=== PATIENT | female | born 1945 | race Caucasian/White ===

== ENCOUNTER 2016-09-28 14:45 | Emergency (ER) | payer MEDICARE, OTHER ==
[2016-09-28 15:10] VITALS: BP 116/68; PULSE 77; TEMP 98.4; BMI 30.2
--- NOTE | 2016-09-28 15:38 | PDOC ---
History of Present Illness - General Chief Complaint: Injury Stated Complaint: RIGHT FINGER INJURY Time Seen by Provider: 09/28/16 15:11 History Source: Patient Exam Limitations: No Limitations - History of Present Illness Initial Comments: 09/28/16 15:28 This is a 71yo right handed woman with PMH CAD with stent x4, DM and hypothyroidism who presents with pain and swelling to pad of DIP on right 3rd digit progressing over 6 days s/p striking digit on a door on 09/22. She reports she tried to go out of a door when it was opened from the opposite side and struck the distal tip. Since that time, the pain and swelling has progressed. She states this morning, there was a discharge from the distal tip. She then stuck a needle into the swelling which expressed nothing. No erythema or streaking present. 09/28/16 15:47 Timing/Duration: getting worse Severity: moderate Past History - Past Medical History Allergies/Adverse Reactions: Allergies Allergy/AdvReac Type Severity Reaction Status Date / Time No Known Drug Allergies Allergy Unknown Verified 09/28/16 14:59 CLAMS Allergy Vomiting Uncoded 09/28/16 14:59 Home Medications: Ambulatory Orders Metoprolol Tartrate [Lopressor -] 25 mg PO DAILY #1 tab 12/17/11 Losartan Potassium 25 mg PO DAILY 11/03/13 Albuterol Sulfate Inhaler - [Ventolin HFA Inhaler -] 1 - 2 inh PO ASDIR Aspirin [ASA -] 81 mg PO DAILY 03/15/15 Esomeprazole Mag Trihydrate [Nexium] 40 mg PO DAILY 03/15/15 Levothyroxine [Synthroid -] 25 mcg PO DAILY 03/15/15 Metformin HCl 500 mg PO BID 03/15/15 Prasugrel Hydrochloride [Effient -] 10 mg PO DAILY 03/15/15 Rosuvastatin Calcium [Crestor] 5 mg PO DAILY 03/15/15 Sitagliptin Phosphate [Januvia -] 100 mg PO DAILY 03/15/15 Amoxicillin - [Amoxicillin 500mg Capsule -] 500 mg PO TID #18 capsule 03/18/15 Azithromycin 250 mg PO DAILY #1 tablet 03/18/15 Budesonide/Formeterol Fumarate [SYMBICORT 160/4.5mcg -] 1 puff IH BID #3 inhaler 03/18/15 Prednisone 10 mg PO DAILY #30 tablet 03/18/15 Cefuroxime Axetil [Ceftin -] 500 mg PO Q12H #40 tablet 09/28/16 Anemia: No Asthma: Yes Cancer: No Cardiac Disorders: Yes ([place]) CVA: No COPD: No CHF: No Dementia: No Diabetes: Yes (non insulin dep) GI Disorders: No Disorders: No HTN: Yes Hypercholesterolemia: Yes Liver Disease: No Seizures: No Thyroid Disease: No - Surgical History Abdominal Surgery: No Appendectomy: No Cardiac Surgery: Yes (3 CARDIAC STENTS) Cholecystectomy: No Lung Surgery: No Neurologic Surgery: No Orthopedic Surgery: No - Psycho/Social/Smoking Cessation Hx Anxiety: No Suicidal Ideation: No Smoking Status: Yes Smoking History: Never smoked Years of Tobacco Use: 20 Have you smoked in the past 12 months: No Number of Cigarettes Smoked Daily: 0 If you are a former smoker, when did you quit?: 12 years ago Information on smoking cessation initiated: No Hx Alcohol Use: No Drug/Substance Use Hx: No Substance Use Type: None Hx Substance Use Treatment: No Review of Systems - Review of Systems Able to Perform ROS?: Yes Is the patient limited Taiwanese proficient: No Constitutional: No: Symptoms Reported HEENTM: No: Symptoms Reported Respiratory: No: Symptoms reported Cardiac (ROS): No: Symptoms Reported ABD/GI: No: Symptoms Reported : No: Symptoms Reported Musculoskeletal: Yes: See HPI Integumentary: No: Symptoms Reported Neurological: No: Symptoms reported *Physical Exam - Vital Signs Last Vital Signs Temp Pulse Resp BP Pulse Ox 98.4 F 77 18 116/68 97 09/28/16 14:59 09/28/16 14:59 09/28/16 14:59 09/28/16 14:59 09/28/16 14:59 - Physical Exam General Appearance: Yes: Appropriately Dressed. No: Apparent Distress HEENT: positive: MICHAEL. negative: Normal ENT Inspection Neck: positive: Trachea midline, Supple Cardiovascular: positive: Regular Rhythm, Regular Rate, S1, S2 Gastrointestinal/Abdominal: positive: Normal Bowel Sounds, Soft. negative: Tender, Organomegaly Musculoskeletal: positive: Normal Inspection. negative: CVA Tenderness Extremity: positive: Tender (right 3rd digit swelling which is tender to palpation on the pad of the finger), Swelling (right 3rd digit swelling which is tender to palpation on the pad of the finger) Integumentary: positive: Normal Color, Dry, Warm Neurologic: positive: pay per click strategist II-XII NML intact, Fully Oriented, Alert Procedures - Incision and Drainage I&D Site: Right: Other (felon to distal tip 3rd digit on the volar aspect) Betadine cleansed: Yes Anesthesia: 2% Lidocaine Volume(ml): 5 Blade Size: 11 Attempts: 1 Plain Packing: No Complications: none Dressing: Yes (dry sterile) Progress: 09/28/16 19:55 pus and blood expressed from site. ED Treatment Course - RADIOLOGY Radiology Studies Ordered: Category Date Time Status FINGER(S) RIGHT [RAD] Stat Radiology 09/28/16 15:23 Ordered Medical Decision Making - Medical Decision Making 09/28/16 15:44 A: This is a 71yo right handed woman with PMH CAD with stent x4, DM and hypothyroidism who presents with pain and swelling to pad of DIP on right 3rd digit progressing over 6 days s/p striking digit on a door on 09/22. She reports she tried to go out of a door when it was opened from the opposite side and struck the distal tip. Since that time, the pain and swelling has progressed. She states this morning, there was a discharge from the distal tip. She then stuck a needle into the swelling which expressed nothing. No erythema or streaking present. P: DDX include felon, osteomyelitis, fracture - x ray finger - Tylenol 1000mg now - ortho consult 09/28/16 18:12 Xray of right 3rd digit wet read- No acute fracture present. 09/28/16 19:53 case d/w Dr. Padilla. He recommends to I&D here and abx. *DC/Admit/Observation/Transfer Diagnosis at time of Disposition: Felon of finger of right hand - Discharge Dispostion Disposition: HOME Condition at time of disposition: Stable Admit: No - Prescriptions Prescriptions: Cefuroxime Axetil [Ceftin -] 500 mg PO Q12H #40 tablet - Referrals Referrals: Arlette Castro MD [Primary Care Provider] - - Patient Instructions Printed Discharge Instructions: Roddy Additional Instructions: Take Ceftin 500mg 2x every day until all medication is finished. Keep dressing dry for 2 days. Use bacitracin to wound as needed after 2 days. Keep well hydrated. Follow up with Dr. Castro in 2 days. Return to ER for worsening pain, swelling, redness, fever or chills.
[2016-09-28] MEDS ORDERED: ACETAMINOPHEN 500 MG TABLET (FP) PO ONE (15:50)
[2016-09-28] MEDS ORDERED: ACETAMINOPHEN 325 MG TABLET (FP) ONE (15:55)
== END 2016-09-28 20:10 | disposition home or self-care (01) ==
LOC: JERFT 14:45
PROC: 0H9FXZZ Drainage of Right Hand Skin, External Approach (ICD-10-PCS; principal; 2016-09-28)
DX: L03.011 Cellulitis of right finger (principal); E11.9 Type 2 diabetes mellitus without complications; E03.9 Hypothyroidism, unspecified; W20.8XXA Other cause of strike by thrown, projected or falling object, initial encounter; Y93.89 Activity, other specified; Y92.9 Unspecified place or not applicable
CPT/HCPCS: 10140; 73140-TC-RT; 99281-25

== ENCOUNTER 2016-11-01 15:42 | Emergency (ER) | payer MEDICARE, OTHER ==
[2016-11-01 15:56] VITALS: BMI 31.4
[2016-11-01] MEDS ORDERED: SODIUM CHLORIDE 1,000 ML IV STA (16:21)
--- NOTE | 2016-11-01 16:26 | PDOC ---
History of Present Illness - General History Source: Patient Exam Limitations: No Limitations - History of Present Illness Initial Comments: 11/01/16 17:07 The patient is a 71 year old female with a significant past medical history of HTN, DM, HLD, CAD s/p stents x 4 who presents to the ED, sent by PMD, for 3 days of dizziness. The patient reports intermittent lightheadedness that is worsened when she bends down. Patient also reports non radiating mid sternal intermittent chest pain lasting 1 second before residing associated with present symptoms. Patient reports she had an appointment with her PMD earlier today and was sent to the ED for high blood pressure, abnormal ECG, and a UTI. Patient states she regularly takes a baby aspirin on a daily basis but denies taking it today. Denies fevers or chills. Denies shortness of breath or palpitations. Denies dysuria or changes in urinary output. Denies any other symptoms. <Jagjit Warner - Last Filed: 11/01/16 17:58> - General History Source: Patient Exam Limitations: No Limitations <Christian Miner - Last Filed: 11/01/16 18:41> - General Chief Complaint: Chest Pain Stated Complaint: ABNORMAL EKG Time Seen by Provider: 11/01/16 16:04 Past History <Jagjit Warner - Last Filed: 11/01/16 17:58> - Past Medical History Anemia: No Asthma: Yes Cancer: No Cardiac Disorders: Yes ([place]) CVA: No COPD: No CHF: No Dementia: No Diabetes: Yes (non insulin dep) GI Disorders: No Disorders: No HTN: Yes Hypercholesterolemia: Yes Liver Disease: No Seizures: No Thyroid Disease: No - Surgical History Abdominal Surgery: No Appendectomy: No Cardiac Surgery: Yes (3 CARDIAC STENTS) Cholecystectomy: No Lung Surgery: No Neurologic Surgery: No Orthopedic Surgery: No - Psycho/Social/Smoking Cessation Hx Anxiety: No Suicidal Ideation: No Smoking Status: Yes Smoking History: Former smoker Years of Tobacco Use: 20 Have you smoked in the past 12 months: No Number of Cigarettes Smoked Daily: 0 If you are a former smoker, when did you quit?: 12 years ago Information on smoking cessation initiated: No Hx Alcohol Use: No Drug/Substance Use Hx: No Substance Use Type: None Hx Substance Use Treatment: No <Christian Miner - Last Filed: 11/01/16 18:41> - Past Medical History Allergies/Adverse Reactions: Allergies Allergy/AdvReac Type Severity Reaction Status Date / Time No Known Drug Allergies Allergy Unknown Verified 09/28/16 14:59 CLAMS Allergy Vomiting Uncoded 09/28/16 14:59 Home Medications: Ambulatory Orders Metoprolol Tartrate [Lopressor -] 25 mg PO DAILY #1 tab 12/17/11 Losartan Potassium 25 mg PO DAILY 11/03/13 Albuterol Sulfate Inhaler - [Ventolin HFA Inhaler -] 1 - 2 inh PO ASDIR Aspirin [ASA -] 81 mg PO DAILY 03/15/15 Esomeprazole Mag Trihydrate [Nexium] 40 mg PO DAILY 03/15/15 Levothyroxine [Synthroid -] 25 mcg PO DAILY 03/15/15 Metformin HCl 500 mg PO BID 03/15/15 Prasugrel Hydrochloride [Effient -] 10 mg PO DAILY 03/15/15 Rosuvastatin Calcium [Crestor] 5 mg PO DAILY 03/15/15 Sitagliptin Phosphate [Januvia -] 100 mg PO DAILY 03/15/15 Budesonide/Formeterol Fumarate [SYMBICORT 160/4.5mcg -] 1 puff IH BID #3 inhaler 03/18/15 Cefuroxime Axetil [Ceftin -] 500 mg PO Q12H #40 tablet 09/28/16 Cephalexin [Keflex] 500 mg PO BID #14 capsule 11/01/16 Review of Systems - Review of Systems Able to Perform ROS?: Yes Comments:: 11/01/16 17:08 GENERAL/CONSTITUTIONAL: No fever or chills. No weakness. HEAD, EYES, EARS, NOSE AND THROAT: No change in vision. No ear pain or discharge. No sore throat. CARDIOVASCULAR: + chest pain. No shortness of breath. RESPIRATORY: No cough, wheezing, or hemoptysis. GASTROINTESTINAL: No nausea, vomiting, diarrhea or constipation. GENITOURINARY: No dysuria, frequency, or change in urination. MUSCULOSKELETAL: No joint or muscle swelling or pain. No neck or back pain. SKIN: No rash NEUROLOGIC:+ lightheadedness, dizziness. No headache, vertigo, loss of consciousness, or change in strength/sensation. ENDOCRINE: No increased thirst. No abnormal weight change. HEMATOLOGIC/LYMPHATIC: No anemia, easy bleeding, or history of blood clots. ALLERGIC/IMMUNOLOGIC: No hives or skin allergy. All Other Systems: Reviewed and Negative <Jagjit Warner - Last Filed: 11/01/16 17:58> *Physical Exam - Vital Signs Last Vital Signs Temp Pulse Resp BP Pulse Ox 98.4 F 68 20 137/55 98 11/01/16 15:44 11/01/16 15:44 11/01/16 15:44 11/01/16 15:44 11/01/16 15:44 - Physical Exam Comments: 11/01/16 17:08 GENERAL: Awake, alert, and fully oriented, in no acute distress HEAD: No signs of trauma EYES: PERRLA, EOMI, sclera anicteric, conjunctiva clear ENT: Auricles normal inspection, hearing grossly normal, nares patent, oropharynx clear without exudates. Moist mucosa NECK: Normal ROM, supple, no lymphadenopathy, JVD, or masses LUNGS: Breath sounds equal, clear to auscultation bilaterally. No wheezes, and no crackles HEART: Regular rate and rhythm, normal S1 and S2, no murmurs, rubs or gallops ABDOMEN: Soft, nontender, normoactive bowel sounds. No guarding, no rebound. No masses EXTREMITIES: Normal range of motion, no edema. No clubbing or cyanosis. No cords, erythema, or tenderness NEUROLOGICAL: Normal speech SKIN: Warm, Dry, normal turgor, no rashes or lesions noted. <Jagjit Warner - Last Filed: 11/01/16 17:58> - Vital Signs Last Vital Signs Temp Pulse Resp BP Pulse Ox 98.4 F 68 20 137/55 98 11/01/16 15:44 11/01/16 15:44 11/01/16 15:44 11/01/16 15:44 11/01/16 15:44 <Christian Miner - Last Filed: 11/01/16 18:41> Heart Score/ECG Review - History History: Slightly suspicious - Electrocardiogram EKG: Non specific repolarization disturbance - Age Age: >/= 65 - Risk Factors Based on the list above the patient has:: >/=3 risk factors or Hx atherosclerotic disease #1 ECG reviewed & interpreted by me at: 16:00 11/01/16 16:28 NSR 74, Q wave III, aVF, TWI III, no std/sidney, QTC 452 msec <Christian Miner - Last Filed: 11/01/16 18:41> ED Treatment Course - LABORATORY CBC & Chemistry Diagram: 11/01/16 16:25 11/01/16 16:25 - ADDITIONAL ORDERS Additional order review: Laboratory Results 11/01/16 16:25 INR 0.99 PTT (Actin FS) 28.5 11/01/16 16:25 RBC 4.97 MCV 88.6 MCHC 34.3 RDW 12.8 MPV 7.3 L Neutrophils % 65.6 D Lymphocytes % 20.6 D Monocytes % 9.5 Eosinophils % 2.9 D Basophils % 1.4 D <Jagjit Warner - Last Filed: 11/01/16 17:58> - LABORATORY CBC & Chemistry Diagram: 11/01/16 16:25 11/01/16 16:25 <Christian Miner - Last Filed: 11/01/16 18:41> Medical Decision Making - Medical Decision Making 11/01/16 17:[address] Castro at 17:58 <Jagjit Warner - Last Filed: 11/01/16 17:58> - Medical Decision Making 11/01/16 16:23 A portion of this note was written by my scribe, under my supervision. Vital Signs Temp Pulse Resp BP Pulse Ox 98.4 F 68 20 137/55 98 11/01/16 15:44 11/01/16 15:44 11/01/16 15:44 11/01/16 15:44 11/01/16 15:44 71 year old F c/ hx of asthma, HTN, DM, HLD, CAD s/p 4 cardiac stents sent in for dizziness and abnormal ECG. The patient reports 3 days of intermittent lightheadedness worsened with bending. Denied SOB, diaphoresis, nausea, and vomiting. Does states that she has been having intermittent 1 second episode of sharp midsternal chest pain with no radiation several times a day. Denies exertional component. Denies recent illnesses. Went to visit Dr. Citlaly Castro who diagnosed pt with UTI. Noted the low BP and sent the pt to the ER. This could potentially be an UTI causing these symptoms. Though the chest pain is atypical in diagnosis, with a history of cardiac disease, will need to send troponin. Will obtain a UA and labs including troponin. ECG is notable for Q wave in III, aVF. Will give IV fluids and reassess. 11/01/16 18:33 CBC, BMP 11/01/16 16:25 11/01/16 16:25 CMP Sodium 138 mmol/L (136-145) 11/01/16 16:25 Potassium 3.9 mmol/L (3.5-5.1) 11/01/16 16:25 Chloride 105 mmol/L (98-107) 11/01/16 16:25 Carbon Dioxide 24 mmol/L (21-32) 11/01/16 16:25 Anion Gap 9 (8-16) 11/01/16 16:25 BUN 11 mg/dL (7-18) 11/01/16 16:25 Creatinine 0.5 mg/dL (0.55-1.02) L D 11/01/16 16:25 Creat Clearance w eGFR > 60 (>60) 11/01/16 16:25 Random Glucose 225 mg/dL (74-106) H D 11/01/16 16:25 Calcium 8.5 mg/dL (8.5-10.1) 11/01/16 16:25 Magnesium 2.1 mg/dL (1.8-2.4) 11/01/16 16:25 Total Bilirubin 0.5 mg/dL (0.2-1.0) D 11/01/16 16:25 AST 19 U/L (15-37) D 11/01/16 16:25 ALT 23 U/L (12-78) D 11/01/16 16:25 Alkaline Phosphatase 45 U/L (45-117) 11/01/16 16:25 Creatine Kinase 58 IU/L (26-192) 11/01/16 16:25 Troponin I < 0.02 ng/ml (0.00-0.05) 11/01/16 16:25 Total Protein 6.5 g/dl (6.4-8.2) 11/01/16 16:25 Albumin 3.2 g/dl (3.4-5.0) L 11/01/16 16:25 ECG is unchanged. UA positive for infection. Microbiology reviewed. Ceftriaxone ordered. I discussed the case with the nurse practitioner from 's office. She was concerned that the patient was not taking her diabetes medication and had an elevated hemoglobin A1c of 15. However, the nurse practitioner noted the Q waves. However, Q waves are old and unchanged. Patient has a very atypical chest pain and a negative troponin. I have low suspicion for acute coronary syndrome at this time. However, I had advised the patient that she should take her diabetes medications. I suspect the patient's lightheadedness is secondary to urinary tract infection. Her blood pressures were stable. Patient is stable and discuss to go home. I feel the patient is okay to go home. I discussed the physical exam findings, ancillary test results and final diagnoses with the patient. I answered all of the patient's questions. The patient was satisfied with the care received and felt comfortable with the discharge plan and treatment plan. The patient will call their primary care physician within 24 hours to arrange follow-up and will return to the Emergency Department with any new, persistant or worsening symptoms. I had spoke <Christian Miner - Last Filed: 11/01/16 18:41> *DC/Admit/Observation/Transfer - Attestations Scribe Attestion: 11/01/16 17:08 Documentation prepared by Jagjit Warner, acting as medical billing and coding instructor for Christian Miner MD <Jagjit Warner - Last Filed: 11/01/16 17:58> - Discharge Dispostion Admit: No <Christian Miner - Last Filed: 11/01/16 18:41> Diagnosis at time of Disposition: UTI (urinary tract infection) Qualifiers: Urinary tract infection type: site unspecified Hematuria presence: without hematuria Qualified Code(s): N39.0 - Urinary tract infection, site not specified - Discharge Dispostion Disposition: HOME Condition at time of disposition: Improved - Prescriptions Prescriptions: Cephalexin [Keflex] 500 mg PO BID #14 capsule - Referrals Referrals: Arlette Castro MD [Primary Care Provider] - - Patient Instructions Printed Discharge Instructions: DI for Urinary Tract Infection (UTI) Additional Instructions: Start your antibiotics tomorrow at 11/02. Start keflex 500 mg every 12 hours for the next 7 days. Drink plenty of fluids and rest. Follow up with your doctor. Print Language: MALAY
[2016-11-01 16:33] LABS: BASOPHIL 1.4 % (0-2.0); EOSINOPHIL 2.9 % (0-4.5); MCH 30.4 pg (25.7-33.7); MCHC 34.3 g/dl (32.0-36.0); MEAN CELL VOLUME 88.6 fl (80-96); MEAN PLT VOLUME 7.3 fl (7.5-11.1); NEUTROPHILS 65.6 % (42.8-82.8); PLATELET COUNT 197 K/MM3 (134-434); RDW 12.8 % (11.6-15.6); WHITE BLOOD COUNT 4.6 K/mm3 (4.0-10.0)
[2016-11-01 16:46] LABS: INR 0.99 (0.82-1.09); PROTHROMBIN TIME (PATIENT) 10.9 SEC (9.98-11.88)
[2016-11-01 16:49] LABS: ACTIVATED PTT 28.5 SECONDS (26.9-34.4)
[2016-11-01 17:10] LABS: ALBUMIN 3.2 g/dl (3.4-5.0); ANION GAP 9 (8-16); CALCIUM 8.5 mg/dL (8.5-10.1); CO2 24 mmol/L (21-32); GLUCOSE,RANDOM 225 mg/dL (74-106); SGPT/ALT 23 U/L (12-78)
[2016-11-01 17:15] LABS: ALK PHOS 45 U/L (45-117); BILIRUBIN,TOTAL 0.5 mg/dL (0.2-1.0); CPK 58 IU/L (26-192); CREATININE 0.5 mg/dL (0.55-1.02); TOT PROT 6.5 g/dl (6.4-8.2); TROPONIN I < 0.02 ng/ml (0.00-0.05)
[2016-11-01 17:16] LABS: MAGNESIUM 2.1 mg/dL (1.8-2.4); SGOT/AST 19 U/L (15-37)
[2016-11-01 17:21] LABS: URINE APPEARANCE CLEAR; URINE BILIRUBIN NEGATIVE (NEGATIVE); URINE BLOOD NEGATIVE (NEGATIVE); URINE COLOR LT. YELLOW; URINE GLUCOSE (UA) 2+ (NEGATIVE); URINE KETONE NEGATIVE (NEGATIVE); URINE PROTEIN NEGATIVE (NEGATIVE); URINE UROBILINOGEN 0.2 mg/dL (0.2-1.0)
[2016-11-01 17:42] LABS: URINE LEUK ESTERASE 1+ (NEGATIVE); URINE NITRITE POSITIVE (NEGATIVE)
[2016-11-01] MEDS ORDERED: CEFTRIAXONE 1 GM in DEXTROSE 5%-WATER - 50 ML IVPB ONE (17:48)
[2016-11-01] MEDS ORDERED: CEFTRIAXONE 50 ML ONE (18:19)
[2016-11-01 18:25] LABS: URINE BACTERIA RARE /hpf (NONE SEEN); URINE MUCUS RARE; URINE RBC 1 /hpf (0-3); URINE WBC 7 /hpf (3-5)
[2016-11-01 18:38] VITALS: BP 141/74; PULSE 87; TEMP 98
--- NOTE | 2016-11-02 10:26 | EKG ---
Test Reason : Blood Pressure : / mmHG Vent. Rate : 074 BPM Atrial Rate : 074 BPM P-R Int : 146 ms QRS Dur : 080 ms QT Int : 408 ms P-R-T Axes : 052 -18 -04 degrees QTc Int : 452 ms NORMAL SINUS RHYTHM INFERIOR INFARCT (CITED ON OR BEFORE 29-SEP-2011) NONSPECIFIC ST ABNORMALITY Confirmed by PHYLLIS VALDES MD ([id number]) on 11/02/2016 10:25:41 AM Referred By: Confirmed By:PHYLLIS VALDES MD
== END 2016-11-01 19:13 | disposition home or self-care (01) ==
LOC: JER 15:42
PROC: 3E03329 Introduction of Other Anti-infective into Peripheral Vein, Percutaneous Approach (ICD-10-PCS; principal; 2016-11-01)
PROC: 3E0337Z Introduction of Electrolytic and Water Balance Substance into Peripheral Vein, Percutaneous Approach (ICD-10-PCS; 2016-11-01)
DX: N39.0 Urinary tract infection, site not specified (principal); I10 Essential (primary) hypertension; I25.10 Atherosclerotic heart disease of native coronary artery without angina pectoris; E11.9 Type 2 diabetes mellitus without complications; Z95.5 Presence of coronary angioplasty implant and graft; J45.909 Unspecified asthma, uncomplicated; Z87.891 Personal history of nicotine dependence; Z91.013 Allergy to seafood; Z79.82 Long term (current) use of aspirin; Z79.84 Long term (current) use of oral hypoglycemic drugs
CPT/HCPCS: 36415; 80053; 81003; 81015; 83735; 84484; 85025; 85610; 85730; 87086; 87186; 93005; 93010; 99284-25

== ENCOUNTER 2017-10-04 02:23 | Inpatient (IN) | payer MEDICARE, OTHER ==
--- NOTE | 2017-10-04 02:33 | PDOC ---
Attending Attestation - [facility] HPI: 10/04/17 02:47 The patient is a 72 year old female, with a significant PMH of HTN, DM, HLD, CAD s/p stents x 4 who presents to the emergency department with one day of left sided chest pain. The patient states she has had progressively worsening left sided chest pain over the past 24 hours which is worsened with inspiration. The patient denies history of PE. The patient denies any recent travel. She denies any recent palpitations or leg swelling. The patient also endorses mild dysuria. The patient denies shortness of breath, headache and dizziness. Denies fever, chills, nausea, vomit, diarrhea and constipation. Denies frequency, urgency and hematuria. Allergies: NKA - Physicial Exam PE: 10/04/17 02:47 GENERAL: Well developed, well nourished. Awake and alert. No acute distress. HEENT: Normocephalic, atraumatic. PERRLA, EOMI. No conjunctival pallor. Sclera are non- icteric. Moist mucous membranes. Oropharynx is clear. NECK: Supple. Full ROM. No JVD. Carotid pulses 2+ and symmetric, without bruits. No thyromegaly. No lymphadenopathy. CARDIOVASCULAR: Regular rate and rhythm. No murmurs, rubs, or gallops. Distal pulses are 2+ and symmetric. PULMONARY: No evidence of respiratory distress. Lungs clear to auscultation bilaterally. No wheezing, rales or rhonchi. ABDOMINAL: Soft. Non-tender. Non-distended. No rebound or guarding. No organomegaly. Normoactive bowel sounds. MUSCULOSKELETAL Normal range of motion at all joints. No bony deformities or tenderness. No CVA tenderness. EXTREMITIES: No cyanosis. No clubbing. No edema. No calf tenderness. SKIN: Warm and dry. Normal capillary refill. No rashes. No jaundice. NEUROLOGICAL: Alert, awake, appropriate. Cranial nerves 2-12 intact. No deficits to light touch and temperature in face, upper extremities and lower extremities. No motor deficits in the in face, upper extremities and lower extremities. Normoreflexic in the upper and lower extremities. Normal speech. Toes are down- going bilaterally. Gait is normal without ataxia. PSYCHIATRIC: Cooperative. Good eye contact. Appropriate mood and affect. <Bryan Vences - Last Filed: 10/04/17 02:47> - Resident Resident Name: OsmarFransico osman - ED Attending Attestation I have performed the following: I have examined & evaluated the patient, The case was reviewed & discussed with the resident, I agree w/resident's findings & plan, Exceptions are as noted - Medical Decision Making 10/07/17 19:30 Pt was admitted for further evaluation and care <Yanick Cameron - Last Filed: 10/07/17 19:31> Attestations - Attestations 10/04/17 02:48 Documentation prepared by Bryan Vences, acting as vp medical for Yanick Cameron DO. <Bryan Vences - Last Filed: 10/04/17 02:47>
[2017-10-04] MEDS ORDERED: ASPIRIN 81 MG CHEWABLE TABLETS PO ONE (02:44)
--- NOTE | 2017-10-04 02:59 | PDOC ---
History of Present Illness - General Chief Complaint: Chest Pain Stated Complaint: CHEST PAIN Time Seen by Provider: 10/04/17 02:31 History Source: Patient Exam Limitations: No Limitations - History of Present Illness Initial Comments: 10/04/17 02:53 Patient is a 72F with history of HTN, DM, HLD, CAD s/p 4 stents here today complaining of 24 hours of gradually worsening chest pain. The pain is located in the left side of her chest and is worsened with inspiration. Denies fevers, chills, cough, nausea, and vomiting. Denies changes with exertion and rest. Denies leg swelling, prior blood clots and recent travel. Endorses associated shortness of breath. She does endorse pain with urination. Past History - Past Medical History Allergies/Adverse Reactions: Allergies Allergy/AdvReac Type Severity Reaction Status Date / Time No Known Drug Allergies Allergy Unknown Verified 10/04/17 02:37 CLAMS Allergy Vomiting Uncoded 10/04/17 02:37 Home Medications: Ambulatory Orders Metoprolol Tartrate [Lopressor -] 25 mg PO DAILY #1 tab 12/17/11 Losartan Potassium 25 mg PO DAILY 11/03/13 Albuterol Sulfate Inhaler - [Ventolin HFA Inhaler -] 1 - 2 inh PO ASDIR Aspirin [ASA -] 81 mg PO DAILY 03/15/15 Esomeprazole Mag Trihydrate [Nexium] 40 mg PO DAILY 03/15/15 Levothyroxine [Synthroid -] 25 mcg PO DAILY 03/15/15 Prasugrel Hydrochloride [Effient -] 10 mg PO DAILY 03/15/15 Rosuvastatin Calcium [Crestor] 5 mg PO DAILY 03/15/15 Sitagliptin Phosphate [Januvia -] 100 mg PO DAILY 03/15/15 metFORMIN HCL [Metformin HCl] 500 mg PO BID 03/15/15 Budesonide/Formeterol Fumarate [SYMBICORT 160/4.5mcg -] 1 puff IH BID #3 inhaler 03/18/15 Cefuroxime Axetil [Ceftin -] 500 mg PO Q12H #40 tablet 09/28/16 Cephalexin [Keflex] 500 mg PO BID #14 capsule 11/01/16 Anemia: No Asthma: Yes Cancer: No Cardiac Disorders: Yes ([place]) CVA: No COPD: No CHF: No Dementia: No Diabetes: Yes (non insulin dep) GI Disorders: No Disorders: No HTN: Yes Hypercholesterolemia: Yes Liver Disease: No Seizures: No Thyroid Disease: No - Surgical History Abdominal Surgery: No Appendectomy: No Cardiac Surgery: Yes (3 CARDIAC STENTS) Cholecystectomy: No Lung Surgery: No Neurologic Surgery: No Orthopedic Surgery: No - Suicide/Smoking/Psychosocial Hx Smoking Status: Yes Smoking History: Never smoked Years of Tobacco Use: 20 Have you smoked in the past 12 months: No Number of Cigarettes Smoked Daily: 0 If you are a former smoker, when did you quit?: 12 years ago Information on smoking cessation initiated: No Hx Alcohol Use: No Drug/Substance Use Hx: No Substance Use Type: None Hx Substance Use Treatment: No Review of Systems - Review of Systems Comments:: 10/04/17 02:54 GENERAL/CONSTITUTIONAL: No fever or chills. No weakness. HEAD, EYES, EARS, NOSE AND THROAT: No change in vision. No sore throat. CARDIOVASCULAR: +chest pain +shortness of breath RESPIRATORY: No cough, wheezing, or hemoptysis. GASTROINTESTINAL: No nausea, vomiting, diarrhea or constipation. GENITOURINARY: No dysuria, frequency, or change in urination. MUSCULOSKELETAL: No joint or muscle swelling or pain. No neck or back pain. SKIN: No rash NEUROLOGIC: No headache, vertigo, loss of consciousness, or change in strength/ sensation. ENDOCRINE: No increased thirst. No abnormal weight change HEMATOLOGIC/LYMPHATIC: No anemia, easy bleeding, or history of blood clots. ALLERGIC/IMMUNOLOGIC: No hives or skin allergy. *Physical Exam - Vital Signs Last Vital Signs Temp Pulse Resp BP Pulse Ox 98.4 F 67 18 110/68 97 10/04/17 02:37 10/04/17 02:37 10/04/17 02:37 10/04/17 02:37 10/04/17 02:37 - Physical Exam Comments: 10/04/17 02:55 GENERAL: Awake, alert, and fully oriented, in no acute distress HEAD: No signs of trauma, normocephalic, atraumatic EYES: PERRLA, EOMI, sclera anicteric, conjunctiva clear ENT: Auricles normal inspection, hearing grossly normal, nares patent, oropharynx clear without exudates. Moist mucosa NECK: Normal ROM, supple, no lymphadenopathy, JVD, or masses LUNGS: No distress, speaks full sentences, clear to auscultation bilaterally HEART: Regular rate and rhythm, normal S1 and S2, no murmurs, rubs or gallops, peripheral pulses normal and equal bilaterally. ABDOMEN: Soft, nontender, normoactive bowel sounds. No guarding, no rebound. No masses EXTREMITIES: Normal inspection, Normal range of motion, no edema. No clubbing or cyanosis. NEUROLOGICAL: Cranial nerves II through XII grossly intact. Normal speech, no focal sensorimotor deficits SKIN: Warm, Dry, normal turgor, no rashes or lesions noted. ED Treatment Course - LABORATORY CBC & Chemistry Diagram: 10/04/17 03:14 10/04/17 04:35 - RADIOLOGY Radiology Studies Ordered: Category Date Time Status CXRPORT [CHEST X-RAY PORTABLE*] [RAD] Stat Radiology 10/04/17 02:46 Ordered Medical Decision Making - Medical Decision Making 10/04/17 02:55 Patient is 72F with history of HTN, DM, HLD and CAD s/p stenting x4 here with chest pain. Vital signs stable and normal. DDx includes, but is not limited to: ACS, arrhythmia, pneumonia. Do not believe that patient has PE given history, vital signs and exam. Will do cardiac workup. EKG shows normal sinus rhythm with rate of 77. No st elevations/depressions. T wave inversions in lead III, flattened in aVF and V3. Intervals normal. 10/04/17 04:41 CXR shows no acute cardiopulmonary process. 10/04/17 05:21 Laboratory Tests 10/04/17 10/04/17 10/04/17 03:14 03:14 04:01 WBC 5.1 Hgb 14.2 Plt Count 239 D INR 0.94 Troponin I Ur Leukocyte Esterase 2+ H Urine WBC (Auto) 348 10/04/17 04:35 WBC Hgb Plt Count INR Troponin I < 0.02 Ur Leukocyte Esterase Urine WBC (Auto) CBC normal. INR normal. UA positive for infection. Troponin undetectable. HEART score 4. Will give 1g ceftriaxone and admit to tele obs. 10/04/17 05:[address] Willingham. *DC/Admit/Observation/Transfer Diagnosis at time of Disposition: Chest pain, UTI (urinary tract infection) - Discharge Dispostion Condition at time of disposition: Stable Decision to Admit order: Yes - Referrals Referrals: Arlette Castro MD [Primary Care Provider] - - Patient Instructions - Post Discharge Activity
[2017-10-04] MEDS ORDERED: ASPIRIN COATED 81 MG TABLET.EC ONE (04:02)
[2017-10-04 04:03] LABS: BASO % 0.9 % (0-2.0); EOS % 3.7 % (0-4.5); HEMATOCRIT 42.1 % (32.4-45.2); HEMOGLOBIN 14.2 GM/dL (10.7-15.3); LYMPH % 16.9 % (8-40); MCHC 33.7 g/dl (32.0-36.0); MEAN CELL VOLUME 89.1 fl (80-96); MEAN PLT VOLUME 7.3 fl (7.5-11.1); MONO % 9.9 % (3.8-10.2); NEUT % 68.6 % (42.8-82.8); PLATELET COUNT 239 K/MM3 (134-434); RBC 4.73 M/mm3 (3.60-5.2); RDW 13.7 % (11.6-15.6); WHITE BLOOD COUNT 5.1 K/mm3 (4.0-10.0)
[2017-10-04 04:13] LABS: URINE APPEARANCE CLOUDY; URINE BILIRUBIN NEGATIVE (<2.0 mg/dL); URINE COLOR YELLOW; URINE GLUCOSE (UA) 3+ (NEGATIVE); URINE KETONE NEGATIVE (NEGATIVE); URINE NITRITE NEGATIVE (NEGATIVE); URINE PROTEIN NEGATIVE (NEGATIVE); URINE UROBILINOGEN NEGATIVE mg/dL (0.2-1.0)
[2017-10-04 04:15] LABS: INR 0.94 (0.82-1.09); PROTHROMBIN TIME (PATIENT) 10.6 SEC (9.7-13.0)
[2017-10-04 04:25] LABS: URINE LEUK ESTERASE 2+ (NEGATIVE)
[2017-10-04 04:29] LABS: EPI CELLS RARE /HPF (FEW); URINE BACTERIA MODERATE /hpf (NONE SEEN); URINE MUCUS RARE; YEAST RARE
[2017-10-04] MEDS ORDERED: CEFTRIAXONE 1,000 MG in DEXTROSE 5%-WATER - 50 ML IVPB ONE (04:51)
[2017-10-04] MEDS ORDERED: CEFTRIAXONE 1 GM/50 ML BAG ONE (04:57)
[2017-10-04 05:10] LABS: ALBUMIN 3.4 g/dl (3.4-5.0); ANION GAP 8 (8-16); BILIRUBIN,TOTAL 0.4 mg/dL (0.2-1.0); BLOOD UREA NITROGEN 21 mg/dL (7-18); CALCIUM 8.8 mg/dL (8.5-10.1); CHLORIDE 106 mmol/L (98-107); CO2 26 mmol/L (21-32); CREATININE 0.9 mg/dL (0.55-1.02); GLUCOSE,RANDOM 101 mg/dL (74-106); MAGNESIUM 2.1 mg/dL (1.8-2.4); POTASSIUM 3.9 mmol/L (3.5-5.1); SGOT/AST 20 U/L (15-37); SGPT/ALT 23 U/L (12-78); SODIUM 140 mmol/L (136-145); TOT PROT 6.8 g/dl (6.4-8.2)
[2017-10-04 05:13] LABS: ALK PHOS 40 U/L (45-117)
--- NOTE | 2017-10-04 06:27 | PN ---
Teaching Attending Note Name of Resident: Rigoberto Valdez ATTENDING PHYSICIAN STATEMENT I saw and evaluated the patient. I reviewed the resident's note and discussed the case with the resident. I agree with the resident's findings and plan as documented. SUBJECTIVE: Patient is a 72 year old woman with a significant PMH of HTN, NIDDM, HLD, hypothyroidism, CAD s/p stents x 4, prior Acute GA who presents to the ER with one day of left sided /retrosternal chest pain. The patient states she has had progressively worsening chest pain over the past 24 hours which is worsened with inspiration. The patient denies history of SOB or diaphoresis and the pain does not radiate. The last time she had an GA, she says there was no pain. Patient also has mild dysuria. Had UTI in October 2016 due to pansensitive E. coli. OBJECTIVE: Obese, alert and apprehensive. Not in distress. Vital Signs Period Temp Pulse Resp BP Sys/Melchor Pulse Ox Last 24 Hr 98.4 F 67 18 110/68 97 HEENT: No Jaundice, eye redness or discharge, PERRLA, EOMI. Normocephalic, atraumatic. External ears are normal and hearing is grossly intact. No nasal discharge. Neck: Supple, nontender. No palpable adenopathy or thyromegaly. No JVD Chest: Good effort. Clear to auscultation and percussion. No point tenderness. Heart: Regular. No S3, rub or murmur Abdomen: Not distended, soft, nontender and no HSM. No rebound or guarding. Normoactive bowel sounds. Ext: Peripheral pulses intact. No leg edema. Skin: Warm and dry. No petechiae, rash or ecchymosis. Neuro: Alert. Oriented x3. CN 2-12 grossly intact. Sensation grossly intact in all four extremities and DTR are symmetric. Home Medications Medication Instructions Recorded Metoprolol Tartrate [Lopressor -] 25 mg PO DAILY #1 tab 12/17/11 Losartan Potassium 25 mg PO DAILY 11/03/13 Albuterol Sulfate Inhaler - 1 - 2 inh PO ASDIR 03/15/15 [Ventolin HFA Inhaler -] Aspirin [ASA -] 81 mg PO DAILY 03/15/15 Esomeprazole Mag Trihydrate 40 mg PO DAILY 03/15/15 [Nexium] Levothyroxine [Synthroid -] 25 mcg PO DAILY 03/15/15 Prasugrel Hydrochloride [Effient -] 10 mg PO DAILY 03/15/15 Rosuvastatin Calcium [Crestor] 5 mg PO DAILY 03/15/15 Sitagliptin Phosphate [Januvia -] 100 mg PO DAILY 03/15/15 metFORMIN HCL [Metformin HCl] 500 mg PO BID 03/15/15 Budesonide/Formeterol Fumarate 1 puff IH BID #3 inhaler 03/18/15 [SYMBICORT 160/4.5mcg -] Cefuroxime Axetil [Ceftin -] 500 mg PO Q12H #40 tablet 09/28/16 Cephalexin [Keflex] 500 mg PO BID #14 capsule 11/01/16 Abnormal Lab Results 10/04/17 10/04/17 10/04/17 03:14 04:01 04:35 MPV 7.3 L BUN 21 H Alkaline Phosphatase 40 L Urine Glucose (UA) 3+ H Ur Leukocyte Esterase 2+ H ASSESSMENT AND PLAN: 1. Atypical chest pain - She has risk factors for ACS, so will admit to telemetry to rule out ACS. Initial troponin is negative and EKG does not show any significant ST-T wave changes. As per my read, CXR shows ?worsening of chronic RLL interstitial infiltrate - await official report before deciding on next course of action and whether to consult pulmonary. There is no smoking history. Will get ECHO and consult cardiology. Has a history of GERD - ?may need a different PPI since her symptoms may be due to GERD - consult GI. 2. UTI - Will treat with Rocephin 1 gm q 24 hours pending culture result. 3. DM - Curiously has glucosuria with "normal" serum glucose. Recheck urinalysis and do HbA1c; concern is that persistent glucosuria may be predisposing her to recurrent UTI. For now, we will hold the home diabetes drugs and implement sliding scale insulin regimen. Provide comprehensive diabetes care with patient teaching and counseling about the importance of euglycemia, eye care and foot care. 4. Obesity - Will provide patient all the necessary assistance, counseling and positive reinforcement to facilitate weight loss. Consult computer compositor. 5. DVT prophylaxis - Heparin 5000u sq tid. 6. Advance directives - Full code
--- NOTE | 2017-10-04 06:53 | HP ---
CHIEF COMPLAINT: PCP: HISTORY OF PRESENT ILLNESS: 72F with history of HTN, DM, HLD, hypothyroid, CAD s/p 4 stents here today complaining of 24 hours of gradually worsening chest pain. The pain is sharp, substernal and pleuritic in nature andis worsened with inspiration. Also c/o of R side back pain. Denies fevers, chills, SOB, cough, n/v/d, hematuria, blood in stools. Denies changes with exertion and rest. Denies leg swelling, prior blood clots and recent travel. She does endorse pain with urination. ER course was notable for: (1)ASA, rocephin 1g (2) (3) Recent Travel: PAST MEDICAL HISTORY: eye doctor last appt was 2 mo ago does not see a foot doc PAST SURGICAL HISTORY: Social History: Smoking:denies Alcohol:denies Drugs: denies Je[employer] insurance Family History: none Allergies No Known Drug Allergies Allergy (Unknown, Verified 10/04/17 02:37) CLAMS Allergy (Uncoded 10/04/17 02:37) Vomiting HOME MEDICATIONS: Home Medications Medication Instructions Recorded Metoprolol Tartrate [Lopressor -] 25 mg PO DAILY #1 tab 12/17/11 Losartan Potassium 25 mg PO DAILY 11/03/13 Albuterol Sulfate Inhaler - 1 - 2 inh PO ASDIR 03/15/15 [Ventolin HFA Inhaler -] Aspirin [ASA -] 81 mg PO DAILY 03/15/15 Esomeprazole Mag Trihydrate 40 mg PO DAILY 03/15/15 [Nexium] Levothyroxine [Synthroid -] 25 mcg PO DAILY 03/15/15 Prasugrel Hydrochloride [Effient -] 10 mg PO DAILY 03/15/15 Rosuvastatin Calcium [Crestor] 5 mg PO DAILY 03/15/15 Sitagliptin Phosphate [Januvia -] 100 mg PO DAILY 03/15/15 metFORMIN HCL [Metformin HCl] 500 mg PO BID 03/15/15 Budesonide/Formeterol Fumarate 1 puff IH BID #3 inhaler 03/18/15 [SYMBICORT 160/4.5mcg -] Cefuroxime Axetil [Ceftin -] 500 mg PO Q12H #40 tablet 09/28/16 Cephalexin [Keflex] 500 mg PO BID #14 capsule 11/01/16 REVIEW OF SYSTEMS reviewed in hpi PHYSICAL EXAMINATION Vital Signs - 24 hr 10/04/17 02:37 Temperature 98.4 F Pulse Rate 67 Respiratory 18 Rate Blood Pressure 110/68 O2 Sat by Pulse 97 Oximetry (%) GENERAL: Awake, alert, and fully oriented, in no acute distress HEAD: No signs of trauma, normocephalic, atraumatic EYES: PERRLA, EOMI, sclera anicteric, conjunctiva clear ENT: hearing grossly normal, nares patent, oropharynx clear without exudates. MMM NECK: Normal ROM, supple, no lymphadenopathy, JVD, or masses LUNGS: No distress, speaks full sentences, clear to auscultation bilaterally HEART: RRR normal S1 and S2, no murmurs, rubs or gallops, peripheral pulses normal and equal bilaterally. TTP on the sternum, pt complaint of CP is reproducible ABDOMEN: Soft, nontender, normoactive bowel sounds. No guarding, no rebound. No masses EXTREMITIES: Normal inspection, Normal range of motion, no edema. No clubbing or cyanosis. No foot ulcers NEUROLOGICAL: Cranial nerves II through XII grossly intact. Normal speech, no focal sensorimotor deficits. sensation intact b/l SKIN: Warm, Dry, normal turgor, no rashes or lesions noted. Laboratory Results - last 24 hr 10/04/17 10/04/17 10/04/17 03:14 03:14 03:14 WBC 5.1 RBC 4.73 Hgb 14.2 Hct 42.1 MCV 89.1 MCH 30.0 MCHC 33.7 RDW 13.7 Plt Count 239 D MPV 7.3 L Absolute Neuts (auto) 3.5 Neutrophils % 68.6 Lymphocytes % 16.9 Monocytes % 9.9 Eosinophils % 3.7 Basophils % 0.9 Nucleated RBC % 0 PT with INR 10.60 INR 0.94 Sodium Cancelled Potassium Cancelled Chloride Cancelled Carbon Dioxide Cancelled Anion Gap Cancelled BUN Cancelled Creatinine Cancelled Creat Clearance w eGFR Cancelled Random Glucose Cancelled Calcium Cancelled Magnesium Cancelled Total Bilirubin Cancelled AST Cancelled ALT Cancelled Alkaline Phosphatase Cancelled Creatine Kinase Cancelled Troponin I Cancelled Total Protein Cancelled Albumin Cancelled Urine Color Urine Appearance Urine pH Ur Specific [place] Urine Protein Urine Glucose (UA) Urine Ketones Urine Blood Urine Nitrite Urine Bilirubin Urine Urobilinogen Ur Leukocyte Esterase Urine WBC (Auto) Urine RBC (Auto) Ur Epithelial Cells Urine Bacteria Urine Mucus Urine Yeast 10/04/17 10/04/17 04:01 04:35 WBC RBC Hgb Hct MCV MCH MCHC RDW Plt Count MPV Absolute Neuts (auto) Neutrophils % Lymphocytes % Monocytes % Eosinophils % Basophils % Nucleated RBC % PT with INR INR Sodium 140 Potassium 3.9 Chloride 106 Carbon Dioxide 26 Anion Gap 8 BUN 21 H Creatinine 0.9 Creat Clearance w eGFR > 60 Random Glucose 101 Calcium 8.8 Magnesium 2.1 Total Bilirubin 0.4 AST 20 ALT 23 Alkaline Phosphatase 40 L Creatine Kinase 73 Troponin I < 0.02 Total Protein 6.8 Albumin 3.4 Urine Color Yellow Urine Appearance Cloudy Urine pH 6.0 Ur Specific [place] 1.018 Urine Protein Negative Urine Glucose (UA) 3+ H Urine Ketones Negative Urine Blood Negative Urine Nitrite Negative Urine Bilirubin Negative Urine Urobilinogen Negative Ur Leukocyte Esterase 2+ H Urine WBC (Auto) 348 Urine RBC (Auto) 5 Ur Epithelial Cells Rare Urine Bacteria Moderate Urine Mucus Rare Urine Yeast Rare ASSESSMENT/PLAN: 72F with history of HTN, DM, HLD, hypothyroid, CAD s/p 4 stents here today complaining of pleuritic CP. Pain is reproducible on exam and does not sound cardiac in nature, Risk for PE is low. Will observe and monitor however on tele to r/o ACS. Atypical chest pain - has risk factors for ACS, so will admit to telemetry to rule out ACS. Initial troponin is negative and EKG does not show any significant ST-T wave changes. -Will get ECHO and consult cardiology. CXR may show worsening of chronic RLL interstitial infiltrate? - await official report before deciding on next course of action and whether to consult pulmonary. There is no smoking history. history of GERD - ?may need a different PPI since her symptoms may be due to GERD - -consult GI. UTI - -Will treat with Rocephin 1 gm q 24 hours pending culture result. DM - Curiously has glucosuria with "normal" serum glucose. -Recheck urinalysis and do HbA1c; concern is that persistent glucosuria may be predisposing her to recurrent UTI. -For now, we will hold the home diabetes drugs and implement sliding scale insulin regimen. Obesity - -Will provide patient all the necessary assistance, counseling and positive reinforcement to facilitate weight loss. -Consult third officer. HCM -c/w home dose meds #FEN -no IVF at this time -replete lytes as needed -low sodium/fat/diabetic diet #DVTppx SQH 5000U tid #Dispo -admit to tele -Full code Visit type - Emergency Visit Emergency Visit: Yes ED Registration Date: 10/04/17 Care time: The patient presented to the Emergency Department on the above date and was hospitalized for further evaluation of their emergent condition. - New Patient This patient is new to me today: Yes Date on this admission: 10/04/17 - Critical Care Critical Care patient: No Hospitalist Screening - Colonoscopy Questionnaire Colonoscopy Questionnaire: Colonoscopy Questionnaire - Patient: 50 - 75 years old and never had a screening colonoscopy: Unknown History of colon or rectal polyps, or CA: Unknown History of IBD, Crohn's disease or UC: Unknown History of abdominal radiation therapy as a child: Unknown - Relative: 1 with colon or rectal CA, or polyps at age 60 or younger: Unknown Colon or rectal CA diagnosed at age 45 or younger: Unknown Multiple relatives with colon or rectal CA: Unknown - Outcome: Screening Result: Negative Screen
[2017-10-04] MEDS ORDERED: HEPARIN NA (PORCINE) 5,000 UNITS/ML 1ML VIAL SQ SCH (07:00)
[2017-10-04] MEDS ORDERED: ALBUTEROL SO4 8 GM HFA INHALER IH PRN ×2 (07:09→07:14)
[2017-10-04 08:36] LABS: INR 0.96 (0.82-1.09); PROTHROMBIN TIME (PATIENT) 10.8 SEC (9.7-13.0)
[2017-10-04 08:39] LABS: ACTIVATED PTT 36.3 SECONDS (25.2-36.5)
[2017-10-04 08:42] LABS: BASO % 0.9 % (0-2.0); EOS % 2.8 % (0-4.5); HEMATOCRIT 43.7 % (32.4-45.2); HEMOGLOBIN 14.8 GM/dL (10.7-15.3); LYMPH % 16.2 % (8-40); MCHC 33.9 g/dl (32.0-36.0); MEAN CELL VOLUME 88.6 fl (80-96); MEAN PLT VOLUME 7.2 fl (7.5-11.1); NEUT % 73.1 % (42.8-82.8); PLATELET COUNT 244 K/MM3 (134-434); RBC 4.93 M/mm3 (3.60-5.2); RDW 13.6 % (11.6-15.6); WHITE BLOOD COUNT 6.2 K/mm3 (4.0-10.0)
[2017-10-04 09:01] LABS: ALBUMIN 3.5 g/dl (3.4-5.0); ANION GAP 11 (8-16); BILIRUBIN,TOTAL 0.4 mg/dL (0.2-1.0); BLOOD UREA NITROGEN 20 mg/dL (7-18); CALCIUM 8.9 mg/dL (8.5-10.1); CHLORIDE 107 mmol/L (98-107); CO2 22 mmol/L (21-32); CREATININE 0.9 mg/dL (0.55-1.02); GLUCOSE,RANDOM 125 mg/dL (74-106); MAGNESIUM 2.1 mg/dL (1.8-2.4); SGOT/AST 20 U/L (15-37); SGPT/ALT 24 U/L (12-78); SODIUM 140 mmol/L (136-145); TOT PROT 7.2 g/dl (6.4-8.2)
[2017-10-04 09:04] LABS: ALK PHOS 42 U/L (45-117)
--- NOTE | 2017-10-04 09:16 | ECHO ---
Name: MALGORZATA HONG Exam:Adult Echocardiogram Study Date: 10/04/2017 08:28 AM Age: 72 yrs Reason For Study: ACS/CAD Height: 63 in Weight: 215 lb BSA: 2.0 m2 MMode/2D Measurements & Calculations IVSd: 1.0 cm Ao root diam: 2.6 cm LVIDd: 4.4 cm LA dimension: 3.5 cm LVIDs: 3.4 cm LVPWd: 0.94 cm EDV(Teich): 86.5 ml ESV(Teich): 46.0 ml Doppler Measurements & Calculations MV E max darwin: 52.4 cm/sec Med Peak E' Darwin: 7.3 cm/sec MV A max darwin: 82.0 cm/sec Med E/e': 7.2 MV E/A: 0.64 Lat Peak E' Darwin: 7.9 cm/sec MV dec time: 0.22 sec Lat E/e': 6.6 Procedure The study was technically difficult with many images being suboptimal in quality. Left Ventricle Left ventricular systolic function is grossly normal. The transmitral spectral Doppler flow pattern i s suggestive of impaired LV relaxation. Regional wall motion abnormalities cannot be excluded due to li mited visualization. Right Ventricle The right ventricle is grossly normal size. The right ventricular systolic function is grossly normal . Atria Normal left and right atrial size and function. Mitral Valve There is mild mitral valve thickening. There is no mitral valve stenosis. There is trace to mild mitr al regurgitation. Tricuspid Valve The tricuspid valve is not well visualized, but is grossly normal. There is mild tricuspid regurgitat ion. Aortic Valve There is mild to moderate aortic valve thickening. No hemodynamically significant valvular aortic sidney nosis. No aortic regurgitation is present. Pulmonic Valve The pulmonic valve is not well seen, but is grossly normal. There is no pulmonic valvular stenosis. Great Vessels The aortic root is normal size. Pericardium/Pleura Trivial pericardial effusion not hemodynamically significant. Interpretation Summary The study was technically difficult with many images being suboptimal in quality. Regional wall motion abnormalities cannot be excluded due to limited visualization. Left ventricular systolic function is grossly normal. The transmitral spectral Doppler flow pattern is suggestive of impaired LV relaxation. There is trace to mild mitral regurgitation. There is mild tricuspid regurgitation. There is mild to moderate aortic valve thickening. Trivial pericardial effusion not hemodynamically significant MD Sebas Britton 10/04/2017 09:16 AM
[2017-10-04] MEDS ORDERED: LEVOTHYROXINE NA 25 MCG TABLET (FP) ONE (09:40)
[2017-10-04] MEDS: ASPIRIN 81 MG CHEWABLE TABLETS PO SCH (09:49)
[2017-10-04] MEDS: LEVOTHYROXINE NA 25 MCG TABLET (FP) PO SCH (09:50)
[2017-10-04] MEDS: METOPROLOL TARTRATE 25 MG TABLET (FP) PO SCH (09:50)
[2017-10-04] MEDS: PANTOPRAZOLE 40 MG TABLET (FP) PO SCH (09:50)
[2017-10-04] MEDS ORDERED: LOSARTAN POTASSIUM 25 MG TABLET PO SCH (10:00)
[2017-10-04] MEDS: BUDESONIDE/FORMETEROL FUMARATE 160/4.5 mcg INHALER IH SCH ×2 (10:00→21:26)
--- NOTE | 2017-10-04 10:55 | CON.CARD ---
Consult Consult Specialty:: Cardiology Referred by:: Dr. Santillan Reason for Consultation:: chest pain - History of Present Illness Chief Complaint: Positional CP History of Present Illness: 72 year old woman with a history of HTN, HLD, DM, CAD s/p acute IWMI 09/2011 s/p PCI of RCA with staged PCI of LM, LAD, and LCx with ZAHEER, history of chronic SORENSON likely secondary to obesity, deconditioning and possible component of Chronic Diastolic HF, non-compliant with medications and with follow up. Last PCI was 2013 ISR od RCA. She now returns with 1 day of positional and pleuritic CP, worse when laying down. Unlike her previous anginal sx. She endorses chronic SORENSON, no palps, no edema. No recent travel or illnesses. No fever or chills. Echo done today shows a trivial pericardial effusion. - History Source History Provided By: Patient - Past Medical History Cardio/Vascular: Yes: CAD, CHF (possible diastolic HF), HTN, Hyperlipdemia, W[place] ( IWSTEMI September 2011 s/p PCI RCA with staged LM/LAD/LCx) Pulmonary: Yes: Asthma Gastrointestinal: Yes: GERD Hepatobiliary: No: Cirrhosis, Cholelithiasis, Cholecystitis, Choledocholithiasis , Hepatitis A, Hepatitis B, Hepatitis C, Other Renal/: No: Renal Failure, Renal Inusuff, BPH, Cancer, Hematuria, Hemodialysis , Neurogenic Bladder, Renal Calculi, UTI, Other Reproductive: No: Ectopic , Endometriosis, Fibroids, PID, Polycystic Ovary Syndrome, Postmenopausal, Other Musculoskeletal: No: Bursitis, Chronic low back pain, Hemiparesis, Hemiplegia, Osteoarthritis, Paraplegia, Other Endocrine: Yes: Diabetes Mellitus, Hypothyroidism - Past Surgical History Past Surgical History: Yes: Stent - Alcohol/Substance Use Hx Alcohol Use: No - Smoking History Smoking history: Never smoked Have you smoked in the past 12 months: No Aproximately how many cigarettes per day: 0 If you are a former smoker, when did you quit?: 12 years ago - Social History Usual Living Arrangement: Alone ADL: Independent History of Recent Travel: No Home Medications - Allergies Allergies/Adverse Reactions: Allergies Allergy/AdvReac Type Severity Reaction Status Date / Time No Known Drug Allergies Allergy Unknown Verified 10/04/17 02:37 CLAMS Allergy Vomiting Uncoded 10/04/17 02:37 - Home Medications Home Medications: Ambulatory Orders Metoprolol Tartrate [Lopressor -] 25 mg PO DAILY #1 tab 12/17/11 Losartan Potassium 25 mg PO DAILY 11/03/13 Albuterol Sulfate Inhaler - [Ventolin HFA Inhaler -] 1 - 2 inh PO ASDIR Aspirin [ASA -] 81 mg PO DAILY 03/15/15 Esomeprazole Mag Trihydrate [Nexium] 40 mg PO DAILY 03/15/15 Levothyroxine [Synthroid -] 25 mcg PO DAILY 03/15/15 Prasugrel Hydrochloride [Effient -] 10 mg PO DAILY 03/15/15 Rosuvastatin Calcium [Crestor] 5 mg PO DAILY 03/15/15 Sitagliptin Phosphate [Januvia -] 100 mg PO DAILY 03/15/15 metFORMIN HCL [Metformin HCl] 500 mg PO BID 03/15/15 Budesonide/Formeterol Fumarate [SYMBICORT 160/4.5mcg -] 1 puff IH BID #3 inhaler 03/18/15 Cefuroxime Axetil [Ceftin -] 500 mg PO Q12H #40 tablet 09/28/16 Cephalexin [Keflex] 500 mg PO BID #14 capsule 11/01/16 Family Disease History - Family Disease History Family History: Unremarkable (not pertinent to this presentation) Review of Systems - Review of Systems Constitutional: reports: No Symptoms Eyes: reports: No Symptoms HENT: reports: No Symptoms Neck: reports: No Symptoms Cardiovascular: reports: Chest Pain Respiratory: reports: SOB on Exertion (chronic) Genitourinary: denies: No Symptoms, Burning, Discharge, Dysuria, Flank Pain, Frequency, Hematuria, Incontinence, Lesions, Menses, Pain, Testicular Mass, Testicular Pain, Testicular Swelling, Urgency, Vaginal Bleeding, Other Breasts: denies: No Symptoms Reported, See HPI, Breast Implants, Discharge from Nipple, Lumps, Pain, Skin Changes, Other Musculoskeletal: denies: No Symptoms, Back Pain, Crepitus, Decreased ROM, Extremity Pain, Joint Pain, Joint Swelling, Muscle Pain, Muscle Cramps, Muscle Weakness, Other Integumentary: denies: No Symptoms, Blister, Bruising, Change in Color, Eczema, Erythema, Incision, Lesions, Lump, Pallor, Pruritis, Rash, Wound, Other Neurological: denies: No Symptoms, Change in LOC, Change in Speech, Confusion, Dizziness, Headache, Incoordination, Numbness, Parasthesia, Pre-Existing Deficit , Seizure, Syncope, Tremors, Unsteady Gait, Weakness, Other Hematology/Lymphatic: denies: No Symptoms, Easily Bruised, Excessive Bleeding, Swollen Glands, Other Psychiatric: denies: No Symptoms, Altered Sleep Pattern, Anxiety, Depression, Hallucinations, Panic, Paranoia, Suicidal, Other - Risk Factors Known Risk Factors: Yes: Diabetes Mellitus, Other (Known CAD) Vital Signs: Vital Signs Temperature 98.1 F 10/04/17 09:45 Pulse Rate 84 10/04/17 09:45 Respiratory Rate 18 10/04/17 09:45 Blood Pressure 120/59 10/04/17 09:45 O2 Sat by Pulse Oximetry (%) 96 10/04/17 09:45 Constitutional: Yes: No Distress, Calm Respiratory: Yes: CTA Bilaterally Gastrointestinal: Yes: Soft Cardiovascular: Yes: Regular Rate and Rhythm JVD: No Carotid Bruit: No Heart Sounds: Yes: S1, S2 (RRR, no murmurs) Edema: No Peripheral Pulses WNL: Yes Neurological: Yes: Alert, Oriented ...Motor Strength: WNL - Other Data Labs, Other Data: CBC, BMP 10/04/17 07:45 10/04/17 07:45 INR, PTT INR 0.96 (0.82-1.09) 10/04/17 07:45 Troponin, BNP 10/04/17 10/04/17 10/04/17 03:14 04:35 07:45 Troponin I Cancelled < 0.02 < 0.02 Troponin, BNP 10/04/17 10/04/17 10/04/17 03:14 04:35 07:45 Troponin I Cancelled < 0.02 < 0.02 NSR 79 bpm, old IWMI. Poor R wave progression. No acute ST changes Echo: Report Reviewed, Image Reviewed Prior Cardiac Procedures: PTCA with Stent Ejection Fraction %: LVEF > or = 40 % Imaging - Results Chest X-ray: Report Reviewed, Image Reviewed EKG: Image Reviewed Problem List - Problems (1) CAD (coronary artery disease) Code(s): I25.10 - ATHSCL HEART DISEASE OF [place] CORONARY ARTERY W/O ANG PCTRS (2) Stented coronary artery Code(s): Z95.5 - PRESENCE OF CORONARY ANGIOPLASTY IMPLANT AND GRAFT (3) History of [place] (myocardial infarction) Code(s): I25.2 - OLD MYOCARDIAL INFARCTION (4) Atypical chest pain Code(s): R07.89 - OTHER CHEST PAIN (5) Pericarditis Code(s): I31.9 - DISEASE OF PERICARDIUM, UNSPECIFIED Qualifiers: Pericarditis type: idiopathic (6) Diabetes Code(s): E11.9 - TYPE 2 DIABETES MELLITUS WITHOUT COMPLICATIONS Qualifiers: Diabetes mellitus type: type 2 (7) Pneumonia Code(s): J18.9 - PNEUMONIA, UNSPECIFIED ORGANISM Qualifiers: Pneumonia type: due to unspecified organism Laterality: right Lung location: upper lobe of lung Qualified Code(s): J18.9 - Pneumonia, unspecified organism Assessment/Plan IMP: Known CAD s/p WV (inferior) and multivessel PCI last 2013 ISR RCA DM Atypical CP: most likely pericarditis, mild vs. early PNA. Doubt pulmonary embolism (no obvious risk factor, no tachycardia and normal oxygenation). + pericardial effusion on Echo. Unlikely ACS. REC: 1. Defer Abx to PMD for possible early PNA 2. Add NSAID for Rx pericarditis. Consider colchicine. 3. Obtain 3rd cardiac enzyme. 4. Tele x 24 hours 5. Cont home regimen for BP and CAD (at this point needs only single antiplatelet Rx now 4 years since last PCI) 6. Obtain fasting lipids. 7. If favorable clinical response to NSAIDS, ok for d/c home over weekend with close outpt f/u. If clinical sx, enzymes or repeat ECG change then can consider repeat ischemic work up. Thank you.
[2017-10-04] MEDS: IBUPROFEN 400 MG TABLET (FP) PO SCH ×2 (11:36→21:25)
[2017-10-04] MEDS ORDERED: ONDANSETRON *ODT* 4 MG TABLET SL ONE (12:00)
--- NOTE | 2017-10-04 12:06 | EKG ---
Test Reason : Blood Pressure : / mmHG Vent. Rate : 079 BPM Atrial Rate : 079 BPM P-R Int : 142 ms QRS Dur : 080 ms QT Int : 410 ms P-R-T Axes : 056 -14 000 degrees QTc Int : 470 ms NORMAL SINUS RHYTHM INFERIOR INFARCT (CITED ON OR BEFORE 29-SEP-2011) POSSIBLE ANTERIOR INFARCT , AGE UNDETERMINED ABNORMAL ECG WHEN COMPARED WITH ECG OF 01-NOV-2016 15:52, NO SIGNIFICANT CHANGE WAS FOUND Confirmed by ASHLEIGH CABELLO MD ([id number]) on 10/04/2017 12:05:53 PM Referred By: Confirmed By:ASHLEIGH CABELLO MD
[2017-10-04 12:48] VITALS: BMI 46.5
[2017-10-04] MEDS: INSULIN SLIDING SCALE (NOVOLOG) 1 VIAL SQ SCH ×3 (12:53→21:37)
--- NOTE | 2017-10-04 16:10 | PN ---
Teaching Attending Note Name of Resident: Destinee Mathis ATTENDING PHYSICIAN STATEMENT I saw and evaluated the patient. I reviewed the resident's note and discussed the case with the resident. I agree with the resident's findings and plan as documented with exceptions below. SUBJECTIVE: patient seen and examined, still with left lower sternal chest pain, tender touch, unable to catch a deep breath from pain. also dysuria and right flank pain. OBJECTIVE: Vital Signs Period Temp Pulse Resp BP Sys/Melchor Pulse Ox Last 24 Hr 97.5 F-98.4 F 65-87 18-19 94-120/54-75 96-100 Intake & Output 10/01/17 10/02/17 10/03/17 10/04/17 23:59 23:59 23:59 23:59 Weight 215 lb General: lying in bed in no acute distress CVS;S1S2 regular Left lower chest wall tenderness, no limitation of ROM Abdomen:Soft, right cVa tenderness, NT otherwise, no voluntary or involuntary guarding or rigidity Extremities: no edema Home Medications Medication Instructions Recorded Metoprolol Tartrate [Lopressor -] 25 mg PO DAILY #1 tab 12/17/11 Losartan Potassium 25 mg PO DAILY 11/03/13 Albuterol Sulfate Inhaler - 1 - 2 inh PO ASDIR 03/15/15 [Ventolin HFA Inhaler -] Aspirin [ASA -] 81 mg PO DAILY 03/15/15 Esomeprazole Mag Trihydrate 40 mg PO DAILY 03/15/15 [Nexium] Levothyroxine [Synthroid -] 25 mcg PO DAILY 03/15/15 Prasugrel Hydrochloride [Effient -] 10 mg PO DAILY 03/15/15 Rosuvastatin Calcium [Crestor] 5 mg PO DAILY 03/15/15 Sitagliptin Phosphate [Januvia -] 100 mg PO DAILY 03/15/15 metFORMIN HCL [Metformin HCl] 500 mg PO BID 03/15/15 Budesonide/Formeterol Fumarate 1 puff IH BID #3 inhaler 03/18/15 [SYMBICORT 160/4.5mcg -] Cefuroxime Axetil [Ceftin -] 500 mg PO Q12H #40 tablet 09/28/16 Cephalexin [Keflex] 500 mg PO BID #14 capsule 11/01/16 Active Medications Albuterol Sulfate (Ventolin Hfa Inhaler -) 1 puff IH Q4H PRN PRN Reason: SHORT OF BREATH/WHEEZING Albuterol Sulfate (Ventolin Hfa Inhaler -) 2 puff IH Q4H PRN PRN Reason: SHORTNESS OF BREATH Aspirin (Asa -) 81 mg PO DAILY [facility] Last Admin: 10/04/17 09:49 Dose: 81 mg Budesonide/Formoterol Fumarate (Symbicort 160/4.5mcg -) 1 puff IH BID [facility] Last Admin: 10/04/17 10:00 Dose: Not Given Colchicine (Colcrys -) 0.6 mg PO BID [facility] Heparin Sodium (Porcine) (Heparin -) 5,000 unit SQ TID [facility] Ceftriaxone Sodium 1 gm/ (Dextrose) 50 mls @ 100 mls/hr IVPB DAILY@0600 [facility] Ibuprofen (Motrin -) 400 mg PO BID [facility] Last Admin: 10/04/17 11:36 Dose: 400 mg Insulin Aspart (Novolog Vial Sliding Scale -) 1 vial SQ ACHS [facility]; Protocol Last Admin: 10/04/17 12:53 Dose: Not Given Levothyroxine Sodium (Synthroid -) 25 mcg PO DAILY@0600 [facility] Last Admin: 10/04/17 09:50 Dose: 25 mcg Losartan Potassium (Cozaar -) 25 mg PO DAILY [facility] Last Admin: 10/04/17 09:50 Dose: 25 mg Metoprolol Tartrate (Lopressor -) 25 mg PO DAILY [facility] Last Admin: 10/04/17 09:50 Dose: 25 mg Pantoprazole Sodium (Protonix -) 40 mg PO DAILY [facility] Last Admin: 10/04/17 09:50 Dose: 40 mg Rosuvastatin Calcium (Crestor -) 5 mg PO [facility] Laboratory Results - last 24 hr 10/04/17 10/04/17 10/04/17 03:14 03:14 03:14 WBC 5.1 RBC 4.73 Hgb 14.2 Hct 42.1 MCV 89.1 MCH 30.0 MCHC 33.7 RDW 13.7 Plt Count 239 D MPV 7.3 L Absolute Neuts (auto) 3.5 Neutrophils % 68.6 Lymphocytes % 16.9 Monocytes % 9.9 Eosinophils % 3.7 Basophils % 0.9 Nucleated RBC % 0 PT with INR 10.60 INR 0.94 PTT (Actin FS) Sodium Cancelled Potassium Cancelled Chloride Cancelled Carbon Dioxide Cancelled Anion Gap Cancelled BUN Cancelled Creatinine Cancelled Creat Clearance w eGFR Cancelled POC Glucometer Random Glucose Cancelled Hemoglobin A1c % Calcium Cancelled Phosphorus Magnesium Cancelled Total Bilirubin Cancelled AST Cancelled ALT Cancelled Alkaline Phosphatase Cancelled Creatine Kinase Cancelled Troponin I Cancelled Total Protein Cancelled Albumin Cancelled Urine Color Urine Appearance Urine pH Ur Specific [place] Urine Protein Urine Glucose (UA) Urine Ketones Urine Blood Urine Nitrite Urine Bilirubin Urine Urobilinogen Ur Leukocyte Esterase Urine WBC (Auto) Urine RBC (Auto) Ur Epithelial Cells Urine Bacteria Urine Mucus Urine Yeast 10/04/17 10/04/17 10/04/17 04:01 04:35 07:45 WBC 6.2 RBC 4.93 Hgb 14.8 Hct 43.7 MCV 88.6 MCH 30.0 MCHC 33.9 RDW 13.6 Plt Count 244 MPV 7.2 L Absolute Neuts (auto) 4.5 Neutrophils % 73.1 Lymphocytes % 16.2 Monocytes % 7.0 Eosinophils % 2.8 Basophils % 0.9 Nucleated RBC % 0 PT with INR INR PTT (Actin FS) Sodium 140 Potassium 3.9 Chloride 106 Carbon Dioxide 26 Anion Gap 8 BUN 21 H Creatinine 0.9 Creat Clearance w eGFR > 60 POC Glucometer Random Glucose 101 Hemoglobin A1c % Calcium 8.8 Phosphorus Magnesium 2.1 Total Bilirubin 0.4 AST 20 ALT 23 Alkaline Phosphatase 40 L Creatine Kinase 73 Troponin I < 0.02 Total Protein 6.8 Albumin 3.4 Urine Color Yellow Urine Appearance Cloudy Urine pH 6.0 Ur Specific [place] 1.018 Urine Protein Negative Urine Glucose (UA) 3+ H Urine Ketones Negative Urine Blood Negative Urine Nitrite Negative Urine Bilirubin Negative Urine Urobilinogen Negative Ur Leukocyte Esterase 2+ H Urine WBC (Auto) 348 Urine RBC (Auto) 5 Ur Epithelial Cells Rare Urine Bacteria Moderate Urine Mucus Rare Urine Yeast Rare 10/04/17 10/04/17 10/04/17 07:45 07:45 07:45 WBC RBC Hgb Hct MCV MCH MCHC RDW Plt Count MPV Absolute Neuts (auto) Neutrophils % Lymphocytes % Monocytes % Eosinophils % Basophils % Nucleated RBC % PT with INR 10.80 INR 0.96 PTT (Actin FS) 36.3 Sodium 140 Potassium 4.0 Chloride 107 Carbon Dioxide 22 Anion Gap 11 BUN 20 H Creatinine 0.9 Creat Clearance w eGFR > 60 POC Glucometer Random Glucose 125 H Hemoglobin A1c % 7.0 H Calcium 8.9 Phosphorus 4.0 Magnesium 2.1 Total Bilirubin 0.4 AST 20 ALT 24 Alkaline Phosphatase 42 L Creatine Kinase Troponin I < 0.02 Total Protein 7.2 Albumin 3.5 Urine Color Urine Appearance Urine pH Ur Specific [place] Urine Protein Urine Glucose (UA) Urine Ketones Urine Blood Urine Nitrite Urine Bilirubin Urine Urobilinogen Ur Leukocyte Esterase Urine WBC (Auto) Urine RBC (Auto) Ur Epithelial Cells Urine Bacteria Urine Mucus Urine Yeast 10/04/17 12:24 WBC RBC Hgb Hct MCV MCH MCHC RDW Plt Count MPV Absolute Neuts (auto) Neutrophils % Lymphocytes % Monocytes % Eosinophils % Basophils % Nucleated RBC % PT with INR INR PTT (Actin FS) Sodium Potassium Chloride Carbon Dioxide Anion Gap BUN Creatinine Creat Clearance w eGFR POC Glucometer 107 Random Glucose Hemoglobin A1c % Calcium Phosphorus Magnesium Total Bilirubin AST ALT Alkaline Phosphatase Creatine Kinase Troponin I Total Protein Albumin Urine Color Urine Appearance Urine pH Ur Specific [place] Urine Protein Urine Glucose (UA) Urine Ketones Urine Blood Urine Nitrite Urine Bilirubin Urine Urobilinogen Ur Leukocyte Esterase Urine WBC (Auto) Urine RBC (Auto) Ur Epithelial Cells Urine Bacteria Urine Mucus Urine Yeast ASSESSMENT AND PLAN: 72 yof with PMHx of HTN, HLD, DM, CAD s/p acute IWMI 09/2011 s/p PCI of RCA with staged PCI of LM, LAD, and LCx with ZAHEER, history of chronic SORENSON likely secondary to obesity, deconditioning and possible component of Chronic Diastolic HF admitted with left sided chest pain, and UTI with right flank pain -Left sided chest pain, reproducible with pleuritic component, ?Musculoskeletal vs pericarditis, -UTI with right flank pain -HTN -HLD -NIDDM -CAD s/p PCI Plan: telemetry with no events. ACS ruled out. 2D echo noted. Cardiology input appreciated. Trial with motrin/colchicine. Ceftriaxone day 2, follow up urine cultures. renal/bladder US. ISS, diabetic diet ASA/metoprolol/rosuvastatin/losartan. DVTPPX heparin Dispo planning in 24-48 hours if symptoms improved. Plan discussed with patient in detail, all questions answered.
[2017-10-04] MEDS: HEPARIN NA (PORCINE) 5,000 UNITS/ML 1ML VIAL SQ SCH ×2 (16:48→21:26)
--- NOTE | 2017-10-04 18:13 | PN ---
Physical Exam: SUBJECTIVE: Patient seen and examined in the ER. She continued to complain of sternal chest pain, reproducible on palpation. Patient also mentions dysuria and right flank pain. Denies fevers, chills, nausea, vomiting. OBJECTIVE: Vital Signs Period Temp Pulse Resp BP Sys/Melchor Pulse Ox Last 24 Hr 97.5 F-98.4 F 65-87 18-19 94-120/54-75 96-100 GENERAL: The patient is awake, alert, and fully oriented, in no acute distress. LUNGS: Breath sounds equal, clear to auscultation bilaterally, no wheezes, no crackles HEART: Regular rate and rhythm, S1, S2 without murmur, rub or gallop. ABDOMEN: Soft, nontender, nondistended, normoactive bowel sounds CHEST: Sternal chest pain reproducible on palpation BACK: Right CVA Tenderness EXTREMITIES: no edema Laboratory Results - last 24 hr 10/04/17 10/04/17 10/04/17 03:14 03:14 03:14 WBC 5.1 RBC 4.73 Hgb 14.2 Hct 42.1 MCV 89.1 MCH 30.0 MCHC 33.7 RDW 13.7 Plt Count 239 D MPV 7.3 L Absolute Neuts (auto) 3.5 Neutrophils % 68.6 Lymphocytes % 16.9 Monocytes % 9.9 Eosinophils % 3.7 Basophils % 0.9 Nucleated RBC % 0 PT with INR 10.60 INR 0.94 PTT (Actin FS) Sodium Cancelled Potassium Cancelled Chloride Cancelled Carbon Dioxide Cancelled Anion Gap Cancelled BUN Cancelled Creatinine Cancelled Creat Clearance w eGFR Cancelled POC Glucometer Random Glucose Cancelled Hemoglobin A1c % Calcium Cancelled Phosphorus Magnesium Cancelled Total Bilirubin Cancelled AST Cancelled ALT Cancelled Alkaline Phosphatase Cancelled Creatine Kinase Cancelled Troponin I Cancelled Total Protein Cancelled Albumin Cancelled Urine Color Urine Appearance Urine pH Ur Specific [place] Urine Protein Urine Glucose (UA) Urine Ketones Urine Blood Urine Nitrite Urine Bilirubin Urine Urobilinogen Ur Leukocyte Esterase Urine WBC (Auto) Urine RBC (Auto) Ur Epithelial Cells Urine Bacteria Urine Mucus Urine Yeast 10/04/17 10/04/17 10/04/17 04:01 04:35 07:45 WBC 6.2 RBC 4.93 Hgb 14.8 Hct 43.7 MCV 88.6 MCH 30.0 MCHC 33.9 RDW 13.6 Plt Count 244 MPV 7.2 L Absolute Neuts (auto) 4.5 Neutrophils % 73.1 Lymphocytes % 16.2 Monocytes % 7.0 Eosinophils % 2.8 Basophils % 0.9 Nucleated RBC % 0 PT with INR INR PTT (Actin FS) Sodium 140 Potassium 3.9 Chloride 106 Carbon Dioxide 26 Anion Gap 8 BUN 21 H Creatinine 0.9 Creat Clearance w eGFR > 60 POC Glucometer Random Glucose 101 Hemoglobin A1c % Calcium 8.8 Phosphorus Magnesium 2.1 Total Bilirubin 0.4 AST 20 ALT 23 Alkaline Phosphatase 40 L Creatine Kinase 73 Troponin I < 0.02 Total Protein 6.8 Albumin 3.4 Urine Color Yellow Urine Appearance Cloudy Urine pH 6.0 Ur Specific [place] 1.018 Urine Protein Negative Urine Glucose (UA) 3+ H Urine Ketones Negative Urine Blood Negative Urine Nitrite Negative Urine Bilirubin Negative Urine Urobilinogen Negative Ur Leukocyte Esterase 2+ H Urine WBC (Auto) 348 Urine RBC (Auto) 5 Ur Epithelial Cells Rare Urine Bacteria Moderate Urine Mucus Rare Urine Yeast Rare 10/04/17 10/04/17 10/04/17 07:45 07:45 07:45 WBC RBC Hgb Hct MCV MCH MCHC RDW Plt Count MPV Absolute Neuts (auto) Neutrophils % Lymphocytes % Monocytes % Eosinophils % Basophils % Nucleated RBC % PT with INR 10.80 INR 0.96 PTT (Actin FS) 36.3 Sodium 140 Potassium 4.0 Chloride 107 Carbon Dioxide 22 Anion Gap 11 BUN 20 H Creatinine 0.9 Creat Clearance w eGFR > 60 POC Glucometer Random Glucose 125 H Hemoglobin A1c % 7.0 H Calcium 8.9 Phosphorus 4.0 Magnesium 2.1 Total Bilirubin 0.4 AST 20 ALT 24 Alkaline Phosphatase 42 L Creatine Kinase Troponin I < 0.02 Total Protein 7.2 Albumin 3.5 Urine Color Urine Appearance Urine pH Ur Specific [place] Urine Protein Urine Glucose (UA) Urine Ketones Urine Blood Urine Nitrite Urine Bilirubin Urine Urobilinogen Ur Leukocyte Esterase Urine WBC (Auto) Urine RBC (Auto) Ur Epithelial Cells Urine Bacteria Urine Mucus Urine Yeast 10/04/17 10/04/17 12:24 16:46 WBC RBC Hgb Hct MCV MCH MCHC RDW Plt Count MPV Absolute Neuts (auto) Neutrophils % Lymphocytes % Monocytes % Eosinophils % Basophils % Nucleated RBC % PT with INR INR PTT (Actin FS) Sodium Potassium Chloride Carbon Dioxide Anion Gap BUN Creatinine Creat Clearance w eGFR POC Glucometer 107 101 Random Glucose Hemoglobin A1c % Calcium Phosphorus Magnesium Total Bilirubin AST ALT Alkaline Phosphatase Creatine Kinase Troponin I Total Protein Albumin Urine Color Urine Appearance Urine pH Ur Specific [place] Urine Protein Urine Glucose (UA) Urine Ketones Urine Blood Urine Nitrite Urine Bilirubin Urine Urobilinogen Ur Leukocyte Esterase Urine WBC (Auto) Urine RBC (Auto) Ur Epithelial Cells Urine Bacteria Urine Mucus Urine Yeast Active Medications Albuterol Sulfate (Ventolin Hfa Inhaler -) 1 puff IH Q4H PRN PRN Reason: SHORT OF BREATH/WHEEZING Albuterol Sulfate (Ventolin Hfa Inhaler -) 2 puff IH Q4H PRN PRN Reason: SHORTNESS OF BREATH Aspirin (Asa -) 81 mg PO DAILY [facility] Last Admin: 10/04/17 09:49 Dose: 81 mg Budesonide/Formoterol Fumarate (Symbicort 160/4.5mcg -) 1 puff IH BID [facility] Last Admin: 10/04/17 10:00 Dose: Not Given Colchicine (Colcrys -) 0.6 mg PO BID [facility] Heparin Sodium (Porcine) (Heparin -) 5,000 unit SQ TID [facility] Last Admin: 10/04/17 16:48 Dose: 5,000 unit Ceftriaxone Sodium 1 gm/ (Dextrose) 50 mls @ 100 mls/hr IVPB DAILY@0600 [facility] Ibuprofen (Motrin -) 400 mg PO BID [facility] Last Admin: 10/04/17 11:36 Dose: 400 mg Insulin Aspart (Novolog Vial Sliding Scale -) 1 vial SQ ACHS [facility]; Protocol Last Admin: 10/04/17 16:48 Dose: Not Given Levothyroxine Sodium (Synthroid -) 25 mcg PO DAILY@0600 [facility] Last Admin: 10/04/17 09:50 Dose: 25 mcg Losartan Potassium (Cozaar -) 25 mg PO DAILY [facility] Last Admin: 10/04/17 09:50 Dose: 25 mg Metoprolol Tartrate (Lopressor -) 25 mg PO DAILY [facility] Last Admin: 10/04/17 09:50 Dose: 25 mg Pantoprazole Sodium (Protonix -) 40 mg PO DAILY [facility] Last Admin: 10/04/17 09:50 Dose: 40 mg Rosuvastatin Calcium (Crestor -) 5 mg PO [facility] ASSESSMENT/PLAN: 72 y/o F with PMHx of HTN, DM, HLD, CAD s/p 4 stents here today complaining of CP. 1. Atypical chest pain - Reproducible at the sternum - Telemetry - Troponins negative X2 - Cardiology consulted, appreciates rec's, Motrin and Colchicine - ECHO report reviewed 2. UTI - Right flank pain - Continue Rocephin 1 gm q 24 (Day 2) - Urine Cultures pending - Renal/Bladder Ultrasound ordered 3. NIDDM - ISS - Diabetic Diet 3. HTN - Continue Losartan 25 mg PO DAILY - Continue Metoprolol Tartrate 25 mg PO DAILY 4. HLD - Continue Rosuvastatin 5 mg PO HS 5. FEN - no IVF now - lytes wnl - low sodium/fat/diabetic diet 6. PPx - DVT: Heparin 5000U tid Visit type - Emergency Visit Emergency Visit: Yes ED Registration Date: 10/04/17 Care time: The patient presented to the Emergency Department on the above date and was hospitalized for further evaluation of their emergent condition. - New Patient This patient is new to me today: Yes Date on this admission: 10/05/17 - Critical Care Critical Care patient: No
[2017-10-04] MEDS: COLCHICINE 0.6 MG TABLET (FP) PO SCH (21:25)
[2017-10-04] MEDS: ROSUVASTATIN CA 5 MG TABLET (FP) PO SCH (21:37)
[2017-10-05] MEDS ORDERED: cefTRIAXone SODIUM 1 GM VIAL ONE (05:40)
[2017-10-05] MEDS ORDERED: DEXTROSE 5%-WATER - 50 ML IVPB ONE (05:41)
[2017-10-05] MEDS: CEFTRIAXONE 1 GM in DEXTROSE 5%-WATER - 50 ML IVPB SCH (05:41)
[2017-10-05] MEDS: LEVOTHYROXINE NA 25 MCG TABLET (FP) PO SCH (05:42)
[2017-10-05] MEDS: HEPARIN NA (PORCINE) 5,000 UNITS/ML 1ML VIAL SQ SCH ×3 (05:42→21:25)
[2017-10-05] MEDS: INSULIN SLIDING SCALE (NOVOLOG) 1 VIAL SQ SCH ×4 (05:59→21:08)
[2017-10-05] MEDS ORDERED: CEFTRIAXONE 1 GM in DEXTROSE 5%-WATER - 50 ML IVPB SCH (06:00)
[2017-10-05 07:31] LABS: EOS % 3.9 % (0-4.5); HEMATOCRIT 42.2 % (32.4-45.2); HEMOGLOBIN 14.3 GM/dL (10.7-15.3); LYMPH % 19.6 % (8-40); MCH 30.4 pg (25.7-33.7); MEAN CELL VOLUME 89.6 fl (80-96); MONO % 9.2 % (3.8-10.2); NEUT % 66.3 % (42.8-82.8); PLATELET COUNT 213 K/MM3 (134-434); RBC 4.71 M/mm3 (3.60-5.2); RDW 13.5 % (11.6-15.6); WHITE BLOOD COUNT 4.1 K/mm3 (4.0-10.0)
--- NOTE | 2017-10-05 09:12 | PN ---
Teaching Attending Note Name of Resident: Brittanie Donovan ATTENDING PHYSICIAN STATEMENT I saw and evaluated the patient. I reviewed the resident's note and discussed the case with the resident. I agree with the resident's findings and plan as documented with exceptions below. SUBJECTIVE: Patient seen and examined. No chest pain, denies any urinary or back symptoms. Feels well. OBJECTIVE: Vital Signs Period Temp Pulse Resp BP Sys/Melchor Pulse Ox Last 24 Hr 97.6 F-98.5 F 63-84 18-18 90-120/49-72 96-98 Intake & Output 10/02/17 10/03/17 10/04/17 10/05/17 23:59 23:59 23:59 23:59 Intake Total 860 310 Balance 860 310 Weight 215 lb General: sleeping comfortably in bed, arousable Chest: CTAB, no rales or wheezing, no chest wall tenderness Abdomen:Soft, obese, NT, no CVA tenderness Extremities: no edema Active Medications Albuterol Sulfate (Ventolin Hfa Inhaler -) 1 puff IH Q4H PRN PRN Reason: SHORT OF BREATH/WHEEZING Albuterol Sulfate (Ventolin Hfa Inhaler -) 2 puff IH Q4H PRN PRN Reason: SHORTNESS OF BREATH Aspirin (Asa -) 81 mg PO DAILY [facility] Last Admin: 10/04/17 09:49 Dose: 81 mg Budesonide/Formoterol Fumarate (Symbicort 160/4.5mcg -) 1 puff IH BID [facility] Last Admin: 10/04/17 21:26 Dose: 1 puff Colchicine (Colcrys -) 0.6 mg PO BID [facility] Last Admin: 10/04/17 21:25 Dose: 0.6 mg Heparin Sodium (Porcine) (Heparin -) 5,000 unit SQ TID [facility] Last Admin: 10/05/17 05:42 Dose: 5,000 unit Ceftriaxone Sodium 1 gm/ (Dextrose) 50 mls @ 100 mls/hr IVPB DAILY@0600 [facility] Last Admin: 10/05/17 05:41 Dose: 100 mls/hr Ibuprofen (Motrin -) 400 mg PO BID [facility] Last Admin: 10/04/17 21:25 Dose: 400 mg Insulin Aspart (Novolog Vial Sliding Scale -) 1 vial SQ [facility]; Protocol Last Admin: 10/05/17 05:59 Dose: Not Given Levothyroxine Sodium (Synthroid -) 25 mcg PO DAILY@0600 [facility] Last Admin: 10/05/17 05:42 Dose: 25 mcg Metoprolol Tartrate (Lopressor -) 25 mg PO DAILY [facility] Last Admin: 10/04/17 09:50 Dose: 25 mg Pantoprazole Sodium (Protonix -) 40 mg PO DAILY [facility] Last Admin: 10/04/17 09:50 Dose: 40 mg Rosuvastatin Calcium (Crestor -) 5 mg PO HS [facility] Last Admin: 10/04/17 21:37 Dose: 5 mg Laboratory Results - last 24 hr 10/04/17 10/04/17 10/04/17 07:45 12:24 16:46 WBC RBC Hgb Hct MCV MCH MCHC RDW Plt Count MPV Absolute Neuts (auto) Neutrophils % Lymphocytes % Monocytes % Eosinophils % Basophils % Nucleated RBC % POC Glucometer 107 101 Hemoglobin A1c % 7.0 H Creatine Kinase Troponin I Triglycerides Cholesterol Total LDL Cholesterol HDL Cholesterol 10/04/17 10/04/17 10/05/17 17:20 21:28 05:28 WBC RBC Hgb Hct MCV MCH MCHC RDW Plt Count MPV Absolute Neuts (auto) Neutrophils % Lymphocytes % Monocytes % Eosinophils % Basophils % Nucleated RBC % POC Glucometer 113 109 Hemoglobin A1c % Creatine Kinase 55 Troponin I < 0.02 Triglycerides Cholesterol Total LDL Cholesterol HDL Cholesterol 10/05/17 10/05/17 06:39 06:39 WBC 4.1 RBC 4.71 Hgb 14.3 Hct 42.2 MCV 89.6 MCH 30.4 MCHC 34.0 RDW 13.5 Plt Count 213 MPV 7.0 L Absolute Neuts (auto) 2.7 Neutrophils % 66.3 Lymphocytes % 19.6 D Monocytes % 9.2 Eosinophils % 3.9 Basophils % 1.0 Nucleated RBC % 0 POC Glucometer Hemoglobin A1c % Creatine Kinase Troponin I Triglycerides Cancelled Cholesterol Cancelled Total LDL Cholesterol Cancelled HDL Cholesterol Cancelled Microbiology 10/04/17 04:01 Urine - Urine Clean Catch Urine Culture - Preliminary Lactose Fermenting Neg Bacilli ASSESSMENT AND PLAN: 72 yof with PMHx of HTN, HLD, DM, CAD s/p acute IWMI 09/2011 s/p PCI of RCA with staged PCI of LM, LAD, and LCx with ZAHEER, history of chronic SORENSON likely secondary to obesity, deconditioning and possible component of Chronic Diastolic HF admitted with left sided chest pain, and UTI with right flank pain -Left sided chest pain, reproducible with pleuritic component, ?Musculoskeletal vs Acute pericarditis, -UTI with right flank pain -HTN -HLD -NIDDM -CAD s/p PCI Plan: Symptoms resolved, telemetry with no events. 2D echo noted, ACS ruled out. Motrin/colchicine, continue for now. Cardiology input noted. Ceftriaxone day 3, urine cultures noted. Hold off on imaging as symptoms resolved and no systemic signs currently. ISS, diabetic diet ASA/metoprolol/rosuvastatin/losartan. DVTPPX heparin Dispo d/c in 24hours pending urine cultures and clinical improvement. Plan discussed with patient in detail, all questions answered.
[2017-10-05 09:25] LABS: ALBUMIN 3.4 g/dl (3.4-5.0); ANION GAP 11 (8-16); BLOOD UREA NITROGEN 14 mg/dL (7-18); CHLORIDE 113 mmol/L (98-107); CHOLESTEROL 128 mg/dL (50-200); CO2 22 mmol/L (21-32); CREATININE 0.7 mg/dL (0.55-1.02); GLUCOSE,RANDOM 115 mg/dL (74-106); MAGNESIUM 2.3 mg/dL (1.8-2.4); POTASSIUM 4.3 mmol/L (3.5-5.1); SGOT/AST 20 U/L (15-37); SODIUM 146 mmol/L (136-145); TOT PROT 6.8 g/dl (6.4-8.2); TRIGLYCERIDES 182 mg/dL (35-160)
[2017-10-05 09:46] LABS: ALK PHOS 41 U/L (45-117); BILIRUBIN,TOTAL 0.5 mg/dL (0.2-1.0); HDL CHOLESTEROL 34 mg/dL (40-60); SGPT/ALT 22 U/L (12-78)
--- NOTE | 2017-10-05 10:33 | PN ---
Physical Exam: SUBJECTIVE: Patient seen and examined. Chest pain is resolved. No more abdominal pain. Started treatment for acute pericarditis OBJECTIVE: Vital Signs Period Temp Pulse Resp BP Sys/Melchor Pulse Ox Last 24 Hr 97.6 F-98.5 F 63-72 18-20 90-118/49-72 98 GENERAL: The patient is awake, alert, and fully oriented, in no acute distress. ENT: moist mucous membranes. LUNGS: Breath sounds equal, clear to auscultation bilaterally, no wheezes HEART: Regular rate and rhythm, S1, S2 ABDOMEN: Soft, nontender, nondistended, normoactive bowel sounds EXTREMITIES: 2+ pulses, warm, well-perfused NEUROLOGICAL: AAO x3. Moves all limbs, no lateralizing signs Laboratory Results - last 24 hr 10/04/17 10/04/17 10/04/17 12:24 16:46 17:20 WBC RBC Hgb Hct MCV MCH MCHC RDW Plt Count MPV Absolute Neuts (auto) Neutrophils % Lymphocytes % Monocytes % Eosinophils % Basophils % Nucleated RBC % Sodium Potassium Chloride Carbon Dioxide Anion Gap BUN Creatinine Creat Clearance w eGFR POC Glucometer 107 101 Random Glucose Calcium Phosphorus Magnesium Total Bilirubin AST ALT Alkaline Phosphatase Creatine Kinase 55 Troponin I < 0.02 Total Protein Albumin Triglycerides Cholesterol Total LDL Cholesterol HDL Cholesterol 10/04/17 10/05/17 10/05/17 21:28 05:28 06:39 WBC 4.1 RBC 4.71 Hgb 14.3 Hct 42.2 MCV 89.6 MCH 30.4 MCHC 34.0 RDW 13.5 Plt Count 213 MPV 7.0 L Absolute Neuts (auto) 2.7 Neutrophils % 66.3 Lymphocytes % 19.6 D Monocytes % 9.2 Eosinophils % 3.9 Basophils % 1.0 Nucleated RBC % 0 Sodium Potassium Chloride Carbon Dioxide Anion Gap BUN Creatinine Creat Clearance w eGFR POC Glucometer 113 109 Random Glucose Calcium Phosphorus Magnesium Total Bilirubin AST ALT Alkaline Phosphatase Creatine Kinase Troponin I Total Protein Albumin Triglycerides Cholesterol Total LDL Cholesterol HDL Cholesterol 10/05/17 10/05/17 06:39 06:39 WBC RBC Hgb Hct MCV MCH MCHC RDW Plt Count MPV Absolute Neuts (auto) Neutrophils % Lymphocytes % Monocytes % Eosinophils % Basophils % Nucleated RBC % Sodium 146 H Potassium 4.3 Chloride 113 H Carbon Dioxide 22 Anion Gap 11 BUN 14 Creatinine 0.7 Creat Clearance w eGFR > 60 POC Glucometer Random Glucose 115 H Calcium 9.0 Phosphorus 4.0 Magnesium 2.3 Total Bilirubin 0.5 AST 20 ALT 22 Alkaline Phosphatase 41 L Creatine Kinase Troponin I Total Protein 6.8 Albumin 3.4 Triglycerides 182 H Cancelled Cholesterol 128 Cancelled Total LDL Cholesterol 77 Cancelled HDL Cholesterol 34 L Cancelled Active Medications Generic Name Dose Route Start Last Admin Trade Name Oliver PRN Reason Stop Dose Admin Albuterol Sulfate 1 puff 10/04/17 07:09 Ventolin Hfa Inhaler - IH Q4H PRN SHORT OF BREATH/WHEEZING Albuterol Sulfate 2 puff 10/04/17 07:14 Ventolin Hfa Inhaler - IH Q4H PRN SHORTNESS OF BREATH Aspirin 81 mg 10/04/17 10:00 10/04/17 09:49 Asa - PO 81 mg DAILY JAYLA Administration Budesonide/Formoterol Fumarate 1 puff 10/04/17 10:00 10/04/17 21:26 Symbicort 160/4.5mcg - IH 1 puff BID JAYLA Administration Colchicine 0.6 mg 10/04/17 22:00 10/04/17 21:25 Colcrys - PO 0.6 mg BID JAYLA Administration Heparin Sodium (Porcine) 5,000 unit 10/04/17 07:19 10/05/17 05:42 Heparin - SQ 5,000 unit TID JAYLA Administration Ceftriaxone Sodium 1 gm/ 50 mls @ 100 mls/hr 10/05/17 06:00 10/05/17 05:41 Dextrose IVPB 100 mls/hr DAILY@0600 JAYLA Administration Ibuprofen 400 mg 10/04/17 11:15 10/04/17 21:25 Motrin - PO 400 mg BID JAYLA Administration Insulin Aspart 1 vial 10/04/17 11:00 10/05/17 05:59 Novolog Vial Sliding Scale - SQ Not Given ACHS [facility] Protocol Levothyroxine Sodium 25 mcg 10/04/17 10:00 10/05/17 05:42 Synthroid - PO 25 mcg DAILY@0600 [facility] Administration Metoprolol Tartrate 25 mg 10/04/17 10:00 10/04/17 09:50 Lopressor - PO 25 mg DAILY [facility] Administration Pantoprazole Sodium 40 mg 10/04/17 10:00 10/04/17 09:50 Protonix - PO 40 mg DAILY [facility] Administration Rosuvastatin Calcium 5 mg 10/04/17 22:00 10/04/17 21:37 Crestor - PO 5 mg HS [facility]LA Administration 10/04/17 04:01 Urine - Urine Clean Catch Urine Culture - Preliminary Lactose Fermenting Neg Bacilli ASSESSMENT/PLAN: Pt is a 72 y/o F with PMHx of HTN, DM, HLD, CAD s/p acute IWMI 09/2011 s/p PCI of RCA with staged PCI of LM, LAD, and LCx with ZAHEER (stents x4) presenting with chest pain , admitted for UTI and being mx for acute pericarditis Atypical chest pain/Pericarditis resolved ECHO showed pericarditis Per Cardiology - Motrin and Colchicine UTI Right flank pain resolved Continue Rocephin 1 gm q 24 (Day 3) Urine Cultures - lactose fermenting gram neg growing Renal/Bladder Ultrasound dcd NIDDM Not needing much coverage ISS, BGM Diabetic Diet HTN Continue Losartan 25 mg PO DAILY Continue Metoprolol Tartrate 25 mg PO DAILY HLD Continue Rosuvastatin 5 mg PO HS CAD hx Cont ASA, statins, ARB, BB Hypothyroidism Cont levothyroxine Morbid obesity 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 - New Patient This patient is new to me today: No - Critical Care Critical Care patient: No - Discharge Referral Referred to [facility] Med P.C.: No
--- NOTE | 2017-10-05 10:39 | PN ---
Progress Note, Physician Chief Complaint: Cardiology f/u for Dr. Britton: History of Present Illness: Positional atypical chest discomfort has resolved, denies dyspnea. - Current Medication List Current Medications: Active Medications Albuterol Sulfate (Ventolin Hfa Inhaler -) 1 puff IH Q4H PRN PRN Reason: SHORT OF BREATH/WHEEZING Albuterol Sulfate (Ventolin Hfa Inhaler -) 2 puff IH Q4H PRN PRN Reason: SHORTNESS OF BREATH Aspirin (Asa -) 81 mg PO DAILY [facility] Last Admin: 10/04/17 09:49 Dose: 81 mg Budesonide/Formoterol Fumarate (Symbicort 160/4.5mcg -) 1 puff IH BID [facility] Last Admin: 10/04/17 21:26 Dose: 1 puff Colchicine (Colcrys -) 0.6 mg PO BID [facility] Last Admin: 10/04/17 21:25 Dose: 0.6 mg Heparin Sodium (Porcine) (Heparin -) 5,000 unit SQ TID [facility] Last Admin: 10/05/17 05:42 Dose: 5,000 unit Ceftriaxone Sodium 1 gm/ (Dextrose) 50 mls @ 100 mls/hr IVPB DAILY@0600 [facility] Last Admin: 10/05/17 05:41 Dose: 100 mls/hr Ibuprofen (Motrin -) 400 mg PO BID [facility] Last Admin: 10/04/17 21:25 Dose: 400 mg Insulin Aspart (Novolog Vial Sliding Scale -) 1 vial SQ ACHS [facility]; Protocol Last Admin: 10/05/17 05:59 Dose: Not Given Levothyroxine Sodium (Synthroid -) 25 mcg PO DAILY@0600 [facility] Last Admin: 10/05/17 05:42 Dose: 25 mcg Metoprolol Tartrate (Lopressor -) 25 mg PO DAILY [facility] Last Admin: 10/04/17 09:50 Dose: 25 mg Pantoprazole Sodium (Protonix -) 40 mg PO DAILY [facility] Last Admin: 10/04/17 09:50 Dose: 40 mg Rosuvastatin Calcium (Crestor -) 5 mg PO HS [facility] Last Admin: 10/04/17 21:37 Dose: 5 mg - Objective Vital Signs: Vital Signs Temperature 98.5 F 10/05/17 06:00 Pulse Rate 68 10/05/17 09:36 Respiratory Rate 20 10/05/17 09:36 Blood Pressure 92/60 10/05/17 09:36 O2 Sat by Pulse Oximetry (%) 98 10/04/17 21:00 Constitutional: Yes: No Distress, Calm Neck: Yes: Supple Cardiovascular: Yes: Regular Rate and Rhythm Respiratory: Yes: Regular, Diminished Gastrointestinal: Yes: Normal Bowel Sounds, Soft Edema: No Labs: CBC, BMP 10/05/17 06:39 10/05/17 06:39 INR, PTT INR 0.96 (0.82-1.09) 10/04/17 07:45 - ....Imaging EKG: Report Reviewed (Tele: NSR) Problem List - Problems (1) Atypical chest pain Code(s): R07.89 - OTHER CHEST PAIN (2) CAD (coronary artery disease) Code(s): I25.10 - ATHSCL HEART DISEASE OF [place] CORONARY ARTERY W/O ANG PCTRS Qualifiers: Coronary Disease-Associated Artery/Lesion type: [place] artery [place] vs. transplanted heart: [place] heart Associated angina: without angina Qualified Code(s): I25.10 - Atherosclerotic heart disease of [place] coronary artery without angina pectoris (3) Diabetes Code(s): E11.9 - TYPE 2 DIABETES MELLITUS WITHOUT COMPLICATIONS Qualifiers: Diabetes mellitus type: type 2 (4) History of ID (myocardial infarction) Code(s): I25.2 - OLD MYOCARDIAL INFARCTION (5) Pericarditis Code(s): I31.9 - DISEASE OF PERICARDIUM, UNSPECIFIED Qualifiers: Pericarditis type: idiopathic (6) Stented coronary artery Code(s): Z95.5 - PRESENCE OF CORONARY ANGIOPLASTY IMPLANT AND GRAFT (7) UTI (urinary tract infection) Code(s): N39.0 - URINARY TRACT INFECTION, SITE NOT SPECIFIED Qualifiers: Urinary tract infection type: site unspecified Assessment/Plan 10/04/2017 Echo: Normal biventricular size and fxn, tr-mild MR, mild TR, trivial effusion 1. Atypical CP: most likely pericarditis, mild and resolving. Doubt pulmonary embolism (no obvious risk factor, no tachycardia and normal oxygenation). + pericardial effusion on Echo. Unlikely ACS. 2. Known CAD s/p ID (inferior) and multivessel PCI last 2013 ISR RCA 3. Type 2 DM 4. Hyperlipidemia 5. Hypothyroidism REC: 1. Complete abx course for UTI 2. Continue course of NSAIDs and colchicine for Rx pericarditis. 3. Ruled out for ID 4. Continue ASA 81 qd, metoprolol 25 qd, Crestor 5 qd 5. May d/c home from CV-standpoint with f/u with Dr. Britton
[2017-10-05] MEDS: ASPIRIN 81 MG CHEWABLE TABLETS PO SCH (10:49)
[2017-10-05] MEDS: PANTOPRAZOLE 40 MG TABLET (FP) PO SCH (10:49)
[2017-10-05] MEDS: IBUPROFEN 400 MG TABLET (FP) PO SCH ×2 (10:49→21:26)
[2017-10-05] MEDS: COLCHICINE 0.6 MG TABLET (FP) PO SCH ×2 (10:49→21:25)
[2017-10-05] MEDS: METOPROLOL TARTRATE 25 MG TABLET (FP) PO SCH (10:49)
[2017-10-05] MEDS: BUDESONIDE/FORMETEROL FUMARATE 160/4.5 mcg INHALER IH SCH ×2 (10:50→21:32)
[2017-10-05] MEDS ORDERED: INSULIN (NOVOLOG) ASPART 100 UNITS/ML 10ML VIAL ONE (10:51)
[2017-10-05] MEDS ORDERED: PT OWN MED DRAWER 7, Y5N ONE (21:08)
[2017-10-05] MEDS: ROSUVASTATIN CA 5 MG TABLET (FP) PO SCH (21:25)
[2017-10-06 05:47] VITALS: TEMP 97.6
[2017-10-06] MEDS ORDERED: CEFTRIAXONE 1 GM in DEXTROSE 5%-WATER 100 ML IVPB SCH (06:19)
[2017-10-06] MEDS: INSULIN SLIDING SCALE (NOVOLOG) 1 VIAL SQ SCH (06:28)
[2017-10-06] MEDS ORDERED: DEXTROSE 5%-WATER 100 ML IVPB ONE (06:29)
[2017-10-06] MEDS ORDERED: cefTRIAXone SODIUM 1 GM VIAL ONE (06:29)
[2017-10-06] MEDS: LEVOTHYROXINE NA 25 MCG TABLET (FP) PO SCH (06:36)
[2017-10-06] MEDS: CEFTRIAXONE 1 GM in DEXTROSE 5%-WATER - 50 ML IVPB SCH (06:36)
[2017-10-06] MEDS: HEPARIN NA (PORCINE) 5,000 UNITS/ML 1ML VIAL SQ SCH (06:36)
[2017-10-06 07:52] LABS: BASO % 0.9 % (0-2.0); EOS % 4.4 % (0-4.5); HEMATOCRIT 41.2 % (32.4-45.2); HEMOGLOBIN 14.1 GM/dL (10.7-15.3); LYMPH % 26.1 % (8-40); MCH 30.3 pg (25.7-33.7); MCHC 34.1 g/dl (32.0-36.0); MEAN CELL VOLUME 88.8 fl (80-96); MEAN PLT VOLUME 7.3 fl (7.5-11.1); NEUT % 58.6 % (42.8-82.8); PLATELET COUNT 204 K/MM3 (134-434); RBC 4.64 M/mm3 (3.60-5.2); RDW 13.5 % (11.6-15.6); WHITE BLOOD COUNT 3.9 K/mm3 (4.0-10.0)
[2017-10-06 08:21] LABS: ANION GAP 8 (8-16); BLOOD UREA NITROGEN 17 mg/dL (7-18); CALCIUM 8.6 mg/dL (8.5-10.1); CHLORIDE 109 mmol/L (98-107); CO2 25 mmol/L (21-32); CREATININE 0.7 mg/dL (0.55-1.02); GLUCOSE,RANDOM 131 mg/dL (74-106); MAGNESIUM 2.3 mg/dL (1.8-2.4); PHOSPHOROUS 3.6 mg/dL (2.5-4.9); POTASSIUM 4.3 mmol/L (3.5-5.1); SODIUM 142 mmol/L (136-145)
[2017-10-06] MEDS: COLCHICINE 0.6 MG TABLET (FP) PO SCH (09:46)
[2017-10-06] MEDS: PANTOPRAZOLE 40 MG TABLET (FP) PO SCH (09:46)
[2017-10-06] MEDS: ASPIRIN 81 MG CHEWABLE TABLETS PO SCH (09:46)
[2017-10-06] MEDS: METOPROLOL TARTRATE 25 MG TABLET (FP) PO SCH (09:46)
[2017-10-06] MEDS: IBUPROFEN 400 MG TABLET (FP) PO SCH (09:46)
[2017-10-06 09:50] VITALS: BP 90/60; PULSE 62
--- NOTE | 2017-10-06 10:48 | PN ---
Progress Note, Physician Chief Complaint: Cardiology f/u for Dr. Britton: History of Present Illness: Positional atypical chest discomfort has resolved, denies dyspnea. - Current Medication List Current Medications: Active Medications Albuterol Sulfate (Ventolin Hfa Inhaler -) 1 puff IH Q4H PRN PRN Reason: SHORT OF BREATH/WHEEZING Albuterol Sulfate (Ventolin Hfa Inhaler -) 2 puff IH Q4H PRN PRN Reason: SHORTNESS OF BREATH Aspirin (Asa -) 81 mg PO DAILY [facility] Last Admin: 10/06/17 09:46 Dose: 81 mg Budesonide/Formoterol Fumarate (Symbicort 160/4.5mcg -) 1 puff IH BID [facility] Last Admin: 10/05/17 21:32 Dose: 1 puff Colchicine (Colcrys -) 0.6 mg PO BID [facility] Last Admin: 10/06/17 09:46 Dose: 0.6 mg Heparin Sodium (Porcine) (Heparin -) 5,000 unit SQ TID [facility] Last Admin: 10/06/17 06:36 Dose: 5,000 unit Ceftriaxone Sodium 1 gm/ (Dextrose) 100 mls @ 100 mls/hr IVPB DAILY@0600 [facility] Ibuprofen (Motrin -) 400 mg PO BID [facility] Last Admin: 10/06/17 09:46 Dose: 400 mg Insulin Aspart (Novolog Vial Sliding Scale -) 1 vial SQ ACHS [facility]; Protocol Last Admin: 10/06/17 06:28 Dose: Not Given Levothyroxine Sodium (Synthroid -) 25 mcg PO DAILY@0600 [facility] Last Admin: 10/06/17 06:36 Dose: 25 mcg Metoprolol Tartrate (Lopressor -) 25 mg PO DAILY [facility] Last Admin: 10/06/17 09:46 Dose: 25 mg Pantoprazole Sodium (Protonix -) 40 mg PO DAILY [facility] Last Admin: 10/06/17 09:46 Dose: 40 mg Rosuvastatin Calcium (Crestor -) 5 mg PO HS [facility] Last Admin: 10/05/17 21:25 Dose: 5 mg - Objective Vital Signs: Vital Signs Temperature 97.6 F 10/06/17 05:00 Pulse Rate 62 10/06/17 09:00 Respiratory Rate 18 10/06/17 09:00 Blood Pressure 90/60 10/06/17 09:00 O2 Sat by Pulse Oximetry (%) 94 L 10/05/17 20:29 Constitutional: Yes: No Distress, Calm Neck: Yes: Supple Cardiovascular: Yes: Regular Rate and Rhythm Respiratory: Yes: Regular, CTA Bilaterally Gastrointestinal: Yes: Normal Bowel Sounds, Soft Edema: No Labs: CBC, BMP 10/06/17 05:50 10/06/17 05:50 INR, PTT INR 0.96 (0.82-1.09) 10/04/17 07:45 Problem List - Problems (1) Atypical chest pain Code(s): R07.89 - OTHER CHEST PAIN (2) CAD (coronary artery disease) Code(s): I25.10 - ATHSCL HEART DISEASE OF [place] CORONARY ARTERY W/O ANG PCTRS Qualifiers: Coronary Disease-Associated Artery/Lesion type: [place] artery [place] vs. transplanted heart: [place] heart Associated angina: without angina Qualified Code(s): I25.10 - Atherosclerotic heart disease of [place] coronary artery without angina pectoris (3) Diabetes Code(s): E11.9 - TYPE 2 DIABETES MELLITUS WITHOUT COMPLICATIONS Qualifiers: Diabetes mellitus type: type 2 (4) History of [place] (myocardial infarction) Code(s): I25.2 - OLD MYOCARDIAL INFARCTION (5) Pericarditis Code(s): I31.9 - DISEASE OF PERICARDIUM, UNSPECIFIED Qualifiers: Pericarditis type: idiopathic (6) Stented coronary artery Code(s): Z95.5 - PRESENCE OF CORONARY ANGIOPLASTY IMPLANT AND GRAFT (7) UTI (urinary tract infection) Code(s): N39.0 - URINARY TRACT INFECTION, SITE NOT SPECIFIED Qualifiers: Urinary tract infection type: site unspecified Assessment/Plan 10/04/2017 Echo: Normal biventricular size and fxn, tr-mild MR, mild TR, trivial effusion 1. Atypical CP: most likely pericarditis, mild and resolving. Doubt pulmonary embolism (no obvious risk factor, no tachycardia and normal oxygenation). + pericardial effusion on Echo. Unlikely ACS. 2. Known CAD s/p [place] (inferior) and multivessel PCI last 2013 ISR RCA 3. Type 2 DM 4. Hyperlipidemia 5. Hypothyroidism REC: 1. Complete abx course for UTI 2. Continue course of NSAIDs and colchicine for Rx pericarditis. 3. Ruled out for [place] 4. Continue ASA 81 qd, metoprolol 25 qd, Crestor 5 qd 5. May d/c home from CV-standpoint with f/u with Dr. Britton
--- NOTE | 2017-10-06 15:51 | DS ---
Physical Exam: SUBJECTIVE: Patient seen and examined OBJECTIVE: Vital Signs Period Temp Pulse Resp BP Sys/Melchor Pulse Ox Last 24 Hr 97.6 F-98.4 F 57-77 18-20 90-138/47-81 94 PHYSICAL EXAM GENERAL: The patient is awake, alert, and fully oriented, in no acute distress. HEAD: Normal with no signs of trauma. EYES: PERRL, extraocular movements intact, sclera anicteric, conjunctiva clear. ENT: Ears normal, nares patent, oropharynx clear without exudates, moist mucous membranes. NECK: Trachea midline, full range of motion, supple. LUNGS: Breath sounds equal, clear to auscultation bilaterally, no wheezes, no crackles, no accessory muscle use. HEART: Regular rate and rhythm, S1, S2 without murmur, rub or gallop. ABDOMEN: Soft, nontender, nondistended, normoactive bowel sounds, no guarding, no rebound, no hepatosplenomegaly, no masses. EXTREMITIES: 2+ pulses, warm, well-perfused, no edema. NEUROLOGICAL: Cranial nerves II through XII grossly intact. Normal speech, gait not observed. PSYCH: Normal mood, normal affect. SKIN: Warm, dry, normal turgor, no rashes or lesions noted. LABS Laboratory Results - last 24 hr 10/05/17 10/05/17 10/06/17 16:43 20:52 05:39 WBC RBC Hgb Hct MCV MCH MCHC RDW Plt Count MPV Absolute Neuts (auto) Neutrophils % Lymphocytes % Monocytes % Eosinophils % Basophils % Nucleated RBC % Sodium Potassium Chloride Carbon Dioxide Anion Gap BUN Creatinine Creat Clearance w eGFR POC Glucometer 123 128 113 Random Glucose Calcium Phosphorus Magnesium 10/06/17 10/06/17 10/06/17 05:50 05:50 12:20 WBC 3.9 L RBC 4.64 Hgb 14.1 Hct 41.2 MCV 88.8 MCH 30.3 MCHC 34.1 RDW 13.5 Plt Count 204 MPV 7.3 L Absolute Neuts (auto) 2.3 Neutrophils % 58.6 Lymphocytes % 26.1 D Monocytes % 10.0 Eosinophils % 4.4 Basophils % 0.9 Nucleated RBC % 0 Sodium 142 Potassium 4.3 Chloride 109 H Carbon Dioxide 25 Anion Gap 8 BUN 17 Creatinine 0.7 Creat Clearance w eGFR > 60 POC Glucometer 115 Random Glucose 131 H Calcium 8.6 Phosphorus 3.6 Magnesium 2.3 HOSPITAL COURSE: Date of Admission:10/04/17 Date of Discharge: 10/06/17 Minutes to complete discharge: 35 Discharge Summary Reason For Visit: CHEST PAIN,UTI Hospital Course: patient was watched on telemetry, ACS was ruled out. She had 2D echo showing mild pericardial effusion. She was placed on motrin and colchicine for possible acute pericardities. Her symptoms resolved, she is advised 2 weeks course of motrin/colchicine by cardiology. She was advised single anti-platelet agent and will be continued on ASA 81 mg daily. She was placed on ceftriaxone for her UTI, urine cultures came back with Enterobacter cloacae and she is transitioned to cefuroxime for a total 7 day course. She is currently asymptomatic. Her blood sugars were stable on sliding scale and she is advised to resume her metformin and discuss with her PCP about resuming her sitagliptin. Condition: Good - Instructions Diet, Activity, Other Instructions: You are started on following new medications: Motrin and Colchicine for 2 weeks Antibiotic cefuroxime starting tomorrow for 4 more days. Please make sure that you continue your nexium while on motrin. The medications have been sent to [facility] pharmacy on [facility]. For your home medications. Take only ASA 81 mg daily . Your prasugrel has been discontinued. For diabetes, for now resume only metformin. Do not take Januvia till seen by your doctor Advise home blood sugar montoring till seen by your doctor if notify your doctor if < 75 or persistently > 200 noted. Take the medications that are on your discharge medication list. 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 BMP (basic metabolic panel) in 1 week with your doctor. Call 911 or come to ED if new chest pain, fevers, belly pain, urinary symptoms or new concerns noted. Referrals: Arlette Castro MD [Primary Care Provider] - Sebas Britton MD [Staff Physician] - 1 Week Disposition: HOME - Home Medications Comprehensive Discharge Medication List: Ambulatory Orders Metoprolol Tartrate [Lopressor -] 25 mg PO DAILY #1 tab 12/17/11 Losartan Potassium 25 mg PO DAILY 11/03/13 Albuterol Sulfate Inhaler - [Ventolin HFA Inhaler -] 1 - 2 inh PO ASDIR Aspirin [ASA -] 81 mg PO DAILY 03/15/15 Esomeprazole Mag Trihydrate [Nexium] 40 mg PO DAILY 03/15/15 Levothyroxine [Synthroid -] 25 mcg PO DAILY 03/15/15 Rosuvastatin Calcium [Crestor] 5 mg PO DAILY 03/15/15 metFORMIN HCL [Metformin HCl] 500 mg PO BID 03/15/15 Budesonide/Formeterol Fumarate [SYMBICORT 160/4.5mcg -] 1 puff IH BID #3 inhaler 03/18/15 Cefuroxime Axetil [Ceftin -] 500 mg PO BID #8 tablet 10/06/17 Colchicine [Colcrys -] 0.6 mg PO BID 14 Days #28 tablet 10/06/17 Ibuprofen [Motrin -] 400 mg PO BID 14 Days #28 tablet 10/06/17 This patient is new to me today: No Emergency Visit: Yes ED Registration Date: 10/04/17 Care time: The patient presented to the Emergency Department on the above date and was hospitalized for further evaluation of their emergent condition. Critical Care patient: No - Discharge Referral Referred to [facility] Med P.C.: No
[2017-10-07] MEDS ORDERED: CEFUROXIME AXETIL 500 MG TABLET PO SCH (10:00)
== END 2017-10-06 13:58 | disposition home or self-care (01) | DRG 315 ==
LOC: JER 02:23 → JERBED 05:22 → UNDOADMOB 05:35 → JERBED 05:35 → OBSVTOIN 06:56 → J4W 10:26
PROVIDERS: ADMIT Internal Medicine; ATTEND Hospitalist
DX: I30.9 Acute pericarditis, unspecified (principal); N39.0 Urinary tract infection, site not specified; Z68.42 Body mass index [BMI] 45.0-49.9, adult; I50.32 Chronic diastolic (congestive) heart failure; B96.89 Other specified bacterial agents as the cause of diseases classified elsewhere; I11.0 Hypertensive heart disease with heart failure; E11.9 Type 2 diabetes mellitus without complications; E03.9 Hypothyroidism, unspecified; E66.9 Obesity, unspecified; Z91.14 Patient's other noncompliance with medication regimen; I25.10 Atherosclerotic heart disease of native coronary artery without angina pectoris; Z95.5 Presence of coronary angioplasty implant and graft; Z79.84 Long term (current) use of oral hypoglycemic drugs; I25.2 Old myocardial infarction; E78.5 Hyperlipidemia, unspecified; J45.909 Unspecified asthma, uncomplicated; K21.9 Gastro-esophageal reflux disease without esophagitis
CPT/HCPCS: 36415; 71045-TC-FY; 80048; 80053; 80061; 81003; 81015; 82550; 82962; 83036; 83721; 83735; 84100; 84484; 85025; 85610; 85730; 87086; 87186; 93005; 93010; 93306-TC; 99285-25; G0378; J1644

== ENCOUNTER → 2018-04-03 | Day surgery (SDC) | payer MEDICARE, OTHER ==
--- NOTE | 2018-04-04 17:40 | PATH ---
Surgical Pathology Report Patient Name: MALGORZATA HONG [facility]. Rec. #: [id number] /Age/Gender: 1945 (Age: 72) / F Account: [id number] Location: [facility] Taken: 04/03/2018 Received: 04/03/2018 Reported: 04/04/2018 Physicians: Jacobo George M.D. Specimen(s) Received A: RIGHT BREAST SPECIMEN WITH CALCIFICATIONS B: RIGHT BREAST SPECIMEN WITHOUT CALCIFICATIONS Clinical History Nonpalpable lesion Mammographic findings: Microcalcification, suspicious Final Diagnosis A. BREAST, RIGHT, CALCIFICATIONS, STEREOTACTIC CORE BIOPSY: BENIGN BREAST PARENCHYMA WITH FIBROCYSTIC CHANGES INCLUDING STROMAL FIBROSIS, MICROCYSTS, APOCRINE METAPLASIA, FOCAL USUAL DUCTAL HYPERPLASIA, AND ASSOCIATED MICROCALCIFICATIONS. B. BREAST, RIGHT, WITHOUT CALCIFICATIONS, STEREOTACTIC CORE BIOPSY: BENIGN BREAST PARENCHYMA WITH FIBROCYSTIC CHANGES INCLUDING STROMAL FIBROSIS, MICROCYSTS, APOCRINE METAPLASIA, SCLEROSING ADENOSIS, AND ASSOCIATED MICROCALCIFICATIONS. Electronically Signed Magaly Salazar M.D. Gross Description A. Received in formalin labeled "right breast with calcifications," are 4 pagan-yellow, cylindrical portions of fibroadipose tissue ranging from 1.3-3.0 cm in length and averaging 0.3 cm in diameter. The specimens are submitted in toto in one cassette. B. Received in formalin labeled "right breast without calcifications," are 4 pagan-yellow, cylindrical portions of fibroadipose tissue ranging from 1.5-3.0 cm in length and averaging 0.3 cm in diameter. The specimens are submitted in toto in one cassette. Time to formalin fixation: 5 minutes Total formalin fixation time: Approximately 6 hours. 04/03/201804/03/2018
== END | disposition home or self-care (01) ==
LOC: FMAMMOTONE 10:49
PROVIDERS: ATTEND Family Medicine
PROC: 0HBT3ZX Excision of Right Breast, Percutaneous Approach, Diagnostic (ICD-10-PCS; principal; 2018-04-03)
DX: N60.31 Fibrosclerosis of right breast (principal); N60.11 Diffuse cystic mastopathy of right breast; N60.81 Other benign mammary dysplasias of right breast; N64.89 Other specified disorders of breast; R92.1 Mammographic calcification found on diagnostic imaging of breast
CPT/HCPCS: 19081; 87899; 88305-TC; A4648

== ENCOUNTER 2018-05-20 03:29 | Inpatient (IN) | payer MEDICARE, OTHER ==
[2018-05-20 03:47] VITALS: BMI 36.3
--- NOTE | 2018-05-20 04:22 | PDOC ---
History of Present Illness - General Chief Complaint: Chest Pain Stated Complaint: CHEST PAIN Time Seen by Provider: 05/20/18 04:20 History Source: Patient Exam Limitations: No Limitations - History of Present Illness Initial Comments: Pt is a 72 yo F, with PMH of HTN, HLD, NIDDM, CAD (stents x4, inferior [place] 2011) , who is presenting with complaints of substernal chest pressure since Saturday. Pt states the pain started while she was at [employer], and was pressure- like in quality. The pain does not radiate, is non-exertional, and is not associated with n/v/diaphoresis. The pt states the pain has been consistent over the past 3 days, but worsened this evening in severity when it awoke her from sleep. She has also had difficulty "catching her breath" since Saturday with exertion. EMS provided 0.4 mg SL NG and 4 baby aspirin. Pt denies any recent fevers/chills, headache, vision changes, syncope, palpitations, orthopnea , nausea/vomiting, abdominal pain, urinary symptoms, diarrhea/constipation, or leg swelling. 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 Pt was admitted September 2017 with pericardial effusion, and Echo at that time showed normal EF. PCP: Dr. Citlaly Castro Cards: Dr. Britton Social: Pt denies any cigarette, alcohol, or drug use. Pt denies any recent travel or sick contacts. Surgical: cardiac stents x4 Family: no relevant history. 05/20/18 05:31 Past History - Travel Traveled outside of the country in the last 30 days: No Close contact w/someone who was outside of country & ill: No - Past Medical History Allergies/Adverse Reactions: Allergies Allergy/AdvReac Type Severity Reaction Status Date / Time No Known Drug Allergies Allergy Unknown Verified 10/04/17 02:37 CLAMS Allergy Vomiting Uncoded 10/04/17 02:37 Home Medications: Ambulatory Orders Metoprolol Tartrate [Lopressor -] 25 mg PO DAILY #1 tab 12/17/11 Losartan Potassium 25 mg PO DAILY 11/03/13 Albuterol Sulfate Inhaler - [Ventolin HFA Inhaler -] 1 - 2 inh PO ASDIR Aspirin [ASA -] 81 mg PO DAILY 03/15/15 Esomeprazole Mag Trihydrate [Nexium] 40 mg PO DAILY 03/15/15 Levothyroxine [Synthroid -] 25 mcg PO DAILY 03/15/15 metFORMIN HCL [Metformin HCl] 500 mg PO BID 03/15/15 Budesonide/Formeterol Fumarate [SYMBICORT 160/4.5mcg -] 1 puff IH BID #3 inhaler 03/18/15 Anemia: No Asthma: Yes Cancer: No Cardiac Disorders: Yes ([place]) CVA: No COPD: No CHF: No Dementia: No Diabetes: Yes (non insulin dep) GI Disorders: No Disorders: No HTN: Yes Hypercholesterolemia: Yes Liver Disease: No Seizures: No Thyroid Disease: No - Surgical History Abdominal Surgery: No Appendectomy: No Cardiac Surgery: Yes (3 CARDIAC STENTS) Cholecystectomy: No Lung Surgery: No Neurologic Surgery: No Orthopedic Surgery: No - Suicide/Smoking/Psychosocial Hx Smoking Status: Yes Smoking History: Never smoked Years of Tobacco Use: 20 Have you smoked in the past 12 months: No Number of Cigarettes Smoked Daily: 0 If you are a former smoker, when did you quit?: 12 years ago Information on smoking cessation initiated: No Hx Alcohol Use: No Drug/Substance Use Hx: No Substance Use Type: None Hx Substance Use Treatment: No Review of Systems - Review of Systems Able to Perform ROS?: Yes Is the patient limited French proficient: No Constitutional: Yes: Weight Stable. No: Chills, Diaphoresis, Fever, Loss of Appetite, Malaise, Weakness HEENTM: No: Recent change in vision, Nose Congestion, Throat Pain, Throat Swelling, Difficulty Swallowing Respiratory: Yes: Shortness of Breath, SOB with Exertion. No: Cough, Orthopnea , SOB at Rest, Wheezing, Productive cough, Hemoptysis Cardiac (ROS): Yes: Chest Pain. No: Edema, Irregular Heart Rate, Lightheadedness, Palpitations, Syncope, Chest Tightness ABD/GI: No: Abdominal Distended, Constipated, Diarrhea, Nausea, Poor Appetite, Poor Fluid Intake, Vomiting : No: Burning, Dysuria, Frequency, Pain, Urgency Musculoskeletal: No: Back Pain, Joint Pain, Muscle Pain Integumentary: No: Rash Neurological: No: Headache, Numbness, Paresthesia, Tingling, Weakness, Dizziness Psychiatric: No: Stressors, Sleep Pattern Change, Change in Appetite Endocrine: No: Increased Urine, Change in Weight Hematologic/Lymphatic: Yes: See HPI ([place], cardiac stents). No: Anemia, Blood Clots, Easy Bleeding, Easy Bruising All Other Systems: Reviewed and Negative *Physical Exam - Vital Signs Last Vital Signs Temp Pulse Resp BP Pulse Ox 98.8 F 73 20 95/61 97 05/20/18 03:29 05/20/18 03:29 05/20/18 03:29 05/20/18 03:29 05/20/18 03:29 - Physical Exam Comments: Vitals stable, pt afebrile. Pt in NAD, obese body habitus. PE showed pt alert and oriented. electrician's helper generally intact, muscular strength and sensation intact. Eyes PERRLA, EOMI. Oropharynx without erythema or exudates, no LAD b/l. No nasal congestion, hearing intact. Clear heart sounds, S1/S2, no JVD, b/l pedal edema, or heart murmur. No reproducible chest tenderness with palpation. Clear lung sounds, no respiratory distress, wheezes, crackles, or accessory muscle use. No abdominal or CVA tenderness to palpation, no rebound, no guarding. Abdomen soft, protuberant, and with normoactive bowel sounds. Skin without jaundice or rash. 05/20/18 05:34 Moderate Sedation - Procedure Monitoring Vital Signs: Procedure Monitoring Vital Signs Temperature 98.8 F 05/20/18 03:29 Pulse Rate 73 05/20/18 03:29 Respiratory Rate 20 05/20/18 03:29 Blood Pressure 95/61 05/20/18 03:29 O2 Sat by Pulse Oximetry (%) 97 05/20/18 03:29 ED Treatment Course - LABORATORY CBC & Chemistry Diagram: 05/20/18 04:48 05/20/18 04:48 Medical Decision Making - Medical Decision Making Pt was seen at bedside, also will be seen by attending Dr. Dalton. Pt presenting with complaints of substernal chest pressure since Saturday. Pt states the pain started while she was at [employer], and was pressure-like in quality. The pain does not radiate, is non-exertional, and is not associated with n/v/diaphoresis. The pt states the pain has been consistent over the past 3 days, but worsened this evening in severity when it awoke her from sleep. She has also had difficulty "catching her breath" since Saturday with exertion. EMS provided 0.4 mg SL NG and 4 baby aspirin. Pt denies any recent fevers/chills, headache, vision changes, cough, syncope, palpitations, orthopnea, nausea/ vomiting, abdominal pain, urinary symptoms, diarrhea/constipation, or leg swelling. Vitals stable, pt afebrile. Pt in NAD, obese body habitus. PE showed pt alert and oriented. electrician's helper generally intact, muscular strength and sensation intact. Eyes PERRLA, EOMI. Oropharynx without erythema or exudates, no LAD b/l. No nasal congestion, hearing intact. Clear heart sounds, S1/S2, no JVD, b/l pedal edema, or heart murmur. No reproducible chest tenderness with palpation. Clear lung sounds, no respiratory distress, wheezes, crackles, or accessory muscle use. No abdominal or CVA tenderness to palpation, no rebound, no guarding. Abdomen soft, protuberant, and with normoactive bowel sounds. Skin without jaundice or rash. Considering costochondritis/MSK pain vs cardiac (ACS, unstable angina) vs acid reflux/GERD. Pt has no radiating pain to the back, no recent fevers/chills or cough/congestion. Unlikely viral URI or pneumonia. Ordered work-up including CBC, CMP, cardiac profile, BNP, ECG, chest x-ray, UA. Provided 650 mg PO tylenol, 2 mg IV morphine, and 500 mL IV NS for improvement of hypotension and discomfort. Will continue to reassess pt and monitor for symptomatic improvement. ECG: NSR, intervals WNL. Old inferior infarct (since 2011). No new TWIs or ST segment changes from prior ECG. 05/20/18 05:22 UA: trace leuk esterase, 3+ glucose -- pt has no urinary complaints. 05/20/18 05:50 CMP: gluc 150, otherwise WNL BNP 34 Trop .03 Pending CBC Chest x-ray shows no obvious acute changes or infiltrates from prior. 05/20/18 06:19 BP improved to 107/60 after fluid bolus. Pt stable and resting. Still complaining of mild chest discomfort but improved after morphine. 05/20/18 06:23 Blog sent to hospitalist team for admission. Pending called back. Pt signed out to Dr. Azevedo for admission. 03/05/19 07:26 *DC/Admit/Observation/Transfer Diagnosis at time of Disposition: History of [place] (myocardial infarction), Atypical chest pain Chest pain Qualifiers: Chest pain type: unspecified Qualified Code(s): R07.9 - Chest pain, unspecified - Discharge Dispostion Condition at time of disposition: Stable - Referrals Referrals: Arlette Castro MD [Primary Care Provider] - - Patient Instructions - Post Discharge Activity
--- NOTE | 2018-05-20 04:30 | PDOC ---
Attending Attestation - Resident Resident Name: Aure Abbasi - ED Attending Attestation I have performed the following: I have examined & evaluated the patient, The case was reviewed & discussed with the resident, I agree w/resident's findings & plan - HPI HPI: 05/20/18 04:52 72-year-old female with extensive past medical history complaining of chest pain with exertion increasing over the last few days. Patient only partially resolved with nitroglycerin and aspirin given by EMS. - Physicial Exam PE: 05/20/18 04:52 Agree with resident's exam - Medical Decision Making 05/20/18 04:52 72-year-old female with chest pain and significant cardiac history Plan for troponin, EKG chest x-ray and admission to medical service for further evaluation
[2018-05-20] MEDS ORDERED: ACETAMINOPHEN 325 MG TABLET (FP) PO ONE (04:37)
[2018-05-20] MEDS ORDERED: morphine CARPU-JECT 4 MG/1 ML DISP.SYRIN IVPUSH ONE (04:50)
[2018-05-20] MEDS ORDERED: SODIUM CHLORIDE 500 ML IV STA (04:50)
[2018-05-20] MEDS ORDERED: ACETAMINOPHEN 325 MG TABLET (FP) ONE (05:04)
[2018-05-20] MEDS ORDERED: MORPHINE SULFATE 2 MG/ML VIAL ONE (05:04)
[2018-05-20 05:33] LABS: URINE APPEARANCE CLEAR; URINE BILIRUBIN NEGATIVE (<2.0 mg/dL); URINE COLOR LTYELLOW; URINE GLUCOSE (UA) 3+ (NEGATIVE); URINE KETONE NEGATIVE (NEGATIVE); URINE LEUK ESTERASE TRACE (NEGATIVE); URINE NITRITE NEGATIVE (NEGATIVE); URINE PROTEIN NEGATIVE (NEGATIVE); URINE UROBILINOGEN NEGATIVE mg/dL (0.2-1.0)
[2018-05-20 05:41] LABS: EPI CELLS FEW /HPF (FEW); URINE BACTERIA RARE /hpf (NONE SEEN); URINE MUCUS RARE
[2018-05-20 05:53] LABS: ALBUMIN 3.3 g/dl (3.4-5.0); ALK PHOS 38 U/L (45-117); ANION GAP 10 MMOL/L (8-16); BILIRUBIN,TOTAL 0.5 mg/dL (0.2-1); BLOOD UREA NITROGEN 16 mg/dL (7-18); CALCIUM 8.6 mg/dL (8.5-10.1); CHLORIDE 103 mmol/L (98-107); CO2 25 mmol/L (21-32); CREATININE 0.6 mg/dL (0.55-1.3); GLUCOSE,RANDOM 150 mg/dL (74-106); POTASSIUM 4.2 mmol/L (3.5-5.1); SGOT/AST 24 U/L (15-37); SGPT/ALT 26 U/L (13-61); SODIUM 137 mmol/L (136-145); TOT PROT 6.4 g/dl (6.4-8.2)
[2018-05-20 06:02] LABS: INR 1.01 (0.83-1.09); PROTHROMBIN TIME (PATIENT) 11.9 SEC (9.7-13.0)
[2018-05-20 06:53] LABS: BASO % 0.7 % (0-2.0); EOS % 3.7 % (0-4.5); HEMATOCRIT 45.5 % (32.4-45.2); HEMOGLOBIN 15.7 GM/dL (10.7-15.3); LYMPH % 14.6 % (8-40); MCH 30.2 pg (25.7-33.7); MCHC 34.5 g/dl (32.0-36.0); MEAN CELL VOLUME 87.6 fl (80-96); MEAN PLT VOLUME 7.6 fl (7.5-11.1); MONO % 8.3 % (3.8-10.2); NEUT % 72.7 % (42.8-82.8); PLATELET COUNT 211 K/MM3 (134-434); RDW 14.3 % (11.6-15.6); WHITE BLOOD COUNT 5.7 K/mm3 (4.0-10.0)
[2018-05-20] MEDS ORDERED: NITROGLYCERIN SUBLINGUAL 1/150 0.4 MG TAB SL PRN (07:49)
[2018-05-20] MEDS ORDERED: HEPARIN NA (PORCINE) 5,000 UNITS/ML 1ML VIAL IVPUSH PRN (08:49)
--- NOTE | 2018-05-20 09:15 | CON.CARD ---
Consult Consult Specialty:: Cardiology Referred by:: Dr. Stephanie Travis Reason for Consultation:: Chest pain - History of Present Illness Chief Complaint: chest pain History of Present Illness: 72-year-old female history of coronary artery disease with multiple stents. History of inferior wall CA September 2011 with PCI to RCA, left main LAD and left circumflex at stage interventions. In 2013 she presented to [facility] with chest pain, was sent for cardiac catheterization where she was found to have an 80% in-stent restenosis of the RCA status post drug-eluting stent. Negative stress MIBI 2016. Pericarditis earlier this year- pain responded to NSAIDs. Echo showed trivial pericardial effusion. Now returns with central sternal chest pressure at rest, woke her from sleep which was relieved with SLNTG associated with SOB. She has had exertional chest pressure for several days as well. Denies N/V/diaphoresis. No palpitations or syncope. - History Source History Provided By: Patient - Past Medical History Cardio/Vascular: Yes: CAD, CHF (possible diastolic HF), HTN, Hyperlipdemia, CA ( IWSTEMI September 2011 s/p PCI RCA with staged LM/LAD/LCx) Pulmonary: Yes: Asthma Gastrointestinal: Yes: GERD Endocrine: Yes: Diabetes Mellitus, Hypothyroidism - Past Surgical History Past Surgical History: Yes: Stent - Alcohol/Substance Use Hx Alcohol Use: No - Smoking History Smoking history: Never smoked Have you smoked in the past 12 months: No Aproximately how many cigarettes per day: 0 If you are a former smoker, when did you quit?: 12 years ago - Social History Usual Living Arrangement: Alone ADL: Independent History of Recent Travel: No Home Medications - Allergies Allergies/Adverse Reactions: Allergies Allergy/AdvReac Type Severity Reaction Status Date / Time No Known Drug Allergies Allergy Unknown Verified 10/04/17 02:37 CLAMS Allergy Vomiting Uncoded 10/04/17 02:37 - Home Medications Home Medications: Ambulatory Orders Metoprolol Tartrate [Lopressor -] 25 mg PO DAILY #1 tab 12/17/11 Losartan Potassium 25 mg PO DAILY 11/03/13 Albuterol Sulfate Inhaler - [Ventolin HFA Inhaler -] 1 - 2 inh PO ASDIR Aspirin [ASA -] 81 mg PO DAILY 03/15/15 Esomeprazole Mag Trihydrate [Nexium] 40 mg PO DAILY 03/15/15 Levothyroxine [Synthroid -] 25 mcg PO DAILY 03/15/15 metFORMIN HCL [Metformin HCl] 500 mg PO BID 03/15/15 Budesonide/Formeterol Fumarate [SYMBICORT 160/4.5mcg -] 1 puff IH BID #3 inhaler 03/18/15 Family Disease History - Family Disease History Family History: Unremarkable (noncontributory to this presentation) Review of Systems Findings/Remarks: See HPI - Review of Systems Constitutional: reports: No Symptoms Eyes: reports: No Symptoms HENT: reports: No Symptoms Neck: reports: No Symptoms Cardiovascular: reports: Chest Pain, Shortness of Breath Respiratory: reports: Exercise Intolerance Gastrointestinal: denies: No Symptoms, Abdominal Pain, Bloating, Constipation, Diarrhea, Dysphagia, Indigestion, Melena, Nausea, Rectal Bleeding, Vomiting, Vomiting Blood, Other Genitourinary: denies: No Symptoms, Burning, Discharge, Dysuria, Flank Pain, Frequency, Hematuria, Incontinence, Lesions, Menses, Pain, Testicular Mass, Testicular Pain, Testicular Swelling, Urgency, Vaginal Bleeding, Other Breasts: denies: No Symptoms Reported, See HPI, Breast Implants, Discharge from Nipple, Lumps, Pain, Skin Changes, Other Musculoskeletal: denies: No Symptoms, Back Pain, Crepitus, Decreased ROM, Extremity Pain, Joint Pain, Joint Swelling, Muscle Pain, Muscle Cramps, Muscle Weakness, Other Integumentary: denies: No Symptoms, Blister, Bruising, Change in Color, Eczema, Erythema, Incision, Lesions, Lump, Pallor, Pruritis, Rash, Wound, Other Neurological: denies: No Symptoms, Change in LOC, Change in Speech, Confusion, Dizziness, Headache, Incoordination, Numbness, Parasthesia, Pre-Existing Deficit , Seizure, Syncope, Tremors, Unsteady Gait, Weakness, Other Endocrine: denies: No Symptoms, Excessive Sweating, Flushing, Increased Hunger, Increased Thirst, Intolerance to Cold, Intolerance to Heat, Unexplained Weight Gain, Unexplained Weight Loss, Other Hematology/Lymphatic: denies: No Symptoms, Easily Bruised, Excessive Bleeding, Swollen Glands, Other Psychiatric: denies: No Symptoms, Altered Sleep Pattern, Anxiety, Depression, Hallucinations, Panic, Paranoia, Suicidal, Other - Risk Factors Known Risk Factors: Yes: Diabetes Mellitus, Hypertension, Prior CA /Emb Stroke Vital Signs: Vital Signs Temperature 98.8 F 05/20/18 03:29 Pulse Rate 73 05/20/18 03:29 Respiratory Rate 17 05/20/18 06:22 Blood Pressure 107/60 05/20/18 06:22 O2 Sat by Pulse Oximetry (%) 95 05/20/18 06:22 Constitutional: Yes: No Distress, Calm Eyes: Yes: Conjunctiva Clear Respiratory: Yes: CTA Bilaterally (no rales or wheezing) Gastrointestinal: Yes: Soft (NT) Cardiovascular: Yes: Regular Rate and Rhythm JVD: No Carotid Bruit: No PMI: Non-Displaced Heart Sounds: Yes: S1, S2 (RRR, no M/R/G) Edema: No Peripheral Pulses WNL: Yes Neurological: Yes: Alert, Oriented - Other Data Labs, Other Data: CBC, BMP 05/20/18 04:48 05/20/18 04:48 INR, PTT INR 1.01 (0.83-1.09) 05/20/18 04:48 Troponin, BNP 05/20/18 05/20/18 05/20/18 04:48 04:48 07:00 Troponin I 0.03 Cancelled B-Natriuretic Peptide 34.8 Troponin, BNP 05/20/18 05/20/18 05/20/18 04:48 04:48 07:00 Troponin I 0.03 Cancelled B-Natriuretic Peptide 34.8 NSR, old inferior CA- unchanged from prior Echo: Pending Prior Cardiac Procedures: PTCA, PTCA with Stent Ejection Fraction %: LVEF > or = 40 % Imaging - Results Chest X-ray: Report Reviewed EKG: Image Reviewed Problem List - Problems (1) Unstable angina Code(s): I20.0 - UNSTABLE ANGINA (2) Arteriosclerotic heart disease (ASHD) Code(s): I25.10 - ATHSCL HEART DISEASE OF [place] CORONARY ARTERY W/O ANG PCTRS (3) Evidence of prior myocardial infarction on electrocardiogram Code(s): I25.2 - OLD MYOCARDIAL INFARCTION (4) Stented coronary artery Code(s): Z95.5 - PRESENCE OF CORONARY ANGIOPLASTY IMPLANT AND GRAFT (5) Diabetes Code(s): E11.9 - TYPE 2 DIABETES MELLITUS WITHOUT COMPLICATIONS Qualifiers: Diabetes mellitus type: type 2 Diabetes mellitus complication status: with circulatory complication Assessment/Plan IMP: Suspected Unstable Angina Known CAD w/ h/o CA and multivessel PCI DM, type 2 History of pericarditis REC: 1. Admit to telemetry 2. JOSE with serial cardiac enzymes,serial ECGs 3. Echo today for EF assessment and to r/o pericardial effusion 4. ASA daily 5. Start UFH gtts while cardiac enzymes are trending 6. Ischemic evaluation prior to discharge: likely cath.
--- NOTE | 2018-05-20 09:15 | HP ---
CHIEF COMPLAINT: Chest pain PCP: Dr. Arlette Castro Appliance Mechanic: Dr. Britton HISTORY OF PRESENT ILLNESS: 72yo F with h/o known CAD and PCI intervention, NIDDM, HTN, and HLD who presents today with worsening chest pain symptoms since Saturday. Pt Saturday was sitting at [employer] when she started to develop L anterior chest discomfort rated about 4/10 that was described as "gripping." Pt thought this was her usual aches and decided to see if it went away. The discomfort persisted throughout the weekend when she awoke this morning from sleep with 9/10 gripping L anterior chest pain associated with shortness of breath. She described the feeling similar to her previous IA symptoms and decided to call EMS services. En route, pt received ASA 162mg PO and SL Nitro which did help alleviate some of chest pain. She was seen in the ED and given Morphine and tylenol alongside of the previous treatment. Of note, pt's last ischemic workup was performed within [address] Britton's office, however pt was asymptomatic at that time. Pt's last cath per EMR was in 2013. Currently pt is still experiencing pain however she states it is about 3-4/10 on her pain scale. She denies any current or previous radiation of pain, back pain, jaw claudication, diaphoresis. She denies any headaches, lightheadedness, n/v, recent constitutional symptoms, palpitations, abdominal pain, diarrhea, constipation, dysuria, polyuria. Recent Travel: Denies PAST MEDICAL HISTORY: CAD (PCI x4; inferior IA 2012) HTN HLD NIDDM Hypothyroidism Asthma PAST SURGICAL HISTORY: previous PCI Social History: Smoking: Denies Alcohol: Denies Drugs: Denies Lives at home alone. Ambulates without assistance device and independent in ADLs Family History: Allergies No Known Drug Allergies Allergy (Unknown, Verified 10/04/17 02:37) CLAMS Allergy (Uncoded 10/04/17 02:37) Vomiting HOME MEDICATIONS: Home Medications Medication Instructions Recorded Metoprolol Tartrate [Lopressor -] 25 mg PO DAILY #1 tab 12/17/11 Losartan Potassium 25 mg PO DAILY 11/03/13 Albuterol Sulfate Inhaler - 1 - 2 inh PO ASDIR 03/15/15 [Ventolin HFA Inhaler -] Aspirin [ASA -] 81 mg PO DAILY 03/15/15 Esomeprazole Mag Trihydrate 40 mg PO DAILY 03/15/15 [Nexium] Levothyroxine [Synthroid -] 25 mcg PO DAILY 03/15/15 metFORMIN HCL [Metformin HCl] 500 mg PO BID 03/15/15 Budesonide/Formeterol Fumarate 1 puff IH BID #3 inhaler 03/18/15 [SYMBICORT 160/4.5mcg -] REVIEW OF SYSTEMS As per HPI PHYSICAL EXAMINATION Vital Signs - 24 hr 05/20/18 05/20/18 03:29 06:22 Temperature 98.8 F Pulse Rate 73 Respiratory 20 17 Rate Blood Pressure 95/61 Blood Pressure 107/60 [Left Arm] O2 Sat by Pulse 97 95 Oximetry (%) GENERAL: NAD, awake, alert, and fully oriented HEENT: NC/AT, EOMI, NEFTALI, sclera anicteric, MMM NECK: No JVD, no carotid bruits auscultated, no neck TTP. No thyromegaly CHEST: Pain with palpation midsternal and R-anterior, however not truly similar to her AM pain LUNGS: CTA bilaterally. No wheezes, and no crackles. No accessory muscle use. 95 % on RA HEART: RRR, normal S1 and S2 without murmurs appreciated ABDOMEN: Soft, NT/ND, normoactive bowel sounds, no guarding, no rebound. No hepatomegaly to palpation MUSCULOSKELETAL: No CVA tenderness. ROM limited with shoulder abduction, however symmetric and chronic (per pt) EXTREMITIES: 2+ distal b/l pulses, warm, no calf tenderness. No peripheral edema. NEUROLOGICAL: saddle mechanic II-XII intact. Strength 5/5 throughout both upper and lower extremities. Sensation intact. Normal speech. Gait not observed PSYCHIATRIC: Cooperative. Good eye contact. Appropriate mood and affect. SKIN: Warm, dry, no rashes or lesions noted Laboratory Results 05/20/18 05/20/18 05/20/18 04:48 04:48 04:48 WBC 5.7 RBC 5.20 Hgb 15.7 H Hct 45.5 H MCV 87.6 MCH 30.2 MCHC 34.5 RDW 14.3 Plt Count 211 MPV 7.6 Absolute Neuts (auto) 4.2 Neutrophils % 72.7 D Lymphocytes % 14.6 D Monocytes % 8.3 Eosinophils % 3.7 Basophils % 0.7 Nucleated RBC % 0 PT with INR 11.90 INR 1.01 Sodium 137 Potassium 4.2 Chloride 103 Carbon Dioxide 25 Anion Gap 10 BUN 16 Creatinine 0.6 Creat Clearance w eGFR > 60 Random Glucose 150 H Calcium 8.6 Total Bilirubin 0.5 AST 24 ALT 26 Alkaline Phosphatase 38 L Creatine Kinase 56 Troponin I 0.03 B-Natriuretic Peptide Total Protein 6.4 Albumin 3.3 L Urine Color Urine Appearance Urine pH Ur Specific [place] Urine Protein Urine Glucose (UA) Urine Ketones Urine Blood Urine Nitrite Urine Bilirubin Urine Urobilinogen Ur Leukocyte Esterase Urine WBC (Auto) Urine RBC (Auto) Ur Epithelial Cells Urine Bacteria Urine Mucus 05/20/18 05/20/18 05/20/18 04:48 05:07 07:00 WBC RBC Hgb Hct MCV MCH MCHC RDW Plt Count MPV Absolute Neuts (auto) Neutrophils % Lymphocytes % Monocytes % Eosinophils % Basophils % Nucleated RBC % PT with INR INR Sodium Potassium Chloride Carbon Dioxide Anion Gap BUN Creatinine Creat Clearance w eGFR Random Glucose Calcium Total Bilirubin AST ALT Alkaline Phosphatase Creatine Kinase Troponin I Cancelled B-Natriuretic Peptide 34.8 Total Protein Albumin Urine Color Ltyellow Urine Appearance Clear Urine pH 6.0 Ur Specific [place] 1.024 Urine Protein Negative Urine Glucose (UA) 3+ H Urine Ketones Negative Urine Blood Negative Urine Nitrite Negative Urine Bilirubin Negative Urine Urobilinogen Negative Ur Leukocyte Esterase Trace Urine WBC (Auto) 10 Urine RBC (Auto) 1 Ur Epithelial Cells Few Urine Bacteria Rare Urine Mucus Rare ECG - NSR @72bpm, minimal LAD, poor R-wave progression, inferior Q-waves noted, no HANNAH or STD, No TWI, [id number] *unchanged from previous on 10/04/17* CXR - No acute pathology. ? increased space between humeral head and glenohumeral joint ASSESSMENT/PLAN: Atypical chest pain; poss. unstable angina NIDDM HTN HLD Known CAD s/p PCI Hypothyroidism Obesity Asthma (controlled) --Given similar to pt's anginal symptoms in the past would admit for ischemic workup and possible unstable angina workup --Cardiology consult --ASA 81mg qDaily --Heparin gtt --SL Nitro PRN for chest pain; BP allowing --Continue ACEi --Continue Lopressor dose considering pt has been on this chronically --Cardiac profile trend --ECG reviewed as above --Possible transfer tomorrow for catheterization with possibility of intervention (NPO after midnight) --Lipid panel with AM labs --Will hold Metformin due to anticipation of cath --BGM ACHS; ISS --A1c ordered for AM labs --Monitor BP --Continue Synthroid 25mcg qdaily --Check TSH in AM labs --Continue Symbicort home dose FEN: Fluids: None indicated; encourage PO Electrolyte abnormalities: None currently Nutrition: Fat/Sodium/Diabetic controlled PPX: DVT - Heparin gtt as above already GI - Continue home Protonix PO Dispo: Admit Telemetry monitoring; possible cath tomorrow Case discussed with Dr. Glasgow and Dr. Reba Travis, DO - IM PGY-2 Visit type - Emergency Visit Emergency Visit: Yes Care time: The patient presented to the Emergency Department on the above date and was hospitalized for further evaluation of their emergent condition. - New Patient This patient is new to me today: Yes Date on this admission: 05/20/18 - Critical Care Critical Care patient: No
[2018-05-20] MEDS ORDERED: HEPARIN INFUSION - 25,000 UNITS/500 ML INFUS.BAG IVPB ONE (09:37)
--- NOTE | 2018-05-20 09:58 | PN ---
Teaching Attending Note Name of Resident: Geremias Travis ATTENDING PHYSICIAN STATEMENT I saw and evaluated the patient. I reviewed the resident's note and discussed the case with the resident. I agree with the resident's findings and plan as documented. SUBJECTIVE: Patient is a 72yo F with PMHx of CAD with PCI intervention, NIDDM, HTN, and HLD who presents today with worsening chest pain symptoms since Saturday. OBJECTIVE: Vital Signs Temperature 98.8 F 05/20/18 03:29 Pulse Rate 73 05/20/18 03:29 Respiratory Rate 17 05/20/18 06:22 Blood Pressure 107/60 05/20/18 06:22 O2 Sat by Pulse Oximetry (%) 95 05/20/18 06:22 GENERAL: NAD, awake, alert, and fully oriented HEENT: NC/AT, EOMI, NEFTALI, sclera anicteric, MMM NECK: No JVD, no carotid bruits auscultated. No thyromegaly CHEST: Pain with palpation midsternal and R-anterior area LUNGS: CTA bilaterally. No wheezes, and no crackles. No accessory muscle use. 95 % on RA HEART: RRR, normal S1 and S2 without murmurs appreciated ABDOMEN: Soft, NT/ND, normoactive bowel sounds, no guarding, no rebound. No hepatomegaly to palpation MUSCULOSKELETAL: No CVA tenderness. ROM limited with shoulder abduction, chronic as (per pt) EXTREMITIES: 2+ distal b/l pulses, warm, no calf tenderness. No peripheral edema. NEUROLOGICAL: grade school teacher II-XII intact. Gait not observed PSYCHIATRIC: Cooperative. Good eye contact. Appropriate mood and affect. SKIN: Warm, dry, no rashes or lesions noted CBCD WBC 5.7 K/mm3 (4.0-10.0) 05/20/18 04:48 RBC 5.20 M/mm3 (3.60-5.2) 05/20/18 04:48 Hgb 15.7 GM/dL (10.7-15.3) H 05/20/18 04:48 Hct 45.5 % (32.4-45.2) H 05/20/18 04:48 MCV 87.6 fl (80-96) 05/20/18 04:48 MCHC 34.5 g/dl (32.0-36.0) 05/20/18 04:48 RDW 14.3 % (11.6-15.6) 05/20/18 04:48 Plt Count 211 K/MM3 (134-434) 05/20/18 04:48 MPV 7.6 fl (7.5-11.1) 05/20/18 04:48 CMP Sodium 137 mmol/L (136-145) 05/20/18 04:48 Potassium 4.2 mmol/L (3.5-5.1) 05/20/18 04:48 Chloride 103 mmol/L (98-107) 05/20/18 04:48 Carbon Dioxide 25 mmol/L (21-32) 05/20/18 04:48 Anion Gap 10 MMOL/L (8-16) 05/20/18 04:48 BUN 16 mg/dL (7-18) 05/20/18 04:48 Creatinine 0.6 mg/dL (0.55-1.3) 05/20/18 04:48 Creat Clearance w eGFR > 60 (>60) 05/20/18 04:48 Random Glucose 150 mg/dL (74-106) H 05/20/18 04:48 Calcium 8.6 mg/dL (8.5-10.1) 05/20/18 04:48 Total Bilirubin 0.5 mg/dL (0.2-1) 05/20/18 04:48 AST 24 U/L (15-37) 05/20/18 04:48 ALT 26 U/L (13-61) 05/20/18 04:48 Alkaline Phosphatase 38 U/L (45-117) L 05/20/18 04:48 Total Protein 6.4 g/dl (6.4-8.2) 05/20/18 04:48 Albumin 3.3 g/dl (3.4-5.0) L 05/20/18 04:48 CARDIAC ENZYMES Creatine Kinase 50 U/L (26-192) 05/20/18 08:15 Troponin I < 0.02 ng/ml (0.00-0.05) 05/20/18 08:15 Current Medications Generic Name Dose Route Start Last Admin Trade Name Freq PRN Reason Stop Dose Admin Aspirin 81 mg 05/20/18 10:00 Asa - PO DAILY JAYLA Budesonide/Formoterol Fumarate 1 puff 05/20/18 10:00 Symbicort 160/4.5mcg - IH BID [facility] Heparin Sodium (Porcine) 1,000 unit 05/20/18 08:49 Heparin - IVPUSH PRN PRN Heparin Heparin Sodium (Porcine) 5,000 unit 05/20/18 08:49 Heparin - IVPUSH PRN PRN Heparin Heparin Sodium (Porcine) 25, 500 mls @ 20 mls/hr 05/20/18 09:00 000 unit/ Sodium Chloride IV TITR JAYLA Protocol 1,000 UNIT/HR Insulin Aspart 1 vial 05/20/18 11:00 Novolog Vial Sliding Scale - SQ ACHS [facility] Protocol Levothyroxine Sodium 25 mcg 05/20/18 09:30 Synthroid - PO DAILY@0700 [facility] Losartan Potassium 25 mg 05/20/18 10:00 Cozaar - PO DAILY [facility] Metoprolol Tartrate 25 mg 05/20/18 10:00 Lopressor - PO DAILY [facility] Nitroglycerin 0.4 mg 05/20/18 07:49 Nitrostat - SL Q5M PRN FOR CHEST PAIN Pantoprazole Sodium 40 mg 05/20/18 10:00 Protonix - PO DAILY [facility] Home Medications Medication Instructions Recorded Metoprolol Tartrate [Lopressor -] 25 mg PO DAILY #1 tab 12/17/11 Losartan Potassium 25 mg PO DAILY 11/03/13 Albuterol Sulfate Inhaler - 1 - 2 inh PO ASDIR 03/15/15 [Ventolin HFA Inhaler -] Aspirin [ASA -] 81 mg PO DAILY 03/15/15 Esomeprazole Mag Trihydrate 40 mg PO DAILY 03/15/15 [Nexium] Levothyroxine [Synthroid -] 25 mcg PO DAILY 03/15/15 metFORMIN HCL [Metformin HCl] 500 mg PO BID 03/15/15 Budesonide/Formeterol Fumarate 1 puff IH BID #3 inhaler 03/18/15 [SYMBICORT 160/4.5mcg -] ECG - NSR @72bpm, minimal LAD, poor R-wave progression, inferior Q-waves noted, no HANNAH or STD, No TWI, [id number] unchanged from 10/04/17 CXR - No acute pathology. ASSESSMENT AND PLAN: Patient is a 72yo F with PMHx of CAD with PCI intervention, NIDDM, HTN, and HLD who presents today with worsening chest pain symptoms since Saturday. #Acute chest pain with Known CAD s/p PCI r/o acs poss. unstable angina, 3 sets of troponin, ekg old qwaves, no change from previous ekg, cardio consult, aspirin 81mg continue, on heparin drip as per dr. guerrier, Possible transfer tomorrow for catheterization with possibility of intervention (NPO after midnight) morphine prn for pain #NIDDM: hold Metformin , BGM ACHS; ISS #HTN: continue home meds #HLD:check lipid panel #Hypothyroidism: continue Synthroid 25mcg qdaily, check TSH in AM labs #Obesity: diet discussed with the patient #Asthma (controlled):continue Symbicort home dose , nebulizer tx q6h prn # Insomnia:Melatonin 5mg DVT Px: heparin drip
[2018-05-20] MEDS ORDERED: HEPARIN NA (PORCINE) 5,000 UNITS/ML 1ML VIAL ONE (10:11)
[2018-05-20] MEDS ORDERED: NITROGLYCERIN SUBLINGUAL 1/150 0.4 MG TAB ONE (10:45)
[2018-05-20] MEDS: HEPARIN - 25,000 UNIT in SODIUM CHLORIDE 495 ML IV SCH ×2 (10:53→12:01)
[2018-05-20] MEDS: ASPIRIN 81 MG CHEWABLE TABLETS PO SCH (10:54)
[2018-05-20] MEDS: LOSARTAN POTASSIUM 25 MG TABLET PO SCH (10:54)
[2018-05-20] MEDS: METOPROLOL TARTRATE 25 MG TABLET (FP) PO SCH (10:54)
[2018-05-20] MEDS: LEVOTHYROXINE NA 25 MCG TABLET (FP) PO SCH (10:54)
[2018-05-20] MEDS: PANTOPRAZOLE 40 MG TABLET (FP) PO SCH (10:55)
[2018-05-20] MEDS: HEPARIN NA (PORCINE) 5,000 UNITS/ML 1ML VIAL IVPUSH PRN ×2 (10:55→21:25)
[2018-05-20] MEDS ORDERED: INSULIN (NOVOLOG) ASPART 100 UNITS/ML 10ML VIAL ONE (12:22)
[2018-05-20] MEDS: INSULIN SLIDING SCALE (NOVOLOG) 1 VIAL SQ SCH ×3 (12:32→21:29)
[2018-05-20] MEDS: BUDESONIDE/FORMETEROL FUMARATE 160/4.5 mcg INHALER IH SCH ×2 (12:51→21:28)
--- NOTE | 2018-05-20 13:44 | EKG ---
Test Reason : Blood Pressure : / mmHG Vent. Rate : 081 BPM Atrial Rate : 081 BPM P-R Int : 144 ms QRS Dur : 074 ms QT Int : 378 ms P-R-T Axes : 049 -20 -07 degrees QTc Int : 439 ms NORMAL SINUS RHYTHM INFERIOR INFARCT (CITED ON OR BEFORE 29-SEP-2011) ANTEROLATERAL INFARCT , AGE UNDETERMINED ABNORMAL ECG WHEN COMPARED WITH ECG OF 20-MAY-2018 03:44, ANTEROLATERAL INFARCT IS NOW PRESENT Confirmed by MD Mehran, Tj ([id number]) on 05/20/2018 1:44:25 PM Referred By: Confirmed By:Tj Laurent MD
--- NOTE | 2018-05-20 13:47 | EKG ---
Test Reason : Blood Pressure : / mmHG Vent. Rate : 072 BPM Atrial Rate : 072 BPM P-R Int : 144 ms QRS Dur : 078 ms QT Int : 412 ms P-R-T Axes : 046 -23 -01 degrees QTc Int : 451 ms NORMAL SINUS RHYTHM MINIMAL VOLTAGE CRITERIA FOR LVH, MAY BE NORMAL VARIANT INFERIOR INFARCT (CITED ON OR BEFORE 29-SEP-2011) ABNORMAL ECG WHEN COMPARED WITH ECG OF 04-OCT-2017 02:27, NO SIGNIFICANT CHANGE WAS FOUND Confirmed by MD Mehran, Tj ([id number]) on 05/20/2018 1:47:20 PM Referred By: Confirmed By:Tj Laurent MD
[2018-05-20] MEDS ORDERED: PT OWN MED DRAWER 7, Y5N ONE ×2 (15:09→20:57)
[2018-05-20] MEDS ORDERED: ACETAMINOPHEN 325 MG TABLET (FP) PO PRN (19:33)
[2018-05-20] MEDS ORDERED: MORPHINE SULFATE 2 MG/ML VIAL IVPUSH PRN (20:46)
[2018-05-20] MEDS ORDERED: ALBUTEROL SO4 0.5 % INH SOLN 2.5 MG/0.5 ML VIAL.NEB. NEB PRN (20:47)
[2018-05-20] MEDS ORDERED: MELATONIN 5 MG TABLETS PO PRN (20:47)
[2018-05-20] MEDS: NITROGLYCERIN 2% OINTMENT - 1GM PACKET TD SCH (23:33)
[2018-05-21] MEDS: NITROGLYCERIN 2% OINTMENT - 1GM PACKET TD SCH ×3 (05:46→17:59)
[2018-05-21] MEDS: LEVOTHYROXINE NA 25 MCG TABLET (FP) PO SCH (06:05)
[2018-05-21] MEDS: INSULIN SLIDING SCALE (NOVOLOG) 1 VIAL SQ SCH ×3 (06:05→17:33)
[2018-05-21 06:11] LABS: HEMATOCRIT 41.9 % (32.4-45.2); HEMOGLOBIN 14.3 GM/dL (10.7-15.3); MCH 29.8 pg (25.7-33.7); MCHC 34.1 g/dl (32.0-36.0); MEAN CELL VOLUME 87.2 fl (80-96); MEAN PLT VOLUME 7.2 fl (7.5-11.1); PLATELET COUNT 207 K/MM3 (134-434); RBC 4.81 M/mm3 (3.60-5.2); WHITE BLOOD COUNT 4.1 K/mm3 (4.0-10.0)
[2018-05-21 06:36] LABS: ANION GAP 7 MMOL/L (8-16); BLOOD UREA NITROGEN 14 mg/dL (7-18); CALCIUM 8.2 mg/dL (8.5-10.1); CHLORIDE 106 mmol/L (98-107); CO2 26 mmol/L (21-32); CREATININE 0.9 mg/dL (0.55-1.3); GLUCOSE,RANDOM 153 mg/dL (74-106); POTASSIUM 4.1 mmol/L (3.5-5.1); SODIUM 139 mmol/L (136-145)
[2018-05-21 07:49] LABS: CHOLESTEROL 128 mg/dL (50-200); HDL CHOLESTEROL 32 mg/dL (40-60); TRIGLYCERIDES 203 mg/dL (0-150)
--- NOTE | 2018-05-21 08:44 | PN ---
Progress Note, Physician Chief Complaint: seen and examined on 4S Had further chest discomfort, relieved with nitro - Current Medication List Current Medications: Active Medications Acetaminophen (Tylenol -) 650 mg PO Q6H PRN PRN Reason: Fever Or Pain Last Admin: 05/20/18 20:00 Dose: 650 mg Albuterol Sulfate (Ventolin 0.5% -) 1 amp NEB Q6H PRN PRN Reason: SHORT OF BREATH/WHEEZING Aspirin (Asa -) 81 mg PO DAILY [facility] Last Admin: 05/20/18 10:54 Dose: 81 mg Budesonide/Formoterol Fumarate (Symbicort 160/4.5mcg -) 1 puff IH BID [facility] Last Admin: 05/20/18 21:28 Dose: 1 puff Heparin Sodium (Porcine) (Heparin -) 1,000 unit IVPUSH PRN PRN PRN Reason: Heparin Heparin Sodium (Porcine) (Heparin -) 5,000 unit IVPUSH PRN PRN PRN Reason: Heparin Last Admin: 05/20/18 21:25 Dose: 5,000 unit Heparin Sodium (Porcine) 25, (000 unit/ Sodium Chloride) 500 mls @ 20 mls/hr IV TITR [facility]; Protocol Last Titration: 05/21/18 04:47 Dose: 1,100 unit/hr, 22 mls/hr Insulin Aspart (Novolog Vial Sliding Scale -) 1 vial SQ ACHS [facility]; Protocol Last Admin: 05/21/18 06:05 Dose: Not Given Levothyroxine Sodium (Synthroid -) 25 mcg PO DAILY@0700 [facility] Last Admin: 05/21/18 06:05 Dose: 25 mcg Losartan Potassium (Cozaar -) 25 mg PO DAILY [facility] Last Admin: 05/20/18 10:54 Dose: 25 mg Melatonin (Melatonin) 5 mg PO HS PRN PRN Reason: INSOMNIA Last Admin: 05/20/18 21:28 Dose: 5 mg Metoprolol Tartrate (Lopressor -) 25 mg PO DAILY [facility] Last Admin: 05/20/18 10:54 Dose: 25 mg Morphine Sulfate (Morphine Sulfate) 2 mg IVPUSH Q3H PRN PRN Reason: PAIN LEVEL 7 - 10 Last Admin: 05/20/18 21:00 Dose: 2 mg Nitroglycerin (Nitrostat -) 0.4 mg SL Q5M PRN PRN Reason: FOR CHEST PAIN Last Admin: 05/20/18 20:00 Dose: 0.4 mg Nitroglycerin (Nitro-Bid 2% Paste -) 1 inch TD Q6HPO [facility] Last Admin: 05/21/18 05:46 Dose: 1 inch Pantoprazole Sodium (Protonix -) 40 mg PO DAILY [facility] Last Admin: 05/20/18 10:55 Dose: 40 mg - Objective Vital Signs: Vital Signs Temperature 97.8 F 05/21/18 06:00 Pulse Rate 71 05/21/18 06:00 Respiratory Rate 18 05/21/18 06:00 Blood Pressure 111/64 05/21/18 06:00 O2 Sat by Pulse Oximetry (%) 92 L 05/20/18 21:00 Constitutional: Yes: No Distress Cardiovascular: Yes: Regular Rate and Rhythm Respiratory: Yes: CTA Bilaterally Gastrointestinal: Yes: Soft Edema: No Neurological: Yes: Alert, Oriented Labs: CBC, BMP 05/21/18 06:00 05/21/18 06:00 INR, PTT INR 1.01 (0.83-1.09) 05/20/18 04:48 Laboratory Tests 05/20/18 05/20/18 05/20/18 04:48 04:48 04:48 WBC 5.7 Hgb 15.7 H Plt Count 211 INR 1.01 PTT (Actin FS) Sodium 137 Potassium 4.2 BUN Creatinine 0.6 Calcium Creatine Kinase 56 Troponin I 0.03 Cholesterol Total LDL Cholesterol 05/20/18 05/21/18 05/21/18 18:00 03:55 06:00 WBC 4.1 Hgb 14.3 Plt Count 207 INR PTT (Actin FS) 42.0 H 57.1 H Sodium Potassium BUN Creatinine Calcium Creatine Kinase Troponin I Cholesterol Total LDL Cholesterol 05/21/18 06:00 WBC Hgb Plt Count INR PTT (Actin FS) Sodium 139 Potassium 4.1 BUN 14 Creatinine 0.9 Calcium 8.2 L Creatine Kinase Troponin I Cholesterol 128 Total LDL Cholesterol 70 - ....Imaging EKG: Image Reviewed (NSR) Problem List - Problems (1) Unstable angina Code(s): I20.0 - UNSTABLE ANGINA (2) Arteriosclerotic heart disease (ASHD) Code(s): I25.10 - ATHSCL HEART DISEASE OF [place] CORONARY ARTERY W/O ANG PCTRS (3) Evidence of prior myocardial infarction on electrocardiogram Code(s): I25.2 - OLD MYOCARDIAL INFARCTION (4) Stented coronary artery Code(s): Z95.5 - PRESENCE OF CORONARY ANGIOPLASTY IMPLANT AND GRAFT (5) Diabetes Code(s): E11.9 - TYPE 2 DIABETES MELLITUS WITHOUT COMPLICATIONS Qualifiers: Diabetes mellitus type: type 2 Diabetes mellitus complication status: with circulatory complication Assessment/Plan IMP: Suspected Unstable Angina Known CAD w/ h/o SC and multivessel PCI DM, type 2 History of pericarditis REC: 1. Tele 2. Enzymes negative 3. Echo today for EF assessment and to r/o pericardial effusion 4. ASA daily 5. UFH gtts 6. Plan for transfer for cath today.
[2018-05-21] MEDS: LOSARTAN POTASSIUM 25 MG TABLET PO SCH (10:19)
[2018-05-21] MEDS: PANTOPRAZOLE 40 MG TABLET (FP) PO SCH (10:19)
[2018-05-21] MEDS: ASPIRIN 81 MG CHEWABLE TABLETS PO SCH (10:19)
[2018-05-21] MEDS: METOPROLOL TARTRATE 25 MG TABLET (FP) PO SCH (10:19)
[2018-05-21] MEDS: BUDESONIDE/FORMETEROL FUMARATE 160/4.5 mcg INHALER IH SCH (10:21)
[2018-05-21] MEDS ORDERED: PT OWN MED DRAWER 7, Y5N ONE (10:28)
[2018-05-21] MEDS: HEPARIN - 25,000 UNIT in SODIUM CHLORIDE 495 ML IV SCH (12:17)
--- NOTE | 2018-05-21 16:31 | PN ---
Teaching Attending Note Name of Resident: Suleman Falcon ATTENDING PHYSICIAN STATEMENT I saw and evaluated the patient. I reviewed the resident's note and discussed the case with the resident. I agree with the resident's findings and plan as documented. SUBJECTIVE: No fever or chills. Cp improved but still here. No REID , no SOB. 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 1- CP: possible unstable angina. - cont heparin gtt - cont Asa, BB , and ARB - for transfer for cath today. - appreciate Card help - dc morphine - echo was done but not read yet 2- HTN: cont BB and ARB 3- H/O DM : hold janumet, and Invokana and cont SSI 4- Dispo : Tx for cath is still pending
--- NOTE | 2018-05-21 18:21 | DS ---
Physical Exam: SUBJECTIVE: Patient seen and examined at bedside along w/ Dr Britton. OBJECTIVE: Vital Signs Period Temp Pulse Resp BP Sys/Melchor Pulse Ox Last 24 Hr 97.5 F-98.7 F 69-84 18-20 110-135/59-68 92-94 PHYSICAL EXAM GENERAL: NAD Resting in bed comfortably HEAD: Atraumatic Normocephalic EYES: Sclera Clear EOMI ENT: MMM NECK: Trachea midline, full range of motion, supple. LUNGS: CTAB HEART: RRR nl s1s2 ABDOMEN: Soft nondistended nontender NEUROLOGICAL: Cranial nerves II through XII grossly intact. PSYCH: Normal mood, normal affect. LABS Laboratory Results - last 24 hr 05/20/18 05/20/18 05/20/18 18:00 20:15 21:20 WBC RBC Hgb Hct MCV MCH MCHC RDW Plt Count MPV PTT (Actin FS) 42.0 H Sodium Potassium Chloride Carbon Dioxide Anion Gap BUN Creatinine Creat Clearance w eGFR POC Glucometer 153 Random Glucose Hemoglobin A1c % Calcium Troponin I < 0.02 Triglycerides Cholesterol Total LDL Cholesterol HDL Cholesterol TSH 05/21/18 05/21/18 05/21/18 03:55 05:51 06:00 WBC 4.1 RBC 4.81 Hgb 14.3 Hct 41.9 MCV 87.2 MCH 29.8 MCHC 34.1 RDW 14.0 Plt Count 207 MPV 7.2 L PTT (Actin FS) 57.1 H Sodium Potassium Chloride Carbon Dioxide Anion Gap BUN Creatinine Creat Clearance w eGFR POC Glucometer 155 Random Glucose Hemoglobin A1c % Calcium Troponin I Triglycerides Cholesterol Total LDL Cholesterol HDL Cholesterol TSH 05/21/18 05/21/18 05/21/18 06:00 06:00 11:04 WBC RBC Hgb Hct MCV MCH MCHC RDW Plt Count MPV PTT (Actin FS) Sodium 139 Potassium 4.1 Chloride 106 Carbon Dioxide 26 Anion Gap 7 L BUN 14 Creatinine 0.9 Creat Clearance w eGFR > 60 POC Glucometer 221 Random Glucose 153 H Hemoglobin A1c % 8.0 H Calcium 8.2 L Troponin I Triglycerides 203 H Cholesterol 128 Total LDL Cholesterol 70 HDL Cholesterol 32 L TSH 6.53 H 05/21/18 16:26 WBC RBC Hgb Hct MCV MCH MCHC RDW Plt Count MPV PTT (Actin FS) Sodium Potassium Chloride Carbon Dioxide Anion Gap BUN Creatinine Creat Clearance w eGFR POC Glucometer 193 Random Glucose Hemoglobin A1c % Calcium Troponin I Triglycerides Cholesterol Total LDL Cholesterol HDL Cholesterol TSH HOSPITAL COURSE: Date of Admission:05/20/18 Pt is a 72 yo F with a significant past medical history of CAD and PCI intervention, NIDDM, HTN, and HLD who presented to [facility] due to worsening chest pain symptoms. Pt's troponin levels were negative x3. EKG did not reveal any ST elevations or depressions. Pt was started on a heparin drip. oral diabetes medications were held in light of anticipated cardiac cath at [facility]. Pt was transferred to [facility] for cardiac cath. Date of Discharge: 05/21/18 Minutes to complete discharge: 35 Discharge Summary Reason For Visit: CHEST PAIN Current Active Problems Chest pain (Acute) Arteriosclerotic heart disease (ASHD) (Chronic) CAD (coronary artery disease) (Chronic) Diabetes (Chronic) History of [place] (myocardial infarction) (Chronic) Stented coronary artery (Chronic) Condition: Stable - Instructions Diet, Activity, Other Instructions: Pt has transferred to [facility] for cardiac cath. transfer has been initiated by Dr Britton. In hospital you were on Insulin sliding scale and your Invokana and Janumet were placed on HOLD. Referrals: Arlette Castro MD [Primary Care Provider] - Sebas Britton MD [Staff Physician] - Disposition: TRANSFER ACUTE CARE/OTHER HOSP - Home Medications Comprehensive Discharge Medication List: Ambulatory Orders Metoprolol Tartrate [Lopressor -] 25 mg PO DAILY #1 tab 12/17/11 Losartan Potassium 25 mg PO DAILY 11/03/13 Albuterol Sulfate Inhaler - [Ventolin HFA Inhaler -] 1 - 2 inh PO ASDIR Aspirin [ASA -] 81 mg PO DAILY 03/15/15 Esomeprazole Mag Trihydrate [Nexium] 40 mg PO DAILY 03/15/15 Levothyroxine [Synthroid -] 25 mcg PO DAILY 03/15/15 Budesonide/Formeterol Fumarate [SYMBICORT 160/4.5mcg -] 1 puff IH BID #3 inhaler 03/18/15 Acetaminophen [Tylenol .Regular Strength -] 650 mg PO Q6H PRN tablet 05/21/18 Atorvastatin Ca [Lipitor] 40 mg PO HS 05/21/18 Heparin - 1,000 unit IVPUSH PRN PRN vial 05/21/18 Heparin - 5,000 unit IVPUSH PRN PRN vial 05/21/18 Heparin - 25,000 unit IV TITR vial 05/21/18 Melatonin 5 mg PO HS PRN tab 05/21/18 Nitroglycerin 2% Paste [Nitro-Bid 2% Paste -] 1 inch TD Q6HPO packet 05/21/18 This patient is new to me today: Yes Date on this admission: 05/21/18 Emergency Visit: Yes ED Registration Date: 05/20/18 Care time: The patient presented to the Emergency Department on the above date and was hospitalized for further evaluation of their emergent condition. Critical Care patient: No - Discharge Referral Referred to [facility] No
[2018-05-21 18:39] VITALS: BP 114/48; PULSE 80; TEMP 97.8
--- NOTE | 2018-05-22 09:39 | ECHO ---
Name: MALGORZATA HONG Exam:Adult Echocardiogram Study Date: 05/21/2018 08:48 AM Age: 72 yrs Reason For Study: HYPOKINESIS Height: 57 in Weight: 168 lb BSA: 1.7 m2 MMode/2D Measurements & Calculations IVSd: 0.88 cm Ao root diam: 2.8 cm LVIDd: 4.6 cm LA dimension: 3.0 cm LVIDs: 3.1 cm LVPWd: 0.97 cm EDV(Teich): 98.5 ml LVOT diam: 2.0 cm ESV(Teich): 37.3 ml LAV (MOD-bp): 32.0 ml Doppler Measurements & Calculations MV E max darwin: 54.8 cm/sec Ao V2 max: 141.2 cm/sec MV A max darwin: 101.9 cm/sec Ao max P.0 mmHg MV E/A: 0.54 MV dec time: 0.13 sec JAXON(V,D): 1.7 cm2 LV V1 max P.3 mmHg PA V2 max: 112.7 cm/sec LV V1 max: 75.7 cm/sec PA max P.1 mmHg Med Peak E' Darwin: 4.4 cm/sec Med E/e': 12.6 Lat Peak E' Darwin: 7.5 cm/sec Lat E/e': 7.3 Procedure A two-dimensional transthoracic echocardiogram with color flow and Doppler was performed. The study w as technically difficult with many images being suboptimal in quality. Left Ventricle The left ventricular size, thickness and function are normal. The left ventricular ejection fraction is normal. E/A reversal consistent with but not diagnostic of poor LV compliance. Regional wall motion abnormalities cannot be excluded due to limited visualization. Right Ventricle The right ventricle is not well visualized. Atria Normal left and right atrial size and function. Mitral Valve The mitral valve is normal in structure and function. There is no mitral valve stenosis. There is tra ce to mild mitral regurgitation. Tricuspid Valve There is mild tricuspid valve thickening. There is no tricuspid stenosis. There was insufficient TR d etected to calculate RV systolic pressure. Aortic Valve The aortic valve is normal in structure and function. No hemodynamically significant valvular aortic stenosis. No aortic regurgitation is present. Great Vessels The aortic root is normal size. Interpretation Summary The left ventricular size, thickness and function are normal The left ventricular ejection fraction is normal. The study was technically difficult with many images being suboptimal in quality. Regional wall motion abnormalities cannot be excluded due to limited visualization. There is trace to mild mitral regurgitation. There was insufficient TR detected to calculate RV systolic pressure. E/A reversal consistent with but not diagnostic of poor LV compliance MD Oliverio Mata 05/21/2018 01:28 PM
== END 2018-05-21 19:23 | disposition short-term general hospital (02) | DRG 303 ==
LOC: JER 03:29 → JERBED 07:12 → J4S 14:02
PROVIDERS: ADMIT Internal Medicine; ATTEND Internal Medicine
DX: I25.110 Atherosclerotic heart disease of native coronary artery with unstable angina pectoris (principal); E11.9 Type 2 diabetes mellitus without complications; I10 Essential (primary) hypertension; E78.5 Hyperlipidemia, unspecified; Z98.61 Coronary angioplasty status; E03.9 Hypothyroidism, unspecified; E66.9 Obesity, unspecified; Z68.38 Body mass index [BMI] 38.0-38.9, adult; G47.00 Insomnia, unspecified; J45.909 Unspecified asthma, uncomplicated; R07.89 Other chest pain; K21.9 Gastro-esophageal reflux disease without esophagitis
CPT/HCPCS: 36415; 71045-TC-FY; 80048; 80053; 80061; 81003; 81015; 82550; 82962; 83036; 83721; 83880; 84443; 84484; 85025; 85027; 85610; 85730; 87086; 87186; 93005; 93010; 93306-TC; 99285-25; J1644; J7030

== ENCOUNTER 2018-10-07 11:35 | Emergency (ER) | payer MEDICARE, OTHER ==
[2018-10-07 11:46] VITALS: BMI 37.0
--- NOTE | 2018-10-07 12:17 | PDOC ---
History of Present Illness - General Chief Complaint: Chest Pain Stated Complaint: CHEST PAIN Time Seen by Provider: 10/07/18 12:16 History Source: Patient - History of Present Illness Initial Comments: 10/07/18 12:32 Ms. Harper is a stateless speaking 73 y/o woman with hx HTN, HLD, prior [place] ( catheterizaion in May 2018), NIDDM presenting with two days of worsening substernal chest pain. She reports that she first noted the pain while doing chores at home, and reports that the pain worsened with activity. She attempted to take tylenol but this did not alleviate the pain. SHe rates the pain a 7/10, denies any radiation, reports the pain as constant for the last two days, and that it worsens with both activity and deep respiration. She reports trying to rest until the pain resolved. Yesterday she attempted to go to the grocery store but walking through the store worsened her pain, requiring her to return home early. She reports some shortness of breath secondary to pain. She has history of cardiac stenting, PCI in [facility] this past may with 6 day hospital stay. She lives alone at home, remote smoking history, denies any drug/ alcohol use. PCP: Arlette Castro Could not recall name of ell teacher. Timing/Duration: other (2 days) Severity: moderate Associated Symptoms: reports: chest pain, shortness of breath (secondary to pain with deep inspiration). denies: fever/chills, nausea/vomiting, weakness Past History - Past Medical History Allergies/Adverse Reactions: Allergies Allergy/AdvReac Type Severity Reaction Status Date / Time No Known Drug Allergies Allergy Unknown Verified 10/07/18 11:37 CLAMS Allergy Vomiting Uncoded 10/07/18 11:37 Home Medications: Ambulatory Orders Metoprolol Tartrate [Lopressor -] 25 mg PO DAILY #1 tab 12/17/11 Losartan Potassium 25 mg PO DAILY 11/03/13 Albuterol Sulfate Inhaler - [Ventolin HFA Inhaler -] 1 - 2 inh PO ASDIR Aspirin [ASA -] 81 mg PO DAILY 03/15/15 Esomeprazole Mag Trihydrate [Nexium] 40 mg PO DAILY 03/15/15 Levothyroxine [Synthroid -] 25 mcg PO DAILY 03/15/15 Budesonide/Formeterol Fumarate [SYMBICORT 160/4.5mcg -] 1 puff IH BID #3 inhaler 03/18/15 Acetaminophen [Tylenol .Regular Strength -] 650 mg PO Q6H PRN tablet 05/21/18 Atorvastatin Ca [Lipitor] 40 mg PO HS 05/21/18 Heparin - 1,000 unit IVPUSH PRN PRN vial 05/21/18 Heparin - 5,000 unit IVPUSH PRN PRN vial 05/21/18 Heparin - 25,000 unit IV TITR vial 05/21/18 Melatonin 5 mg PO HS PRN tab 05/21/18 Nitroglycerin 2% Paste [Nitro-Bid 2% Paste -] 1 inch TD Q6HPO packet 05/21/18 Anemia: No Asthma: Yes Cancer: No Cardiac Disorders: Yes ([place]) CVA: No COPD: No CHF: No Dementia: No Diabetes: Yes (non insulin dep) GI Disorders: No Disorders: No HTN: Yes Hypercholesterolemia: Yes Liver Disease: No Seizures: No Thyroid Disease: No - Surgical History Abdominal Surgery: No Appendectomy: No Cardiac Surgery: Yes (3 CARDIAC STENTS) Cholecystectomy: No Lung Surgery: No Neurologic Surgery: No Orthopedic Surgery: No - Immunization History Immunization Up to Date: Yes - Suicide/Smoking/Psychosocial Hx Smoking Status: Yes Smoking History: Never smoked Years of Tobacco Use: 20 Have you smoked in the past 12 months: No Number of Cigarettes Smoked Daily: 0 If you are a former smoker, when did you quit?: 12 years ago Hx Alcohol Use: No Drug/Substance Use Hx: No Substance Use Type: None Hx Substance Use Treatment: No Review of Systems - Review of Systems Able to Perform ROS?: Yes Comments:: 10/07/18 12:45 ROS: GENERAL/CONSTITUTIONAL: No fever or chills. No weakness. HEAD, EYES, EARS, NOSE AND THROAT: No change in vision. No ear pain or discharge. No sore throat. CARDIOVASCULAR: Chest pain, shortness of breath RESPIRATORY: No cough, wheezing, or hemoptysis. GASTROINTESTINAL: No nausea, vomiting, diarrhea or constipation. GENITOURINARY: No dysuria, frequency, or change in urination. MUSCULOSKELETAL: No joint or muscle swelling or pain. No neck or back pain. SKIN: No rash NEUROLOGIC: No headache, vertigo, loss of consciousness, or change in strength/ sensation. ENDOCRINE: No increased thirst. No abnormal weight change HEMATOLOGIC/LYMPHATIC: No anemia, easy bleeding, or history of blood clots. ALLERGIC/IMMUNOLOGIC: No hives or skin allergy. *Physical Exam - Vital Signs Last Vital Signs Temp Pulse Resp BP Pulse Ox 98.4 F 99 H 20 121/29 L 99 10/07/18 11:35 10/07/18 11:35 10/07/18 11:35 10/07/18 11:35 10/07/18 11:35 - Physical Exam Comments: 10/07/18 12:43 PE: GENERAL: Tired appearing, holding chest. Awake, alert, and fully oriented, in no acute distress HEAD: No signs of trauma, normocephalic, atraumatic EYES: PERRLA, EOMI, sclera anicteric, conjunctiva clear NECK: Normal ROM, supple, no lymphadenopathy, JVD, or masses LUNGS: No distress, speaks full sentences, clear to auscultation bilaterally HEART: Regular rate and rhythm, normal S1 and S2, no murmurs, rubs or gallops, peripheral pulses normal and equal bilaterally. ABDOMEN: Soft, nontender, normoactive bowel sounds. No guarding, no rebound. No masses EXTREMITIES : Normal inspection, Normal range of motion, no edema. No clubbing or cyanosis. SKIN: Warm, Dry, normal turgor, no rashes or lesions noted Heart Score/ECG Review - History History: Highly suspicious - Electrocardiogram EKG: Normal - Age Age: >/= 65 - Risk Factors Risk Factors Heart Score: Yes Hx Hypercholesterolemia, Yes Hx Hypertension, Yes Hx Diabetes, Yes Smoking History Based on the list above the patient has:: >/=3 risk factors or Hx atherosclerotic disease - Troponin Troponin: 1-3x normal limit - Score Heart Score - Total: 7 - ECG Intrepretation Rhythm: Regular Rhythm - [place]: Normal ED Treatment Course - LABORATORY CBC & Chemistry Diagram: 10/07/18 12:27 10/07/18 12:27 Medical Decision Making - Medical Decision Making 10/07/18 12:46 73 y/o F with hx PCI, multiple cardiac stenting, ACS, HTN, HLD, NIDDM p/w two days of worsening substernal chest pain that worsens with inspiration, consistent with ACS. PE unlikely without tachycardia or hypoxia. No LE edema or pulmonary exam indicative of CHF. Plan for cardiac workup, admission. Plan: CBC CMP Cardiac Profile (and trend troponins) CXR EKG Mag PT/INR BNP Dispo: Likely admit 10/07/18 15:[address] Sebas Rivas, Cardiology. Plan for transfer to [facility], accepted by Dr. Jordi Dasilva. Heparin bolus, drip, Lovenox loading dose 600 mg ordered as directed. Discussed with [facility] receiving, they will contact us when ALS transport is en route. 10/07/18 18:51 Contacted [facility] transfer unit. Bed still not available. They will be transporting the patient via ALS ambulance unit. 10/07/18 19:51 [facility] called for nurse to nurse on patient, bed assigned. They will contact us when ALS is en route to [facility] ED. 10/07/18 21:05 [facility] now reporting that they "thought we were sending the patient through [facility]". Given large delay in transport due to repeat confirmations that [facility] would arranging EMS transport, we will instead be transporting through [facility]. 10/07/18 21:56 [facility] arrived, patient transferred to [facility]. Receiving physician: Dr. Jordi Dasilva. *DC/Admit/Observation/Transfer Diagnosis at time of Disposition: Chest pain Qualifiers: Chest pain type: unspecified Qualified Code(s): R07.9 - Chest pain, unspecified - Discharge Dispostion Disposition: TRANSFER ACUTE CARE/OTHER HOSP Condition at time of disposition: Stable Decision to Admit order: No - Referrals Referrals: Arlette Castro MD [Primary Care Provider] - - Patient Instructions - Post Discharge Activity
[2018-10-07 12:47] LABS: BASO % 0.9 % (0-2.0); EOS % 2.8 % (0-4.5); HEMOGLOBIN 14.8 GM/dL (10.7-15.3); LYMPH % 11.2 % (8-40); MCH 28.4 pg (25.7-33.7); MCHC 33.6 g/dl (32.0-36.0); MEAN CELL VOLUME 84.5 fl (80-96); MEAN PLT VOLUME 7.1 fl (7.5-11.1); MONO % 7.9 % (3.8-10.2); NEUT % 77.2 % (42.8-82.8); PLATELET COUNT 269 K/MM3 (134-434); RBC 5.21 M/mm3 (3.60-5.2); RDW 14.5 % (11.6-15.6); WHITE BLOOD COUNT 5.8 K/mm3 (4.0-10.0)
[2018-10-07 13:25] LABS: ALBUMIN 3.6 g/dl (3.4-5.0); BILIRUBIN,TOTAL 0.7 mg/dL (0.2-1); BLOOD UREA NITROGEN 13.2 mg/dL (7-18); CALCIUM 9.6 mg/dL (8.5-10.1); CREATININE 0.7 mg/dL (0.55-1.3); MAGNESIUM 2.2 mg/dL (1.8-2.4); N-TERMINAL BNP 81.8 pg/ml (5-125); TOT PROT 7.2 g/dl (6.4-8.2)
[2018-10-07 13:38] LABS: INR 1.09 (0.83-1.09); PROTHROMBIN TIME (PATIENT) 12.9 SEC (9.7-13.0)
--- NOTE | 2018-10-07 13:38 | EKG ---
Test Reason : Blood Pressure : / mmHG Vent. Rate : 093 BPM Atrial Rate : 093 BPM P-R Int : 142 ms QRS Dur : 076 ms QT Int : 350 ms P-R-T Axes : 045 -23 011 degrees QTc Int : 435 ms NORMAL SINUS RHYTHM POSSIBLE LEFT ATRIAL ENLARGEMENT LEFT VENTRICULAR HYPERTROPHY INFERIOR INFARCT (CITED ON OR BEFORE 29-SEP-2011) ABNORMAL ECG WHEN COMPARED WITH ECG OF 20-MAY-2018 10:56, SERIAL CHANGES OF EVOLVING INFERIOR INFARCT PRESENT Confirmed by John Brantley MD ([id number]) on 10/07/2018 1:38:31 PM Referred By: Confirmed By:John Brantley MD
--- NOTE | 2018-10-07 13:38 | PDOC ---
Attending Attestation - Resident Resident Name: Kofi Cowart - ED Attending Attestation I have performed the following: I have examined & evaluated the patient, The case was reviewed & discussed with the resident, I agree w/resident's findings & plan - HPI HPI: 10/07/18 13:32 73-year-old female with history of extensive coronary artery disease and history of CABG/AZ with 7 stents in the past, most recently in May at [facility], followed by Dr. Britton of cardiology was improving since May until a few days ago, when she began developing substernal chest pain/pressure and dyspnea with exertion, improving with rest. Symptoms have progressed over the last few days, this morning had a severe episode with light-headedness and near syncope while mopping her floor, presents for evaluation. Denies any fever/ chills/cough. Per patient, had other obstructing lesions on cath in may, at baseline has some exertional dyspnea but worse over the past few days. - Physicial Exam PE: 10/07/18 13:35 VSS, no hypoxia well appearing obese woman comfortable in stretcher, speaking full sentences no jvd s1s2 rrr, 2/6 robert lungs clear, no wheeze only slight crackles R base which clear abd benign trace pretibial edema, no calf ttp - Medical Decision Making 10/07/18 13:36 73y/o F with extensive cardiac history p/w progressive exertional angina over the past few days, known obstructive CAD. no hypoxia here, lungs clear. recent hospitalization but on anti-platelet agents, more likely cardiac in etiology than PE. labs ekg, cxr asa will need admission. will discuss with Dr. Britton whether we should consider transfer for presumed need for cath. 10/07/18 13:40 labs wnl, negative trop cxr without acute pathology d/w Dr. Britton, will monitor on tele here, repeat echo, then determine need for further intervention. complete aspirin dose, admit to tele. 10/07/18 14:[address] Britton, recommends transfer based on history. He has spoken to Dr. Nicole at [facility]. asa/plavix/heparin. coordinate transfer with [facility] transfer center 10/07/18 15:46 accepted for transfer to [facility] by Dr. Dasilva, confirmed with Transfer center, awaiting ALS transport. heparin infusing, asa and plavix given. Heart Score/ECG Review #1 ECG reviewed & interpreted by me at: 11:31 General ECG Interpretation: Sinus Rhythm, Normal Rate (93), Normal Intervals ( qtc 435), No acute ischemic changes (inferior q waves unchanged from 06/03, LVH) Compared to previous ECG there are: No significant change (c/w 06/03)
[2018-10-07] MEDS ORDERED: ASPIRIN COATED 81 MG TABLET.EC PO ONE (13:41)
[2018-10-07] MEDS ORDERED: CLOPIDOGREL BISULFATE 300 MG TABLET PO ONE (14:05)
[2018-10-07] MEDS ORDERED: HEPARIN NA (PORCINE) 5,000 UNITS/ML 1ML VIAL IVPUSH PRN ×2 (14:07)
[2018-10-07] MEDS ORDERED: HEPARIN NA (PORCINE) 5,000 UNITS/ML 1ML VIAL IVPUSH ONE (14:07)
[2018-10-07] MEDS ORDERED: HEPARIN INFUSION - 25,000 UNITS/500 ML INFUS.BAG IV SCH (14:15)
--- NOTE | 2018-10-07 14:17 | CON.CARD ---
Consult Consult Specialty:: Cardiology Referred by:: Dr. Quintanilla Reason for Consultation:: Acute coronary syndrome - History of Present Illness Chief Complaint: chest pain History of Present Illness: 73F w/ HTN, HLD, DM , CAD w/ multiple stents including 90% ISR of prox LCx 2018 and 60% mid LAD. Patent stents in RCA and LM. Presents to ER 1 day of intermittent left sided and central chest pressure w/ minimal exertion ( housework) relieved w/ rest. Today went shopping had recurrent chest pressure while pushing cart. In ER ECG NSST changes. O2 sat WNL. No long air travel or prolonged car rides, no clinical suspicion PE. Pain is not positional (on my hx) No fever, chills, cough. Of note, home meds do not include Plavix, unclear why not taking. - History Source History Provided By: Patient, Medical Record - Past Medical History Cardio/Vascular: Yes: CAD, CHF (possible diastolic HF), HTN, Hyperlipdemia, [place] ( IWSTEMI September 2011 s/p PCI RCA with staged LM/LAD/LCx) Pulmonary: Yes: Asthma Gastrointestinal: Yes: GERD Endocrine: Yes: Diabetes Mellitus, Hypothyroidism - Past Surgical History Past Surgical History: Yes: Stent - Alcohol/Substance Use Hx Alcohol Use: No - Smoking History Smoking history: Never smoked Have you smoked in the past 12 months: No Aproximately how many cigarettes per day: 0 If you are a former smoker, when did you quit?: 12 years ago - Social History Usual Living Arrangement: Alone ADL: Independent History of Recent Travel: No Home Medications - Allergies Allergies/Adverse Reactions: Allergies Allergy/AdvReac Type Severity Reaction Status Date / Time No Known Drug Allergies Allergy Unknown Verified 10/07/18 11:37 CLAMS Allergy Vomiting Uncoded 10/07/18 11:37 - Home Medications Home Medications: Ambulatory Orders Metoprolol Tartrate [Lopressor -] 25 mg PO DAILY #1 tab 12/17/11 Losartan Potassium 25 mg PO DAILY 11/03/13 Albuterol Sulfate Inhaler - [Ventolin HFA Inhaler -] 1 - 2 inh PO ASDIR Aspirin [ASA -] 81 mg PO DAILY 03/15/15 Esomeprazole Mag Trihydrate [Nexium] 40 mg PO DAILY 03/15/15 Levothyroxine [Synthroid -] 25 mcg PO DAILY 03/15/15 Budesonide/Formeterol Fumarate [SYMBICORT 160/4.5mcg -] 1 puff IH BID #3 inhaler 03/18/15 Acetaminophen [Tylenol .Regular Strength -] 650 mg PO Q6H PRN tablet 05/21/18 Atorvastatin Ca [Lipitor] 40 mg PO HS 05/21/18 Heparin - 1,000 unit IVPUSH PRN PRN vial 05/21/18 Heparin - 5,000 unit IVPUSH PRN PRN vial 05/21/18 Heparin - 25,000 unit IV TITR vial 05/21/18 Melatonin 5 mg PO HS PRN tab 05/21/18 Nitroglycerin 2% Paste [Nitro-Bid 2% Paste -] 1 inch TD Q6HPO packet 05/21/18 Family Disease History - Family Disease History Family History: Unremarkable Review of Systems - Review of Systems Constitutional: reports: No Symptoms Eyes: reports: No Symptoms HENT: reports: No Symptoms Neck: reports: No Symptoms Cardiovascular: reports: Chest Pain, Shortness of Breath Respiratory: reports: Exercise Intolerance, SOB on Exertion Gastrointestinal: reports: No Symptoms Genitourinary: reports: No Symptoms Breasts: reports: No Symptoms Reported Musculoskeletal: reports: No Symptoms Integumentary: reports: No Symptoms Neurological: reports: No Symptoms Endocrine: reports: No Symptoms Hematology/Lymphatic: reports: No Symptoms Psychiatric: reports: No Symptoms - Risk Factors Known Risk Factors: Yes: Diabetes Mellitus, Hypercholesterolemia, Hypertension, Other (Known CAD) Vital Signs: Vital Signs Temperature 98.4 F 10/07/18 11:35 Pulse Rate 99 H 10/07/18 11:35 Respiratory Rate 20 10/07/18 11:35 Blood Pressure 121/29 L 10/07/18 11:35 O2 Sat by Pulse Oximetry (%) 99 10/07/18 11:35 In ER BP at bedside 130/80---> above recorded BP likely typo error diastolic Constitutional: Yes: No Distress, Calm Eyes: Yes: Conjunctiva Clear, EOM Intact HENT: Yes: Atraumatic, Normocephalic Neck: Yes: Supple, Trachea Midline Respiratory: Yes: CTA Bilaterally (no wheezing, rales) Gastrointestinal: Yes: Soft (NT, no rebound or guarding) Cardiovascular: Yes: Regular Rate and Rhythm JVD: No Carotid Bruit: No PMI: Non-Displaced Heart Sounds: Yes: S1, S2 (rrr, no m/r/g) Edema: No Peripheral Pulses WNL: Yes Neurological: Yes: Alert, Oriented ...Motor Strength: WNL Psychiatric: Yes: Alert, Oriented - Other Data Labs, Other Data: CBC, BMP 10/07/18 12:27 10/07/18 12:27 INR, PTT INR 1.09 (0.83-1.09) 10/07/18 12:27 Troponin, BNP 10/07/18 10/07/18 12:27 12:27 Troponin I 0.02 B-Natriuretic Peptide 81.8 Troponin, BNP 10/07/18 10/07/18 12:27 12:27 Troponin I 0.02 B-Natriuretic Peptide 81.8 Laboratory Tests 10/07/18 10/07/18 10/07/18 12:27 12:27 12:27 WBC 5.8 Hgb 14.8 Plt Count 269 D PT with INR Sodium 143 Potassium 4.0 Creatinine 0.7 Total Bilirubin 0.7 AST 27 ALT 23 Alkaline Phosphatase 47 Creatine Kinase 49 Troponin I 0.02 B-Natriuretic Peptide 81.8 Total Protein 7.2 Albumin 3.6 10/07/18 12:27 WBC Hgb Plt Count PT with INR 12.90 Sodium Potassium Creatinine Total Bilirubin AST ALT Alkaline Phosphatase Creatine Kinase Troponin I B-Natriuretic Peptide Total Protein Albumin NSR, old inferior infarct, LVH, NSST changes Echo: Pending Prior Cardiac Procedures: PTCA with Stent Ejection Fraction %: LVEF > or = 40 % Imaging - Results Chest X-ray: Image Reviewed EKG: Image Reviewed Assessment/Plan IMP: 1. Known CAD s/p multivessel PCI, h/o ISR LCx now presenting w/ sx c/w Unstable Angina 2. Chronic HTN 3. HLD 4. DM REC: 1. ASA now 2. Plavix load w/ 600mg PO x 1 3. Start UFH gtts 4. Stat echo for EF, wall motion 5. Case d/w Dr. Dasilva at [facility]: high risk patient w/ established CAD and multivessel PCI w/ recent ACS spring 2018 with ISR LCx and moderate -severe residual LAD dz now presenting w/ unstable angina. Will transfer to [facility] for cath. Plan d/w patient and ER MDs
[2018-10-07] MEDS ORDERED: ASPIRIN 81 MG CHEWABLE TABLETS ONE (14:23)
[2018-10-07] MEDS ORDERED: HEPARIN INFUSION - 25,000 UNITS/500 ML INFUS.BAG IVPB ONE (14:24)
[2018-10-07] MEDS ORDERED: CLOPIDOGREL BISULFATE 300 MG TABLET ONE (14:24)
[2018-10-07] MEDS ORDERED: HEPARIN NA (PORCINE) 5,000 UNITS/ML 1ML VIAL ONE (14:24)
--- NOTE | 2018-10-07 15:20 | ECHO ---
Name: GELY MALGORZATA Exam:Adult Echocardiogram Study Date: 10/07/2018 02:26 PM Age: 73 yrs Reason For Study: ACS CONCERN Height: 56 in Weight: 165 lb BSA: 1.6 m2 MMode/2D Measurements & Calculations IVSd: 0.90 cm Ao root diam: 2.4 cm LVIDd: 4.6 cm LA dimension: 2.8 cm LVIDs: 3.2 cm LVPWd: 0.81 cm EDV(Teich): 99.6 ml LVOT diam: 2.0 cm ESV(Teich): 41.8 ml Doppler Measurements & Calculations MV E max darwin: 46.1 cm/sec Ao V2 max: 127.2 cm/sec MV A max darwin: 89.9 cm/sec Ao max P.5 mmHg MV E/A: 0.51 Ao V2 mean: 92.2 cm/sec MV dec time: 0.17 sec Ao mean P.9 mmHg Ao V2 VTI: 26.9 cm JAXON(I,D): 1.7 cm2 JAXON(V,D): 1.6 cm2 LV V1 max P.9 mmHg SV(LVOT): 44.9 ml LV V1 mean P.95 mmHg LV V1 max: 69.4 cm/sec LV V1 mean: 43.9 cm/sec LV V1 VTI: 15.0 cm Med Peak E' Darwin: 2.5 cm/sec Med E/e': 18.8 Lat Peak E' Darwin: 4.5 cm/sec Lat E/e': 10.3 Left Ventricle The left ventricle is normal in size. Ejection Fraction = 55%. E/A reversal consistent with but not d iagnostic of poor LV compliance. There is posterolateral wall mild hypokinesis. Right Ventricle The right ventricle is normal in size and function. Atria Normal left and right atrial size and function. Mitral Valve The mitral valve is normal in structure and function. There is mild mitral regurgitation. Tricuspid Valve The tricuspid valve is normal in structure and function. There is trace tricuspid regurgitation. Ther e was insufficient TR detected to calculate RV systolic pressure. Aortic Valve There is mild aortic valve thickening. Pulmonic Valve The pulmonic valve is normal in structure and function. Great Vessels The aortic root is normal size. Pericardium/Pleura There is no pericardial effusion. There is no pleural effusion. Interpretation Summary The left ventricle is normal in size. There is posterolateral wall mild hypokinesis. Ejection Fraction = 55%. The right ventricle is normal in size and function. There is mild mitral regurgitation. There is trace tricuspid regurgitation. There is mild aortic valve thickening. MD John Brantley 10/07/2018 03:19 PM
[2018-10-07 17:10] VITALS: TEMP 98.2
[2018-10-07] MEDS ORDERED: ACETAMINOPHEN 1000 MG/100 ML VIAL (NON FORMULARY) IVPB ONE (18:17)
[2018-10-07] MEDS ORDERED: ACETAMINOPHEN INJECTION 100 ML IVPB ONE (18:25)
[2018-10-07 23:13] VITALS: BP 119/67; PULSE 73
== END 2018-10-07 21:45 | disposition short-term general hospital (02) ==
LOC: JER 11:35
PROC: 3E033NZ Introduction of Analgesics, Hypnotics, Sedatives into Peripheral Vein, Percutaneous Approach (ICD-10-PCS; principal; 2018-10-07)
PROC: 3E033GC Introduction of Other Therapeutic Substance into Peripheral Vein, Percutaneous Approach (ICD-10-PCS; 2018-10-07)
DX: R07.9 Chest pain, unspecified (principal); I10 Essential (primary) hypertension; I25.118 Atherosclerotic heart disease of native coronary artery with other forms of angina pectoris; I25.2 Old myocardial infarction; E78.5 Hyperlipidemia, unspecified; E11.9 Type 2 diabetes mellitus without complications; E66.9 Obesity, unspecified; Z68.37 Body mass index [BMI] 37.0-37.9, adult; Z95.1 Presence of aortocoronary bypass graft; Z95.5 Presence of coronary angioplasty implant and graft
CPT/HCPCS: 36415; 71045-TC-FY; 80053; 82550; 83735; 83880; 84484; 85025; 85610; 85730; 93005; 93010; 93306-TC; 96374; 96375; 96376; 99285-25; J0131; J1644

== ENCOUNTER 2018-10-17 16:29 | Emergency (ER) | payer MEDICARE ==
[2018-10-17 16:36] VITALS: BMI 35.9
--- NOTE | 2018-10-17 16:36 | PDOC ---
Rapid Medical Evaluation Medical Evaluation: Allergies Allergy/AdvReac Type Severity Reaction Status Date / Time No Known Drug Allergies Allergy Unknown Verified 10/07/18 11:37 CLAMS Allergy Vomiting Uncoded 10/07/18 11:37 I have performed a brief in-person evaluation of this patient. The patient presents with a chief complaint of: Hx of CAD s/p PCI, recently discharged discharged from [facility] 10/14 after getting another stent placed; states ditching machine operator told her she may need surgery (?open heart surgery); as having continued CP with exertion x 3 days, her ditching machine operator advised her to come to ED for further evaluation Pertinent physical exam findings: In NAD I have ordered the following: Labs, EKG, CXR The patient will proceed to the ED for further evaluation. 10/17/18 16:33
[2018-10-17] MEDS ORDERED: ACETAMINOPHEN 1000 MG/100 ML VIAL (NON FORMULARY) IVPB ONE (16:52)
--- NOTE | 2018-10-17 16:52 | PDOC ---
History of Present Illness - General Chief Complaint: Chest Pain Stated Complaint: CHEST PAIN Time Seen by Provider: 10/17/18 16:33 History Source: Patient Exam Limitations: No Limitations - History of Present Illness Initial Comments: Pt is a 73 yo F, with PMH of HTN, HLD, CAD with 7-8 stents (cath May 2018, last PCI discharged from [facility] 10/14), with complaint of substernal chest pressure since her last PCI. Pt was discharged from [facility] 10/14 after her last stent, done by Dr. Nicole. PT states the pressure occurs only with exertion, and is not associated with nausea, vomiting, or diaphoresis. Pt states she called Dr. Nicole's office today, and pt states she was told to come to [facility] for evaluation for her chest pain. PT states she was told a CABG would be done this weekend with Dr. Nicole. Pt denies any fevers/chills, headache, vision changes, syncope, palpitations, SOB, nausea/vomiting, abdominal pain, urinary symptoms, diarrhea/constipation, or leg swelling. Allergies: NKDA PCP: Arlette Castro Cards: Kylah Social: Pt denies any cigarette, alcohol, or drug use. Pt denies any recent travel or sick contacts. Surgical: cardiac stents as above. Family: no relevant history. 10/17/18 19:29 Past History - Travel Traveled outside of the country in the last 30 days: No Close contact w/someone who was outside of country & ill: No - Past Medical History Allergies/Adverse Reactions: Allergies Allergy/AdvReac Type Severity Reaction Status Date / Time No Known Drug Allergies Allergy Unknown Verified 10/17/18 16:36 CLAMS Allergy Vomiting Uncoded 10/17/18 16:36 Home Medications: Ambulatory Orders Metoprolol Tartrate [Lopressor -] 25 mg PO DAILY #1 tab 12/17/11 Losartan Potassium 25 mg PO DAILY 11/03/13 Albuterol Sulfate Inhaler - [Ventolin HFA Inhaler -] 1 - 2 inh PO ASDIR Aspirin [ASA -] 81 mg PO DAILY 03/15/15 Esomeprazole Mag Trihydrate [Nexium] 40 mg PO DAILY 03/15/15 Levothyroxine [Synthroid -] 25 mcg PO DAILY 03/15/15 Budesonide/Formeterol Fumarate [SYMBICORT 160/4.5mcg -] 1 puff IH BID #3 inhaler 03/18/15 Acetaminophen [Tylenol .Regular Strength -] 650 mg PO Q6H PRN tablet 05/21/18 Atorvastatin Ca [Lipitor] 40 mg PO HS 05/21/18 Heparin - 1,000 unit IVPUSH PRN PRN vial 05/21/18 Heparin - 5,000 unit IVPUSH PRN PRN vial 05/21/18 Heparin - 25,000 unit IV TITR vial 05/21/18 Melatonin 5 mg PO HS PRN tab 05/21/18 Nitroglycerin 2% Paste [Nitro-Bid 2% Paste -] 1 inch TD Q6HPO packet 05/21/18 Anemia: No Asthma: Yes Cancer: No Cardiac Disorders: Yes (CT) CVA: No COPD: No CHF: No Dementia: No Diabetes: Yes GI Disorders: No Disorders: No HTN: Yes Hypercholesterolemia: Yes Liver Disease: No Seizures: No Thyroid Disease: No - Surgical History Abdominal Surgery: No Appendectomy: No Cardiac Surgery: Yes (8 STENTS) Cholecystectomy: No Lung Surgery: No Neurologic Surgery: No Orthopedic Surgery: No - Immunization History Immunization Up to Date: Yes - Suicide/Smoking/Psychosocial Hx Smoking Status: Yes Smoking History: Never smoked Years of Tobacco Use: 20 Have you smoked in the past 12 months: No Number of Cigarettes Smoked Daily: 0 If you are a former smoker, when did you quit?: 12 years ago Hx Alcohol Use: No Drug/Substance Use Hx: No Substance Use Type: None Hx Substance Use Treatment: No Review of Systems - Review of Systems Able to Perform ROS?: Yes Is the patient limited Pashto proficient: No Constitutional: Yes: Weight Stable. No: Chills, Diaphoresis, Fever, Loss of Appetite, Malaise, Weakness HEENTM: No: Blurred Vision, Double Vision, Nose Congestion, Throat Pain, Throat Swelling, Difficulty Swallowing, Mouth Swelling Respiratory: No: Cough, Orthopnea, Shortness of Breath Cardiac (ROS): Yes: Chest Pain. No: Edema, Irregular Heart Rate, Lightheadedness, Palpitations, Syncope, Chest Tightness ABD/GI: No: Constipated, Diarrhea, Nausea, Vomiting : No: Burning, Dysuria, Pain, Urgency Musculoskeletal: No: Back Pain, Joint Pain Integumentary: No: Rash Neurological: No: Headache, Numbness, Paresthesia, Weakness, Ataxia, Dizziness Psychiatric: No: Sleep Pattern Change, Change in Appetite Endocrine: No: Increased Urine, Change in Weight Hematologic/Lymphatic: Yes: Blood Clots (CAD). No: Anemia, Easy Bleeding, Easy Bruising All Other Systems: Reviewed and Negative *Physical Exam - Vital Signs Last Vital Signs Temp Pulse Resp BP Pulse Ox 98.2 F 104 H 18 162/72 94 L 10/17/18 16:33 10/17/18 16:33 10/17/18 16:33 10/17/18 16:33 10/17/18 16:33 - Physical Exam Comments: Vitals stable, pt afebrile (O2 95% on RA and HR 90). Pt in NAD, resting comfortably. Obese body habitus. Pt alert and oriented x3. bean sprout grower generally intact, muscular strength and sensation intact. No midline spinal tenderness, step-offs, or crepitus. Head normocephalic, atraumatic. Eyes PERRLA, EOMI. Oropharynx without erythema or exudates, no LAD b/l. No nasal congestion, hearing intact. Clear heart sounds, S1/S2, no JVD, b/l pedal edema, or heart murmur. Clear lung sounds, no respiratory distress, wheezes, crackles, or accessory muscle use. No reproducible chest wall TTP. No abdominal or CVA tenderness to palpation, no rebound, no guarding. Abdomen soft, non-distended, and with normoactive bowel sounds. Ecchymosis over b/l inguinal regions from stent, no hematomas noted. Skin otherwise without jaundice or rash. 10/17/18 19:38 ED Treatment Course - LABORATORY CBC & Chemistry Diagram: 10/17/18 17:53 10/17/18 17:53 Medical Decision Making - Medical Decision Making Pt was seen at bedside, also will be seen by attending Dr. De Anda. Pt presenting with complaints of exertional chest pressure since her last PCI 3 days ago. Will evaluate for ACS and other chest pathology. ECG in triage showed no acute changes from prior. Provided 1 g IV ofirmev and 1 tablet of 0.4 SL NG for improvement of chest discomfort. Will continue to reassess pt and monitor for symptomatic improvement. ECG: NSR, LAD with flattening in inferior leads, intervals WNL (HR 93, SD 136, QRS 76, QTc 435). No TWIs or significant ST segment changes. No significant changes from prior ECG. CBC and CMP WNL Troponin 0.04 Spoke with [facility] cardiology (Dr. Pratt for Dr. Nicole) who accepted pt for transfer. Pt pending transfer to [facility]. Vitals stable and resting comfortably. Pt signed out to Dr. Rider for observation until pt is transferred. 10/17/18 19:39 *DC/Admit/Observation/Transfer Diagnosis at time of Disposition: History of CT (myocardial infarction), Stented coronary artery Chest pain Qualifiers: Chest pain type: unspecified Qualified Code(s): R07.9 - Chest pain, unspecified - Discharge Dispostion Disposition: TRANSFER ACUTE CARE/OTHER HOSP Condition at time of disposition: Stable Decision to Admit order: No - Referrals Referrals: Arlette Castro MD [Primary Care Provider] - Jordi Dasilva MD [Staff Physician] - - Patient Instructions - Post Discharge Activity
[2018-10-17] MEDS ORDERED: ACETAMINOPHEN INJECTION 100 ML IVPB ONE (17:52)
[2018-10-17 18:06] LABS: INR 1.08 (0.83-1.09); PROTHROMBIN TIME (PATIENT) 12.7 SEC (9.7-13.0)
[2018-10-17 18:13] LABS: BASO % 0.9 % (0-2.0); HEMATOCRIT 40.2 % (32.4-45.2); HEMOGLOBIN 13.5 GM/dL (10.7-15.3); LYMPH % 11.6 % (8-40); MCH 28.6 pg (25.7-33.7); MCHC 33.7 g/dl (32.0-36.0); MEAN CELL VOLUME 84.9 fl (80-96); MEAN PLT VOLUME 7.4 fl (7.5-11.1); MONO % 9.2 % (3.8-10.2); NEUT % 75.3 % (42.8-82.8); PLATELET COUNT 258 K/MM3 (134-434); RBC 4.73 M/mm3 (3.60-5.2); RDW 14.6 % (11.6-15.6); WHITE BLOOD COUNT 5.6 K/mm3 (4.0-10.0)
[2018-10-17] MEDS ORDERED: NITROGLYCERIN SUBLINGUAL 1/150 0.4 MG TAB SL ONE (18:34)
[2018-10-17 18:41] LABS: ALBUMIN 3.3 g/dl (3.4-5.0); BILIRUBIN,TOTAL 0.6 mg/dL (0.2-1); BLOOD UREA NITROGEN 16.6 mg/dL (7-18); CALCIUM 8.8 mg/dL (8.5-10.1); CREATININE 0.9 mg/dL (0.55-1.3); POTASSIUM 4.1 mmol/L (3.5-5.1); TOT PROT 6.8 g/dl (6.4-8.2)
--- NOTE | 2018-10-17 19:28 | PDOC ---
*Physical Exam - Vital Signs Last Vital Signs Temp Pulse Resp BP Pulse Ox 98.2 F 104 H 18 162/72 94 L 10/17/18 16:33 10/17/18 16:33 10/17/18 16:33 10/17/18 16:33 10/17/18 16:33 ED Treatment Course - LABORATORY CBC & Chemistry Diagram: 10/17/18 17:53 10/17/18 17:53 - ADDITIONAL ORDERS Additional order review: Laboratory Results 10/17/18 10/17/18 10/17/18 17:53 17:53 17:11 PT with INR INR PTT (Actin FS) 27.0 Sodium 138 Potassium 4.1 Chloride 103 Carbon Dioxide 27 Anion Gap 7 L BUN 16.6 Creatinine 0.9 Est GFR (CKD-EPI)AfAm 73.00 Est GFR (CKD-EPI)NonAf 62.99 Random Glucose 135 H Calcium 8.8 Total Bilirubin 0.6 AST 18 ALT 23 Alkaline Phosphatase 45 Creatine Kinase 39 Troponin I 0.04 Total Protein 6.8 Albumin 3.3 L Blood Type B POSITIVE Antibody Screen Negative 10/17/18 17:11 PT with INR 12.70 INR 1.08 PTT (Actin FS) Sodium Potassium Chloride Carbon Dioxide Anion Gap BUN Creatinine Est GFR (CKD-EPI)AfAm Est GFR (CKD-EPI)NonAf Random Glucose Calcium Total Bilirubin AST ALT Alkaline Phosphatase Creatine Kinase Troponin I Total Protein Albumin Blood Type Antibody Screen 10/17/18 17:53 RBC 4.73 MCV 84.9 MCHC 33.7 RDW 14.6 MPV 7.4 L Neutrophils % 75.3 Lymphocytes % 11.6 Monocytes % 9.2 Eosinophils % 3.0 Basophils % 0.9 - Medications Given in the ED: ED Medications Discontinued Medications Generic Name Dose Route Start Last Admin Trade Name Freq PRN Reason Stop Dose Admin Acetaminophen 1,000 mg 10/17/18 16:52 10/17/18 17:55 Ofirmev Injection - IVPB 10/17/18 16:53 1,000 mg ONCE ONE Administration Nitroglycerin 0.4 mg 10/17/18 18:34 10/17/18 19:01 Nitrostat - SL 10/17/18 18:35 0.4 mg ONCE ONE Administration Medical Decision Making - Medical Decision Making 10/17/18 19:23 Sign out received from Dr. Abbasi. Pt scheduled for transfer to [facility]. 73yo woman with PMH HTN, HLD, DM, Stents (x7?) with last stent placement on presenting with chest pressure on exertion since last stent placement. Told to come in by her [place] movie producer (Dr. Nicole) who wants her transferred down for intervention over the weekend. Negative troponin, no new EKG changes. Symptomatic relief with nitro. Pt is stable for transfer. 10/17/18 21:23 -Pt re-evaluated, no pain at the current time, resting comfortably -325mg ASA given 10/18/18 04:30 -Pt transferred out *DC/Admit/Observation/Transfer Diagnosis at time of Disposition: History of [place] (myocardial infarction), Stented coronary artery Chest pain Qualifiers: Chest pain type: unspecified Qualified Code(s): R07.9 - Chest pain, unspecified - Discharge Dispostion Disposition: TRANSFER ACUTE CARE/OTHER HOSP Condition at time of disposition: Stable Decision to Admit order: No - Referrals Referrals: Arlette Castro MD [Primary Care Provider] - Jordi Dasilva MD [Staff Physician] - - Patient Instructions - Post Discharge Activity - Transfer to Acute Care Facility Receiving Facility: [facility]
[2018-10-17] MEDS ORDERED: ASPIRIN 325 MG TABLET PO ONE (21:23)
--- NOTE | 2018-10-17 21:38 | PDOC ---
Documentation entered by Letty Yoon SCRIBE, acting as scribe for Raul De Anda MD. Raul De Anda MD: This documentation has been prepared by the [employer] Adrianna, SCRIBE, under my direction and personally reviewed by me in its entirety. I confirm that the documentation accurately reflects all work, treatment, procedures, and medical decision making performed by me. Attending Attestation - Resident Resident Name: Aure Abbasi - HPI HPI: The patient is a 73 year old female, with a significant PMH of HTN, HLD, prior PA (catheterization 3 days ago), and NIDDM, who presents to the ED for evaluation of chest pain for 3 days. Patient had recent cardiac stents placed 3 days ago at [facility], and complains of substernal chest pressure since. She notes the pressure is exacerbated with exertion. Patient spoke with her rv detailer for this issue, who advised she come to the ED for evaluation if the symptoms persist. She presents for persist chest pressure. Allergies: Clams Surgical History: 7 cardiac stents Social History: Denies EtOH, tobacco, or illicit drug use PCP: Dr. Castro Retail Training Manager: Dr. Nicole - Physicial Exam PE: 10/17/18 21:36 supine in stretcher in NAD comfortable speaking in full sentences rrr s1 s2 no mrg ctab soft non tender non distended bilateral hematomas noted in groin at site of catheterization, no pulsatile hematoma noted, distal pulses intact and feet warm well perfused bilaterally - Medical Decision Making 10/17/18 21:37 Chest pain 2 days post cath done @ OSH. Patient in process of being evaluated for CABG Stable. Concern for recurrent ACS. Discussed with pts rv detailer at [facility] who accepted the patient for transfer. ASA given in ED. Pt hemodynamically stable awaiting transfer. 10/17/18 21:39
[2018-10-17] MEDS ORDERED: ASPIRIN 325 MG TABLET ONE (21:40)
[2018-10-18 05:38] VITALS: BP 135/70; PULSE 66; TEMP 98.1
--- NOTE | 2018-10-19 10:36 | EKG ---
Test Reason : Blood Pressure : / mmHG Vent. Rate : 093 BPM Atrial Rate : 093 BPM P-R Int : 136 ms QRS Dur : 076 ms QT Int : 350 ms P-R-T Axes : 045 -22 015 degrees QTc Int : 435 ms NORMAL SINUS RHYTHM POSSIBLE LEFT ATRIAL ENLARGEMENT INFERIOR INFARCT (CITED ON OR BEFORE 29-SEP-2011) ABNORMAL ECG WHEN COMPARED WITH ECG OF 07-OCT-2018 11:31, NO SIGNIFICANT CHANGE WAS FOUND Confirmed by Salena Bauman ([id number]) on 10/19/2018 10:36:22 AM Referred By: Confirmed By:Salena Bauman
== END 2018-10-18 04:21 | disposition short-term general hospital (02) ==
LOC: JER 16:29
PROC: 3E033NZ Introduction of Analgesics, Hypnotics, Sedatives into Peripheral Vein, Percutaneous Approach (ICD-10-PCS; principal; 2018-10-17)
DX: R07.9 Chest pain, unspecified (principal); I25.10 Atherosclerotic heart disease of native coronary artery without angina pectoris; I10 Essential (primary) hypertension; Z95.5 Presence of coronary angioplasty implant and graft; I25.2 Old myocardial infarction; E11.9 Type 2 diabetes mellitus without complications; E78.5 Hyperlipidemia, unspecified; J45.909 Unspecified asthma, uncomplicated
CPT/HCPCS: 36415; 71045-TC-FY; 80053; 82550; 84484; 85025; 85610; 85730; 86850; 86900; 86901; 93005; 93010; 96374; 99285-25; J0131

== ENCOUNTER 2018-11-06 15:53 | Inpatient (IN) | payer MEDICARE, OTHER ==
[2018-11-06 16:50] VITALS: BMI 34.6
--- NOTE | 2018-11-06 17:50 | PDOC ---
History of Present Illness - General Chief Complaint: Shortness of Breath Stated Complaint: SHORTNESS OF BREATH Time Seen by Provider: 11/06/18 16:54 - History of Present Illness Initial Comments: 11/06/18 17:49 73y/o F hx of CAD s/p multiple stent placements and CABG (approx 3 weeks ago), HTN, HLD, diabetes presenting today with shortness of breath since yesterday. She experiences both on exertion and at rest and sometimes gets relief if she stands up. Episodes are intermittent and last around 5-10 mins. They are not associated with chest pain or pleuritic pain. She denies any associated fevers, chills, cought (productive/dry), trauma, abdominal pain, nausea, vomiting, leg swelling or previous hx of clots. Past History - Past Medical History Allergies/Adverse Reactions: Allergies Allergy/AdvReac Type Severity Reaction Status Date / Time No Known Drug Allergies Allergy Unknown Verified 10/17/18 16:36 CLAMS Allergy Vomiting Uncoded 10/17/18 16:36 Home Medications: Ambulatory Orders Losartan Potassium 25 mg PO DAILY 11/03/13 Aspirin [ASA -] 81 mg PO DAILY 03/15/15 Levothyroxine [Synthroid -] 25 mcg PO DAILY 03/15/15 Atorvastatin Ca [Lipitor] 40 mg PO HS 05/21/18 Canagliflozin [Invokana] 100 mg PO DAILY 11/06/18 Clopidogrel Bisulfate [Clopidogrel] 75 mg PO DAILY 11/06/18 Furosemide 20 mg PO DAILY 11/06/18 Metoprolol Tartrate [Lopressor -] 25 mg PO BID 11/06/18 Pantoprazole Sodium 40 mg PO DAILY 11/06/18 Sitagliptin Phos/Metformin HCl [Janumet 50-1,000 mg Tablet] 1 tab PO DAILY 11/06 Anemia: No Asthma: Yes Cancer: No Cardiac Disorders: Yes ([place]) CVA: No COPD: No CHF: No Dementia: No Diabetes: Yes GI Disorders: No Disorders: No HTN: Yes Hypercholesterolemia: Yes Liver Disease: No Seizures: No Thyroid Disease: No - Surgical History Abdominal Surgery: No Appendectomy: No Cardiac Surgery: Yes (8 STENTS) Cholecystectomy: No Lung Surgery: No Neurologic Surgery: No Orthopedic Surgery: No - Immunization History Immunization Up to Date: Yes - Suicide/Smoking/Psychosocial Hx Smoking Status: Yes Smoking History: Former smoker Years of Tobacco Use: 20 Have you smoked in the past 12 months: No Number of Cigarettes Smoked Daily: 0 If you are a former smoker, when did you quit?: 12 years ago Information on smoking cessation initiated: No Hx Alcohol Use: No Drug/Substance Use Hx: No Substance Use Type: None Hx Substance Use Treatment: No Review of Systems - Review of Systems Constitutional: No: Chills, Fever HEENTM: No: Eye Pain, Ear Pain Respiratory: No: Cough, Productive cough Cardiac (ROS): No: Chest Pain, Lightheadedness ABD/GI: No: Abdominal Distended, Constipated : No: Burning, Dysuria Neurological: No: Headache, Numbness *Physical Exam - Vital Signs Last Vital Signs Temp Pulse Resp BP Pulse Ox 98.1 F 82 20 123/52 L 100 11/06/18 16:48 11/06/18 16:48 11/06/18 16:48 11/06/18 16:48 11/06/18 16:48 - Physical Exam General Appearance: Yes: Nourished, Appropriately Dressed. No: Apparent Distress HEENT: positive: Normal Voice, Symmetrical. negative: Scleral Icterus (R), Scleral Icterus (L) Neck: positive: Trachea midline, Supple Respiratory/Chest: positive: Lungs Clear, Normal Breath Sounds, Other (scar in the middle of chest form surgery). negative: Chest Tender, Respiratory Distress , Decreased Breath Sounds, Rales, Wheezing Cardiovascular: positive: Regular Rhythm, Regular Rate, S1, S2. negative: Edema , JVD Vascular Pulses: Dorsalis-Pedis (R): 2+, Doralis-Pedis (L): 2+ Gastrointestinal/Abdominal: positive: Normal Bowel Sounds, Soft, Protuberent. negative: Tender Musculoskeletal: positive: Normal Inspection. negative: CVA Tenderness Extremity: positive: Normal Capillary Refill, Normal Inspection, Normal Range of Motion Integumentary: positive: Normal Color, Dry, Warm Neurologic: positive: Fully Oriented, Alert. negative: Normal Mood/Affect, Normal Response ED Treatment Course - LABORATORY CBC & Chemistry Diagram: 11/06/18 17:58 11/06/18 17:58 Medical Decision Making - Medical Decision Making 11/06/18 18:13 73y/o F hx of CAD s/p multiple stent placements and CABG (approx 3 weeks ago), HTN, HLD, diabetes presenting today with shortness of breath Ddx: ACS vs CHF vs PE vs Pneumonia previous hx of surgery 1.5 pe as likely or as/more likely than an alternative diagnosis 3.0 Total Wells score 4.5 Moderate risk group , 16.2% chance of PE in an ED population Labs/Imaging/Meds/Interventions -EKG: NSR, possible left atrial enlargement, left ventricular hypertrophy, inferior infarct age undetermined Comparison to last EKG..... vent rate 83bpm pr interval 134ms qrs duration 76ms qt/qtc 402/472ms -CXR: No acute pathology -Labs: BNP elevated (581) -Chest CTA :Acute pulmonary embolism is identified with visualization of an embolus within the posterior segmental branch of the right lower lobe mild bliateral upper and lower lung field discoid atelactasis s/p recent median sternotomy in comparison to 2015 scan. small pocket of air accumulation with presternal soft tissues Pt admitted to 's service *DC/Admit/Observation/Transfer Diagnosis at time of Disposition: Pulmonary embolism Qualifiers: Pulmonary embolism type: other Chronicity: acute Acute cor pulmonale presence: without acute cor pulmonale Qualified Code(s): I26.99 - Other pulmonary embolism without acute cor pulmonale - Referrals - Patient Instructions - Post Discharge Activity
[2018-11-06 18:18] LABS: BASO % 0.2 % (0-2.0); HEMATOCRIT 29.6 % (32.4-45.2); HEMOGLOBIN 9.8 GM/dL (10.7-15.3); LYMPH % 9.1 % (8-40); MCH 27.6 pg (25.7-33.7); MCHC 33.2 g/dl (32.0-36.0); MEAN CELL VOLUME 83.3 fl (80-96); MEAN PLT VOLUME 6.9 fl (7.5-11.1); MONO % 6.6 % (3.8-10.2); NEUT % 79.1 % (42.8-82.8); PLATELET COUNT 439 K/MM3 (134-434); RBC 3.55 M/mm3 (3.60-5.2); RDW 15.4 % (11.6-15.6); WHITE BLOOD COUNT 8.1 K/mm3 (4.0-10.0)
--- NOTE | 2018-11-06 19:02 | PDOC ---
Documentation entered by Maday Ruiz SCRIBE, acting as scribe for Deborah Dalton MD. Deborah Dlaton MD: This documentation has been prepared by the paulyibJoseph whitney Lincy, SCRIBE, under my direction and personally reviewed by me in its entirety. I confirm that the documentation accurately reflects all work, treatment, procedures, and medical decision making performed by me. Attending Attestation - Resident Resident Name: JanineninaMarisela - HPI HPI: 11/06/18 18:06 The patient is a 73 year old female with a past medical history significant for CAD s/p stent, HTN, HLD, MA (s/p catheterization), NIDDM, and s/p recent CABG who presents to the emergency department with an acute onset of intermittent episodes of shortness of breath since yesterday lasting for 5-10 minutes. The patient reports the shortness of breath is present at rest, with occasional relief noted when standing up. Denies fever, chills, cough, headache, chest pain. Stove Installer: Dr. Cardenas PCP: Dr. Castro. - Physicial Exam PE: 11/06/18 18:27 GENERAL: Awake, alert, and fully oriented, in no acute distress LUNGS: Breath sounds equal, clear to auscultation bilaterally. No wheezes, and no crackles HEART: Regular rate and rhythm. ABDOMEN: Soft, nontender, No guarding, no rebound. No masses EXTREMITIES: Normal range of motion, no lower extremity edema or tenderness. + healing incision to her left calf, healing well in place, clean and dry, with no surrounding erythema. NEUROLOGICAL: Cranial nerves II through XII grossly intact. Normal speech, normal gait SKIN: +healing sternotomy scar, clean and dry with no surrounding erythema. - Medical Decision Making 11/06/18 18:44 Pt presents to the ED complaining of shortness of breath that is worse with laying flat. History of extensive cardiac disease, s/p cabg three weeks ago. Denies chest pain, cough or fever. Denies leg swelling or weight gain. Shortness of breath does not appear to be exertional. Differential includes PE , CHF, PNA, ACS. Will check labs, CXR, CT PE and reassess. Will likely admit to medicine for continued management. Will discuss case with patient's energy attorney Dr. Cardenas. 11/06/18 19:00
[2018-11-06 19:15] LABS: ALBUMIN 2.8 g/dl (3.4-5.0); ALK PHOS 49 U/L (45-117); ANION GAP 12 MMOL/L (8-16); BILIRUBIN,TOTAL 0.8 mg/dL (0.2-1); BLOOD UREA NITROGEN 12.8 mg/dL (7-18); CALCIUM 9.1 mg/dL (8.5-10.1); CHLORIDE 105 mmol/L (98-107); CO2 21 mmol/L (21-32); CREATININE 0.7 mg/dL (0.55-1.3); GLUCOSE,RANDOM 96 mg/dL (74-106); POTASSIUM 4.4 mmol/L (3.5-5.1); SGOT/AST 34 U/L (15-37); SGPT/ALT 17 U/L (13-61); SODIUM 138 mmol/L (136-145)
[2018-11-06] MEDS ORDERED: ENOXAPARIN NA (PORCINE) 80 MG/0.8 ML DISP.SYRIN SQ ONE ×2 (21:36→21:57)
--- NOTE | 2018-11-06 23:23 | PN ---
Teaching Attending Note ATTENDING PHYSICIAN STATEMENT I saw and evaluated the patient. I reviewed the resident's note and discussed the case with the resident. I agree with the resident's findings and plan as documented. Seen and examined; please refer to resident note for further historical information. Briefly, this is a 73 y/o female presenting to the ER with a CC of SOB; CT obtained in the ER shows acute R-sided pulmonary embolism. New factors include recent surgery (CABG done); she does not recall her medications and there is concern for intermittent compliance. She was given AC and determined to be stable for telemetry while in the ER; medicine was called for admission. Patient has seen Dr. Verdugo in the past when admitted to [facility]. VS, labs, imaging reviewed NAD, AAO, resting in bed RRR s1/2; sternotomy noted NT ND +BS CN2-12 wnl, no fnd Normal mood, appropriate behavior EKG reviewed CT shows acute PE in the posterior RLL with atelectesis and recent sternotomy with small air accumulation likely on the basis of surgery. Stable 1.2 cm perihilar pulmonary nodule ASSESSMENT AND PLAN: Patient presents with acute RLL pulmonary embolism; she is hemodynamically stable and remains normotensive saturating well. # Acute pulmonary embolism # CAD s/p recent PCI and subsequent CABG-records pending # Perihilar pulmonary nodule # Recent sternotomy with likely post-operative changes # Elevated BNP # Normocytic anemia # Thrombocytosis (? Reactive thrombocytosis, mild, will trend) # Hx HTN # Hx HLD # HX Hypothyroid Admitting to telemetry; checking echocardiogram, treating with full dose lovenox. Not frankly fluid overloaded so will hold off diuresis (she is elderly and obese so this doesn't necessarily indicate CHF given the minor elevation). With recent PCI (presumed stenting though report not available- pending receipt from [facility]) is on ASA an Plavix; would thus be on triple tx with treatmetn of this PE with full AC so will discuss with Dr. Verdugo regarding choice in NOAC
--- NOTE | 2018-11-06 23:27 | HP ---
CHIEF COMPLAINT: sob PCP: Dr. Castro HISTORY OF PRESENT ILLNESS: 73 y/o F, pmh of CAD s/p stent, CABG 3 weeks ago, htn, hld, NIDM, presents to the ED c/o of sob of 1 day duration that started while the pt was laying down in the afternoon yesterday, which has worsened since onset. Pt reports that she has dyspnea on exertion usually, however, this episode started at rest while she was laying down, nothing improving her symptoms. She also reports a parasternal chest pain along the border of her surgical scar, which she states has been there since her CABG. She had a CABG done three weeks ago by Dr. Nicole and was sent home on plavix. However, she states that she takes her medication but usually with the help of a visiting nurse. 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 In the ED, percocet relieved her parasternal chest pain and a CT chest showed PE in the right lower lung base for which they started her on Lovenox 80mg, pt still c/o of SOB. Denies f/c/n/v/d/ numbness or tingling, melena, dysuria. ER course was notable for: (1) Percocet for pain (2) CT chest- posterior segmental branch PE (3) EKG Recent Travel: denies PAST MEDICAL HISTORY: CAD s/p stent, htn, hld, NIDM, PAST SURGICAL HISTORY: CABG w/ left leg venous graft-3 weeks ago- Dr. Nicole, left carotid stenting Social History: Smoking: former smoker- half a pack for 15 years- quit 20 years ago Alcohol: denies Drugs: denies Family History: Pt denies heart disease, htn, dm, cancers in the family Allergies No Known Drug Allergies Allergy (Unknown, Verified 10/17/18 16:36) CLAMS Allergy (Uncoded 10/17/18 16:36) Vomiting HOME MEDICATIONS: Home Medications Medication Instructions Recorded Losartan Potassium 25 mg PO DAILY 11/03/13 Aspirin [ASA -] 81 mg PO DAILY 03/15/15 Levothyroxine [Synthroid -] 25 mcg PO DAILY 03/15/15 Atorvastatin Ca [Lipitor] 40 mg PO HS 05/21/18 Canagliflozin [Invokana] 100 mg PO DAILY 11/06/18 Clopidogrel Bisulfate [Clopidogrel] 75 mg PO DAILY 11/06/18 Furosemide 20 mg PO DAILY 11/06/18 Metoprolol Tartrate [Lopressor -] 25 mg PO BID 11/06/18 Pantoprazole Sodium 40 mg PO DAILY 11/06/18 Sitagliptin Phos/Metformin HCl 1 tab PO DAILY 11/06/18 [Janumet 50-1,000 mg Tablet] REVIEW OF SYSTEMS CONSTITUTIONAL: Absent: fever, chills, diaphoresis, generalized weakness, malaise, loss of appetite, weight change HEENT: Absent: ear pain, eye pain, visual changes CARDIOVASCULAR: Absent: chest pain, syncope, palpitations, lightheadedness, RESPIRATORY: Admits: shortness of breath, dyspnea with exertion, Absent: cough, orthopnea, wheezing, stridor, hemoptysis GASTROINTESTINAL: Absent: abdominal pain, abdominal distension, nausea, vomiting, diarrhea, constipation, melena, hematochezia GENITOURINARY: Admits: frequency, Absent: dysuria, hesitancy, hematuria, flank pain, genital pain MUSCULOSKELETAL: Absent: back pain, HEMATOLOGIC/IMMUNOLOGIC: Absent: lymphadenopathy, frequent infections ENDOCRINE: Absent: unexplained weight gain/weight loss, NEUROLOGIC: Absent: headache, dizziness, unsteady gait, seizure, mental status changes, bladder or bowel incontinence PSYCHIATRIC: Absent: anxiety, PHYSICAL EXAMINATION Vital Signs - 24 hr Last Vital Signs Temp Pulse Resp BP Pulse Ox 98.1 F 90 22 H 108/50 L 99 11/06/18 16:48 11/06/18 19:12 11/06/18 19:12 11/06/18 19:12 11/06/18 19:12 GENERAL: Awake, alert, and fully oriented, in no acute distress. Short of breath EYES: Pupils equal, round and reactive to light, extraocular movements intact, EARS, NOSE, THROAT: oropharynx clear without exudates. Moist mucous membranes. NECK: supple without lymphadenopathy, JVD, or masses. No carotid bruit appreciated b/l LUNGS: Mildly decreased breath sounds on the right lower lung. Left lung CTA. No wheezes, and no crackles. HEART: Regular rate and rhythm, normal S1 and S2 without murmur, rub or gallop. Midline surgical scar, dry, few stitches intact, no drainage, healing well ABDOMEN: Three surgical scars present in the upper abdomen- healing well. Soft, nontender, not distended, normoactive bowel sounds, no guarding, no rebound, no masses. MUSCULOSKELETAL: No CVA tenderness. UPPER EXTREMITIES: 2+ pulses, warm, well-perfused. No cyanosis. No peripheral edema. LOWER EXTREMITIES: Left lower leg surgical scar, graft site, stitches intact, no drainage or pus or erythema-healing well. 2+ pulses, warm, well-perfused. No peripheral edema. NEUROLOGICAL: Normal speech. PSYCHIATRIC: Cooperative. Good eye contact. Appropriate mood and affect. Laboratory Results - last 24 hr CBC, BMP 11/06/18 17:58 11/06/18 17:58 ASSESSMENT/PLAN: 73 y/o F, pmh of CAD s/p stent, CABG 3 weeks ago, NIDM, presents to the ED c/o of sob of 1 day duration, w/ CT chest showing PE on the right lower lung #Shortness of Breath 2/[address] chest showing PE Lovenox full dose 80 given in ED Continue Lovenox full dose BID at 70mg continue home med- plavix 75 in am Pt on Tele Cardio consult in the am- Dr. Britton pain control w/ Tylenol ECHO ordered for am PT/INR,PTT ordered #CAD s/p AR continue home meds- Aspirin and plavix 75-one dose given now monitor on tele #HTN BP monitor continue home meds-metoprolol tartrate, losartan #DM BGM ISS #Hypothyroidism continue home meds- synthroid #HLD continue home meds- atorvastatin #DVT ppx already on plavix and lovenox FEN: Sodium/diabetic controlled diet Dispo: f/u w/ Cardio, monitor on tele, f/u ECHO in am, verify if pt is compliant w/ meds ATTENDING PHYSICIAN STATEMENT I saw and evaluated the patient. I reviewed the resident's note and discussed the case with the resident. I agree with the resident's findings and plan as documented. SUBJECTIVE: OBJECTIVE: ASSESSMENT AND PLAN:
[2018-11-06] MEDS ORDERED: CLOPIDOGREL BISULFATE 75 MG TABLET (FP) PO ONE (23:37)
[2018-11-07] MEDS ORDERED: CLOPIDOGREL BISULFATE 75 MG TABLET (FP) ONE (00:39)
[2018-11-07] MEDS ORDERED: ACETAMINOPHEN 325 MG TABLET (FP) ONE ×2 (04:16→12:13)
[2018-11-07] MEDS: ACETAMINOPHEN 325 MG TABLET (FP) PO PRN ×3 (04:19→17:40)
[2018-11-07] MEDS ORDERED: LEVOTHYROXINE NA 25 MCG TABLET (FP) ONE (06:27)
[2018-11-07] MEDS: LEVOTHYROXINE NA 25 MCG TABLET (FP) PO SCH (06:58)
[2018-11-07] MEDS: INSULIN SLIDING SCALE (NOVOLOG) 1 VIAL SQ SCH ×4 (06:58→22:03)
[2018-11-07] MEDS: METOPROLOL TARTRATE 25 MG TABLET (FP) PO SCH ×2 (10:12→22:00)
[2018-11-07] MEDS: ENOXAPARIN NA (PORCINE) 80 MG/0.8 ML DISP.SYRIN SQ SCH ×2 (10:12→22:00)
[2018-11-07] MEDS: PANTOPRAZOLE 40 MG TABLET (FP) PO SCH (10:12)
[2018-11-07] MEDS: FUROSEMIDE 20 MG TABLET (FP) PO SCH (10:12)
[2018-11-07] MEDS: ASPIRIN 81 MG CHEWABLE TABLETS PO SCH (10:12)
[2018-11-07] MEDS: LOSARTAN POTASSIUM 25 MG TABLET PO SCH (10:12)
[2018-11-07] MEDS: CLOPIDOGREL BISULFATE 75 MG TABLET (FP) PO SCH (10:13)
[2018-11-07 11:23] LABS: BASO % 0.9 % (0-2.0); EOS % 6.6 % (0-4.5); HEMATOCRIT 29.1 % (32.4-45.2); HEMOGLOBIN 9.6 GM/dL (10.7-15.3); LYMPH % 8.8 % (8-40); MCH 27.3 pg (25.7-33.7); MEAN CELL VOLUME 82.6 fl (80-96); MEAN PLT VOLUME 6.8 fl (7.5-11.1); MONO % 6.5 % (3.8-10.2); NEUT % 77.2 % (42.8-82.8); PLATELET COUNT 380 K/MM3 (134-434); RBC 3.52 M/mm3 (3.60-5.2); RDW 15.5 % (11.6-15.6); RETICULOCYTES 4.41 % (0.5-1.5)
[2018-11-07 11:32] LABS: INR 1.23 (0.83-1.09); PROTHROMBIN TIME (PATIENT) 14.5 SEC (9.7-13.0)
[2018-11-07 11:34] LABS: ACTIVATED PTT 33.5 SECONDS (25.2-36.5)
--- NOTE | 2018-11-07 11:46 | EKG ---
Test Reason : Blood Pressure : / mmHG Vent. Rate : 083 BPM Atrial Rate : 083 BPM P-R Int : 134 ms QRS Dur : 076 ms QT Int : 402 ms P-R-T Axes : 045 -20 003 degrees QTc Int : 472 ms NORMAL SINUS RHYTHM POSSIBLE LEFT ATRIAL ENLARGEMENT LEFT VENTRICULAR HYPERTROPHY INFERIOR INFARCT (CITED ON OR BEFORE 29-SEP-2011) ABNORMAL ECG WHEN COMPARED WITH ECG OF 17-OCT-2018 16:34, NONSPECIFIC T WAVE ABNORMALITY NOW EVIDENT IN ANTERIOR LEADS Confirmed by DIPAK ADAMS MD ([id number]) on 11/07/2018 11:45:40 AM Referred By: Confirmed By:DIPAK ADAMS MD
[2018-11-07 12:12] LABS: ALBUMIN 2.7 g/dl (3.4-5.0); BILIRUBIN,TOTAL 0.6 mg/dL (0.2-1); BLOOD UREA NITROGEN 10.4 mg/dL (7-18); CALCIUM 8.7 mg/dL (8.5-10.1); CREATININE 0.7 mg/dL (0.55-1.3); POTASSIUM 3.7 mmol/L (3.5-5.1); TOT PROT 6.4 g/dl (6.4-8.2)
--- NOTE | 2018-11-07 12:16 | CON.CARD ---
Cardiology Consult (text) - Consultation Consultation Note: Chief Complaint: chest pain History of Present Illness: 73F w/ HTN, HLD, DM , CAD w/ multiple stents and cabg last month here with sob. Started feeling sob past few days. No cp palps dizzy loc pnd orthopnea le edema. Found to have pe in er. - History Source History Provided By: Patient, Medical Record - Past Medical History Cardio/Vascular: Yes: CAD, CHF (possible diastolic HF), HTN, Hyperlipdemia, IA ( IWSTEMI September 2011 s/p PCI RCA with staged LM/LAD/LCx) Pulmonary: Yes: Asthma Gastrointestinal: Yes: GERD Endocrine: Yes: Diabetes Mellitus, Hypothyroidism - Past Surgical History Past Surgical History: Yes: Stent - Alcohol/Substance Use Hx Alcohol Use: No - Smoking History Smoking history: Never smoked Have you smoked in the past 12 months: No Aproximately how many cigarettes per day: 0 If you are a former smoker, when did you quit?: 12 years ago - Social History Usual Living Arrangement: Alone ADL: Independent History of Recent Travel: No Home Medications - Allergies Allergies/Adverse Reactions: Allergies Allergy/AdvReac Type Severity Reaction Status Date / Time No Known Drug Allergies Allergy Unknown Verified 10/17/18 16:36 CLAMS Allergy Vomiting Uncoded 10/17/18 16:36 Home Medications Medication Instructions Recorded Losartan Potassium 25 mg PO DAILY 11/03/13 Aspirin [ASA -] 81 mg PO DAILY 03/15/15 Levothyroxine [Synthroid -] 25 mcg PO DAILY 03/15/15 Atorvastatin Ca [Lipitor] 40 mg PO HS 05/21/18 Canagliflozin [Invokana] 100 mg PO DAILY 11/06/18 Clopidogrel Bisulfate [Clopidogrel] 75 mg PO DAILY 11/06/18 Furosemide 20 mg PO DAILY 11/06/18 Metoprolol Tartrate [Lopressor -] 25 mg PO BID 11/06/18 Pantoprazole Sodium 40 mg PO DAILY 11/06/18 Sitagliptin Phos/Metformin HCl 1 tab PO DAILY 11/06/18 [Janumet 50-1,000 mg Tablet] Family Disease History - Family Disease History Family History: Unremarkable Review of Systems per hpi - Review of Systems Constitutional: reports: No Symptoms Eyes: reports: No Symptoms HENT: reports: No Symptoms Neck: reports: No Symptoms Gastrointestinal: reports: No Symptoms Genitourinary: reports: No Symptoms Breasts: reports: No Symptoms Reported Musculoskeletal: reports: No Symptoms Integumentary: reports: No Symptoms Neurological: reports: No Symptoms Endocrine: reports: No Symptoms Hematology/Lymphatic: reports: No Symptoms Psychiatric: reports: No Symptoms Vital Signs: Vital Signs Period Temp Pulse Resp BP Sys/Melchor Pulse Ox Last 24 Hr 97.7 F-98.1 F 82-94 18-22 108-125/50-69 95-100 Constitutional: Yes: No Distress, Calm Eyes: Yes: Conjunctiva Clear, EOM Intact HENT: Yes: Atraumatic, Normocephalic Neck: Yes: Supple, Trachea Midline Respiratory: Yes: CTA Bilaterally (no wheezing, rales) Gastrointestinal: Yes: Soft (NT, no rebound or guarding) Cardiovascular: Yes: Regular Rate and Rhythm JVD: No Carotid Bruit: No PMI: Non-Displaced Heart Sounds: Yes: S1, S2 (rrr, no m/r/g) Edema: No Peripheral Pulses WNL: Yes Neurological: Yes: Alert, Oriented ...Motor Strength: WNL Psychiatric: Yes: Alert, Oriented Laboratory Last Values WBC 5.0 K/mm3 (4.0-10.0) 11/07/18 11:05 RBC 3.52 M/mm3 (3.60-5.2) L 11/07/18 11:05 Hgb 9.6 GM/dL (10.7-15.3) L 11/07/18 11:05 Hct 29.1 % (32.4-45.2) L 11/07/18 11:05 MCV 82.6 fl (80-96) 11/07/18 11:05 MCH 27.3 pg (25.7-33.7) 11/07/18 11:05 MCHC 33.0 g/dl (32.0-36.0) 11/07/18 11:05 RDW 15.5 % (11.6-15.6) 11/07/18 11:05 Plt Count 380 K/MM3 (134-434) 11/07/18 11:05 MPV 6.8 fl (7.5-11.1) L 11/07/18 11:05 Absolute Neuts (auto) 3.8 K/mm3 (1.5-8.0) 11/07/18 11:05 Neutrophils % 77.2 % (42.8-82.8) 11/07/18 11:05 Lymphocytes % 8.8 % (8-40) 11/07/18 11:05 Monocytes % 6.5 % (3.8-10.2) 11/07/18 11:05 Eosinophils % 6.6 % (0-4.5) H 11/07/18 11:05 Basophils % 0.9 % (0-2.0) D 11/07/18 11:05 Nucleated RBC % 0 % (0-0) 11/07/18 11:05 Retic Count 4.41 % (0.5-1.5) H 11/07/18 11:05 PT with INR 14.50 SEC (9.7-13.0) H 11/07/18 11:05 INR 1.23 (0.83-1.09) H 11/07/18 11:05 PTT (Actin FS) 33.5 SECONDS (25.2-36.5) 11/07/18 11:05 Sodium 139 mmol/L (136-145) 11/07/18 11:05 Potassium 3.7 mmol/L (3.5-5.1) 11/07/18 11:05 Chloride 107 mmol/L (98-107) 11/07/18 11:05 Carbon Dioxide 23 mmol/L (21-32) 11/07/18 11:05 Anion Gap 9 MMOL/L (8-16) 11/07/18 11:05 BUN 10.4 mg/dL (7-18) 11/07/18 11:05 Creatinine 0.7 mg/dL (0.55-1.3) 11/07/18 11:05 Est GFR (CKD-EPI)AfAm 98.92 11/07/18 11:05 Est GFR (CKD-EPI)NonAf 85.35 11/07/18 11:05 POC Glucometer 156 UNITS (80-120) 11/07/18 11:25 Random Glucose 173 mg/dL (74-106) H 11/07/18 11:05 Calcium 8.7 mg/dL (8.5-10.1) 11/07/18 11:05 Iron 28 ug/dL (50-175) L 11/07/18 11:05 TIBC 293 ug/dL (250-450) 11/07/18 11:05 Iron Saturation 9 % (17.5-39) L 11/07/18 11:05 Unsaturated IBC 265 ug/dL (200-275) 11/07/18 11:05 Total Bilirubin 0.6 mg/dL (0.2-1) 11/07/18 11:05 AST 19 U/L (15-37) 11/07/18 11:05 ALT 16 U/L (13-61) 11/07/18 11:05 Alkaline Phosphatase 47 U/L (45-117) 11/07/18 11:05 Creatine Kinase 49 U/L (26-192) 11/06/18 17:58 Troponin I < 0.02 ng/ml (0.00-0.05) 11/06/18 17:58 B-Natriuretic Peptide 581.6 pg/ml (5-125) H 11/06/18 17:58 Total Protein 6.4 g/dl (6.4-8.2) 11/07/18 11:05 Albumin 2.7 g/dl (3.4-5.0) L 11/07/18 11:05 Vitamin B12 1159 pg/ml (193-986) H 11/07/18 11:05 ecg: NSR, old inferior infarct, LVH, NSST changes Echo: Pending Prior Cardiac Procedures: PTCA with Stent Ejection Fraction %: LVEF > or = 40 % cta chest: +pe, no chf Imaging - Results Chest X-ray: Image Reviewed EKG: Image Reviewed Assessment/Plan 73F w/ HTN, HLD, DM , CAD w/ multiple stents and cabg last month here with sob. sob, acute PE: -cont ac -check echo -monitor tele htn: -cont home bb, arb hld: -cont statin cad, pci, cabg: -s/p recent cabg -cont arb, bb, statin, dapt -cont po lasix
--- NOTE | 2018-11-07 13:50 | ECHO ---
Name: MALGORZATA HONG Exam:Adult Echocardiogram Study Date: 11/07/2018 07:42 AM Age: 73 yrs Reason For Study: SOB Height: 57 in Weight: 160 lb BSA: 1.6 m2 MMode/2D Measurements & Calculations IVSd: 1.1 cm Ao root diam: 2.7 cm LVIDd: 4.2 cm LA dimension: 3.0 cm LVIDs: 3.0 cm LVPWd: 1.0 cm EDV(Teich): 80.5 ml LVOT diam: 2.0 cm ESV(Teich): 34.4 ml LAV (MOD-bp): 43.1 ml Doppler Measurements & Calculations MV E max darwin: 82.5 cm/sec Ao V2 max: 124.9 cm/sec MV A max darwin: 90.7 cm/sec Ao max P.2 mmHg MV E/A: 0.91 MV dec time: 0.17 sec JAXON(V,D): 1.9 cm2 LV V1 max P.5 mmHg PA V2 max: 81.4 cm/sec LV V1 max: 79.1 cm/sec PA max P.7 mmHg Med Peak E' Darwin: 4.7 cm/sec Med E/e': 17.6 Lat Peak E' Darwin: 8.4 cm/sec Lat E/e': 9.8 Procedure A complete two-dimensional transthoracic echocardiogram was performed (2D, M-mode, Doppler and color flow Doppler). Left Ventricle The left ventricle is normal in size. Left ventricular systolic function is mildly reduced. Ejection Fraction = 45-50%. There is mild global hypokinesis of the left ventricle. Right Ventricle The right ventricle is normal in size and function. Atria Normal left and right atrial size and function. Mitral Valve There is no mitral regurgitation noted. Tricuspid Valve There is trace tricuspid regurgitation. There was insufficient TR detected to calculate RV systolic p ressure. Aortic Valve No hemodynamically significant valvular aortic stenosis. No aortic regurgitation is present. Pulmonic Valve There is no pulmonic valvular regurgitation. Great Vessels The aortic root is normal size. Pericardium/Pleura There is no pericardial effusion. Interpretation Summary Left ventricular systolic function is mildly reduced. There is mild global hypokinesis of the left ventricle. The right ventricle is normal in size and function. There is trace tricuspid regurgitation. MD Rickey Jang 11/07/2018 01:49 PM
--- NOTE | 2018-11-07 15:17 | PN ---
Physical Exam: SUBJECTIVE: Patient seen and examined. She complains of incisional chest pain. She denies SOB. OBJECTIVE: Vital Signs Period Temp Pulse Resp BP Sys/Melchor Pulse Ox Last 24 Hr 97.7 F-98.1 F 82-94 18-22 108-125/50-69 95-100 GENERAL: The patient is awake, alert, and fully oriented, in no acute distress. CHEST: Healing sternotomy incision. LUNGS: Breath sounds equal, clear to auscultation bilaterally, no wheezes, no crackles, no accessory muscle use. HEART: Regular rate and rhythm, S1, S2 without murmur, rub or gallop. ABDOMEN: Obese, soft, nontender, nondistended, normoactive bowel sounds, no guarding, no rebound, no hepatosplenomegaly, no masses. EXTREMITIES: 2+ pulses, warm, well-perfused, no edema. Laboratory Results - last 24 hr 11/06/18 11/06/18 11/06/18 17:58 17:58 17:58 WBC 8.1 RBC 3.55 L Hgb 9.8 L Hct 29.6 L D MCV 83.3 MCH 27.6 MCHC 33.2 RDW 15.4 Plt Count 439 H D MPV 6.9 L Absolute Neuts (auto) 6.4 Neutrophils % 79.1 Lymphocytes % 9.1 D Monocytes % 6.6 Eosinophils % 5.0 H Basophils % 0.2 Nucleated RBC % 0 Retic Count PT with INR INR PTT (Actin FS) Sodium 138 Potassium 4.4 Chloride 105 Carbon Dioxide 21 Anion Gap 12 BUN 12.8 Creatinine 0.7 Est GFR (CKD-EPI)AfAm 98.92 Est GFR (CKD-EPI)NonAf 85.35 POC Glucometer Random Glucose 96 Calcium 9.1 Iron TIBC Iron Saturation Unsaturated IBC Total Bilirubin 0.8 AST 34 ALT 17 Alkaline Phosphatase 49 Creatine Kinase 49 Troponin I < 0.02 B-Natriuretic Peptide 581.6 H Total Protein 7.0 Albumin 2.8 L Vitamin B12 11/07/18 11/07/18 11/07/18 06:55 11:05 11:05 WBC 5.0 RBC 3.52 L Hgb 9.6 L Hct 29.1 L MCV 82.6 MCH 27.3 MCHC 33.0 RDW 15.5 Plt Count 380 MPV 6.8 L Absolute Neuts (auto) 3.8 Neutrophils % 77.2 Lymphocytes % 8.8 Monocytes % 6.5 Eosinophils % 6.6 H Basophils % 0.9 D Nucleated RBC % 0 Retic Count 4.41 H PT with INR 14.50 H INR 1.23 H PTT (Actin FS) 33.5 Sodium Potassium Chloride Carbon Dioxide Anion Gap BUN Creatinine Est GFR (CKD-EPI)AfAm Est GFR (CKD-EPI)NonAf POC Glucometer 114 Random Glucose Calcium Iron TIBC Iron Saturation Unsaturated IBC Total Bilirubin AST ALT Alkaline Phosphatase Creatine Kinase Troponin I B-Natriuretic Peptide Total Protein Albumin Vitamin B12 11/07/18 11/07/18 11:05 11:25 WBC RBC Hgb Hct MCV MCH MCHC RDW Plt Count MPV Absolute Neuts (auto) Neutrophils % Lymphocytes % Monocytes % Eosinophils % Basophils % Nucleated RBC % Retic Count PT with INR INR PTT (Actin FS) Sodium 139 Potassium 3.7 Chloride 107 Carbon Dioxide 23 Anion Gap 9 BUN 10.4 Creatinine 0.7 Est GFR (CKD-EPI)AfAm 98.92 Est GFR (CKD-EPI)NonAf 85.35 POC Glucometer 156 Random Glucose 173 H Calcium 8.7 Iron 28 L TIBC 293 Iron Saturation 9 L Unsaturated IBC 265 Total Bilirubin 0.6 AST 19 ALT 16 Alkaline Phosphatase 47 Creatine Kinase Troponin I B-Natriuretic Peptide Total Protein 6.4 Albumin 2.7 L Vitamin B12 1159 H Active Medications Generic Name Dose Route Start Last Admin Trade Name Freq PRN Reason Stop Dose Admin Acetaminophen 650 mg 11/06/18 23:17 11/07/18 12:23 Tylenol - PO 650 mg Q4H PRN Administration PAIN LEVEL 1 - 3 Aspirin 81 mg 11/07/18 10:00 11/07/18 10:12 Asa - PO 81 mg DAILY JAYLA Administration Atorvastatin Calcium 40 mg 11/07/18 22:00 Lipitor - PO HS JAYLA Clopidogrel Bisulfate 75 mg 11/07/18 10:00 11/07/18 10:13 Plavix - PO 75 mg DAILY JAYLA Administration Enoxaparin Sodium 70 mg 11/07/18 10:00 11/07/18 10:12 Lovenox - SQ 70 mg BID JAYLA Administration Furosemide 20 mg 11/07/18 10:00 11/07/18 10:12 Lasix - PO 20 mg DAILY JAYLA Administration Insulin Aspart 1 vial 11/07/18 07:00 11/07/18 12:00 Novolog Vial Sliding Scale - SQ 2 units ACHS JAYLA Administration Protocol Levothyroxine Sodium 25 mcg 11/07/18 07:00 11/07/18 06:58 Synthroid - PO 25 mcg DAILY@0700 JAYLA Administration Losartan Potassium 25 mg 11/07/18 10:00 11/07/18 10:12 Cozaar - PO 25 mg DAILY JAYLA Administration Metoprolol Tartrate 25 mg 11/07/18 10:00 11/07/18 10:12 Lopressor - PO 25 mg BID JAYLA Administration Pantoprazole Sodium 40 mg 11/07/18 10:00 11/07/18 10:12 Protonix - PO Not Given DAILY JAYLA ASSESSMENT/PLAN: This is a 73 year old woman with a history of CAD, history of stent and recent CABG, HTN, hyperlipidemia, type 2 DM, hypothyroidism who presented to the ED with SOB. 1. Acute pulmonary embolus - Continue Lovenox - Echo shows mildly reduced LV systolic function, mild global hypokinesis of LV, normal RV, trace TR - Leg dopplers - Pulmonary consult 2. CAD, history of stent/CABG - Continue aspirin, Plavix, Lopressor, Lipitor - Oxycodone for sternotomy incision pain 3. HTN - Continue Cozaar, Lopressor, Lasix 4. Type 2 DM - Continue Novolog sliding scale 5. Hypothyroidism - Continue Synthroid 6. Hyperlipidemia - Continue Lipitor Visit type - Emergency Visit Emergency Visit: Yes ED Registration Date: 11/06/18 Care time: The patient presented to the Emergency Department on the above date and was hospitalized for further evaluation of their emergent condition. - New Patient This patient is new to me today: Yes Date on this admission: 11/07/18 - Critical Care Critical Care patient: No - Discharge Referral Referred to [facility] Med [facility] No
--- NOTE | 2018-11-07 16:49 | PN ---
Progress Note (short form) - Note Progress Note: PULMONARY CONSULTATION DICTATED 11/07/18 IMP DYSPNEA ACUTE RLL PE LIKELY PROVOKED SECONDARY TO RECENT CABG ASHD S/P CABG,STENTS LV DYSFUNCTION HTN HLD NIDDM ANEMIA PLAN AC O2 DUPLEX LOWER EXT AGE APPROPRIATE CANCER SCREENING MONITOR LAURIE,H+H DR DELUCA Problem List - Problems (1) Pulmonary embolism Code(s): I26.99 - OTHER PULMONARY EMBOLISM WITHOUT ACUTE COR PULMONALE Qualifiers: Pulmonary embolism type: other Chronicity: acute Acute cor pulmonale presence: without acute cor pulmonale Qualified Code(s): I26.99 - Other pulmonary embolism without acute cor pulmonale (2) Chest pain Code(s): R07.9 - CHEST PAIN, UNSPECIFIED Qualifiers: Chest pain type: unspecified Qualified Code(s): R07.9 - Chest pain, unspecified (3) CAD (coronary artery disease) Code(s): I25.10 - ATHSCL HEART DISEASE OF [place] CORONARY ARTERY W/O ANG PCTRS Qualifiers: Coronary Disease-Associated Artery/Lesion type: [place] artery [place] vs. transplanted heart: [place] heart Associated angina: without angina Qualified Code(s): I25.10 - Atherosclerotic heart disease of [place] coronary artery without angina pectoris (4) Diabetes Code(s): E11.9 - TYPE 2 DIABETES MELLITUS WITHOUT COMPLICATIONS Qualifiers: Diabetes mellitus type: type 2 (5) Stented coronary artery Code(s): Z95.5 - PRESENCE OF CORONARY ANGIOPLASTY IMPLANT AND GRAFT
--- NOTE | 2018-11-07 17:34 | CONS ---
DATE OF CONSULTATION: 11/07/2018 REFERRING PHYSICIAN: Dusty Peter MD HISTORY: The patient is a 73-year-old female with a past medical history of ASHD status post stents, status post CABG 3 weeks ago at [facility], hypertension , hyperlipidemia, [id number] diabetes mellitus, remote history of tobacco use, quit greater than 20 years ago, admitted to [facility] with complaint of 1- to 2-day history of increasing shortness of breath. Patient states that since her operation she has been relatively sedentary, laying in bed and walking around minimally in the house. States that couple days prior to admission she started developing shortness of breath at rest. She also had increasing dyspnea on exertion. She denied any nausea, vomiting, or diaphoresis. She also complains of parasternal chest pain on the border of her recent surgical scar. She states that she has had that pain since the surgery. Patient was discharged home on Plavix. I am not sure whether or not she was fully compliant. Patient states normally she gets short of breath with exertion but not at rest. She presented to the emergency room with above. In the ER she underwent a CTA of the chest which revealed a right lower lobe pulmonary embolism. She was started on Lovenox. She was also noted to have ground-glass opacity in the right upper lobe which is unchanged from 2015. She denies any history of occupational exposure to chemicals or fumes. There is no history of DVT or PE in the past. PAST MEDICAL HISTORY: Includes ASHD status post multiple stents, status post CABG 3 weeks ago, hypertension, mzc-qxqurzz-xukbyuwdi diabetes mellitus, hyperlipidemia. REVIEW OF SYSTEMS: Positive dyspnea on exertion. No chest pain at this time. No cough, no hemoptysis, no abdominal pain, lower extremity edema. SOCIAL HISTORY: History of tobacco use, approximately 1/2 pack a day for 15 years, quit 20 years ago. No occupational exposures. CURRENT MEDICATIONS: Include Tylenol, Cozaar, Lovenox, Lopressor, Lipitor, NovoLog, Lasix, aspirin, Plavix, Protonix, and Synthroid. PHYSICAL EXAMINATION: General: The patient is an elderly female, awake, alert, in no acute distress. Vital Signs: She is afebrile. Blood pressure is 118/65. Respiratory rate is 18. O2 saturation is 95% on room air. HEENT: Exam is normocephalic, atraumatic. Neck: Supple. Heart: Regular, S1, S2. Chest: Clear. Abdomen: Soft. Bowel sounds are positive. Extremities: Lower extremity edema. LABORATORY: BUN is 10, creatinine 0.7. WBC is 5.0, hemoglobin 9.6, hematocrit 29.1, with a platelet count of 380,000. Venous blood gas 7.43, PO2 of 35, PCO2 of 35. BNP is 581. Troponin is less than 0.02. CT as noted earlier. IMPRESSION: 1. Acute right lower lobe pulmonary embolism, likely provoked secondary to recent surgery and sedentary lifestyle postoperative. 2. Arteriosclerotic heart disease status post stents, status post coronary artery bypass graft. 3. Left ventricular dysfunction. 4. Hypertension. 5. Hyperlipidemia. 6. Asf-rljbsay-[id number] diabetes mellitus. 7. Anemia. PLAN: Continue anticoagulation, supplemental O2, duplex lower extremities. Monitor CBC, hemoglobin and hematocrit, electrolytes, as well as age-appropriate cancer screening. LIA DELUCA M.D. [id number] MTDD
[2018-11-07] MEDS: oxyCODONE HCL 5 MG TABLET PO PRN (17:40)
[2018-11-07] MEDS: ATORVASTATIN CA 40 MG TABLET (FP) PO SCH (22:00)
[2018-11-08] MEDS: oxyCODONE HCL 5 MG TABLET PO PRN ×4 (00:47→22:14)
[2018-11-08] MEDS: LEVOTHYROXINE NA 25 MCG TABLET (FP) PO SCH (06:05)
[2018-11-08] MEDS: INSULIN SLIDING SCALE (NOVOLOG) 1 VIAL SQ SCH ×4 (06:14→22:05)
[2018-11-08 06:59] LABS: BLOOD UREA NITROGEN 7.9 mg/dL (7-18); CALCIUM 8.9 mg/dL (8.5-10.1); CREATININE 0.7 mg/dL (0.55-1.3); POTASSIUM 3.9 mmol/L (3.5-5.1)
[2018-11-08 07:00] LABS: HEMATOCRIT 31.5 % (32.4-45.2); HEMOGLOBIN 10.3 GM/dL (10.7-15.3); MCH 27.2 pg (25.7-33.7); MCHC 32.6 g/dl (32.0-36.0); MEAN CELL VOLUME 83.5 fl (80-96); MEAN PLT VOLUME 6.7 fl (7.5-11.1); RBC 3.78 M/mm3 (3.60-5.2); RDW 15.4 % (11.6-15.6); WHITE BLOOD COUNT 4.3 K/mm3 (4.0-10.0)
[2018-11-08 08:14] LABS: PLATELET COUNT 403 K/MM3 (134-434)
--- NOTE | 2018-11-08 08:36 | PN ---
Progress Note, Physician History of Present Illness: PULMONARY ALERT,FEELING BETTER,LESS DYSPNEIC - Current Medication List Current Medications: Active Medications Acetaminophen (Tylenol -) 650 mg PO Q4H PRN PRN Reason: PAIN LEVEL 1-5 Last Admin: 11/07/18 17:40 Dose: 650 mg Aspirin (Asa -) 81 mg PO DAILY [facility] Last Admin: 11/07/18 10:12 Dose: 81 mg Atorvastatin Calcium (Lipitor -) 40 mg PO HS [facility] Last Admin: 11/07/18 22:00 Dose: 40 mg Clopidogrel Bisulfate (Plavix -) 75 mg PO DAILY [facility] Last Admin: 11/07/18 10:13 Dose: 75 mg Enoxaparin Sodium (Lovenox -) 70 mg SQ BID [facility] Last Admin: 11/07/18 22:00 Dose: 70 mg Furosemide (Lasix -) 20 mg PO DAILY [facility] Last Admin: 11/07/18 10:12 Dose: 20 mg Insulin Aspart (Novolog Vial Sliding Scale -) 1 vial SQ ACHS [facility]; Protocol Last Admin: 11/08/18 06:14 Dose: Not Given Levothyroxine Sodium (Synthroid -) 25 mcg PO DAILY@0700 [facility] Last Admin: 11/08/18 06:05 Dose: 25 mcg Losartan Potassium (Cozaar -) 25 mg PO DAILY [facility] Last Admin: 11/07/18 10:12 Dose: 25 mg Metoprolol Tartrate (Lopressor -) 25 mg PO BID [facility] Last Admin: 11/07/18 22:00 Dose: 25 mg Oxycodone HCl (Roxicodone -) 5 mg PO Q6H PRN PRN Reason: PAIN LEVEL 6-10 Last Admin: 11/08/18 00:47 Dose: 5 mg Pantoprazole Sodium (Protonix -) 40 mg PO DAILY [facility] Last Admin: 11/07/18 10:12 Dose: Not Given - Objective Vital Signs: Vital Signs Temperature 97.9 F 11/08/18 08:31 Pulse Rate 96 H 11/08/18 08:31 Respiratory Rate 20 11/08/18 08:31 Blood Pressure 107/56 L 11/08/18 08:31 O2 Sat by Pulse Oximetry (%) 98 11/07/18 22:00 Constitutional: Yes: Well Nourished, Calm Eyes: Yes: WNL HENT: Yes: WNL Neck: Yes: WNL Cardiovascular: Yes: Regular Rate and Rhythm, S1, S2 Respiratory: Yes: CTA Bilaterally Gastrointestinal: Yes: Normal Bowel Sounds, Soft Extremities: Yes: WNL Edema: No Labs: CBC, BMP 11/08/18 06:00 11/08/18 06:00 INR, PTT INR 1.23 (0.83-1.09) H 11/07/18 11:05 Problem List - Problems (1) Pulmonary embolism Code(s): I26.99 - OTHER PULMONARY EMBOLISM WITHOUT ACUTE COR PULMONALE Qualifiers: Pulmonary embolism type: other Chronicity: acute Acute cor pulmonale presence: without acute cor pulmonale Qualified Code(s): I26.99 - Other pulmonary embolism without acute cor pulmonale (2) Chest pain Code(s): R07.9 - CHEST PAIN, UNSPECIFIED Qualifiers: Chest pain type: unspecified Qualified Code(s): R07.9 - Chest pain, unspecified (3) CAD (coronary artery disease) Code(s): I25.10 - ATHSCL HEART DISEASE OF [place] CORONARY ARTERY W/O ANG PCTRS Qualifiers: Coronary Disease-Associated Artery/Lesion type: [place] artery [place] vs. transplanted heart: [place] heart Associated angina: without angina Qualified Code(s): I25.10 - Atherosclerotic heart disease of [place] coronary artery without angina pectoris (4) Diabetes Code(s): E11.9 - TYPE 2 DIABETES MELLITUS WITHOUT COMPLICATIONS Qualifiers: Diabetes mellitus type: type 2 (5) Stented coronary artery Code(s): Z95.5 - PRESENCE OF CORONARY ANGIOPLASTY IMPLANT AND GRAFT Assessment/Plan IMP DYSPNEA IMPROVED ACUTE RLL PE LIKELY PROVOKED SECONDARY TO RECENT CABG ASHD S/P CABG,STENTS LV DYSFUNCTION HTN HLD NIDDM ANEMIA PLAN LOVENOX ,?NOAC O2 DUPLEX LOWER EXT AGE APPROPRIATE CANCER SCREENING MONITOR LYTES,H+H DR DELUCA Problem List - Problems (1) Pulmonary embolism Code(s): I26.99 - OTHER PULMONARY EMBOLISM WITHOUT ACUTE COR PULMONALE Qualifiers: Pulmonary embolism type: other Chronicity: acute Acute cor pulmonale presence: without acute cor pulmonale Qualified Code(s): I26.99 - Other pulmonary embolism without acute cor pulmonale (2) Chest pain Code(s): R07.9 - CHEST PAIN, UNSPECIFIED Qualifiers: Chest pain type: unspecified Qualified Code(s): R07.9 - Chest pain, unspecified (3) CAD (coronary artery disease) Code(s): I25.10 - ATHSCL HEART DISEASE OF [place] CORONARY ARTERY W/O ANG PCTRS Qualifiers: Coronary Disease-Associated Artery/Lesion type: [place] artery [place] vs. transplanted heart: [place] heart Associated angina: without angina Qualified Code(s): I25.10 - Atherosclerotic heart disease of [place] coronary artery without angina pectoris (4) Diabetes Code(s): E11.9 - TYPE 2 DIABETES MELLITUS WITHOUT COMPLICATIONS Qualifiers: Diabetes mellitus type: type 2 (5) Stented coronary artery Code(s): Z95.5 - PRESENCE OF CORONARY ANGIOPLASTY IMPLANT AND GRAFT
[2018-11-08] MEDS: PANTOPRAZOLE 40 MG TABLET (FP) PO SCH (09:55)
[2018-11-08] MEDS: METOPROLOL TARTRATE 25 MG TABLET (FP) PO SCH ×2 (09:55→21:59)
[2018-11-08] MEDS: LOSARTAN POTASSIUM 25 MG TABLET PO SCH (09:55)
[2018-11-08] MEDS: ENOXAPARIN NA (PORCINE) 80 MG/0.8 ML DISP.SYRIN SQ SCH ×2 (09:55→22:00)
[2018-11-08] MEDS: CLOPIDOGREL BISULFATE 75 MG TABLET (FP) PO SCH (09:55)
[2018-11-08] MEDS: FUROSEMIDE 20 MG TABLET (FP) PO SCH (09:55)
[2018-11-08] MEDS: ASPIRIN 81 MG CHEWABLE TABLETS PO SCH (09:56)
[2018-11-08] MEDS: ACETAMINOPHEN 325 MG TABLET (FP) PO PRN ×2 (10:03→16:38)
--- NOTE | 2018-11-08 12:07 | PN ---
Progress Note (short form) - Note Progress Note: s: no palps, dizziness, cp, dyspnea Current Medications Acetaminophen (Tylenol -) 650 mg PO Q4H PRN PRN Reason: PAIN LEVEL 1-5 Last Admin: 11/08/18 10:03 Dose: 650 mg Aspirin (Asa -) 81 mg PO DAILY [facility] Last Admin: 11/08/18 09:56 Dose: 81 mg Atorvastatin Calcium (Lipitor -) 40 mg PO HS [facility] Last Admin: 11/07/18 22:00 Dose: 40 mg Clopidogrel Bisulfate (Plavix -) 75 mg PO DAILY [facility] Last Admin: 11/08/18 09:55 Dose: 75 mg Enoxaparin Sodium (Lovenox -) 70 mg SQ BID [facility] Last Admin: 11/08/18 09:55 Dose: 70 mg Furosemide (Lasix -) 20 mg PO DAILY [facility] Last Admin: 11/08/18 09:55 Dose: 20 mg Insulin Aspart (Novolog Vial Sliding Scale -) 1 vial SQ [facility]; Protocol Last Admin: 11/08/18 11:38 Dose: Not Given Levothyroxine Sodium (Synthroid -) 25 mcg PO DAILY@0700 [facility] Last Admin: 11/08/18 06:05 Dose: 25 mcg Losartan Potassium (Cozaar -) 25 mg PO DAILY [facility] Last Admin: 11/08/18 09:55 Dose: 25 mg Metoprolol Tartrate (Lopressor -) 25 mg PO BID [facility] Last Admin: 11/08/18 09:55 Dose: 25 mg Oxycodone HCl (Roxicodone -) 5 mg PO Q6H PRN PRN Reason: PAIN LEVEL 6-10 Last Admin: 11/08/18 10:03 Dose: 5 mg Pantoprazole Sodium (Protonix -) 40 mg PO DAILY [facility] Last Admin: 11/08/18 09:55 Dose: 40 mg Vital Signs Period Temp Pulse Resp BP Sys/Melchor Pulse Ox Last 24 Hr 97.9 F-98.8 F 75-96 18-20 102-120/53-65 95-98 Constitutional: Yes: No Distress, Calm Eyes: Yes: Conjunctiva Clear, EOM Intact HENT: Yes: Atraumatic, Normocephalic Neck: Yes: Supple, Trachea Midline Respiratory: Yes: CTA Bilaterally (no wheezing, rales) Gastrointestinal: Yes: Soft (NT, no rebound or guarding) Cardiovascular: Yes: Regular Rate and Rhythm JVD: No Carotid Bruit: No PMI: Non-Displaced Heart Sounds: Yes: S1, S2 (rrr, no m/r/g) Edema: No Peripheral Pulses WNL: Yes Neurological: Yes: Alert, Oriented Psychiatric: Yes: Alert, Oriented ecg: NSR, old inferior infarct, LVH, NSST changes Echo: Pending Prior Cardiac Procedures: PTCA with Stent Ejection Fraction %: LVEF > or = 40 % cta chest: +pe, no chf echo 10/2018 mildly reduced LV function, mild global hypokinesis of LV, nl RV, tr TR tele: sinus Assessment/Plan 73F w/ HTN, HLD, DM , CAD w/ multiple stents and cabg last month here with sob. sob, acute PE: -cont ac -echo nl RV function -monitor tele htn: -cont home bb, arb hld: -cont statin cad, pci, cabg: -s/p recent cabg -cont arb, bb, statin, dapt -cont po lasix
--- NOTE | 2018-11-08 16:49 | PN ---
Physical Exam: SUBJECTIVE: Patient seen and examined. She still has incisional pain but it is relieved by oxycodone. OBJECTIVE: Vital Signs Period Temp Pulse Resp BP Sys/Melchor Pulse Ox Last 24 Hr 97.9 F-98.6 F 75-96 18-20 105-120/56-65 98-98 GENERAL: The patient is awake, alert, and fully oriented, in no acute distress. CHEST: Healing sternotomy incision. LUNGS: Breath sounds equal, clear to auscultation bilaterally, no wheezes, no crackles, no accessory muscle use. HEART: Regular rate and rhythm, S1, S2 without murmur, rub or gallop. ABDOMEN: Obese, soft, nontender, nondistended, normoactive bowel sounds, no guarding, no rebound, no hepatosplenomegaly, no masses. EXTREMITIES: 2+ pulses, warm, well-perfused, no edema. Laboratory Results - last 24 hr 11/07/18 11/08/18 11/08/18 21:54 06:00 06:00 WBC 4.3 RBC 3.78 Hgb 10.3 L Hct 31.5 L MCV 83.5 MCH 27.2 MCHC 32.6 RDW 15.4 Plt Count 403 MPV 6.7 L Sodium 143 Potassium 3.9 Chloride 108 H Carbon Dioxide 25 Anion Gap 9 BUN 7.9 Creatinine 0.7 Est GFR (CKD-EPI)AfAm 98.92 Est GFR (CKD-EPI)NonAf 85.35 POC Glucometer 174 Random Glucose 128 H Calcium 8.9 11/08/18 11/08/18 11/08/18 06:12 11:36 16:41 WBC RBC Hgb Hct MCV MCH MCHC RDW Plt Count MPV Sodium Potassium Chloride Carbon Dioxide Anion Gap BUN Creatinine Est GFR (CKD-EPI)AfAm Est GFR (CKD-EPI)NonAf POC Glucometer 127 137 126 Random Glucose Calcium Active Medications Generic Name Dose Route Start Last Admin Trade Name Freq PRN Reason Stop Dose Admin Acetaminophen 650 mg 11/07/18 17:34 11/08/18 16:38 Tylenol - PO 650 mg Q4H PRN Administration PAIN LEVEL 1-5 Aspirin 81 mg 11/07/18 10:00 11/08/18 09:56 Asa - PO 81 mg DAILY [facility] Administration Atorvastatin Calcium 40 mg 11/07/18 22:00 11/07/18 22:00 Lipitor - PO 40 mg HS [facility] Administration Clopidogrel Bisulfate 75 mg 11/07/18 10:00 11/08/18 09:55 Plavix - PO 75 mg DAILY [facility] Administration Enoxaparin Sodium 70 mg 11/07/18 10:00 11/08/18 09:55 Lovenox - SQ 70 mg BID [facility] Administration Furosemide 20 mg 11/07/18 10:00 11/08/18 09:55 Lasix - PO 20 mg DAILY [facility] Administration Insulin Aspart 1 vial 11/07/18 07:00 11/08/18 16:47 Novolog Vial Sliding Scale - SQ Not Given ACHS [facility] Protocol Levothyroxine Sodium 25 mcg 11/07/18 07:00 11/08/18 06:05 Synthroid - PO 25 mcg DAILY@0700 [facility] Administration Losartan Potassium 25 mg 11/07/18 10:00 11/08/18 09:55 Cozaar - PO 25 mg DAILY [facility] Administration Metoprolol Tartrate 25 mg 11/07/18 10:00 11/08/18 09:55 Lopressor - PO 25 mg BID [facility] Administration Oxycodone HCl 5 mg 11/07/18 17:34 11/08/18 16:38 Roxicodone - PO 5 mg Q6H PRN Administration PAIN LEVEL 6-10 Pantoprazole Sodium 40 mg 11/07/18 10:00 11/08/18 09:55 Protonix - PO 40 mg DAILY [facility] Administration ASSESSMENT/PLAN: This is a 73 year old woman with a history of CAD, history of stent and recent CABG, HTN, hyperlipidemia, type 2 DM, hypothyroidism who presented to the ED with SOB. 1. Acute pulmonary embolus - Continue Lovenox; start Eliquis if no evidence of GI bleeding causing anemia - Echo shows mildly reduced LV systolic function, mild global hypokinesis of LV, normal RV, trace TR - Leg dopplers negative for DVT - Pulmonary consult 2. CAD, history of stent/CABG - Continue aspirin, Plavix, Lopressor, Lipitor - Oxycodone for sternotomy incision pain 3. HTN - Continue Cozaar, Lopressor, Lasix 4. Type 2 DM - Continue Novolog sliding scale 5. Hypothyroidism - Continue Synthroid 6. Hyperlipidemia - Continue Lipitor 7. Anemia - Normocytic - Hemoglobin stable - Check iron studies, stool occult blood as patient will need to continue anticoagulation for PE 8. Obesity with BMI 34.5 Visit type - Emergency Visit Emergency Visit: Yes ED Registration Date: 11/06/18 Care time: The patient presented to the Emergency Department on the above date and was hospitalized for further evaluation of their emergent condition. - New Patient This patient is new to me today: No - Critical Care Critical Care patient: No - Discharge Referral Referred to [facility] No
[2018-11-08] MEDS: ATORVASTATIN CA 40 MG TABLET (FP) PO SCH (21:59)
[2018-11-09 06:48] LABS: HEMATOCRIT 27.8 % (32.4-45.2); HEMOGLOBIN 9.3 GM/dL (10.7-15.3); MCH 27.5 pg (25.7-33.7); MCHC 33.4 g/dl (32.0-36.0); MEAN CELL VOLUME 82.5 fl (80-96); MEAN PLT VOLUME 6.9 fl (7.5-11.1); PLATELET COUNT 356 K/MM3 (134-434); RBC 3.37 M/mm3 (3.60-5.2); RDW 15.2 % (11.6-15.6); WHITE BLOOD COUNT 3.2 K/mm3 (4.0-10.0)
[2018-11-09] MEDS: oxyCODONE HCL 5 MG TABLET PO PRN ×3 (07:05→23:40)
[2018-11-09] MEDS: INSULIN SLIDING SCALE (NOVOLOG) 1 VIAL SQ SCH ×4 (07:05→23:40)
[2018-11-09] MEDS: LEVOTHYROXINE NA 25 MCG TABLET (FP) PO SCH (07:05)
[2018-11-09 07:12] LABS: BLOOD UREA NITROGEN 7.8 mg/dL (7-18); CALCIUM 8.4 mg/dL (8.5-10.1); CREATININE 0.6 mg/dL (0.55-1.3)
--- NOTE | 2018-11-09 08:30 | PN ---
Progress Note, Physician History of Present Illness: PULMONARY ALERT,-SOB,+ POSTERIOR CP INCREASED WITH MOVEMENT AND INSPIRATION - Current Medication List Current Medications: Active Medications Acetaminophen (Tylenol -) 650 mg PO Q4H PRN PRN Reason: PAIN LEVEL 1-5 Last Admin: 11/08/18 16:38 Dose: 650 mg Aspirin (Asa -) 81 mg PO DAILY [facility] Last Admin: 11/08/18 09:56 Dose: 81 mg Atorvastatin Calcium (Lipitor -) 40 mg PO HS [facility] Last Admin: 11/08/18 21:59 Dose: 40 mg Clopidogrel Bisulfate (Plavix -) 75 mg PO DAILY [facility] Last Admin: 11/08/18 09:55 Dose: 75 mg Enoxaparin Sodium (Lovenox -) 70 mg SQ BID [facility] Last Admin: 11/08/18 22:00 Dose: 70 mg Furosemide (Lasix -) 20 mg PO DAILY [facility] Last Admin: 11/08/18 09:55 Dose: 20 mg Insulin Aspart (Novolog Vial Sliding Scale -) 1 vial SQ ACHS [facility]; Protocol Last Admin: 11/09/18 07:05 Dose: Not Given Levothyroxine Sodium (Synthroid -) 25 mcg PO DAILY@0700 [facility] Last Admin: 11/09/18 07:05 Dose: 25 mcg Losartan Potassium (Cozaar -) 25 mg PO DAILY [facility] Last Admin: 11/08/18 09:55 Dose: 25 mg Metoprolol Tartrate (Lopressor -) 25 mg PO BID [facility] Last Admin: 11/08/18 21:59 Dose: 25 mg Oxycodone HCl (Roxicodone -) 5 mg PO Q6H PRN PRN Reason: PAIN LEVEL 6-10 Last Admin: 11/09/18 07:05 Dose: 5 mg Pantoprazole Sodium (Protonix -) 40 mg PO DAILY [facility] Last Admin: 11/08/18 09:55 Dose: 40 mg - Objective Vital Signs: Vital Signs Temperature 98.2 F 11/09/18 06:00 Pulse Rate 91 H 11/09/18 06:00 Respiratory Rate 18 11/09/18 06:00 Blood Pressure 123/67 11/09/18 06:00 O2 Sat by Pulse Oximetry (%) 98 11/08/18 20:45 Constitutional: Yes: Well Nourished, Calm Eyes: Yes: WNL HENT: Yes: WNL Neck: Yes: WNL Cardiovascular: Yes: Regular Rate and Rhythm, S1, S2 Respiratory: Yes: CTA Bilaterally Gastrointestinal: Yes: Normal Bowel Sounds, Soft Extremities: Yes: WNL Edema: No Labs: CBC, BMP 11/09/18 06:00 11/09/18 06:00 INR, PTT INR 1.23 (0.83-1.09) H 11/07/18 11:05 - ....Imaging Ultrasound: Report Reviewed (DUPLEX -DVT) Problem List - Problems (1) Pulmonary embolism Code(s): I26.99 - OTHER PULMONARY EMBOLISM WITHOUT ACUTE COR PULMONALE Qualifiers: Pulmonary embolism type: other Chronicity: acute Acute cor pulmonale presence: without acute cor pulmonale Qualified Code(s): I26.99 - Other pulmonary embolism without acute cor pulmonale (2) Chest pain Code(s): R07.9 - CHEST PAIN, UNSPECIFIED Qualifiers: Chest pain type: unspecified Qualified Code(s): R07.9 - Chest pain, unspecified (3) CAD (coronary artery disease) Code(s): I25.10 - ATHSCL HEART DISEASE OF [place] CORONARY ARTERY W/O ANG PCTRS Qualifiers: Coronary Disease-Associated Artery/Lesion type: [place] artery [place] vs. transplanted heart: [place] heart Associated angina: without angina Qualified Code(s): I25.10 - Atherosclerotic heart disease of [place] coronary artery without angina pectoris (4) Diabetes Code(s): E11.9 - TYPE 2 DIABETES MELLITUS WITHOUT COMPLICATIONS Qualifiers: Diabetes mellitus type: type 2 (5) Stented coronary artery Code(s): Z95.5 - PRESENCE OF CORONARY ANGIOPLASTY IMPLANT AND GRAFT Assessment/Plan IMP DYSPNEA IMPROVED ACUTE RLL PE LIKELY PROVOKED SECONDARY TO RECENT CABG ASHD S/P CABG,STENTS LV DYSFUNCTION HTN HLD NIDDM ANEMIA PLAN LOVENOX ,? ELIQUIS O2 AGE APPROPRIATE CANCER SCREENING MONITOR LAURIE,H+H DR DELUCA Problem List - Problems (1) Pulmonary embolism Code(s): I26.99 - OTHER PULMONARY EMBOLISM WITHOUT ACUTE COR PULMONALE Qualifiers: Pulmonary embolism type: other Chronicity: acute Acute cor pulmonale presence: without acute cor pulmonale Qualified Code(s): I26.99 - Other pulmonary embolism without acute cor pulmonale (2) Chest pain Code(s): R07.9 - CHEST PAIN, UNSPECIFIED Qualifiers: Chest pain type: unspecified Qualified Code(s): R07.9 - Chest pain, unspecified (3) CAD (coronary artery disease) Code(s): I25.10 - ATHSCL HEART DISEASE OF [place] CORONARY ARTERY W/O ANG PCTRS Qualifiers: Coronary Disease-Associated Artery/Lesion type: [place] artery [place] vs. transplanted heart: [place] heart Associated angina: without angina Qualified Code(s): I25.10 - Atherosclerotic heart disease of [place] coronary artery without angina pectoris (4) Diabetes Code(s): E11.9 - TYPE 2 DIABETES MELLITUS WITHOUT COMPLICATIONS Qualifiers: Diabetes mellitus type: type 2 (5) Stented coronary artery Code(s): Z95.5 - PRESENCE OF CORONARY ANGIOPLASTY IMPLANT AND GRAFT
[2018-11-09] MEDS: ENOXAPARIN NA (PORCINE) 80 MG/0.8 ML DISP.SYRIN SQ SCH ×2 (10:37→23:40)
[2018-11-09] MEDS: METOPROLOL TARTRATE 25 MG TABLET (FP) PO SCH ×2 (10:38→23:40)
[2018-11-09] MEDS: PANTOPRAZOLE 40 MG TABLET (FP) PO SCH (10:38)
[2018-11-09] MEDS: FUROSEMIDE 20 MG TABLET (FP) PO SCH (10:38)
[2018-11-09] MEDS: CLOPIDOGREL BISULFATE 75 MG TABLET (FP) PO SCH (10:38)
[2018-11-09] MEDS: ASPIRIN 81 MG CHEWABLE TABLETS PO SCH (10:38)
[2018-11-09] MEDS: LOSARTAN POTASSIUM 25 MG TABLET PO SCH (10:38)
--- NOTE | 2018-11-09 11:45 | PN ---
Physical Exam: SUBJECTIVE: Patient seen and examined. She has no complaints. OBJECTIVE: Vital Signs Period Temp Pulse Resp BP Sys/Melchor Pulse Ox Last 24 Hr 98.1 F-98.2 F 80-102 18-20 104-123/52-67 95-98 GENERAL: The patient is awake, alert, and fully oriented, in no acute distress. CHEST: Healing sternotomy incision. LUNGS: Breath sounds equal, clear to auscultation bilaterally, no wheezes, no crackles, no accessory muscle use. HEART: Regular rate and rhythm, S1, S2 without murmur, rub or gallop. ABDOMEN: Obese, soft, nontender, nondistended, normoactive bowel sounds, no guarding, no rebound, no hepatosplenomegaly, no masses. EXTREMITIES: 2+ pulses, warm, well-perfused, no edema. Laboratory Results - last 24 hr 11/08/18 11/08/18 11/09/18 16:41 22:02 06:00 WBC 3.2 L RBC 3.37 L Hgb 9.3 L Hct 27.8 L MCV 82.5 MCH 27.5 MCHC 33.4 RDW 15.2 Plt Count 356 MPV 6.9 L Sodium Potassium Chloride Carbon Dioxide Anion Gap BUN Creatinine Est GFR (CKD-EPI)AfAm Est GFR (CKD-EPI)NonAf POC Glucometer 126 160 Random Glucose Calcium Iron TIBC Iron Saturation Unsaturated IBC Ferritin 11/09/18 11/09/18 11/09/18 06:00 07:01 11:17 WBC RBC Hgb Hct MCV MCH MCHC RDW Plt Count MPV Sodium 143 Potassium 4.0 Chloride 112 H Carbon Dioxide 23 Anion Gap 8 BUN 7.8 Creatinine 0.6 Est GFR (CKD-EPI)AfAm 104.07 Est GFR (CKD-EPI)NonAf 89.79 POC Glucometer 130 159 Random Glucose 111 H Calcium 8.4 L Iron 25 L TIBC 299 Iron Saturation 8 L Unsaturated IBC 274 Ferritin 73.8 Active Medications Generic Name Dose Route Start Last Admin Trade Name Freq PRN Reason Stop Dose Admin Acetaminophen 650 mg 11/07/18 17:34 11/08/18 16:38 Tylenol - PO 650 mg Q4H PRN Administration PAIN LEVEL 1-5 Aspirin 81 mg 11/07/18 10:00 11/09/18 10:38 Asa - PO 81 mg DAILY [facility] Administration Atorvastatin Calcium 40 mg 11/07/18 22:00 11/08/18 21:59 Lipitor - PO 40 mg HS [facility] Administration Clopidogrel Bisulfate 75 mg 11/07/18 10:00 11/09/18 10:38 Plavix - PO 75 mg DAILY [facility] Administration Enoxaparin Sodium 70 mg 11/07/18 10:00 11/09/18 10:37 Lovenox - SQ 70 mg BID [facility] Administration Furosemide 20 mg 11/07/18 10:00 11/09/18 10:38 Lasix - PO 20 mg DAILY [facility] Administration Insulin Aspart 1 vial 11/07/18 07:00 11/09/18 07:05 Novolog Vial Sliding Scale - SQ Not Given ACHS [facility] Protocol Levothyroxine Sodium 25 mcg 11/07/18 07:00 11/09/18 07:05 Synthroid - PO 25 mcg DAILY@0700 [facility] Administration Losartan Potassium 25 mg 11/07/18 10:00 11/09/18 10:38 Cozaar - PO 25 mg DAILY [facility] Administration Metoprolol Tartrate 25 mg 11/07/18 10:00 11/09/18 10:38 Lopressor - PO 25 mg BID [facility] Administration Oxycodone HCl 5 mg 11/07/18 17:34 11/09/18 07:05 Roxicodone - PO 5 mg Q6H PRN Administration PAIN LEVEL 6-10 Pantoprazole Sodium 40 mg 11/07/18 10:00 11/09/18 10:38 Protonix - PO 40 mg DAILY [facility] Administration ASSESSMENT/PLAN: This is a 73 year old woman with a history of CAD, history of stent and recent CABG, HTN, hyperlipidemia, type 2 DM, hypothyroidism who presented to the ED with SOB. 1. Acute pulmonary embolus - Provoked secondary to recent CABG - Continue Lovenox; start Eliquis if no evidence of GI bleeding causing anemia - Echo shows mildly reduced LV systolic function, mild global hypokinesis of LV, normal RV, trace TR - Leg dopplers negative for DVT 2. CAD, history of stent/CABG - Continue aspirin, Plavix, Lopressor, Lipitor - Continue oxycodone as needed for sternotomy incision pain 3. HTN - Continue Cozaar, Lopressor, Lasix 4. Type 2 DM - Continue Novolog sliding scale 5. Hypothyroidism - Continue Synthroid 6. Hyperlipidemia - Continue Lipitor 7. Anemia - Normocytic - Iron studies show low iron, low iron sat, normal TIBC, normal ferritin - Check stool occult blood as patient will need to continue anticoagulation for PE 8. Obesity with BMI 34.7 Visit type - Emergency Visit Emergency Visit: Yes ED Registration Date: 11/06/18 Care time: The patient presented to the Emergency Department on the above date and was hospitalized for further evaluation of their emergent condition. - New Patient This patient is new to me today: No - Critical Care Critical Care patient: No - Discharge Referral Referred to [facility] No
--- NOTE | 2018-11-09 11:52 | PN ---
Progress Note (short form) - Note Progress Note: s: no cp, palps, dizziness, dyspnea Current Medications Acetaminophen (Tylenol -) 650 mg PO Q4H PRN PRN Reason: PAIN LEVEL 1-5 Last Admin: 11/08/18 16:38 Dose: 650 mg Aspirin (Asa -) 81 mg PO DAILY [facility] Last Admin: 11/09/18 10:38 Dose: 81 mg Atorvastatin Calcium (Lipitor -) 40 mg PO HS [facility] Last Admin: 11/08/18 21:59 Dose: 40 mg Clopidogrel Bisulfate (Plavix -) 75 mg PO DAILY [facility] Last Admin: 11/09/18 10:38 Dose: 75 mg Enoxaparin Sodium (Lovenox -) 70 mg SQ BID [facility] Last Admin: 11/09/18 10:37 Dose: 70 mg Furosemide (Lasix -) 20 mg PO DAILY [facility] Last Admin: 11/09/18 10:38 Dose: 20 mg Insulin Aspart (Novolog Vial Sliding Scale -) 1 vial SQ [facility]; Protocol Last Admin: 11/09/18 07:05 Dose: Not Given Levothyroxine Sodium (Synthroid -) 25 mcg PO DAILY@0700 [facility] Last Admin: 11/09/18 07:05 Dose: 25 mcg Losartan Potassium (Cozaar -) 25 mg PO DAILY [facility] Last Admin: 11/09/18 10:38 Dose: 25 mg Metoprolol Tartrate (Lopressor -) 25 mg PO BID [facility] Last Admin: 11/09/18 10:38 Dose: 25 mg Oxycodone HCl (Roxicodone -) 5 mg PO Q6H PRN PRN Reason: PAIN LEVEL 6-10 Last Admin: 11/09/18 07:05 Dose: 5 mg Pantoprazole Sodium (Protonix -) 40 mg PO DAILY [facility] Last Admin: 11/09/18 10:38 Dose: 40 mg Vital Signs Period Temp Pulse Resp BP Sys/Melchor Pulse Ox Last 24 Hr 98.1 F-98.2 F 80-102 18-20 104-123/52-67 95-98 Constitutional: Yes: No Distress, Calm Eyes: Yes: Conjunctiva Clear, EOM Intact HENT: Yes: Atraumatic, Normocephalic Neck: Yes: Supple, Trachea Midline Respiratory: Yes: CTA Bilaterally (no wheezing, rales) Gastrointestinal: Yes: Soft (NT, no rebound or guarding) Cardiovascular: Yes: Regular Rate and Rhythm JVD: No Carotid Bruit: No PMI: Non-Displaced Heart Sounds: Yes: S1, S2 (rrr, no m/r/g) Edema: No Peripheral Pulses WNL: Yes Neurological: Yes: Alert, Oriented Psychiatric: Yes: Alert, Oriented ecg: NSR, old inferior infarct, LVH, NSST changes Echo: Pending Prior Cardiac Procedures: PTCA with Stent Ejection Fraction %: LVEF > or = 40 % cta chest: +pe, no chf echo 10/2018 mildly reduced LV function, mild global hypokinesis of LV, nl RV, tr TR tele: sinus Assessment/Plan 73F w/ HTN, HLD, DM , CAD w/ multiple stents and cabg last month here with sob. sob, acute PE: -cont ac -echo nl RV function -monitor tele htn: -cont home bb, arb hld: -cont statin cad, pci, cabg: -s/p recent cabg -cont arb, bb, statin, dapt -cont po lasix
[2018-11-09] MEDS: ACETAMINOPHEN 325 MG TABLET (FP) PO PRN (17:01)
[2018-11-09] MEDS: ATORVASTATIN CA 40 MG TABLET (FP) PO SCH (23:40)
[2018-11-10] MEDS: LEVOTHYROXINE NA 25 MCG TABLET (FP) PO SCH (06:27)
[2018-11-10] MEDS: oxyCODONE HCL 5 MG TABLET PO PRN ×2 (06:27→18:25)
[2018-11-10] MEDS: INSULIN SLIDING SCALE (NOVOLOG) 1 VIAL SQ SCH ×4 (06:27→22:51)
[2018-11-10 07:00] LABS: HEMATOCRIT 29.1 % (32.4-45.2); HEMOGLOBIN 9.6 GM/dL (10.7-15.3); MCH 27.1 pg (25.7-33.7); MCHC 32.9 g/dl (32.0-36.0); MEAN CELL VOLUME 82.2 fl (80-96); MEAN PLT VOLUME 6.9 fl (7.5-11.1); PLATELET COUNT 351 K/MM3 (134-434); RBC 3.54 M/mm3 (3.60-5.2); RDW 15.2 % (11.6-15.6); WHITE BLOOD COUNT 2.9 K/mm3 (4.0-10.0)
[2018-11-10 07:06] LABS: BLOOD UREA NITROGEN 6.4 mg/dL (7-18); CALCIUM 8.6 mg/dL (8.5-10.1); CREATININE 0.5 mg/dL (0.55-1.3)
--- NOTE | 2018-11-10 09:44 | PN ---
Progress Note, Physician Chief Complaint: comfortable No distress TELE: NSR, rare single VPC History of Present Illness: BP stable and no tachycardia - Current Medication List Current Medications: Active Medications Acetaminophen (Tylenol -) 650 mg PO Q4H PRN PRN Reason: PAIN LEVEL 1-5 Last Admin: 11/09/18 17:01 Dose: 650 mg Aspirin (Asa -) 81 mg PO DAILY [facility] Last Admin: 11/09/18 10:38 Dose: 81 mg Atorvastatin Calcium (Lipitor -) 40 mg PO HS [facility] Last Admin: 11/09/18 23:40 Dose: 40 mg Clopidogrel Bisulfate (Plavix -) 75 mg PO DAILY [facility] Last Admin: 11/09/18 10:38 Dose: 75 mg Enoxaparin Sodium (Lovenox -) 70 mg SQ BID [facility] Last Admin: 11/09/18 23:40 Dose: 70 mg Furosemide (Lasix -) 20 mg PO DAILY [facility] Last Admin: 11/09/18 10:38 Dose: 20 mg Insulin Aspart (Novolog Vial Sliding Scale -) 1 vial SQ [facility]; Protocol Last Admin: 11/10/18 06:27 Dose: Not Given Levothyroxine Sodium (Synthroid -) 25 mcg PO DAILY@0700 [facility] Last Admin: 11/10/18 06:27 Dose: 25 mcg Losartan Potassium (Cozaar -) 25 mg PO DAILY [facility] Last Admin: 11/09/18 10:38 Dose: 25 mg Metoprolol Tartrate (Lopressor -) 25 mg PO BID [facility] Last Admin: 11/09/18 23:40 Dose: 25 mg Oxycodone HCl (Roxicodone -) 5 mg PO Q6H PRN PRN Reason: PAIN LEVEL 6-10 Last Admin: 11/10/18 06:27 Dose: 5 mg Pantoprazole Sodium (Protonix -) 40 mg PO DAILY [facility] Last Admin: 11/09/18 10:38 Dose: 40 mg - Objective Vital Signs: Vital Signs Temperature 98.5 F 11/10/18 09:33 Pulse Rate 98 H 11/10/18 09:33 Respiratory Rate 18 11/10/18 09:33 Blood Pressure 119/60 11/10/18 09:33 O2 Sat by Pulse Oximetry (%) 96 11/09/18 22:00 Constitutional: Yes: No Distress Cardiovascular: Yes: Regular Rate and Rhythm Respiratory: Yes: CTA Bilaterally Gastrointestinal: Yes: Soft Edema: No Neurological: Yes: Alert, Oriented ...Motor Strength: WNL Labs: CBC, BMP 11/10/18 06:05 11/10/18 06:05 INR, PTT INR 1.23 (0.83-1.09) H 11/07/18 11:05 - ....Imaging EKG: Image Reviewed Assessment/Plan cta chest: +pe, no chf echo 10/2018 mildly reduced LV function, mild global hypokinesis of LV, nl RV, tr TR tele: sinus Assessment/Plan 73F w/ HTN, HLD, DM , CAD w/ multiple stents and cabg last month here with found to have PE. Hemodynamically stable. sob, acute PE: -cont ac, can transition to NOAC -echo nl RV function -Hemodynamically stable w/ no arrhythmias, may d/c tele HTN: -cont home bb, arb HLD: -cont statin CAD, pci, cabg: -s/p recent cabg -cont arb, bb, statin, dapt -cont po lasix
--- NOTE | 2018-11-10 09:53 | PN ---
Physical Exam: SUBJECTIVE: Patient seen and examined OBJECTIVE: Vital Signs Period Temp Pulse Resp BP Sys/Melchor Pulse Ox Last 24 Hr 97.8 F-98.6 F 79-98 18-20 101-125/56-71 96 GENERAL: The patient is awake, alert, and fully oriented, in no acute distress. HEAD: Normal with no signs of trauma. EYES: PERRL, extraocular movements intact, sclera anicteric, conjunctiva clear. No ptosis. ENT: Ears normal, nares patent, oropharynx clear without exudates, moist mucous membranes. NECK: Trachea midline, full range of motion, supple. LUNGS: Breath sounds equal, clear to auscultation bilaterally, no wheezes, no crackles, no accessory muscle use. HEART: Regular rate and rhythm, S1, S2 without murmur, rub or gallop. ABDOMEN: Soft, nontender, nondistended, normoactive bowel sounds, no guarding, no rebound, no hepatosplenomegaly, no masses. EXTREMITIES: 2+ pulses, warm, well-perfused, no edema. NEUROLOGICAL: Cranial nerves II through XII grossly intact. Normal speech, gait not observed. PSYCH: Normal mood, normal affect. SKIN: Warm, dry, normal turgor, no rashes or lesions noted Laboratory Results - last 24 hr 11/09/18 11/09/18 11/09/18 11:17 16:46 23:39 WBC RBC Hgb Hct MCV MCH MCHC RDW Plt Count MPV Sodium Potassium Chloride Carbon Dioxide Anion Gap BUN Creatinine Est GFR (CKD-EPI)AfAm Est GFR (CKD-EPI)NonAf POC Glucometer 159 93 160 Random Glucose Calcium 11/10/18 11/10/18 11/10/18 06:05 06:05 06:26 WBC 2.9 L RBC 3.54 L Hgb 9.6 L Hct 29.1 L MCV 82.2 MCH 27.1 MCHC 32.9 RDW 15.2 Plt Count 351 MPV 6.9 L Sodium 143 Potassium 4.0 Chloride 112 H Carbon Dioxide 24 Anion Gap 8 BUN 6.4 L Creatinine 0.5 L Est GFR (CKD-EPI)AfAm 110.50 Est GFR (CKD-EPI)NonAf 95.34 POC Glucometer 120 Random Glucose 113 H Calcium 8.6 Active Medications Generic Name Dose Route Start Last Admin Trade Name Freq PRN Reason Stop Dose Admin Apixaban 10 mg 11/10/18 10:00 Eliquis - PO 11/13/18 23:59 BID JAYLA Aspirin 81 mg 11/07/18 10:00 11/09/18 10:38 Asa - PO 81 mg DAILY [facility] Administration Atorvastatin Calcium 40 mg 11/07/18 22:00 11/09/18 23:40 Lipitor - PO 40 mg HS [facility] Administration Clopidogrel Bisulfate 75 mg 11/07/18 10:00 11/09/18 10:38 Plavix - PO 75 mg DAILY [facility] Administration Furosemide 20 mg 11/07/18 10:00 11/09/18 10:38 Lasix - PO 20 mg DAILY [facility] Administration Levothyroxine Sodium 25 mcg 11/07/18 07:00 11/10/18 06:27 Synthroid - PO 25 mcg DAILY@0700 [facility] Administration Losartan Potassium 25 mg 11/07/18 10:00 11/09/18 10:38 Cozaar - PO 25 mg DAILY [facility] Administration Metoprolol Tartrate 25 mg 11/07/18 10:00 11/09/18 23:40 Lopressor - PO 25 mg BID [facility] Administration Oxycodone HCl 5 mg 11/07/18 17:34 11/10/18 06:27 Roxicodone - PO 5 mg Q6H PRN Administration PAIN LEVEL 6-10 Pantoprazole Sodium 40 mg 11/07/18 10:00 11/09/18 10:38 Protonix - PO 40 mg DAILY [facility] Administration Active Medications Apixaban (Eliquis -) 10 mg PO BID [facility] Stop: 11/13/18 23:59 Aspirin (Asa -) 81 mg PO DAILY [facility] Last Admin: 11/09/18 10:38 Dose: 81 mg Atorvastatin Calcium (Lipitor -) 40 mg PO HS [facility] Last Admin: 11/09/18 23:40 Dose: 40 mg Clopidogrel Bisulfate (Plavix -) 75 mg PO DAILY [facility] Last Admin: 11/09/18 10:38 Dose: 75 mg Furosemide (Lasix -) 20 mg PO DAILY [facility] Last Admin: 11/09/18 10:38 Dose: 20 mg Levothyroxine Sodium (Synthroid -) 25 mcg PO DAILY@0700 [facility] Last Admin: 11/10/18 06:27 Dose: 25 mcg Losartan Potassium (Cozaar -) 25 mg PO DAILY [facility] Last Admin: 11/09/18 10:38 Dose: 25 mg Metoprolol Tartrate (Lopressor -) 25 mg PO BID [facility] Last Admin: 11/09/18 23:40 Dose: 25 mg Oxycodone HCl (Roxicodone -) 5 mg PO Q6H PRN PRN Reason: PAIN LEVEL 6-10 Last Admin: 11/10/18 06:27 Dose: 5 mg Pantoprazole Sodium (Protonix -) 40 mg PO DAILY [facility] Last Admin: 11/09/18 10:38 Dose: 40 mg ASSESSMENT/PLAN: This is a 73 year old woman with a history of CAD, history of stent and recent CABG, HTN, hyperlipidemia, type 2 DM, hypothyroidism who presented to the ED with SOB. #Acute pulmonary embolus - Provoked secondary to recent CABG - Continue Lovenox - Start Eliquis if no evidence of GI bleeding causing anemia - FOBT negative - GI consulted - Echo shows mildly reduced LV systolic function, mild global hypokinesis of LV , normal RV, trace TR - Leg dopplers negative for DVT #CAD, history of stent/CABG - Continue aspirin, Plavix, Lopressor, Lipitor - Continue oxycodone as needed for sternotomy incision pain #HTN - Continue Cozaar, Lopressor, Lasix # Type 2 DM - Continue Novolog sliding scale # Hypothyroidism - Continue Synthroid # Hyperlipidemia - Continue Lipitor # Anemia - Normocytic - Iron studies show low iron, low iron sat, normal TIBC, normal ferritin - Stool negative for occult blood -NURIS unremarkable - Hemoglobin stable # Obesity with BMI 34.5 Visit type - Emergency Visit Emergency Visit: No - New Patient This patient is new to me today: Yes Date on this admission: 11/10/18 - Critical Care Critical Care patient: No ATTENDING PHYSICIAN STATEMENT I saw and evaluated the patient. I reviewed the resident's note and discussed the case with the resident. I agree with the resident's findings and plan as documented. SUBJECTIVE: OBJECTIVE: ASSESSMENT AND PLAN:
[2018-11-10] MEDS ORDERED: APIXABAN 5 MG TABLET PO SCH (10:00)
--- NOTE | 2018-11-10 10:07 | PN ---
Progress Note, Physician History of Present Illness: Pulmonary comfortable no distress ,-sob,less cp - Current Medication List Current Medications: Active Medications Apixaban (Eliquis -) 10 mg PO BID [facility] Stop: 11/13/18 23:59 Aspirin (Asa -) 81 mg PO DAILY [facility] Last Admin: 11/09/18 10:38 Dose: 81 mg Atorvastatin Calcium (Lipitor -) 40 mg PO HS [facility] Last Admin: 11/09/18 23:40 Dose: 40 mg Clopidogrel Bisulfate (Plavix -) 75 mg PO DAILY [facility] Last Admin: 11/09/18 10:38 Dose: 75 mg Furosemide (Lasix -) 20 mg PO DAILY [facility] Last Admin: 11/09/18 10:38 Dose: 20 mg Levothyroxine Sodium (Synthroid -) 25 mcg PO DAILY@0700 [facility] Last Admin: 11/10/18 06:27 Dose: 25 mcg Losartan Potassium (Cozaar -) 25 mg PO DAILY [facility] Last Admin: 11/09/18 10:38 Dose: 25 mg Metoprolol Tartrate (Lopressor -) 25 mg PO BID [facility] Last Admin: 11/09/18 23:40 Dose: 25 mg Oxycodone HCl (Roxicodone -) 5 mg PO Q6H PRN PRN Reason: PAIN LEVEL 6-10 Last Admin: 11/10/18 06:27 Dose: 5 mg Pantoprazole Sodium (Protonix -) 40 mg PO DAILY [facility] Last Admin: 11/09/18 10:38 Dose: 40 mg - Objective Vital Signs: Vital Signs Temperature 98.5 F 11/10/18 09:33 Pulse Rate 98 H 11/10/18 09:33 Respiratory Rate 18 11/10/18 09:33 Blood Pressure 119/60 11/10/18 09:33 O2 Sat by Pulse Oximetry (%) 96 11/09/18 22:00 Constitutional: Yes: Well Nourished, Calm Eyes: Yes: WNL HENT: Yes: WNL Neck: Yes: WNL Cardiovascular: Yes: Regular Rate and Rhythm, S1, S2 Respiratory: Yes: CTA Bilaterally Gastrointestinal: Yes: Normal Bowel Sounds, Soft Extremities: Yes: WNL Edema: No Labs: CBC, BMP 11/10/18 06:05 11/10/18 06:05 INR, PTT INR 1.23 (0.83-1.09) H 11/07/18 11:05 Problem List - Problems (1) Pulmonary embolism Code(s): I26.99 - OTHER PULMONARY EMBOLISM WITHOUT ACUTE COR PULMONALE Qualifiers: Pulmonary embolism type: other Chronicity: acute Acute cor pulmonale presence: without acute cor pulmonale Qualified Code(s): I26.99 - Other pulmonary embolism without acute cor pulmonale (2) Chest pain Code(s): R07.9 - CHEST PAIN, UNSPECIFIED Qualifiers: Chest pain type: unspecified Qualified Code(s): R07.9 - Chest pain, unspecified (3) CAD (coronary artery disease) Code(s): I25.10 - ATHSCL HEART DISEASE OF [place] CORONARY ARTERY W/O ANG PCTRS Qualifiers: Coronary Disease-Associated Artery/Lesion type: [place] artery [place] vs. transplanted heart: [place] heart Associated angina: without angina Qualified Code(s): I25.10 - Atherosclerotic heart disease of [place] coronary artery without angina pectoris (4) Diabetes Code(s): E11.9 - TYPE 2 DIABETES MELLITUS WITHOUT COMPLICATIONS Qualifiers: Diabetes mellitus type: type 2 (5) Stented coronary artery Code(s): Z95.5 - PRESENCE OF CORONARY ANGIOPLASTY IMPLANT AND GRAFT Assessment/Plan IMP DYSPNEA IMPROVED ACUTE RLL PE LIKELY PROVOKED SECONDARY TO RECENT CABG ASHD S/P CABG,STENTS LV DYSFUNCTION HTN HLD NIDDM ANEMIA CLAUDY ELIQUIS O2 NEEDED AGE APPROPRIATE CANCER SCREENING DR DELUCA Problem List - Problems (1) Pulmonary embolism Code(s): I26.99 - OTHER PULMONARY EMBOLISM WITHOUT ACUTE COR PULMONALE Qualifiers: Pulmonary embolism type: other Chronicity: acute Acute cor pulmonale presence: without acute cor pulmonale Qualified Code(s): I26.99 - Other pulmonary embolism without acute cor pulmonale (2) Chest pain Code(s): R07.9 - CHEST PAIN, UNSPECIFIED Qualifiers: Chest pain type: unspecified Qualified Code(s): R07.9 - Chest pain, unspecified (3) CAD (coronary artery disease) Code(s): I25.10 - ATHSCL HEART DISEASE OF [place] CORONARY ARTERY W/O ANG PCTRS Qualifiers: Coronary Disease-Associated Artery/Lesion type: [place] artery [place] vs. transplanted heart: [place] heart Associated angina: without angina Qualified Code(s): I25.10 - Atherosclerotic heart disease of [place] coronary artery without angina pectoris (4) Diabetes Code(s): E11.9 - TYPE 2 DIABETES MELLITUS WITHOUT COMPLICATIONS Qualifiers: Diabetes mellitus type: type 2 (5) Stented coronary artery Code(s): Z95.5 - PRESENCE OF CORONARY ANGIOPLASTY IMPLANT AND GRAFT
[2018-11-10] MEDS: LOSARTAN POTASSIUM 25 MG TABLET PO SCH (10:39)
[2018-11-10] MEDS: FUROSEMIDE 20 MG TABLET (FP) PO SCH (10:39)
[2018-11-10] MEDS: CLOPIDOGREL BISULFATE 75 MG TABLET (FP) PO SCH (10:39)
[2018-11-10] MEDS: ASPIRIN 81 MG CHEWABLE TABLETS PO SCH (10:39)
[2018-11-10] MEDS: PANTOPRAZOLE 40 MG TABLET (FP) PO SCH (10:39)
[2018-11-10] MEDS: METOPROLOL TARTRATE 25 MG TABLET (FP) PO SCH ×2 (10:39→22:54)
[2018-11-10] MEDS: ACETAMINOPHEN 325 MG TABLET (FP) PO PRN ×2 (10:45→22:54)
[2018-11-10] MEDS: ENOXAPARIN NA (PORCINE) 80 MG/0.8 ML DISP.SYRIN SQ SCH ×2 (10:45→22:54)
--- NOTE | 2018-11-10 15:33 | PN ---
Teaching Attending Note Name of Resident: Alec Willingham ATTENDING PHYSICIAN STATEMENT I saw and evaluated the patient. I reviewed the resident's note and discussed the case with the resident. I agree with the resident's findings and plan as documented. SUBJECTIVE: Patient has no complaints. OBJECTIVE: Vital Signs Period Temp Pulse Resp BP Sys/Melchor Pulse Ox Last 24 Hr 97.8 F-98.5 F 79-98 18-20 106-125/60-71 96 GENERAL: The patient is awake, alert, and fully oriented, in no acute distress. CHEST: Healing sternotomy incision. LUNGS: Breath sounds equal, clear to auscultation bilaterally, no wheezes, no crackles, no accessory muscle use. HEART: Regular rate and rhythm, S1, S2 without murmur, rub or gallop. ABDOMEN: Obese, soft, nontender, nondistended, normoactive bowel sounds, no guarding, no rebound, no hepatosplenomegaly, no masses. EXTREMITIES: 2+ pulses, warm, well-perfused, no edema. Laboratory Results - last 24 hr 11/09/18 11/09/18 11/09/18 12:15 16:46 23:39 WBC RBC Hgb Hct MCV MCH MCHC RDW Plt Count MPV Sodium Potassium Chloride Carbon Dioxide Anion Gap BUN Creatinine Est GFR (CKD-EPI)AfAm Est GFR (CKD-EPI)NonAf POC Glucometer 93 160 Random Glucose Calcium Stool Occult Blood Negative 11/10/18 11/10/18 11/10/18 06:05 06:05 06:26 WBC 2.9 L RBC 3.54 L Hgb 9.6 L Hct 29.1 L MCV 82.2 MCH 27.1 MCHC 32.9 RDW 15.2 Plt Count 351 MPV 6.9 L Sodium 143 Potassium 4.0 Chloride 112 H Carbon Dioxide 24 Anion Gap 8 BUN 6.4 L Creatinine 0.5 L Est GFR (CKD-EPI)AfAm 110.50 Est GFR (CKD-EPI)NonAf 95.34 POC Glucometer 120 Random Glucose 113 H Calcium 8.6 Stool Occult Blood 11/10/18 12:18 WBC RBC Hgb Hct MCV MCH MCHC RDW Plt Count MPV Sodium Potassium Chloride Carbon Dioxide Anion Gap BUN Creatinine Est GFR (CKD-EPI)AfAm Est GFR (CKD-EPI)NonAf POC Glucometer 194 Random Glucose Calcium Stool Occult Blood Current Medications Generic Name Dose Route Start Last Admin Trade Name Freq PRN Reason Stop Dose Admin Acetaminophen 650 mg 11/10/18 10:27 11/10/18 10:45 Tylenol - PO 650 mg Q4H PRN Administration PAIN LEVEL 1-5 Aspirin 81 mg 11/07/18 10:00 11/10/18 10:39 Asa - PO 81 mg DAILY [facility] Administration Atorvastatin Calcium 40 mg 11/07/18 22:00 11/09/18 23:40 Lipitor - PO 40 mg HS [facility] Administration Clopidogrel Bisulfate 75 mg 11/07/18 10:00 11/10/18 10:39 Plavix - PO 75 mg DAILY [facility] Administration Enoxaparin Sodium 70 mg 11/10/18 10:30 11/10/18 10:45 Lovenox - SQ 70 mg BID JAYLA Administration Furosemide 20 mg 11/07/18 10:00 11/10/18 10:39 Lasix - PO 20 mg DAILY [facility] Administration Insulin Aspart 1 vial 11/10/18 11:00 11/10/18 13:00 Novolog Vial Sliding Scale - SQ 2 units ACHS JAYLA Administration Protocol Levothyroxine Sodium 25 mcg 11/07/18 07:00 11/10/18 06:27 Synthroid - PO 25 mcg DAILY@0700 [facility] Administration Losartan Potassium 25 mg 11/07/18 10:00 11/10/18 10:39 Cozaar - PO 25 mg DAILY [facility] Administration Metoprolol Tartrate 25 mg 11/07/18 10:00 11/10/18 10:39 Lopressor - PO 25 mg BID [facility] Administration Oxycodone HCl 5 mg 11/07/18 17:34 11/10/18 06:27 Roxicodone - PO 5 mg Q6H PRN Administration PAIN LEVEL 6-10 Pantoprazole Sodium 40 mg 11/07/18 10:00 11/10/18 10:39 Protonix - PO 40 mg DAILY [facility] Administration ASSESSMENT AND PLAN: This is a 73 year old woman with a history of CAD, history of stent and recent CABG, HTN, hyperlipidemia, type 2 DM, hypothyroidism who presented to the ED with SOB. 1. Acute pulmonary embolus - Provoked secondary to recent CABG - Continue Lovenox - Start Eliquis if no evidence of GI bleeding causing anemia - Stool negative for occult blood - GI eval - ? EGD/colonoscopy before starting Eliquis - Echo shows mildly reduced LV systolic function, mild global hypokinesis of LV, normal RV, trace TR - Leg dopplers negative for DVT 2. CAD, history of stent/CABG - Continue aspirin, Plavix, Lopressor, Lipitor - Continue oxycodone as needed for sternotomy incision pain 3. HTN - Continue Cozaar, Lopressor, Lasix 4. Type 2 DM - Continue Novolog sliding scale 5. Hypothyroidism - Continue Synthroid 6. Hyperlipidemia - Continue Lipitor 7. Anemia - Normocytic - Iron studies show low iron, low iron sat, normal TIBC, normal ferritin - Stool negative for occult blood - Hemoglobin stable 8. Obesity with BMI 34.5
--- NOTE | 2018-11-10 17:22 | CON.GI ---
Consult Consult Specialty:: Gastroenterology Referred by:: Dr. Peter Reason for Consultation:: Anemia - History of Present Illness Chief Complaint: Anemia History of Present Illness: 73 yo female h/o CAD s/p stent, recent CABG at [facility] (09/2018) on asa/plavix, HTN, DM presents with increased shortness of breath diagnosed with PE asked to evaluate for anemia. Pt reporting increased shortness of breath prompting hospitalization with CTA revealing RLL pulmonary embolus. Pt started on therapeutic lovenox. Pt noted to have anemia therefore GI consulted. Still with sob mostly on exertion, denies chest pain. Denies abdominal pain, n/v. Denies change in bowel pattern. Reports occasional ?dark stool on further questioning, denies hematochezia. No prior EGD or colonoscopy. No known family h/o GI malignancy. Hb ~13-14 in 05/2018. On admission Hb noted to be 9.8. - History Source History Provided By: Patient, Medical Record Limitations to Obtaining History: No Limitations - Past Medical History Cardio/Vascular: Yes: CAD, CHF (possible diastolic HF), HTN, Hyperlipdemia, [place] ( IWSTEMI September 2011 s/p PCI RCA with staged LM/LAD/LCx) Pulmonary: Yes: Asthma Gastrointestinal: Yes: GERD Endocrine: Yes: Diabetes Mellitus, Hypothyroidism - Past Surgical History Past Surgical History: Yes: Stent - Alcohol/Substance Use Hx Alcohol Use: No - Smoking History Smoking history: Former smoker Have you smoked in the past 12 months: No Aproximately how many cigarettes per day: 0 If you are a former smoker, when did you quit?: 12 years ago - Social History Usual Living Arrangement: Alone ADL: Independent History of Recent Travel: No Home Medications - Allergies Allergies/Adverse Reactions: Allergies Allergy/AdvReac Type Severity Reaction Status Date / Time No Known Drug Allergies Allergy Unknown Verified 10/17/18 16:36 [facility] Allergy Vomiting Uncoded 10/17/18 16:36 - Home Medications Home Medications: Ambulatory Orders Losartan Potassium 25 mg PO DAILY 11/03/13 Aspirin [ASA -] 81 mg PO DAILY 03/15/15 Levothyroxine [Synthroid -] 25 mcg PO DAILY 03/15/15 Atorvastatin Ca [Lipitor] 40 mg PO HS 05/21/18 Canagliflozin [Invokana] 100 mg PO DAILY 11/06/18 Clopidogrel Bisulfate [Clopidogrel] 75 mg PO DAILY 11/06/18 Furosemide 20 mg PO DAILY 11/06/18 Metoprolol Tartrate [Lopressor -] 25 mg PO BID 11/06/18 Pantoprazole Sodium 40 mg PO DAILY 11/06/18 Sitagliptin Phos/Metformin HCl [Janumet 50-1,000 mg Tablet] 1 tab PO DAILY 11/06 Review of Systems - Review of Systems Constitutional: reports: No Symptoms Cardiovascular: reports: Shortness of Breath Respiratory: reports: SOB, SOB on Exertion Gastrointestinal: reports: No Symptoms Genitourinary: reports: No Symptoms Physical Exam-GI Vital Signs: Vital Signs Temperature 98.5 F 11/10/18 09:33 Pulse Rate 98 H 11/10/18 09:33 Respiratory Rate 18 11/10/18 09:33 Blood Pressure 119/60 11/10/18 09:33 O2 Sat by Pulse Oximetry (%) 96 11/09/18 22:00 Constitutional: Yes: Well Nourished, No Distress, Calm Cardiovascular: Yes: WNL, Regular Rate and Rhythm Respiratory: Yes: WNL, Regular, CTA Bilaterally, SOB on Exertion, Other (slight accessory muscle use at times) ...Palpate: Yes: Other (Abd soft, nt, nd Rectal exam: empty vault, no blood) Labs: CBC, BMP 11/10/18 06:05 11/10/18 06:05 INR, PTT INR 1.23 (0.83-1.09) H 11/07/18 11:05 Imaging - Results Cat Scan: Report Reviewed Problem List - Problems (1) Anemia Assessment/Plan: 73yo female h/o CAD s/p stent, recent CABG (09/2018) on asa/plavix, HTN, DM presenting with increased sob with newly diagnosed acute PE on lovenox asked to evaluate for anemia (normocytic) with negative FOBT. Component of iron deficiency noted. No overt bleeding. No prior EGD/colonoscopy. -No emergent indication for endoscopy in absence of overt bleeding and risks/ benefits will need to be carefully weighed in setting of recent CABG and newly diagnosed PE. While diagnostic procedure could be performed would recommend further optimization from cardiorespiratory standpoint (as pt still dyspneic) and cardio/resp risk assessment/clearance if possible prior to considering endoscopic evaluation. -Recommend monitor Hb and for evidence of bleeding -PPI daily -If overt bleeding with drop in Hb in the interim or hemodynamic instability please notify GI for possible more urgent intervention at that time Discussed above with medicine attending, Dr. Peter Code(s): D64.9 - ANEMIA, UNSPECIFIED Qualifiers: Iron deficiency anemia type: unspecified iron deficiency
[2018-11-10] MEDS: ATORVASTATIN CA 40 MG TABLET (FP) PO SCH (22:54)
[2018-11-11] MEDS: oxyCODONE HCL 5 MG TABLET PO PRN ×2 (01:00→09:31)
[2018-11-11] MEDS: LEVOTHYROXINE NA 25 MCG TABLET (FP) PO SCH (06:55)
[2018-11-11] MEDS: INSULIN SLIDING SCALE (NOVOLOG) 1 VIAL SQ SCH ×4 (06:55→21:55)
--- NOTE | 2018-11-11 07:30 | PN ---
Physical Exam: SUBJECTIVE: Patient seen and examined at bedside. Pt feels very well. No complaints. OBJECTIVE: Vital Signs Period Temp Pulse Resp BP Sys/Melchor Pulse Ox Last 24 Hr 97.9 F-98.5 F 78-98 18-18 108-138/56-75 96-96 GEN: comfortable, nad, AAOx3 HEENT: NCAT, EOMI Neck: supple, no jvd noted, central trachea Cardio: rrr, normal s1s2, mid systolic murmur Pulm: cta b/l Abd: soft, nontender, nondistended Extremities: 2+ pulses, no edema Laboratory Results - last 24 hr 11/09/18 11/10/18 11/10/18 12:15 06:05 12:18 WBC 2.9 L RBC 3.54 L Hgb 9.6 L Hct 29.1 L MCV 82.2 MCH 27.1 MCHC 32.9 RDW 15.2 Plt Count 351 MPV 6.9 L POC Glucometer 194 Stool Occult Blood Negative 11/10/18 11/10/18 11/11/18 17:28 22:50 06:53 WBC RBC Hgb Hct MCV MCH MCHC RDW Plt Count MPV POC Glucometer 127 129 119 Stool Occult Blood Active Medications Generic Name Dose Route Start Last Admin Trade Name Freq PRN Reason Stop Dose Admin Acetaminophen 650 mg 11/10/18 10:27 11/10/18 22:54 Tylenol - PO 650 mg Q4H PRN Administration PAIN LEVEL 1-5 Aspirin 81 mg 11/07/18 10:00 11/10/18 10:39 Asa - PO 81 mg DAILY JAYLA Administration Atorvastatin Calcium 40 mg 11/07/18 22:00 11/10/18 22:54 Lipitor - PO 40 mg HS JAYLA Administration Clopidogrel Bisulfate 75 mg 11/07/18 10:00 11/10/18 10:39 Plavix - PO 75 mg DAILY JAYLA Administration Enoxaparin Sodium 70 mg 11/10/18 10:30 11/10/18 22:54 Lovenox - SQ 70 mg BID JAYLA Administration Furosemide 20 mg 11/07/18 10:00 11/10/18 10:39 Lasix - PO 20 mg DAILY JAYLA Administration Insulin Aspart 1 vial 11/10/18 11:00 11/11/18 06:55 Novolog Vial Sliding Scale - SQ Not Given [facility] Protocol Levothyroxine Sodium 25 mcg 11/07/18 07:00 11/11/18 06:55 Synthroid - PO Not Given DAILY@0700 [facility] Losartan Potassium 25 mg 11/07/18 10:00 11/10/18 10:39 Cozaar - PO 25 mg DAILY [facility] Administration Metoprolol Tartrate 25 mg 11/07/18 10:00 11/10/18 22:54 Lopressor - PO 25 mg BID [facility] Administration Oxycodone HCl 5 mg 11/07/18 17:34 11/11/18 01:00 Roxicodone - PO 5 mg Q6H PRN Administration PAIN LEVEL 6-10 Pantoprazole Sodium 40 mg 11/07/18 10:00 11/10/18 10:39 Protonix - PO 40 mg DAILY [facility] Administration Active Medications Acetaminophen (Tylenol -) 650 mg PO Q4H PRN PRN Reason: PAIN LEVEL 1-5 Last Admin: 11/10/18 22:54 Dose: 650 mg Aspirin (Asa -) 81 mg PO DAILY [facility] Last Admin: 11/10/18 10:39 Dose: 81 mg Atorvastatin Calcium (Lipitor -) 40 mg PO [facility] Last Admin: 11/10/18 22:54 Dose: 40 mg Clopidogrel Bisulfate (Plavix -) 75 mg PO DAILY [facility] Last Admin: 11/10/18 10:39 Dose: 75 mg Enoxaparin Sodium (Lovenox -) 70 mg SQ BID [facility] Last Admin: 11/10/18 22:54 Dose: 70 mg Furosemide (Lasix -) 20 mg PO DAILY [facility] Last Admin: 11/10/18 10:39 Dose: 20 mg Insulin Aspart (Novolog Vial Sliding Scale -) 1 vial SQ [facility]; Protocol Last Admin: 11/11/18 06:55 Dose: Not Given Levothyroxine Sodium (Synthroid -) 25 mcg PO DAILY@0700 [facility] Last Admin: 11/11/18 06:55 Dose: Not Given Losartan Potassium (Cozaar -) 25 mg PO DAILY [facility] Last Admin: 11/10/18 10:39 Dose: 25 mg Metoprolol Tartrate (Lopressor -) 25 mg PO BID [facility] Last Admin: 11/10/18 22:54 Dose: 25 mg Oxycodone HCl (Roxicodone -) 5 mg PO Q6H PRN PRN Reason: PAIN LEVEL 6-10 Last Admin: 11/11/18 01:00 Dose: 5 mg Pantoprazole Sodium (Protonix -) 40 mg PO DAILY [facility] Last Admin: 11/10/18 10:39 Dose: 40 mg ASSESSMENT/PLAN: This is a 73 year old woman with a history of CAD, history of stent and recent CABG, HTN, hyperlipidemia, type 2 DM, hypothyroidism who presented to the ED with SOB. #Acute pulmonary embolus - Provoked secondary to recent CABG - d/c Lovenox - Start Eliquis - Leg dopplers negative for DVT #GIB - likely GIB as pt is Fe deficient and gives reports of melena. However, pt has been on AC and has no active bleed. No blood on NURIS or FOBT. - FOBT negative - GI consulted. Endoscopy deferred in light of recent PE and CABG #CAD, history of stent/CABG - Continue aspirin, Plavix, Lopressor, Lipitor - Continue oxycodone as needed for sternotomy incision pain - Echo shows mildly reduced LV systolic function, mild global hypokinesis of LV , normal RV, trace TR #HTN - Continue Cozaar, Lopressor, Lasix # Type 2 DM - Continue Novolog sliding scale # Hypothyroidism - Continue Synthroid # Hyperlipidemia - Continue Lipitor # Anemia - Normocytic - Iron studies show low iron, low iron sat, normal TIBC, normal ferritin - Stool negative for occult blood - NURIS unremarkable - Hemoglobin stable # Obesity with BMI 34.5 Visit type - Emergency Visit Emergency Visit: No - New Patient This patient is new to me today: No - Critical Care Critical Care patient: No ATTENDING PHYSICIAN STATEMENT I saw and evaluated the patient. I reviewed the resident's note and discussed the case with the resident. I agree with the resident's findings and plan as documented. SUBJECTIVE: OBJECTIVE: ASSESSMENT AND PLAN:
[2018-11-11 08:40] LABS: BASO % 1.5 % (0-2.0); HEMATOCRIT 31.7 % (32.4-45.2); HEMOGLOBIN 10.4 GM/dL (10.7-15.3); MCH 26.9 pg (25.7-33.7); MCHC 32.9 g/dl (32.0-36.0); MEAN CELL VOLUME 81.7 fl (80-96); MEAN PLT VOLUME 6.7 fl (7.5-11.1); MONO % 7.4 % (3.8-10.2); NEUT % 66.1 % (42.8-82.8); PLATELET COUNT 380 K/MM3 (134-434); RBC 3.88 M/mm3 (3.60-5.2); RDW 15.1 % (11.6-15.6); WHITE BLOOD COUNT 3.5 K/mm3 (4.0-10.0)
[2018-11-11 08:50] LABS: ALBUMIN 2.9 g/dl (3.4-5.0); BILIRUBIN,TOTAL 0.4 mg/dL (0.2-1); BLOOD UREA NITROGEN 7.1 mg/dL (7-18); CALCIUM 8.9 mg/dL (8.5-10.1); CREATININE 0.6 mg/dL (0.55-1.3); TOT PROT 6.8 g/dl (6.4-8.2)
[2018-11-11] MEDS ORDERED: MORPHINE SULFATE 2 MG/ML VIAL IVPUSH PRN (09:28)
[2018-11-11] MEDS: ASPIRIN 81 MG CHEWABLE TABLETS PO SCH (09:30)
[2018-11-11] MEDS: LOSARTAN POTASSIUM 25 MG TABLET PO SCH (09:30)
[2018-11-11] MEDS: FUROSEMIDE 20 MG TABLET (FP) PO SCH (09:30)
[2018-11-11] MEDS: METOPROLOL TARTRATE 25 MG TABLET (FP) PO SCH ×2 (09:30→21:51)
[2018-11-11] MEDS: PANTOPRAZOLE 40 MG TABLET (FP) PO SCH (09:30)
[2018-11-11] MEDS: CLOPIDOGREL BISULFATE 75 MG TABLET (FP) PO SCH (10:55)
--- NOTE | 2018-11-11 10:56 | PN ---
Progress Note, Physician History of Present Illness: pulmonary alert,comfortable,-resp distress - Current Medication List Current Medications: Active Medications Acetaminophen (Tylenol -) 650 mg PO Q4H PRN PRN Reason: PAIN LEVEL 1-5 Last Admin: 11/10/18 22:54 Dose: 650 mg Apixaban (Eliquis -) 10 mg PO BID [facility] Aspirin (Asa -) 81 mg PO DAILY [facility] Last Admin: 11/11/18 09:30 Dose: 81 mg Atorvastatin Calcium (Lipitor -) 40 mg PO HS [facility] Last Admin: 11/10/18 22:54 Dose: 40 mg Clopidogrel Bisulfate (Plavix -) 75 mg PO DAILY [facility] Last Admin: 11/10/18 10:39 Dose: 75 mg Furosemide (Lasix -) 20 mg PO DAILY [facility] Last Admin: 11/11/18 09:30 Dose: 20 mg Insulin Aspart (Novolog Vial Sliding Scale -) 1 vial SQ ACHS [facility]; Protocol Last Admin: 11/11/18 06:55 Dose: Not Given Levothyroxine Sodium (Synthroid -) 25 mcg PO DAILY@0700 [facility] Last Admin: 11/11/18 06:55 Dose: Not Given Losartan Potassium (Cozaar -) 25 mg PO DAILY [facility] Last Admin: 11/11/18 09:30 Dose: 25 mg Metoprolol Tartrate (Lopressor -) 25 mg PO BID [facility] Last Admin: 11/11/18 09:30 Dose: 25 mg Oxycodone HCl (Roxicodone -) 5 mg PO Q6H PRN PRN Reason: PAIN LEVEL 6-10 Last Admin: 11/11/18 09:31 Dose: 5 mg Pantoprazole Sodium (Protonix -) 40 mg PO DAILY [facility] Last Admin: 11/11/18 09:30 Dose: 40 mg - Objective Vital Signs: Vital Signs Temperature 97.9 F 11/11/18 06:00 Pulse Rate 91 H 11/11/18 06:00 Respiratory Rate 18 11/11/18 06:00 Blood Pressure 137/75 11/11/18 06:00 O2 Sat by Pulse Oximetry (%) 96 11/10/18 21:00 Constitutional: Yes: Well Nourished, Calm Eyes: Yes: WNL HENT: Yes: WNL Neck: Yes: WNL Cardiovascular: Yes: Regular Rate and Rhythm, S1, S2 Respiratory: Yes: CTA Bilaterally Gastrointestinal: Yes: Normal Bowel Sounds, Soft Extremities: Yes: WNL Edema: No Labs: CBC, BMP 11/11/18 07:39 11/11/18 07:39 INR, PTT INR 1.23 (0.83-1.09) H 11/07/18 11:05 Problem List - Problems (1) Pulmonary embolism Code(s): I26.99 - OTHER PULMONARY EMBOLISM WITHOUT ACUTE COR PULMONALE Qualifiers: Pulmonary embolism type: other Chronicity: acute Acute cor pulmonale presence: without acute cor pulmonale Qualified Code(s): I26.99 - Other pulmonary embolism without acute cor pulmonale (2) Chest pain Code(s): R07.9 - CHEST PAIN, UNSPECIFIED Qualifiers: Chest pain type: unspecified Qualified Code(s): R07.9 - Chest pain, unspecified (3) CAD (coronary artery disease) Code(s): I25.10 - ATHSCL HEART DISEASE OF [place] CORONARY ARTERY W/O ANG PCTRS Qualifiers: Coronary Disease-Associated Artery/Lesion type: [place] artery [place] vs. transplanted heart: [place] heart Associated angina: without angina Qualified Code(s): I25.10 - Atherosclerotic heart disease of [place] coronary artery without angina pectoris (4) Diabetes Code(s): E11.9 - TYPE 2 DIABETES MELLITUS WITHOUT COMPLICATIONS Qualifiers: Diabetes mellitus type: type 2 (5) Stented coronary artery Code(s): Z95.5 - PRESENCE OF CORONARY ANGIOPLASTY IMPLANT AND GRAFT Assessment/Plan IMP DYSPNEA IMPROVED ACUTE RLL PE LIKELY PROVOKED SECONDARY TO RECENT CABG ASHD S/P CABG,STENTS LV DYSFUNCTION HTN HLD NIDDM ANEMIA CLAUDY ELIQUIS O2 NEEDED AGE APPROPRIATE CANCER SCREENING WOULD CONTINUE CURRENT MEDS,DEFER ENDOSCOPY IN VEIW OF RECENT PE,CABG MONITOR H+H DR DELUCA Problem List - Problems (1) Pulmonary embolism Code(s): I26.99 - OTHER PULMONARY EMBOLISM WITHOUT ACUTE COR PULMONALE Qualifiers: Pulmonary embolism type: other Chronicity: acute Acute cor pulmonale presence: without acute cor pulmonale Qualified Code(s): I26.99 - Other pulmonary embolism without acute cor pulmonale (2) Chest pain Code(s): R07.9 - CHEST PAIN, UNSPECIFIED Qualifiers: Chest pain type: unspecified Qualified Code(s): R07.9 - Chest pain, unspecified (3) CAD (coronary artery disease) Code(s): I25.10 - ATHSCL HEART DISEASE OF [place] CORONARY ARTERY W/O ANG PCTRS Qualifiers: Coronary Disease-Associated Artery/Lesion type: [place] artery [place] vs. transplanted heart: [place] heart Associated angina: without angina Qualified Code(s): I25.10 - Atherosclerotic heart disease of [place] coronary artery without angina pectoris (4) Diabetes Code(s): E11.9 - TYPE 2 DIABETES MELLITUS WITHOUT COMPLICATIONS Qualifiers: Diabetes mellitus type: type 2 (5) Stented coronary artery Code(s): Z95.5 - PRESENCE OF CORONARY ANGIOPLASTY IMPLANT AND GRAFT
--- NOTE | 2018-11-11 12:10 | PN ---
Progress Note (short form) - Note Progress Note: no chest pain,palps, dizziness, dyspnea Current Medications Acetaminophen (Tylenol -) 650 mg PO Q4H PRN PRN Reason: PAIN LEVEL 1-5 Last Admin: 11/10/18 22:54 Dose: 650 mg Apixaban (Eliquis -) 10 mg PO BID [facility] Aspirin (Asa -) 81 mg PO DAILY [facility] Last Admin: 11/11/18 09:30 Dose: 81 mg Atorvastatin Calcium (Lipitor -) 40 mg PO HS [facility] Last Admin: 11/10/18 22:54 Dose: 40 mg Clopidogrel Bisulfate (Plavix -) 75 mg PO DAILY [facility] Last Admin: 11/11/18 10:55 Dose: 75 mg Furosemide (Lasix -) 20 mg PO DAILY [facility] Last Admin: 11/11/18 09:30 Dose: 20 mg Insulin Aspart (Novolog Vial Sliding Scale -) 1 vial SQ ACHS [facility]; Protocol Last Admin: 11/11/18 06:55 Dose: Not Given Levothyroxine Sodium (Synthroid -) 25 mcg PO DAILY@0700 [facility] Last Admin: 11/11/18 06:55 Dose: Not Given Losartan Potassium (Cozaar -) 25 mg PO DAILY [facility] Last Admin: 11/11/18 09:30 Dose: 25 mg Metoprolol Tartrate (Lopressor -) 25 mg PO BID [facility] Last Admin: 11/11/18 09:30 Dose: 25 mg Oxycodone HCl (Roxicodone -) 5 mg PO Q6H PRN PRN Reason: PAIN LEVEL 6-10 Last Admin: 11/11/18 09:31 Dose: 5 mg Pantoprazole Sodium (Protonix -) 40 mg PO DAILY [facility] Last Admin: 11/11/18 09:30 Dose: 40 mg Vital Signs Period Temp Pulse Resp BP Sys/Melchor Pulse Ox Last 24 Hr 97.9 F-98.4 F 78-95 18-18 108-138/56-75 96 Constitutional: Yes: No Distress Cardiovascular: Yes: Regular Rate and Rhythm Respiratory: Yes: CTA Bilaterally Gastrointestinal: Yes: Soft Edema: No Neurological: Yes: Alert, Oriented no jaundice, diaphoresis not agitated - ....Imaging EKG: Image Reviewed Assessment/Plan cta chest: +pe, no chf echo 10/2018 mildly reduced LV function, mild global hypokinesis of LV, nl RV, tr TR tele: sinus, 7 bt NSVT Assessment/Plan 73F w/ HTN, HLD, DM , CAD w/ multiple stents and cabg last month here with found to have PE. Hemodynamically stable. sob, acute PE: -cont ac per primary -echo nl RV function HTN: -cont home bb, arb HLD: -cont statin CAD, pci, cabg: -s/p recent cabg -cont arb, bb, statin, dapt -cont po lasix anemia - monitor H/H - evaluated by GI, deferring endoscopy given PE and recent CABG
--- NOTE | 2018-11-11 14:21 | PN ---
Teaching Attending Note Name of Resident: Alec Willingham ATTENDING PHYSICIAN STATEMENT I saw and evaluated the patient. I reviewed the resident's note and discussed the case with the resident. I agree with the resident's findings and plan as documented with exceptions below. SUBJECTIVE: Patient seen and examined. breathing improved. reports some pain around sternotomy site but better. Overall feels well. OBJECTIVE: Vital Signs Period Temp Pulse Resp BP Sys/Melchor Pulse Ox Last 24 Hr 97.9 F-98.4 F 78-95 18-18 108-138/56-75 96 Intake & Output 11/08/18 11/09/18 11/10/18 11/11/18 23:59 23:59 23:59 23:59 Intake Total 1959 1730 620 10 Balance 1959 1730 620 10 Weight 159 lb 6.4 oz 160 lb 6.4 oz 159 lb 6.4 oz 158 lb 12.8 oz General: lying in bed in no acute distress neck: soft, supple, no JVD CVS:S1S2 regular Chest: CTAB, no rales or wheezing Abdomen:soft, obese, NT Extremities: no edema Home Medications Medication Instructions Recorded Losartan Potassium 25 mg PO DAILY 11/03/13 Aspirin [ASA -] 81 mg PO DAILY 03/15/15 Levothyroxine [Synthroid -] 25 mcg PO DAILY 03/15/15 Atorvastatin Ca [Lipitor] 40 mg PO HS 05/21/18 Canagliflozin [Invokana] 100 mg PO DAILY 11/06/18 Clopidogrel Bisulfate [Clopidogrel] 75 mg PO DAILY 11/06/18 Furosemide 20 mg PO DAILY 11/06/18 Metoprolol Tartrate [Lopressor -] 25 mg PO BID 11/06/18 Pantoprazole Sodium 40 mg PO DAILY 11/06/18 Sitagliptin Phos/Metformin HCl 1 tab PO DAILY 11/06/18 [Janumet 50-1,000 mg Tablet] Active Medications Acetaminophen (Tylenol -) 650 mg PO Q4H PRN PRN Reason: PAIN Apixaban (Eliquis -) 10 mg PO BID [facility] Aspirin (Asa -) 81 mg PO DAILY [facility] Last Admin: 11/11/18 09:30 Dose: 81 mg Atorvastatin Calcium (Lipitor -) 40 mg PO HS [facility] Last Admin: 11/10/18 22:54 Dose: 40 mg Clopidogrel Bisulfate (Plavix -) 75 mg PO DAILY [facility] Last Admin: 11/11/18 10:55 Dose: 75 mg Furosemide (Lasix -) 20 mg PO DAILY [facility] Last Admin: 11/11/18 09:30 Dose: 20 mg Insulin Aspart (Novolog Vial Sliding Scale -) 1 vial SQ ACHS [facility]; Protocol Last Admin: 11/11/18 06:55 Dose: Not Given Levothyroxine Sodium (Synthroid -) 25 mcg PO DAILY@0700 [facility] Last Admin: 11/11/18 06:55 Dose: Not Given Losartan Potassium (Cozaar -) 25 mg PO DAILY [facility] Last Admin: 11/11/18 09:30 Dose: 25 mg Metoprolol Tartrate (Lopressor -) 25 mg PO BID [facility] Last Admin: 11/11/18 09:30 Dose: 25 mg Pantoprazole Sodium (Protonix -) 40 mg PO DAILY [facility] Last Admin: 11/11/18 09:30 Dose: 40 mg Laboratory Results - last 24 hr 11/10/18 11/10/18 11/11/18 17:28 22:50 06:53 WBC RBC Hgb Hct MCV MCH MCHC RDW Plt Count MPV Absolute Neuts (auto) Neutrophils % Lymphocytes % Monocytes % Eosinophils % Basophils % Nucleated RBC % Sodium Potassium Chloride Carbon Dioxide Anion Gap BUN Creatinine Est GFR (CKD-EPI)AfAm Est GFR (CKD-EPI)NonAf POC Glucometer 127 129 119 Random Glucose Calcium Total Bilirubin AST ALT Alkaline Phosphatase Total Protein Albumin 11/11/18 11/11/18 11/11/18 07:39 07:39 12:15 WBC 3.5 L RBC 3.88 Hgb 10.4 L Hct 31.7 L MCV 81.7 MCH 26.9 MCHC 32.9 RDW 15.1 Plt Count 380 MPV 6.7 L Absolute Neuts (auto) 2.3 Neutrophils % 66.1 Lymphocytes % 16.0 D Monocytes % 7.4 Eosinophils % 9.0 H Basophils % 1.5 Nucleated RBC % 0 Sodium 142 Potassium 4.0 Chloride 110 H Carbon Dioxide 22 Anion Gap 10 BUN 7.1 Creatinine 0.6 Est GFR (CKD-EPI)AfAm 104.07 Est GFR (CKD-EPI)NonAf 89.79 POC Glucometer 110 Random Glucose 132 H Calcium 8.9 Total Bilirubin 0.4 AST 23 ALT 21 Alkaline Phosphatase 55 Total Protein 6.8 Albumin 2.9 L CTA chest results reviewed ASSESSMENT AND PLAN: 73 year old woman with a history of CAD, history of PCI and recent CABG, HTN, hyperlipidemia, type 2 DM, hypothyroidism who presented to the ED with shortness of breath. -Acute Pulmonary Embolism posterior segment branch RLL, provoked in the setting of recent CABG -CAD s/p PCI and recent CABG -HTN -Normocytic anemia -Type II DM -Hypothyroidism -HLD -Obesity BMI 34.5 Plan: Pulmonary/cardiology input noted. H/h stable, FOBT neg. Iron panel noted. Defer further Gi w/u given acute PE, recent CABG and no concerns of active bleed or hemodynamic instability d/c lovenox. Eliquis 10 mg BID x 7 days, then 5 mg BID. LE Duplex neg. Continue ASA/plavix/lopressory/lipitor/synthroid. Will need close monitoring of h/h outpatient. ISS, hold janumet for now. PT eval, home oxygen needs assessment. dc in 24 hours if no new events and disposition arrangements made. Discussed with patient and nursing, all questions answered. Care co-ordinated with Dr. Peterson.
[2018-11-11] MEDS: APIXABAN 5 MG TABLET PO SCH ×2 (14:35→21:51)
[2018-11-11] MEDS: ACETAMINOPHEN 325 MG TABLET (FP) PO PRN ×2 (18:29→21:58)
[2018-11-11] MEDS: ATORVASTATIN CA 40 MG TABLET (FP) PO SCH (21:51)
[2018-11-12] MEDS: ACETAMINOPHEN 325 MG TABLET (FP) PO PRN (05:19)
[2018-11-12] MEDS: INSULIN SLIDING SCALE (NOVOLOG) 1 VIAL SQ SCH ×2 (06:17→11:24)
[2018-11-12] MEDS: LEVOTHYROXINE NA 25 MCG TABLET (FP) PO SCH (06:17)
[2018-11-12 06:19] VITALS: TEMP 98.1
[2018-11-12 06:33] LABS: BASO % 0.8 % (0-2.0); EOS % 10.2 % (0-4.5); LYMPH % 18.2 % (8-40); MCH 26.7 pg (25.7-33.7); MCHC 32.2 g/dl (32.0-36.0); MEAN CELL VOLUME 82.9 fl (80-96); MEAN PLT VOLUME 6.9 fl (7.5-11.1); MONO % 10.2 % (3.8-10.2); NEUT % 60.6 % (42.8-82.8); PLATELET COUNT 337 K/MM3 (134-434); RBC 3.74 M/mm3 (3.60-5.2); RDW 14.9 % (11.6-15.6)
[2018-11-12 09:04] VITALS: BP 124/59; PULSE 89
--- NOTE | 2018-11-12 09:06 | PN ---
Teaching Attending Note Name of Resident: Alec Willingham ATTENDING PHYSICIAN STATEMENT I saw and evaluated the patient. I reviewed the resident's note and discussed the case with the resident. I agree with the resident's findings and plan as documented with exceptions below. SUBJECTIVE: Patient seen and examined, no complaints, breathing improved, pain better, eager to go home. OBJECTIVE: Vital Signs Period Temp Pulse Resp BP Sys/Melchor Pulse Ox Last 24 Hr 97.6 F-98.6 F 89-105 20-22 97-126/50-75 94-95 Intake & Output 11/09/18 11/10/18 11/11/18 11/12/18 23:59 23:59 23:59 23:59 Intake Total 1730 620 20 0 Balance 1730 620 20 0 Weight 160 lb 6.4 oz 159 lb 6.4 oz 158 lb 12.8 oz 159 lb General: sitting in bed having breakfast Neck: Soft, supple, no JVD Chest; CTAB, no rales or wheezing, sternal wound healing well Abdomen:Soft obese, NT Extremities: no edema Home Medications Medication Instructions Recorded Losartan Potassium 25 mg PO DAILY 11/03/13 Aspirin [ASA -] 81 mg PO DAILY 03/15/15 Levothyroxine [Synthroid -] 25 mcg PO DAILY 03/15/15 Atorvastatin Ca [Lipitor] 40 mg PO HS 05/21/18 Canagliflozin [Invokana] 100 mg PO DAILY 11/06/18 Clopidogrel Bisulfate [Clopidogrel] 75 mg PO DAILY 11/06/18 Furosemide 20 mg PO DAILY 11/06/18 Metoprolol Tartrate [Lopressor -] 25 mg PO BID 11/06/18 Pantoprazole Sodium 40 mg PO DAILY 11/06/18 Sitagliptin Phos/Metformin HCl 1 tab PO DAILY 11/06/18 [Janumet 50-1,000 mg Tablet] Acetaminophen [Tylenol .Regular 650 mg PO Q4H PRN tablet 11/12/18 Strength -] Apixaban [Eliquis -] 10 mg PO BID #12 tablet 11/12/18 Apixaban [Eliquis] 5 mg PO BID #60 tablet 11/12/18 Active Medications Acetaminophen (Tylenol -) 650 mg PO Q4H PRN PRN Reason: PAIN Last Admin: 11/12/18 05:19 Dose: 650 mg Apixaban (Eliquis -) 10 mg PO BID [facility] Last Admin: 11/11/18 21:51 Dose: 10 mg Aspirin (Asa -) 81 mg PO DAILY [facility] Last Admin: 11/11/18 09:30 Dose: 81 mg Atorvastatin Calcium (Lipitor -) 40 mg PO HS [facility] Last Admin: 11/11/18 21:51 Dose: 40 mg Clopidogrel Bisulfate (Plavix -) 75 mg PO DAILY [facility] Last Admin: 11/11/18 10:55 Dose: 75 mg Furosemide (Lasix -) 20 mg PO DAILY [facility] Last Admin: 11/11/18 09:30 Dose: 20 mg Insulin Aspart (Novolog Vial Sliding Scale -) 1 vial SQ ACHS [facility]; Protocol Last Admin: 11/12/18 06:17 Dose: Not Given Levothyroxine Sodium (Synthroid -) 25 mcg PO DAILY@0700 [facility] Last Admin: 11/12/18 06:17 Dose: 25 mcg Losartan Potassium (Cozaar -) 25 mg PO DAILY [facility] Last Admin: 11/11/18 09:30 Dose: 25 mg Metoprolol Tartrate (Lopressor -) 25 mg PO BID [facility] Last Admin: 11/11/18 21:51 Dose: 25 mg Pantoprazole Sodium (Protonix -) 40 mg PO DAILY [facility] Last Admin: 11/11/18 09:30 Dose: 40 mg Laboratory Results - last 24 hr 11/11/18 11/11/18 11/11/18 12:15 16:54 21:54 WBC RBC Hgb Hct MCV MCH MCHC RDW Plt Count MPV Absolute Neuts (auto) Neutrophils % Lymphocytes % Monocytes % Eosinophils % Basophils % Nucleated RBC % POC Glucometer 110 163 193 11/12/18 11/12/18 05:15 06:00 WBC 3.0 L RBC 3.74 Hgb 10.0 L Hct 31.0 L MCV 82.9 MCH 26.7 MCHC 32.2 RDW 14.9 Plt Count 337 MPV 6.9 L Absolute Neuts (auto) 1.8 Neutrophils % 60.6 Lymphocytes % 18.2 Monocytes % 10.2 Eosinophils % 10.2 H Basophils % 0.8 Nucleated RBC % 0 POC Glucometer 114 ASSESSMENT AND PLAN: 73 year old woman with a history of CAD, history of PCI and recent CABG, HTN, hyperlipidemia, type 2 DM, hypothyroidism who presented to the ED with shortness of breath. -Acute Pulmonary Embolism posterior segment branch RLL, provoked in the setting of recent CABG -CAD s/p PCI and recent CABG -HTN -Normocytic anemia -Type II DM -Hypothyroidism -HLD -Obesity BMI 34.5 Plan: Pulmonary/cardiology input noted. H/h stable, FOBT neg. Iron panel noted. Defer further Gi w/u given acute PE, recent CABG and no concerns of active bleed or hemodynamic instability Eliquis 10 mg BID x total 7 days, then 5 mg BID. LE Duplex neg. Continue ASA/plavix/lopressory/lipitor/synthroid. Will need close monitoring of h/h outpatient, discussed with patient. No home oxygen needs on dc, ambulating freely Dc home with VNS today, with outpatient GI/cardiology/pulmonary follow up and CBC monitoring. Discussed with nursing all questions answered.
[2018-11-12] MEDS: PANTOPRAZOLE 40 MG TABLET (FP) PO SCH (09:38)
[2018-11-12] MEDS: METOPROLOL TARTRATE 25 MG TABLET (FP) PO SCH (09:38)
[2018-11-12] MEDS: APIXABAN 5 MG TABLET PO SCH (09:38)
[2018-11-12] MEDS: ASPIRIN 81 MG CHEWABLE TABLETS PO SCH (09:38)
[2018-11-12] MEDS: LOSARTAN POTASSIUM 25 MG TABLET PO SCH (09:38)
[2018-11-12] MEDS: CLOPIDOGREL BISULFATE 75 MG TABLET (FP) PO SCH (09:38)
[2018-11-12] MEDS: FUROSEMIDE 20 MG TABLET (FP) PO SCH (09:38)
--- NOTE | 2018-11-12 09:47 | DS ---
Physical Exam: SUBJECTIVE: Patient seen and examined, no complaints, eager to go home OBJECTIVE: Vital Signs Period Temp Pulse Resp BP Sys/Melchor Pulse Ox Last 24 Hr 97.6 F-98.6 F 89-105 20-22 97-126/50-75 94-95 Intake & Output 11/09/18 11/10/18 11/11/18 11/12/18 23:59 23:59 23:59 23:59 Intake Total 1730 620 20 0 Balance 1730 620 20 0 Weight 160 lb 6.4 oz 159 lb 6.4 oz 158 lb 12.8 oz 159 lb PHYSICAL EXAM General: sitting in bed having breakfast Neck: Soft, supple, no JVD Chest; CTAB, no rales or wheezing, sternal wound healing well CVS; S1s2 regular Abdomen:Soft obese, NT Extremities: no edema Psych: pleasant, co-operative LABS Laboratory Results - last 24 hr 11/11/18 11/11/18 11/11/18 12:15 16:54 21:54 WBC RBC Hgb Hct MCV MCH MCHC RDW Plt Count MPV Absolute Neuts (auto) Neutrophils % Lymphocytes % Monocytes % Eosinophils % Basophils % Nucleated RBC % POC Glucometer 110 163 193 11/12/18 11/12/18 05:15 06:00 WBC 3.0 L RBC 3.74 Hgb 10.0 L Hct 31.0 L MCV 82.9 MCH 26.7 MCHC 32.2 RDW 14.9 Plt Count 337 MPV 6.9 L Absolute Neuts (auto) 1.8 Neutrophils % 60.6 Lymphocytes % 18.2 Monocytes % 10.2 Eosinophils % 10.2 H Basophils % 0.8 Nucleated RBC % 0 POC Glucometer 114 CTA chest: Clinical information dyspnea Multiplanar imaging was performed following the intravenous administration of nonionic contrast. An acute embolus is seen within the posterior segmental branch of the right lower lobe. Mild bilateral upper and lower lung field discoid atelectasis is noted. No infiltrate or pleural effusion is identified. Stable 1.2 cm right upper lobe perihilar noncalcified pulmonary nodule (transaxial image 27). Stable slightly prominent 1.3 cm right superior hilar lymph node. Status post recent median sternotomy. Epicardial pacer wires are seen in place. There is no definite cardiac enlargement. No pericardial effusion is seen. Prominent atherosclerotic mural irregularity is again seen along the aortic arch laterally. Interval insertion of a stent graft is seen within the proximal aspect of the left subclavian artery. The visualized osseous structures demonstrate no obvious acute CT evidence of pathology. Impression: Acute pulmonary embolism is identified with visualization of an embolus within the posterior segmental branch of the right lower lobe. Mild bilateral upper and lower lung field discoid atelectasis. Status post recent median sternotomy in comparison to a 2015 CT exam. A small pocket of air accumulation is seen within the presternal soft tissues probably on the basis of recent surgery, less likely infection. Correlate clinically. No discrete fluid collection is identified. Epicardial pacer wires are seen in place. Stable 1.2 cm right upper lobe perihilar pulmonary nodule. LE duplex: The common and superficial femoral and popliteal veins are patent and demonstrate good compressibility. The calf veins are patent. There is no Lubin' s cyst. Impression: No evidence of acute DVT. HOSPITAL COURSE: Date of Admission:11/06/18 Date of Discharge: 11/12/18 Minutes to complete discharge: 40 Discharge Summary Reason For Visit: PULMONARY EMBOLISM Current Active Problems Anemia (Acute) Pulmonary embolism (Acute) Hospital Course: 73 year old woman with a history of CAD, history of PCI and recent CABG, HTN, hyperlipidemia, type 2 DM, hypothyroidism who presented to the ED with shortness of breath. She had CTA chest as above showing acute pulmonary embolism in posterior branch of right lower lobe, likely provoked from recent CABG. Lower extremity duplex was negative for DVT. She was seen by cardiology and pulmonary, started on lovenox. She was noted with microcytic anemia, her h/ h was stable and stool occult blood was negative. Gastroenterology was consulted. Given recent CABG and acute Pulmonary embolism, stable hemoglobin, no evidence of bleed or hemodynamic instability, she has been advised close CBC monitoring and outpatient GI follow up for additional testing once active pulmonary/cardiac concerns are improved. She was placed on eliquis with no new concerns. She was noted oxygenating well prior to discharge and has been instructed in detail about close watch for bleeding concerns and close CBC monitoring outpatient. She will be discharged home with VNS in stable condition. Condition: Stable - Instructions Diet, Activity, Other Instructions: You were in the hospital because of a pulmonary embolism, which is a blood clot in the lung. You were seen by inner layer scrubber tender and have been started on blood thinners. Your blood counts have been low but stable and no evidence of bleeding has been noted. You will need follow up with broadcast operations director outpatient for further testing once your breathing and lung concerns have improved. MEDICATIONS: ELIQUIS 10 MG TWICE DAILY FOR NEXT 6 DAYS, THEN 5 MG TWICE DAILY TILL FURTHER DIRECTED. Continue other home medications as before. INSTRUCTIONS: Please monitor for bleeding, dark or bloody stools, dizziness or new concerns. Weigh your self daily and notify doctor if weight gain > 3lbs in 2 days. FOLLOW UP: Blood work CBC (Complete Blood Count) in 1 week With your primary care doctor in 1 week With inner layer scrubber tender Dr. Peterson in 2-3 weeks With broadcast operations director Dr. Puente in 3-4 weeks With your formulator compounder in 1 week. If you develop new symptoms, bleeding that does not stop, dark or bloody stools , dizziness, trouble breathing or any new concerns or if your symptoms get worse , please call 911 or return to the emergency department. Referrals: Jordi Peterson MD [Staff Physician] - Erick Puente DO [Staff Physician] - Arlette Castro MD [Primary Care Provider] - Sebas Britton MD [Staff Physician] - Disposition: VNS/HOME HEALTH CARE - Home Medications Comprehensive Discharge Medication List: Ambulatory Orders Losartan Potassium 25 mg PO DAILY 11/03/13 Aspirin [ASA -] 81 mg PO DAILY 03/15/15 Levothyroxine [Synthroid -] 25 mcg PO DAILY 03/15/15 Atorvastatin Ca [Lipitor] 40 mg PO HS 05/21/18 Canagliflozin [Invokana] 100 mg PO DAILY 11/06/18 Clopidogrel Bisulfate [Clopidogrel] 75 mg PO DAILY 11/06/18 Furosemide 20 mg PO DAILY 11/06/18 Metoprolol Tartrate [Lopressor -] 25 mg PO BID 11/06/18 Pantoprazole Sodium 40 mg PO DAILY 11/06/18 Sitagliptin Phos/Metformin HCl [Janumet 50-1,000 mg Tablet] 1 tab PO DAILY 11/06 Acetaminophen [Tylenol .Regular Strength -] 650 mg PO Q4H PRN tablet 11/12/18 Apixaban [Eliquis -] 10 mg PO BID #12 tablet 11/12/18 Apixaban [Eliquis] 5 mg PO BID #60 tablet 08/28/19 This patient is new to me today: No Emergency Visit: Yes ED Registration Date: 11/06/18 Care time: The patient presented to the Emergency Department on the above date and was hospitalized for further evaluation of their emergent condition. Critical Care patient: No - Discharge Referral Referred to [facility] Med [facility].C.: No
--- NOTE | 2018-11-12 09:51 | PN.GI ---
GI Progress Note Subjective: Pt seen ambulating in hallways, feeling better, states being dc'd today. Denies abdominal pain, N/V. Reports brown bm. - Objective Vital Signs: Vital Signs Temperature 98.1 F 11/12/18 09:00 Pulse Rate 89 11/12/18 09:00 Respiratory Rate 20 11/12/18 09:00 Blood Pressure 124/59 L 11/12/18 09:00 O2 Sat by Pulse Oximetry (%) 95 11/12/18 09:00 Constitutional: Well Nourished, No Distress, Calm Cardiovascular: Yes: WNL, Regular Rate and Rhythm Respiratory: Yes: WNL, Regular, CTA Bilaterally ...Palpate: Yes: Other (Abd soft, nt, nd) Labs: CBC, BMP 11/12/18 06:00 11/11/18 07:39 INR, PTT INR 1.23 (0.83-1.09) H 11/07/18 11:05 Problem List - Problems (1) Anemia Assessment/Plan: 3yo female h/o CAD s/p stent, recent CABG (09/2018) on asa/plavix, HTN, DM presenting with increased sob with newly diagnosed acute PE now started on eliquis with anemia (normocytic) with negative FOBT. Component of iron deficiency noted. No overt bleeding. No prior EGD/colonoscopy. DC planning today per primary team. -Endoscopic evaluation has been deferred currently in setting of recent CABG and PE as risks likely outweighing benefits in absence of overt bleeding. Pulm notes reviewed. -Recommend monitoring Hb and for overt bleeding -PPI daily -If overt bleeding with drop in Hb in the interim please notify GI for possible more urgent intervention. Pending dispo can follow up as outpt. Code(s): D64.9 - ANEMIA, UNSPECIFIED Qualifiers: Iron deficiency anemia type: unspecified iron deficiency
--- NOTE | 2018-11-12 10:43 | PN ---
Progress Note, Physician History of Present Illness: PULMONARY ALERT,COMFORTABLE,-RESP DISTRESS,ON ELIQUIS - Current Medication List Current Medications: Active Medications Acetaminophen (Tylenol -) 650 mg PO Q4H PRN PRN Reason: PAIN Last Admin: 11/12/18 05:19 Dose: 650 mg Apixaban (Eliquis -) 10 mg PO BID [facility] Last Admin: 11/12/18 09:38 Dose: 10 mg Aspirin (Asa -) 81 mg PO DAILY [facility] Last Admin: 11/12/18 09:38 Dose: 81 mg Atorvastatin Calcium (Lipitor -) 40 mg PO HS [facility] Last Admin: 11/11/18 21:51 Dose: 40 mg Clopidogrel Bisulfate (Plavix -) 75 mg PO DAILY [facility] Last Admin: 11/12/18 09:38 Dose: 75 mg Furosemide (Lasix -) 20 mg PO DAILY [facility] Last Admin: 11/12/18 09:38 Dose: 20 mg Insulin Aspart (Novolog Vial Sliding Scale -) 1 vial SQ [facility]; Protocol Last Admin: 11/12/18 06:17 Dose: Not Given Levothyroxine Sodium (Synthroid -) 25 mcg PO DAILY@0700 [facility] Last Admin: 11/12/18 06:17 Dose: 25 mcg Losartan Potassium (Cozaar -) 25 mg PO DAILY [facility] Last Admin: 11/12/18 09:38 Dose: 25 mg Metoprolol Tartrate (Lopressor -) 25 mg PO BID [facility] Last Admin: 11/12/18 09:38 Dose: 25 mg Pantoprazole Sodium (Protonix -) 40 mg PO DAILY [facility] Last Admin: 11/12/18 09:38 Dose: 40 mg - Objective Vital Signs: Vital Signs Temperature 98.1 F 11/12/18 09:00 Pulse Rate 89 11/12/18 09:00 Respiratory Rate 20 11/12/18 09:00 Blood Pressure 124/59 L 11/12/18 09:00 O2 Sat by Pulse Oximetry (%) 95 11/12/18 09:00 Constitutional: Yes: Well Nourished, Calm Eyes: Yes: WNL HENT: Yes: WNL Neck: Yes: WNL Cardiovascular: Yes: Regular Rate and Rhythm, S1, S2 Respiratory: Yes: CTA Bilaterally Gastrointestinal: Yes: Normal Bowel Sounds, Soft Extremities: Yes: WNL Edema: No Labs: CBC, BMP 11/12/18 06:00 11/11/18 07:39 INR, PTT INR 1.23 (0.83-1.09) H 11/07/18 11:05 Problem List - Problems (1) Pulmonary embolism Code(s): I26.99 - OTHER PULMONARY EMBOLISM WITHOUT ACUTE COR PULMONALE Qualifiers: Pulmonary embolism type: other Chronicity: acute Acute cor pulmonale presence: without acute cor pulmonale Qualified Code(s): I26.99 - Other pulmonary embolism without acute cor pulmonale (2) Chest pain Code(s): R07.9 - CHEST PAIN, UNSPECIFIED Qualifiers: Chest pain type: unspecified Qualified Code(s): R07.9 - Chest pain, unspecified (3) CAD (coronary artery disease) Code(s): I25.10 - ATHSCL HEART DISEASE OF [place] CORONARY ARTERY W/O ANG PCTRS Qualifiers: Coronary Disease-Associated Artery/Lesion type: [place] artery [place] vs. transplanted heart: [place] heart Associated angina: without angina Qualified Code(s): I25.10 - Atherosclerotic heart disease of [place] coronary artery without angina pectoris (4) Diabetes Code(s): E11.9 - TYPE 2 DIABETES MELLITUS WITHOUT COMPLICATIONS Qualifiers: Diabetes mellitus type: type 2 (5) Stented coronary artery Code(s): Z95.5 - PRESENCE OF CORONARY ANGIOPLASTY IMPLANT AND GRAFT Assessment/Plan IMP DYSPNEA IMPROVED ACUTE RLL PE LIKELY PROVOKED SECONDARY TO RECENT CABG ASHD S/P CABG,STENTS LV DYSFUNCTION HTN HLD NIDDM ANEMIA CLAUDY ELIQUIS X 3-6 MONTHS O2 NEEDED AGE APPROPRIATE CANCER SCREENING DR DELUCA Problem List - Problems (1) Pulmonary embolism Code(s): I26.99 - OTHER PULMONARY EMBOLISM WITHOUT ACUTE COR PULMONALE Qualifiers: Pulmonary embolism type: other Chronicity: acute Acute cor pulmonale presence: without acute cor pulmonale Qualified Code(s): I26.99 - Other pulmonary embolism without acute cor pulmonale (2) Chest pain Code(s): R07.9 - CHEST PAIN, UNSPECIFIED Qualifiers: Chest pain type: unspecified Qualified Code(s): R07.9 - Chest pain, unspecified (3) CAD (coronary artery disease) Code(s): I25.10 - ATHSCL HEART DISEASE OF [place] CORONARY ARTERY W/O ANG PCTRS Qualifiers: Coronary Disease-Associated Artery/Lesion type: [place] artery [place] vs. transplanted heart: [place] heart Associated angina: without angina Qualified Code(s): I25.10 - Atherosclerotic heart disease of [place] coronary artery without angina pectoris (4) Diabetes Code(s): E11.9 - TYPE 2 DIABETES MELLITUS WITHOUT COMPLICATIONS Qualifiers: Diabetes mellitus type: type 2 (5) Stented coronary artery Code(s): Z95.5 - PRESENCE OF CORONARY ANGIOPLASTY IMPLANT AND GRAFT
--- NOTE | 2018-11-12 11:04 | PN ---
Progress Note (short form) - Note Progress Note: no chest pain, palps, dizziness, dyspnea Current Medications Acetaminophen (Tylenol -) 650 mg PO Q4H PRN PRN Reason: PAIN Last Admin: 11/12/18 05:19 Dose: 650 mg Apixaban (Eliquis -) 10 mg PO BID [facility] Last Admin: 11/12/18 09:38 Dose: 10 mg Aspirin (Asa -) 81 mg PO DAILY [facility] Last Admin: 11/12/18 09:38 Dose: 81 mg Atorvastatin Calcium (Lipitor -) 40 mg PO HS [facility] Last Admin: 11/11/18 21:51 Dose: 40 mg Clopidogrel Bisulfate (Plavix -) 75 mg PO DAILY [facility] Last Admin: 11/12/18 09:38 Dose: 75 mg Furosemide (Lasix -) 20 mg PO DAILY [facility] Last Admin: 11/12/18 09:38 Dose: 20 mg Insulin Aspart (Novolog Vial Sliding Scale -) 1 vial SQ [facility]; Protocol Last Admin: 11/12/18 06:17 Dose: Not Given Levothyroxine Sodium (Synthroid -) 25 mcg PO DAILY@0700 [facility] Last Admin: 11/12/18 06:17 Dose: 25 mcg Losartan Potassium (Cozaar -) 25 mg PO DAILY [facility] Last Admin: 11/12/18 09:38 Dose: 25 mg Metoprolol Tartrate (Lopressor -) 25 mg PO BID [facility] Last Admin: 11/12/18 09:38 Dose: 25 mg Pantoprazole Sodium (Protonix -) 40 mg PO DAILY [facility] Last Admin: 11/12/18 09:38 Dose: 40 mg Vital Signs Period Temp Pulse Resp BP Sys/Melchor Pulse Ox Last 24 Hr 97.6 F-98.6 F 89-105 20-22 97-126/50-75 94-95 Constitutional: Yes: No Distress Cardiovascular: Yes: Regular Rate and Rhythm Respiratory: Yes: CTA Bilaterally Gastrointestinal: Yes: Soft Edema: No Neurological: Yes: Alert, Oriented no jaundice, diaphoresis not agitated - ....Imaging EKG: Image Reviewed Assessment/Plan cta chest: +pe, no chf echo 10/2018 mildly reduced LV function, mild global hypokinesis of LV, nl RV, tr TR Assessment/Plan 73F w/ HTN, HLD, DM , CAD w/ multiple stents and cabg last month here with found to have PE. Hemodynamically stable. sob, acute PE: -cont ac per primary -echo nl RV function HTN: -cont home bb, arb HLD: -cont statin CAD, pci, cabg: -s/p recent cabg -cont arb, bb, statin, dapt -cont po lasix anemia - monitor H/H - evaluated by GI, deferring endoscopy given PE and recent CABG stable for dc from cardiac perspective
== END 2018-11-12 11:47 | disposition home health service (06) | DRG 919 ==
LOC: JER 15:53 → JERBED 22:28 → J4W 11-07 15:27
PROVIDERS: ADMIT Internal Medicine; ATTEND Hospitalist
DX: T81.89XA Other complications of procedures, not elsewhere classified, initial encounter (principal); I26.99 Other pulmonary embolism without acute cor pulmonale; I50.30 Unspecified diastolic (congestive) heart failure; Y83.9 Surgical procedure, unspecified as the cause of abnormal reaction of the patient, or of later complication, without mention of misadventure at the time of the procedure; I25.10 Atherosclerotic heart disease of native coronary artery without angina pectoris; I11.0 Hypertensive heart disease with heart failure; E03.9 Hypothyroidism, unspecified; D64.9 Anemia, unspecified; E66.9 Obesity, unspecified; E11.9 Type 2 diabetes mellitus without complications; E78.5 Hyperlipidemia, unspecified; Z68.34 Body mass index [BMI] 34.0-34.9, adult; K21.9 Gastro-esophageal reflux disease without esophagitis
CPT/HCPCS: 36415; 71045-TC-FY; 71275-TC; 80048; 80053; 82272; 82550; 82607; 82728; 82962; 83540; 83550; 83880; 84484; 85025; 85027; 85044; 85610; 85730; 93005; 93010; 93306-TC; 93970-TC; 94761; 97116-GP; 97161-GP; 99285-25

== ENCOUNTER 2018-12-23 11:28 | Emergency (ER) | payer MEDICARE, OTHER ==
[2018-12-23 12:01] VITALS: TEMP 97.7; BMI 33.7
[2018-12-23] MEDS ORDERED: SODIUM CHLORIDE 500 ML IV STA ×2 (13:05→17:28)
--- NOTE | 2018-12-23 13:16 | PDOC ---
Attending Attestation - Resident Resident Name: Edward De La Rosa - ED Attending Attestation I have performed the following: I have examined & evaluated the patient, The case was reviewed & discussed with the resident, I agree w/resident's findings & plan, Exceptions are as noted - HPI HPI: 12/23/18 13:23 73 F with h/o CABG on October 21 with a PE shortly after (started on Eliquis), 7 stents, HTN, HLD, DM, and Hypothyroidism, presenting to ED with intermittent lightheadedness. Pt states that she has been feeling "dizzy" for the past 3 days. Denies any room-spinning sensation. States that she feels lightheaded when standing. The episodes last only a few seconds at a time and resolve upon sitting. Denies any syncopal episodes. Denies any SOB. Endorses occasional chest pain but states that this has been a chronic issue since her CABG. Denies any new or different chest pain. Currently, pt denies any symptoms. - Physicial Exam PE: 12/23/18 13:26 "GENERAL: Awake, alert, and fully oriented, in no acute distress. HEAD: No signs of trauma EYES: PERRLA, EOMI, sclera anicteric, conjunctiva clear ENT: Auricles normal inspection, hearing grossly normal, nares patent, oropharynx clear without exudates. Moist mucosa NECK: Nontender, no stepoffs, Normal ROM, supple, no lymphadenopathy, JVD, or masses LUNGS: Breath sounds equal, clear to auscultation bilaterally. No wheezes, and no crackles HEART: Regular rate and rhythm, normal S1 and S2, no murmurs, rubs or gallops ABDOMEN: Soft, nontender, normoactive bowel sounds. No guarding, no rebound. No masses EXTREMITIES: Normal range of motion, no edema. No clubbing or cyanosis. No cords, erythema, or tenderness NEUROLOGICAL: Cranial nerves II through XII intact. 5/5 strength and sensation in all extremities, Normal speech, normal gait, normal cerebellar function SKIN: Warm, Dry, normal turgor, no rashes or lesions noted. - Medical Decision Making 12/23/18 13:27 73 F with intermittent lightheadedness. Will r/o ACS. Pt with no ischemic changes on EKG. No evidence of arrythmia. Pt with h/o recent PE but is compliant with her anticoagulation and denies any SOB, is currently asymptomatic with stable vitals. - Labs, trop - CXR, UA 12/23/18 18:01 Pt found to have + orthostatic vital signs. Fluid bolus given Case discussed with pt's screw down Dr. Britton, who agrees with plan to rehydrate. If pt's orthostatic vitals improve after fluids and pt is asymptomatic, pt can be DC'ed from cardiology perspective. Pt continues to have no symptoms. States she ambulated to bathroom without any issues. Will recheck orthostatics after fluid bolus. 12/23/18 19:05 Repeat orthostatic vitals wnl Pt ambulated in ED, no lightheadedness. Pt is well appearing, with normal vitals. Clinically stable for DC at this time. I discussed the physical exam findings, ancillary test results and final diagnoses with the patient. I answered all of the patient's questions. The patient was satisfied with the care received and felt comfortable with the discharge plan and treatment plan. The patient agrees to follow up with the primary care physician within 24-72 hours.
--- NOTE | 2018-12-23 13:18 | PDOC ---
History of Present Illness - General Chief Complaint: Lightheaded Stated Complaint: Lightheaded Time Seen by Provider: 12/23/18 12:06 History Source: Patient Exam Limitations: No Limitations - History of Present Illness Initial Comments: 12/23/18 13:08 This is a 73 year old female with PMH significant for CABG on October 21 with a PE shortly after (started on Eliquis), 7 stents, HTN, HLD, DM, and Hypothyroidism. She now presents to the ER after being referred by her PCP for dizziness for the apst 3 days. She states that the dizziness occurs when she stands up and is accompanied by partial blacking out of her vision. She also complains of intermittent substernal chest pain that began after herb CABG. Episodes last a few seconds, and she usually has 1-2 episodes per day, described as sharp stabbing pain. She denies vertigo, tinnitus, falling down, head trauma, LOC, visual changes, headaches, fevers, chills, nausea, vomiting, dysuria, or SOB. Past History - Past Medical History Allergies/Adverse Reactions: Allergies Allergy/AdvReac Type Severity Reaction Status Date / Time No Known Drug Allergies Allergy Unknown Verified 12/23/18 12:01 CLAMS Allergy Vomiting Uncoded 12/23/18 12:01 Home Medications: Ambulatory Orders Aspirin [ASA -] 81 mg PO DAILY 03/15/15 Levothyroxine [Synthroid -] 25 mcg PO DAILY 03/15/15 Atorvastatin Ca [Lipitor] 40 mg PO HS 05/21/18 Canagliflozin [Invokana] 100 mg PO DAILY 11/06/18 Clopidogrel Bisulfate [Clopidogrel] 75 mg PO DAILY 11/06/18 Furosemide 20 mg PO DAILY 11/06/18 Metoprolol Tartrate [Lopressor -] 25 mg PO BID 11/06/18 Pantoprazole Sodium 40 mg PO DAILY 11/06/18 Sitagliptin Phos/Metformin HCl [Janumet 50-1,000 mg Tablet] 1 tab PO DAILY 11/06 Acetaminophen [Tylenol .Regular Strength -] 650 mg PO Q4H PRN tablet 11/12/18 Apixaban [Eliquis] 5 mg PO BID #30 tablet 11/12/18 Apixaban [Eliquis] 10 mg PO BID #11 tablet 11/12/18 Anemia: No Asthma: Yes Cancer: No Cardiac Disorders: Yes (CAD, Multiple stents, STEMI in September 2018, CABG at [place]) CVA: No COPD: No CHF: Yes (Diastolic) Dementia: No Diabetes: Yes GI Disorders: Yes (GERD) Disorders: No HTN: Yes Hypercholesterolemia: Yes Liver Disease: No Seizures: No Thyroid Disease: Yes (Hypothyroidism) - Surgical History Abdominal Surgery: No Appendectomy: No Cardiac Surgery: Yes (8stents, S/P CABG - 09/2018) Cholecystectomy: No Lung Surgery: No Neurologic Surgery: No Orthopedic Surgery: No - Immunization History Immunization Up to Date: Yes - Psycho Social/Smoking Cessation Hx Smoking Status: Yes Smoking History: Former smoker Years of Tobacco Use: 20 Have you smoked in the past 12 months: No Number of Cigarettes Smoked Daily: 0 If you are a former smoker, when did you quit?: 15-20 yrs ago Information on smoking cessation initiated: No Hx Alcohol Use: No Drug/Substance Use Hx: No Substance Use Type: None Hx Substance Use Treatment: No Review of Systems - Review of Systems Able to Perform ROS?: Yes Is the patient limited Japanese proficient: No Constitutional: Yes: See HPI HEENTM: Yes: See HPI Respiratory: Yes: See HPI Cardiac (ROS): Yes: See HPI ABD/GI: Yes: See HPI : Yes: See HPI *Physical Exam - Vital Signs Last Vital Signs Temp Pulse Resp BP Pulse Ox 97.7 F 88 16 124/66 95 12/23/18 11:53 12/23/18 11:53 12/23/18 11:53 12/23/18 11:53 12/23/18 11:53 Orthostatic Vitals: Supine: 111/70 (HR 87) Sittin/51 (HR 64) Standin/60 (HR 69) - Physical Exam Comments: 12/23/18 13:21 [employer]: Motor: Upper 5/5 Lower 4/5; Sensations intact B/L; CN II-XII intact; Heel to duenas, finger to nose, rapid alternating movements all normal General Appearance: Yes: Appropriately Dressed HEENT: positive: Normal Voice, Pharynx Normal Neck: positive: Trachea midline Respiratory/Chest: positive: Lungs Clear, Normal Breath Sounds Cardiovascular: positive: Regular Rhythm, Regular Rate Gastrointestinal/Abdominal: positive: Normal Bowel Sounds, Soft Heart Score/ECG Review - Electrocardiogram EKG: Normal - Age Age: >/= 65 - Risk Factors Risk Factors Heart Score: Yes Hx Hypercholesterolemia, Yes Hx Hypertension, Yes Hx Diabetes, Yes Hx Obesity Based on the list above the patient has:: >/=3 risk factors or Hx atherosclerotic disease - ECG Intrepretation Rhythm: Regular Rhythm ED Treatment Course - LABORATORY CBC & Chemistry Diagram: 12/23/18 16:00 12/23/18 15:17 - ADDITIONAL ORDERS Additional order review: Laboratory Results 12/23/18 11:47 POC Glucometer 82 12/23/18 11:47 POC Glucometer 82 - RADIOLOGY Radiology Studies Ordered: Category Date Time Status CHEST - PA [RAD] Stat Radiology 12/23/18 13:03 Ordered Medical Decision Making - Medical Decision Making 12/23/18 13:54 - Will r/o cardiac/post DC causes - CBC/CMP - UA - EKG - Cardiac profile - CXR - TSH 12/23/18 18:13 - Spoke with Dr. Britton, suggested another 500cc bolus of N/S and then re- checking Ortho vitals in a few hours. Also suggested stopping Losartan. - Repeat Trops ordered - Tylenol for her tenderness 12/23/18 18:38 - Repeat orthostatic vitals: Supine 118/75 (HR 90) Sitting 139/72 (HR 90) Standing 153/75 (HR 102) - Repeat Trop negative. - Patient walked to and from the bathroom, states that she feels fine, is not experiencing any dizziness. - Will D/C Discharge - Discharge Information Problems reviewed: Yes Clinical Impression/Diagnosis: Light-headedness Condition: Guarded Disposition: HOME - Admission No - Follow up/Referral Referrals: Arletet Castro MD [Primary Care Provider] - Sebas Britton MD [Staff Physician] - - Patient Discharge Instructions Additional Instructions: You came into the ER with complaints of light headedness. We did some blood tests, an X Ray of your chest, and a scan of your heart (EKG). None of your results showed any need for emergency treatment, so you are now being discharged. Medications: - Please stop taking Losartan. Follow-up: - Please visit your [facility] Dr. Arlette Castro within 1 week. - Please visit your [facility] Dr. Britton within 1 week. Additional info: - Please come back to the ER if your symptoms worsen, or if you develop chest pain again. - Post Discharge Activity
--- NOTE | 2018-12-23 16:00 | EKG ---
Test Reason : Blood Pressure : / mmHG Vent. Rate : 087 BPM Atrial Rate : 087 BPM P-R Int : 142 ms QRS Dur : 076 ms QT Int : 342 ms P-R-T Axes : 040 -18 -05 degrees QTc Int : 411 ms SINUS RHYTHM WITH OCCASIONAL PREMATURE VENTRICULAR COMPLEXES POSSIBLE LEFT ATRIAL ENLARGEMENT INFERIOR INFARCT (CITED ON OR BEFORE 29-SEP-2011) ANTERIOR INFARCT , AGE UNDETERMINED ABNORMAL ECG WHEN COMPARED WITH ECG OF 06-NOV-2018 16:50, PREMATURE VENTRICULAR COMPLEXES ARE NOW PRESENT QT HAS SHORTENED Confirmed by MD Mehran, Tj ([id number]) on 12/23/2018 3:59:46 PM Referred By: Confirmed By:Tj Laurent MD
[2018-12-23 16:05] LABS: ALBUMIN 3.5 g/dl (3.4-5.0); ALK PHOS 43 U/L (45-117); ANION GAP 6 MMOL/L (8-16); BILIRUBIN,TOTAL 0.5 mg/dL (0.2-1); BLOOD UREA NITROGEN 15.6 mg/dL (7-18); CHLORIDE 106 mmol/L (98-107); CO2 27 mmol/L (21-32); CREATININE 0.6 mg/dL (0.55-1.3); GLUCOSE,RANDOM 76 mg/dL (74-106); POTASSIUM 4.4 mmol/L (3.5-5.1); SGOT/AST 34 U/L (15-37); SGPT/ALT 18 U/L (13-61); SODIUM 139 mmol/L (136-145)
[2018-12-23 16:58] LABS: BASO % 0.6 % (0-2.0); EOS % 2.8 % (0-4.5); HEMATOCRIT 33.3 % (32.4-45.2); HEMOGLOBIN 10.7 GM/dL (10.7-15.3); LYMPH % 19.1 % (8-40); MCH 24.3 pg (25.7-33.7); MEAN CELL VOLUME 75.9 fl (80-96); MEAN PLT VOLUME 7.3 fl (7.5-11.1); MONO % 7.8 % (3.8-10.2); NEUT % 69.7 % (42.8-82.8); PLATELET COUNT 313 K/MM3 (134-434); RBC 4.39 M/mm3 (3.60-5.2); RDW 16.3 % (11.6-15.6); WHITE BLOOD COUNT 4.9 K/mm3 (4.0-10.0)
[2018-12-23 17:49] LABS: URINE APPEARANCE CLEAR; URINE BILIRUBIN NEGATIVE (NEGATIVE); URINE COLOR YELLOW; URINE GLUCOSE (UA) 3+ (NEGATIVE); URINE KETONE NEGATIVE (NEGATIVE); URINE LEUK ESTERASE NEGATIVE (NEGATIVE); URINE NITRITE NEGATIVE (NEGATIVE); URINE PROTEIN NEGATIVE (NEGATIVE); URINE UROBILINOGEN 0.2 mg/dL (0.2-1.0)
[2018-12-23] MEDS ORDERED: ACETAMINOPHEN 325 MG TABLET (FP) PO ONE (18:13)
[2018-12-23] MEDS ORDERED: ACETAMINOPHEN 325 MG TABLET (FP) ONE (19:28)
== END 2018-12-23 19:36 | disposition home or self-care (01) ==
LOC: JER 11:28
PROC: 3E0337Z Introduction of Electrolytic and Water Balance Substance into Peripheral Vein, Percutaneous Approach (ICD-10-PCS; principal; 2018-12-23)
DX: R42 Dizziness and giddiness (principal); I25.10 Atherosclerotic heart disease of native coronary artery without angina pectoris; I11.0 Hypertensive heart disease with heart failure; Z95.1 Presence of aortocoronary bypass graft; Z95.5 Presence of coronary angioplasty implant and graft; Z87.891 Personal history of nicotine dependence; I50.30 Unspecified diastolic (congestive) heart failure; E78.5 Hyperlipidemia, unspecified; E03.9 Hypothyroidism, unspecified; E11.9 Type 2 diabetes mellitus without complications; Z79.84 Long term (current) use of oral hypoglycemic drugs; K21.9 Gastro-esophageal reflux disease without esophagitis; Z86.711 Personal history of pulmonary embolism; Z79.01 Long term (current) use of anticoagulants; Z91.013 Allergy to seafood
CPT/HCPCS: 36415; 71045-TC-FY; 80053; 81003; 82550; 82962; 84443; 84484; 85025; 87086; 87186; 93005; 93010; 96360; 96361; 99283-25

== ENCOUNTER 2019-02-11 11:36 | Emergency (ER) | payer MEDICARE, OTHER ==
[2019-02-11 11:44] VITALS: BMI 34.0
--- NOTE | 2019-02-11 12:29 | PDOC ---
*Physical Exam - Vital Signs Last Vital Signs Temp Pulse Resp BP Pulse Ox 98.8 F 105 H 19 125/71 98 02/11/19 11:42 02/11/19 11:42 02/11/19 11:42 02/11/19 11:42 02/11/19 11:42 - Physical Exam Comments: 02/11/19 12:28 The patient was examined by [DALIA Quigley] under my direct supervision. I personally evaluated the patient. I concur with the above findings and the plan of care.
--- NOTE | 2019-02-11 13:52 | PDOC ---
History of Present Illness - General Chief Complaint: Shortness of Breath Stated Complaint: SHORTNESS OF BREATH, vaginal bleeding Time Seen by Provider: 02/11/19 12:22 History Source: Patient Exam Limitations: No Limitations - History of Present Illness Initial Comments: 02/11/19 13:50 73-year-old Micronesian-speaking female with history of CAD s/p 7 stents, CABG 2018, PE on Eliquis, hypertension, hyperlipidemia, diabetes complains of weakness, dizziness x4 days with shortness of breath worsening last night. Also reports one episode of painless vaginal bleeding yesterday.no bleeding at this time, denies cough, fever, chills, chest pain, abdominal pain, nausea, vomiting, diarrhea, dysuria or any other complaints. ROS: GENERAL/CONSTITUTIONAL: Weakness, dizziness, no fever, chills HEAD, EYES, EARS, NOSE AND THROAT: No changes in vision, No ear pain or discharge, No sore throat CARDIOVASCULAR: No chest pain RESPIRATORY: shortness of breath, denies cough GASTROINTESTINAL: Denies abdominal pain, nausea, vomiting, diarrhea or constipation GENITOURINARY: Vaginal bleeding yesterday, no dysuria MUSCULOSKELETAL: No neck or back pain SKIN: No rash NEUROLOGIC: No headache, vertigo, loss of consciousness, or loss of sensation PE: GENERAL: well-appearing, NAD HEAD: NCAT EYES: Pupils equal, round and reactive to light, sclera anicteric, conjunctiva clear ENT: pharynx: no erythema, no exudate, uvula midline NECK: supple CHEST: nontender RESP: clear, no w/r/r CARDIO: rrr, no m/g/r ABD: +BS, soft, nontender, non distended BACK: no midline spinal ttp, no CVAT : No blood noted in the vault, no swelling, erythema or blood surrounding the urethra EXTREMITIES: Normal range of motion, no edema NEUROLOGICAL: Normal speech, normal gait SKIN: Warm, Dry Is this a multiple visit Asthma Patient?: No Past History - Past Medical History Allergies/Adverse Reactions: Allergies Allergy/AdvReac Type Severity Reaction Status Date / Time No Known Drug Allergies Allergy Unknown Verified 02/11/19 11:45 CLAMS Allergy Vomiting Uncoded 02/11/19 11:45 Home Medications: Ambulatory Orders Aspirin [ASA -] 81 mg PO DAILY 03/15/15 Levothyroxine [Synthroid -] 25 mcg PO DAILY 03/15/15 Atorvastatin Ca [Lipitor] 40 mg PO HS 05/21/18 Canagliflozin [Invokana] 100 mg PO DAILY 11/06/18 Clopidogrel Bisulfate [Clopidogrel] 75 mg PO DAILY 11/06/18 Furosemide 20 mg PO DAILY 11/06/18 Metoprolol Tartrate [Lopressor -] 25 mg PO BID 11/06/18 Pantoprazole Sodium 40 mg PO DAILY 11/06/18 Sitagliptin Phos/Metformin HCl [Janumet 50-1,000 mg Tablet] 1 tab PO DAILY 11/06 Acetaminophen [Tylenol .Regular Strength -] 650 mg PO Q4H PRN tablet 11/12/18 Apixaban [Eliquis] 5 mg PO BID #30 tablet 11/12/18 Apixaban [Eliquis] 10 mg PO BID #11 tablet 11/12/18 Nitrofurantoin Monohyd/M-Cryst [Macrobid -] 100 mg PO BID 7 Days #14 capsule 03/05 Anemia: No Asthma: Yes Cancer: No Cardiac Disorders: Yes (CAD, Multiple stents, STEMI in September 2018, CABGm bypass ) CVA: No COPD: No CHF: Yes (Diastolic) Dementia: No Diabetes: Yes GI Disorders: Yes (GERD) Disorders: No HTN: Yes Hypercholesterolemia: Yes Liver Disease: No Seizures: No Thyroid Disease: Yes (Hypothyroidism) - Surgical History Abdominal Surgery: No Appendectomy: No Cardiac Surgery: Yes (8stents, S/P CABG - 09/2018, bypass 10/2018) Cholecystectomy: No Lung Surgery: No Neurologic Surgery: No Orthopedic Surgery: No - Immunization History Immunization Up to Date: Yes - Psycho Social/Smoking Cessation Hx Smoking Status: Yes Smoking History: Never smoked Years of Tobacco Use: 20 Have you smoked in the past 12 months: No Number of Cigarettes Smoked Daily: 0 If you are a former smoker, when did you quit?: 15-20 yrs ago Information on smoking cessation initiated: No Hx Alcohol Use: No Drug/Substance Use Hx: No Substance Use Type: None Hx Substance Use Treatment: No *Physical Exam - Vital Signs Last Vital Signs Temp Pulse Resp BP Pulse Ox 98.8 F 105 H 19 125/71 98 02/11/19 11:42 02/11/19 11:42 02/11/19 11:42 02/11/19 11:42 02/11/19 11:42 ED Treatment Course - LABORATORY CBC & Chemistry Diagram: 02/11/19 13:20 02/11/19 13:08 - RADIOLOGY Radiology Studies Ordered: Category Date Time Status CHEST CTA [CT] Stat CT Scan 02/11/19 13:26 Ordered CHEST PA & LAT [RAD] Stat Radiology 02/11/19 12:40 Taken Medical Decision Making - Medical Decision Making 02/11/19 15:45 73-year-old Micronesian-speaking female with history of diabetes, hypertension, PE on Eliquis, CABG October 2018, 7 stents complaining of weakness dizziness shortness of breath x4 days worsening last night. Also complains of one episode of vaginal bleeding yesterday, denies pelvic pain, abdominal pain, nausea, vomiting, diarrhea. Labs reviewed UA: 3+ leukocytes, positive nitrites, +1 blood, 8K bacteria Negative troponin Negative influenza swab Awaiting CT chest Pelvic exam: No blood in the vault or surrounding the urethra We will likely treat for hemorrhagic cystitis once work-up is completed 02/11/19 16:[address] results pending Case signed out to DALIA Romero Discharge - Discharge Information Problems reviewed: Yes Clinical Impression/Diagnosis: Shortness of breath UTI (urinary tract infection) Qualifiers: Urinary tract infection type: acute cystitis Hematuria presence: with hematuria Qualified Code(s): N30.01 - Acute cystitis with hematuria Condition: Stable - Follow up/Referral Referrals: Arlette Castro MD [Primary Care Provider] - - Patient Discharge Instructions - Post Discharge Activity
[2019-02-11 14:01] LABS: BASO % 0.9 % (0-2.0); EOS % 2.7 % (0-4.5); HEMATOCRIT 33.6 % (32.4-45.2); HEMOGLOBIN 10.5 GM/dL (10.7-15.3); LYMPH % 14.7 % (8-40); MCH 21.9 pg (25.7-33.7); MCHC 31.2 g/dl (32.0-36.0); MEAN CELL VOLUME 70.4 fl (80-96); MEAN PLT VOLUME 7.3 fl (7.5-11.1); MONO % 8.2 % (3.8-10.2); NEUT % 73.5 % (42.8-82.8); PLATELET COUNT 361 K/MM3 (134-434); RBC 4.77 M/mm3 (3.60-5.2); RDW 18.1 % (11.6-15.6); WHITE BLOOD COUNT 6.3 K/mm3 (4.0-10.0)
[2019-02-11 14:03] LABS: EPI CELLS 11.4 /HPF (0-5/HPF); HYALINE CASTS 7 /lpf (0-8); URINE APPEARANCE CLOUDY; URINE BACTERIA 8393.9 /hpf (NEGATIVE); URINE BILIRUBIN NEGATIVE (NEGATIVE); URINE COLOR YELLOW; URINE GLUCOSE (UA) 3+ (NEGATIVE); URINE KETONE NEGATIVE (NEGATIVE); URINE LEUK ESTERASE 3+ (NEGATIVE); URINE NITRITE POSITIVE (NEGATIVE); URINE PROTEIN NEGATIVE (NEGATIVE); URINE RBC 3 /hpf (0-4); URINE UROBILINOGEN 0.2 mg/dL (0.2-1.0); URINE WBC 188 /hpf (0-5)
[2019-02-11 14:24] LABS: ALBUMIN 3.5 g/dl (3.4-5.0); ALK PHOS 45 U/L (45-117); ANION GAP 13 MMOL/L (8-16); BILIRUBIN,TOTAL 0.7 mg/dL (0.2-1); BLOOD UREA NITROGEN 12.8 mg/dL (7-18); CHLORIDE 106 mmol/L (98-107); CO2 21 mmol/L (21-32); CREATININE 0.7 mg/dL (0.55-1.3); GLUCOSE,RANDOM 73 mg/dL (74-106); POTASSIUM 3.9 mmol/L (3.5-5.1); SGOT/AST 15 U/L (15-37); SGPT/ALT 16 U/L (13-61); SODIUM 141 mmol/L (136-145); TOT PROT 7.1 g/dl (6.4-8.2)
--- NOTE | 2019-02-11 14:56 | EKG ---
Test Reason : Blood Pressure : / mmHG Vent. Rate : 103 BPM Atrial Rate : 103 BPM P-R Int : 140 ms QRS Dur : 080 ms QT Int : 318 ms P-R-T Axes : 047 -13 -10 degrees QTc Int : 416 ms SINUS TACHYCARDIA POSSIBLE LEFT ATRIAL ENLARGEMENT INFERIOR INFARCT (CITED ON OR BEFORE 29-SEP-2011) ANTERIOR INFARCT (CITED ON OR BEFORE 29-SEP-2011) ABNORMAL ECG WHEN COMPARED WITH ECG OF 23-DEC-2018 11:40, PREMATURE VENTRICULAR COMPLEXES ARE NO LONGER PRESENT Confirmed by IRINEO ISLAS, ASHLEIGH ([id number]) on 02/11/2019 2:55:43 PM Referred By: Confirmed By:ASHLEIGH CABELLO MD
[2019-02-11 15:21] LABS: ACTIVATED PTT 36.5 SECONDS (25.2-36.5)
[2019-02-11 15:31] LABS: INR 1.56 (0.83-1.09); PROTHROMBIN TIME (PATIENT) 18.5 SEC (9.7-13.0)
[2019-02-11 15:53] LABS: ANISOCYTOSIS 1+; MACROCYTOSIS 0; PLATELET ESTIMATE NORMAL
[2019-02-11 16:54] VITALS: BP 118/68; PULSE 86; TEMP 98.6
--- NOTE | 2019-02-11 17:03 | PDOC ---
*Physical Exam - Vital Signs Last Vital Signs Temp Pulse Resp BP Pulse Ox 98.6 F 86 16 118/68 99 02/11/19 16:00 02/11/19 16:00 02/11/19 16:00 02/11/19 16:00 02/11/19 16:00 ED Treatment Course - LABORATORY CBC & Chemistry Diagram: 02/11/19 13:20 02/11/19 13:08 - ADDITIONAL ORDERS Additional order review: Laboratory Results 02/11/19 02/11/19 02/11/19 13:20 13:08 11:20 PT with INR 18.50 H INR 1.56 H PTT (Actin FS) 36.5 Sodium 141 Potassium 3.9 Chloride 106 Carbon Dioxide 21 Anion Gap 13 BUN 12.8 Creatinine 0.7 Est GFR (CKD-EPI)AfAm 98.92 Est GFR (CKD-EPI)NonAf 85.35 Random Glucose 73 L Calcium 9.0 Total Bilirubin 0.7 AST 15 ALT 16 Alkaline Phosphatase 45 Creatine Kinase 34 Troponin I < 0.02 Total Protein 7.1 Albumin 3.5 Urine Color Yellow Urine Appearance Cloudy Urine pH 5.0 Ur Specific [place] 1.015 Urine Protein Negative Urine Glucose (UA) 3+ H Urine Ketones Negative Urine Blood 1+ H Urine Nitrite Positive H Urine Bilirubin Negative Urine Urobilinogen 0.2 Ur Leukocyte Esterase 3+ H Urine WBC (Auto) 188 Urine RBC (Auto) 3 Urine Casts (Auto) 7 U Epithel Cells (Auto) 11.4 Urine Bacteria (Auto) 8393.9 02/11/19 13:20 RBC 4.77 MCV 70.4 L MCHC 31.2 L RDW 18.1 H MPV 7.3 L Neutrophils % 73.5 Lymphocytes % 14.7 D Monocytes % 8.2 Eosinophils % 2.7 Basophils % 0.9 Medical Decision Making - Medical Decision Making Patient signed out to me by DALIA Ennis Patient just returned from [place] Patient currently resting in NAD; denies any complaints Patient with +UTI Pending results of CTA 02/11/19 17:01 CTA chest with no acute findings Given ceftriaxone for UTI stable for dc 02/11/19 17:24 Discharge - Discharge Information Problems reviewed: Yes Clinical Impression/Diagnosis: Shortness of breath UTI (urinary tract infection) Qualifiers: Urinary tract infection type: acute cystitis Hematuria presence: with hematuria Qualified Code(s): N30.01 - Acute cystitis with hematuria Condition: Stable Disposition: HOME - Admission No - Additional Discharge Information Prescriptions: Cephalexin [Keflex] 500 mg PO BID #13 capsule Prescription Drug Monitoring Program (I-STOP) results: I-STOP not reviewed - Follow up/Referral Referrals: Arlette Castro MD [Primary Care Provider] - 2 Days - Patient Discharge Instructions Patient Printed Discharge Instructions: DI for Urinary Tract Infection (UTI), DI for Shortness of Breath Additional Instructions: Thank you for choosing [facility]. It was a pleasure taking care of you. Please take prescribed antibiotics for your urine infection Continue follow-up with your regular doctor in 2-3 days Return to the Emergency Department if your symptoms worsen or persist, you have fever, shortness of breath, chest pain, severe abdominal pain, vomiting or other concerning symptoms. - Post Discharge Activity
[2019-02-11] MEDS ORDERED: CEFTRIAXONE 1 GM in DEXTROSE 5%-WATER - 100 ML IVPB ONE (17:20)
[2019-02-11] MEDS ORDERED: CEFTRIAXONE 2 GM/100 ML BAG IVPB ONE (17:44)
== END 2019-02-11 17:45 | disposition home or self-care (01) ==
LOC: JER 11:36
DX: R06.02 Shortness of breath (principal); N30.01 Acute cystitis with hematuria; E11.9 Type 2 diabetes mellitus without complications; I10 Essential (primary) hypertension; I26.99 Other pulmonary embolism without acute cor pulmonale; Z79.01 Long term (current) use of anticoagulants; Z95.1 Presence of aortocoronary bypass graft; Z95.5 Presence of coronary angioplasty implant and graft; Z91.013 Allergy to seafood; Z87.891 Personal history of nicotine dependence; K21.9 Gastro-esophageal reflux disease without esophagitis; I50.9 Heart failure, unspecified; I25.2 Old myocardial infarction; E03.9 Hypothyroidism, unspecified
CPT/HCPCS: 36415; 71046-TC-FY; 71275-TC; 80053; 81003; 82550; 84484; 85025; 85610; 85730; 87086; 87186; 87804; 93005; 93010; 99283-25

== ENCOUNTER 2019-11-28 11:32 | Inpatient (IN) | payer OTHER ==
--- NOTE | 2019-11-28 12:38 | PDOC ---
History of Present Illness - General Chief Complaint: Chest Pain Stated Complaint: CHEST PAIN Time Seen by Provider: 11/28/19 12:09 - History of Present Illness Initial Comments: 11/28/19 12:38 74yoF h/o PE, OR, and 7 stents p/w 2days of chest pain and chills at night. It is substernal and right of sternum in the costo-chondral junction area on the right. It does not radiate and feels "like a pinch." It is not made worse by ac tivity, although she states generally less activity recently due to chronic back pain that has been getting worse x3mos. It is not associated w/ n/v, but she has been feeling dizzy. Denies recent illness, fever/cough/diarrhea/rash/travel/unilateral calf pain/leg swelling. Endorses some reflux/indigestion recently when supine. 11/28/19 12:41 Past History - Medical History Allergies/Adverse Reactions: Allergies Allergy/AdvReac Type Severity Reaction Status Date / Time No Known Drug Allergies Allergy Unknown Verified 11/28/19 11:46 [facility] Allergy Vomiting Uncoded 11/28/19 11:46 Home Medications: Ambulatory Orders Levothyroxine [Synthroid -] 25 mcg PO DAILY 03/15/15 Atorvastatin Ca [Lipitor] 40 mg PO HS 05/21/18 Metoprolol Tartrate [Lopressor -] 50 mg PO DAILY 11/06/18 Sitagliptin Phos/Metformin HCl [Janumet 50-1,000 mg Tablet] 1 tab PO DAILY 11/06/18 Acetaminophen [Tylenol .Regular Strength -] 650 mg PO Q4H PRN tablet 11/12/18 Apixaban [Eliquis] 5 mg PO BID #30 tablet 11/12/18 Empagliflozin [Jardiance] 25 mg PO DAILY 11/28/19 Losartan Potassium [Cozaar -] 25 mg PO DAILY 11/28/19 Ticagrelor [Brilinta] 90 mg PO BID 11/28/19 Anemia: No Asthma: Yes Cancer: No Cardiac Disorders: Yes (CAD, Multiple stents, STEMI in September 2018, CABGm bypass 10/2018) CVA: No COPD: No CHF: Yes (Diastolic) Dementia: No Diabetes: Yes GI Disorders: Yes (GERD) Disorders: No HTN: Yes Hypercholesterolemia: Yes Liver Disease: No Seizures: No Thyroid Disease: Yes (Hypothyroidism) - Surgical History Abdominal Surgery: No Appendectomy: No Cardiac Surgery: Yes (8stents, S/P CABG - 09/2018, bypass 10/2018) Cholecystectomy: No Lung Surgery: No Neurologic Surgery: No Orthopedic Surgery: No - Immunization History Immunization Up to Date: Yes - Psycho-Social/Smoking History Smoking Status: Yes Smoking History: Never smoked Years of Tobacco Use: 20 Have you smoked in the past 12 months: No Number of Cigarettes Smoked Daily: 0 If you are a former smoker, when did you quit?: 15-20 yrs ago - Substance Abuse Hx (Audit-C & DAST Scrn) How often the patient has a drink containing alcohol: Never Score: In Men: 4 or > Positive; In Women: 3 or > Positive: 0 Screen Result (Pos requires Nsg. Audit-10AR): Negative In the last yr the pt used illegal drug/Rx for NonMed reason: No Score: Yes response is considered Positive: 0 Screen Result (Positive result requires Nsg. DAST-10): Negative Cardiac Specific PMH - Complaint Specific PMHX Cardiac Stent: Yes Pacemaker: No Review of Systems - Review of Systems Able to Perform ROS?: Yes Is the patient limited Nepali proficient: No Constitutional: Yes: Chills. No: Diaphoresis, Fever HEENTM: No: Blurred Vision, Recent change in vision, Double Vision, Nose Congestion, Throat Swelling, Difficulty Swallowing, Mouth Swelling Respiratory: Yes: Other (the pain cc is brought on by deep breaths). No: Cough, Shortness of Breath, SOB with Exertion, Productive cough, Hemoptysis Cardiac (ROS): Yes: Chest Pain, Lightheadedness. No: Edema, Irregular Heart Rate ABD/GI: No: Constipated, Diarrhea, Nausea, Vomiting, Abdominal cramping : No: Burning, Dysuria, Hematuria Musculoskeletal: Yes: Back Pain, Muscle Pain. No: Neck Pain Integumentary: No: Bruising, Rash Neurological: Yes: Headache. No: Numbness, Paresthesia *Physical Exam - Vital Signs Last Vital Signs Temp Pulse Resp BP Pulse Ox 78 22 H 109/44 L 100 11/28/19 19:50 11/28/19 19:50 11/28/19 19:50 11/28/19 19:50 - Physical Exam General Appearance: Yes: Nourished, Appropriately Dressed, Apparent Distress, Mild Distress HEENT: positive: EOMI, Normal Voice. negative: Rhinorrhea Neck: positive: Trachea midline, Supple. negative: Tender, Normal Thyroid Respiratory/Chest: positive: Chest Tender (R costochondral ttp, reportedly like the pain that brought her into the ED. ), Lungs Clear, Accessory Muscle Use. negative: Normal Breath Sounds (decreased respiratory effort) Cardiovascular: positive: Regular Rhythm, Regular Rate, S1, S2, Murmur. negative: Edema Gastrointestinal/Abdominal: positive: Normal Bowel Sounds, Soft. negative: Tender Musculoskeletal: positive: Normal Inspection. negative: CVA Tenderness Extremity: positive: Normal Capillary Refill, Normal Inspection, Normal Range of Motion Integumentary: positive: Normal Color, Dry, Warm Neurologic: positive: Alert, Normal Response, Motor Strength 5/5 Heart Score/ECG Review - History History: Moderately suspicious - Electrocardiogram EKG: Non specific repolarization disturbance - Age Age: >/= 65 - Risk Factors Risk Factors Heart Score: Yes Hx Hypercholesterolemia, Yes Hx Hypertension, Yes Hx Obesity Based on the list above the patient has:: >/=3 risk factors or Hx atherosclerotic disease - ECG Intrepretation Rhythm: Regular Rhythm - Readfield Readfield: Normal - QRS Q Wave Present: Yes Comment:: 11/28/19 12:53 Q waves in 3 and aVF -> previous inferior infarct - ST and T Prolonged Q-T Interval: No - ECG Impressions Normal ECG: No Non-specific ST Elevation: No Bradycardia: No Tachycardia: Sinus ED Treatment Course - LABORATORY CBC & Chemistry Diagram: 11/28/19 15:22 11/28/19 15:22 - ADDITIONAL ORDERS Additional order review: Laboratory Results 11/28/19 11/28/19 11/28/19 16:20 15:22 15:22 PT with INR INR PTT (Actin FS) Sodium 138 Potassium 4.5 Chloride 106 Carbon Dioxide 23 Anion Gap 9 BUN 10.2 Creatinine 0.6 Est GFR (CKD-EPI)AfAm 103.34 Est GFR (CKD-EPI)NonAf 89.16 Random Glucose 77 Calcium 8.6 Magnesium 2.4 Total Bilirubin 0.5 AST 20 ALT 14 Alkaline Phosphatase 31 L Creatine Kinase 36 Troponin I < 0.02 B-Natriuretic Peptide 455.0 H Total Protein 6.8 Albumin 3.0 L Stool Occult Blood Negative 11/28/19 15:22 PT with INR 18.80 H INR 1.59 H PTT (Actin FS) 30.5 Sodium Potassium Chloride Carbon Dioxide Anion Gap BUN Creatinine Est GFR (CKD-EPI)AfAm Est GFR (CKD-EPI)NonAf Random Glucose Calcium Magnesium Total Bilirubin AST ALT Alkaline Phosphatase Creatine Kinase Troponin I B-Natriuretic Peptide Total Protein Albumin Stool Occult Blood 11/28/19 15:22 RBC 4.28 MCV 63.6 L MCHC 29.4 L RDW 23.5 H MPV 8.4 D Neutrophils % 77.2 Lymphocytes % 11.2 D Monocytes % 9.9 Eosinophils % 0.8 Basophils % 0.9 - RADIOLOGY Radiology Studies Ordered: Category Date Time Status CXR [CHEST PA & LAT] [RAD] Stat Radiology 11/28/19 12:37 Taken - Medications Given in the ED: ED Medications Discontinued Medications Generic Name Dose Route Start Last Admin Trade Name Freq PRN Reason Stop Dose Admin Acetaminophen 1,000 mg 11/28/19 17:31 11/28/19 17:39 Ofirmev Injection - IVPB 11/28/19 17:32 1,000 mg ONCE ONE Administration Aspirin 324 mg 11/28/19 13:02 11/28/19 13:30 Asa - PO 11/28/19 13:03 324 mg ONCE ONE Administration Ceftriaxone Sodium 1,000 mg/ 50 mls @ 100 mls/hr 11/28/19 22:16 11/28/19 22:41 Dextrose IVPB 11/28/19 22:45 100 mls/hr ONCE ONE Administration Lidocaine 1 patch 11/28/19 12:59 11/28/19 13:27 Lidoderm Patch - TP 11/28/19 13:00 1 patch ONCE ONE Administration Medical Decision Making - Medical Decision Making 11/28/19 12:38 11/28/19 12:38 74yoF h/o PE, OR, and 7 stents p/w 2days of chest pain and chills at night. pt's cardiac hx -> will perform cardiac w/u. no EKG changes compared to last one. denies hemoptysis or unilateral leg swelling -> less likely PE. Hx of PE, however -> will consider d-dimer pain was reproducible on palpation of chest -> possibly costochondritis. -> will try lidoderm patch. RN reconciled current med list -> pt not on ASA x2mos -> will give ASA 324mg x1. 11/28/19 13:03 11/28/19 15:28 reassessment: lidoderm patch did not resolve pain; pt still symptomatic. could still be costochondritis, will await lab results. CXR shows some cephalization of vessels -> could be milld heart failure -> added on BNP 11/28/19 16:28 pt is anemic w/ HgB of 8.0. MCV is 63 -> microcytic anemic -> FOBT performed. Pt tolerated well. 11/28/19 17:33 reassessment: pt still in discomfort -> IV tylenol. per Dr Cruz, thinking pleu ritic CP -> CTA 11/28/19 21:23 Reassessment: pt comfortable. repeat EKG shows NSR w/ no abnormal changes. 11/28/19 22:44 CTA shows no PE but suggests a R peripheral consolidation -> started ABX for CAP and admit. 11/28/19 22:45 Problem list summary 1. consolidation in R lung 2. anemia 3. fluid in lung bases Discharge - Discharge Information Problems reviewed: Yes Clinical Impression/Diagnosis: Pneumonia Qualifiers: Pneumonia type: due to unspecified organism Laterality: right Lung location: unspecified part of lung Qualified Code(s): J18.9 - Pneumonia, unspecified organism Chest pain Qualifiers: Chest pain type: chest pain on breathing Qualified Code(s): R07.1 - Chest pain on breathing Anemia Qualifiers: Anemia type: unspecified type Qualified Code(s): D64.9 - Anemia, unspecified Condition: Good - Admission Yes - Follow up/Referral Referrals: Florecita Rojas MD [Primary Care Provider] - Trenton Wise MD [Non Staff, Medical] - - Patient Discharge Instructions - Post Discharge Activity
[2019-11-28] MEDS ORDERED: LIDOCAINE 5% TOPICAL PATCH TP ONE (12:59)
[2019-11-28] MEDS ORDERED: ASPIRIN 81 MG CHEWABLE TABLETS PO ONE (13:02)
[2019-11-28] MEDS ORDERED: ASPIRIN 81 MG CHEWABLE TABLETS ONE (13:10)
[2019-11-28] MEDS ORDERED: LIDOCAINE 5% TOPICAL PATCH ONE (13:11)
[2019-11-28 15:56] LABS: BASO % 0.9 % (0-2.0); EOS % 0.8 % (0-4.5); HEMATOCRIT 27.2 % (32.4-45.2); LYMPH % 11.2 % (8-40); MCHC 29.4 g/dl (32.0-36.0); MEAN CELL VOLUME 63.6 fl (80-96); MEAN PLT VOLUME 8.4 fl (7.5-11.1); MONO % 9.9 % (3.8-10.2); NEUT % 77.2 % (42.8-82.8); PLATELET COUNT 319 K/MM3 (134-434); RBC 4.28 M/mm3 (3.60-5.2); RDW 23.5 % (11.6-15.6); WHITE BLOOD COUNT 8.3 K/mm3 (4.0-10.0)
[2019-11-28 15:57] LABS: INR 1.59 (0.83-1.09); MCH 18.7 pg (25.7-33.7); PROTHROMBIN TIME (PATIENT) 18.8 SEC (9.7-13.0)
[2019-11-28 16:00] LABS: ACTIVATED PTT 30.5 SECONDS (25.2-36.5)
[2019-11-28 16:27] LABS: ALK PHOS 31 U/L (45-117); ANION GAP 9 MMOL/L (8-16); BILIRUBIN,TOTAL 0.5 mg/dL (0.2-1); BLOOD UREA NITROGEN 10.2 mg/dL (7-18); CALCIUM 8.6 mg/dL (8.5-10.1); CHLORIDE 106 mmol/L (98-107); CO2 23 mmol/L (21-32); CREATININE 0.6 mg/dL (0.55-1.3); GLUCOSE,RANDOM 77 mg/dL (74-106); MAGNESIUM 2.4 mg/dL (1.8-2.4); POTASSIUM 4.5 mmol/L (3.5-5.1); SGOT/AST 20 U/L (15-37); SGPT/ALT 14 U/L (13-61); SODIUM 138 mmol/L (136-145); TOT PROT 6.8 g/dl (6.4-8.2)
--- NOTE | 2019-11-28 16:40 | PDOC ---
Documentation entered by Phoebe Shaw SCRIBE, acting as scribe for Otto Cruz MD. Otto Cruz MD: This documentation has been prepared by the scribe, Phoebe Shaw SCRIBE, under my direction and personally reviewed by me in its entirety. I confirm that the documentation accurately reflects all work, treatment, procedures, and medical decision making performed by me. Attending Attestation - Resident Resident Name: Tj Dougherty - ED Attending Attestation I have performed the following: I have examined & evaluated the patient, The case was reviewed & discussed with the resident, I agree w/resident's findings & plan, Exceptions are as noted - HPI HPI: 11/28/19 12:14 Patient is a 74 year old female with a significant past medical history of PE, [place], and 7 stents, who presents to the ED with chills and chest pain x2 days. Patient described her pain as "feeling like a pinch" and that it is in the substernal area. Patient said her symptoms are not worsened by physical activity but that she has been less active lately because of her worsening back pain x3 months. Patient endorses: dizziness and reflux/indigestion when laying down. Patient denies: fever, nausea, vomiting, cough, diarrhea, lower extremity pain/edema, rash, orthpnea, leg swelling, calf pain, recent illness, recent travel, or any other related symptoms. Allergies: NKDA and clams - Physicial Exam PE: 11/28/19 16:34 GENERAL: The patient is awake, alert, and fully oriented, Nontoxic - in no acute distress. HEAD: Normocephalic, atraumatic. EYES: extraocular movements intact, sclera anicteric, conjunctiva clear. ENT: Normal voice, Moist mucous membranes. NECK: Normal range of motion, supple LUNGS: Breath sounds equal, clear to auscultation bilaterally. No wheezes, no rhonchi, no rales. HEART: Regular rate and rhythm, normal S1 and S2 without murmur, rub or gallop. ABDOMEN: Soft, nontender, No guarding, no rebound. No CVA tenderness EXTREMITIES: Normal range of motion, no edema. NEUROLOGICAL: No facial assymetry, Normal speech, PSYCH: Normal mood, normal affect. SKIN: Warm, Dry, normal turgor, - Medical Decision Making 11/28/19 16:34 Differential for the patient's symptoms includes possible ACS, consdier PE as pt notes pain is pleuritic in nature will obtain blood work, trop ekg will obtain cxr will reassess Discharge - Discharge Information Problems reviewed: Yes Clinical Impression/Diagnosis: Pneumonia Qualifiers: Pneumonia type: due to unspecified organism Laterality: right Lung location: unspecified part of lung Qualified Code(s): J18.9 - Pneumonia, unspecified organism Chest pain Qualifiers: Chest pain type: chest pain on breathing Qualified Code(s): R07.1 - Chest pain on breathing Anemia Qualifiers: Anemia type: unspecified type Qualified Code(s): D64.9 - Anemia, unspecified Condition: Good - Follow up/Referral - Patient Discharge Instructions - Post Discharge Activity
[2019-11-28 16:54] LABS: ANISOCYTOSIS 3+
[2019-11-28 16:55] LABS: MACROCYTOSIS 1+; PLATELET ESTIMATE ADEQUATE; ROULEAU 1+
[2019-11-28] MEDS ORDERED: ACETAMINOPHEN 1000 MG/100 ML VIAL (NON FORMULARY) IVPB ONE ×2 (17:31→22:43)
[2019-11-28] MEDS ORDERED: ACETAMINOPHEN INJECTION 100 ML IVPB ONE ×2 (17:33→21:58)
[2019-11-28] MEDS ORDERED: LIDOCAINE PATCH REMOVAL MC SCH (22:00)
[2019-11-28] MEDS ORDERED: CEFTRIAXONE 1,000 MG in DEXTROSE 5%-WATER - 50 ML IVPB ONE (22:16)
[2019-11-28] MEDS ORDERED: AZITHROMYCIN IVPB 500 MG in DEXTROSE 5%-WATER - 250 ML IVPB ONE (22:19)
[2019-11-28] MEDS ORDERED: CEFTRIAXONE 1 GM/50 ML BAG ONE (22:36)
[2019-11-28] MEDS ORDERED: AZITHROMYCIN IVPB 500 MG/250 ML BAG IVPB ONE (23:03)
--- NOTE | 2019-11-28 23:11 | PN ---
Teaching Attending Note Name of Resident: Imani Tena ATTENDING PHYSICIAN STATEMENT I saw and evaluated the patient. I reviewed the resident's note and discussed the case with the resident. I agree with the resident's findings and plan as documented. SUBJECTIVE: Patient is a 74 year old woman with a PMH of PE, CAD (multiple stents - on E liquis), STEMI (2018), CABG (10/2018), ?HFrEF (LVEF 45-50% - 11/07/2018), GERD, HLD, Hypothyroidism, HTN, and NIDDM who presents to the ER with chills and chest pain x2 days. Patient described her pain as "feeling like a pinch" and that it is in the substernal area. Patient said her symptoms are not worsened by physical activity but that she has been less active lately because of her worsening back pain for 3 months. Has associated dizziness and reflux/indigestion when laying down. Patient denies fever, nausea, vomiting, cough, diarrhea, lower extremity pain/edema, rash, orthopnea, leg swelling, calf pain, dysuria, frequency, urgency, melena, hematochezia or hematuria. Former smoker. Denies alcohol, tobacco or illicit drug use. No sick contacts or recent travels. Family history is unremarkable. OBJECTIVE: Alert Vital Signs Period Temp Pulse Resp BP Sys/Melchor Pulse Ox Last 24 Hr 78-98 22-22 109-118/44-78 98-100 HEENT: No Jaundice, eye redness or discharge, PERRLA, EOMI. Normocephalic, atraumatic. External ears are normal and hearing is grossly intact. No nasal discharge. Neck: Supple, nontender. No palpable adenopathy or thyromegaly. No JVD Chest: Good effort. Clear to auscultation and percussion. Heart: Regular. No S3, rub or murmur Abdomen: Not distended, soft, nontender and no HSM. No rebound or guarding. Normal bowel sounds. Ext: Peripheral pulses intact. No leg edema. Skin: Warm and dry. No petechiae, rash or ecchymosis. Neuro: Alert. Oriented x3. CN 2-12 grossly intact. Sensation grossly intact in all four extremities and DTR are symmetric. Psych: Appropriate mood and affect. Good insight. Home Medications Medication Instructions Recorded Levothyroxine [Synthroid -] 25 mcg PO DAILY 03/15/15 Atorvastatin Ca [Lipitor] 40 mg PO HS 05/21/18 Metoprolol Tartrate [Lopressor -] 50 mg PO DAILY 11/06/18 Sitagliptin Phos/Metformin HCl 1 tab PO DAILY 11/06/18 [Janumet 50-1,000 mg Tablet] Acetaminophen [Tylenol .Regular 650 mg PO Q4H PRN tablet 11/12/18 Strength -] Apixaban [Eliquis] 5 mg PO BID #30 tablet 11/12/18 Empagliflozin [Jardiance] 25 mg PO DAILY 11/28/19 Losartan Potassium [Cozaar -] 25 mg PO DAILY 11/28/19 Ticagrelor [Brilinta] 90 mg PO BID 11/28/19 Abnormal Lab Results 11/28/19 11/28/19 11/28/19 15:22 15:22 15:22 Hgb 8.0 L Hct 27.2 L D MCV 63.6 L MCH 18.7 L D MCHC 29.4 L RDW 23.5 H PT with INR 18.80 H INR 1.59 H Alkaline Phosphatase 31 L B-Natriuretic Peptide Albumin 3.0 L 11/28/19 15:22 Hgb Hct MCV MCH MCHC RDW PT with INR INR Alkaline Phosphatase B-Natriuretic Peptide 455.0 H Albumin Current Medications Generic Name Dose Route Start Last Admin Trade Name Freq PRN Reason Stop Dose Admin Apixaban 5 mg 11/29/19 10:00 Eliquis - PO BID [facility] Atorvastatin Calcium 40 mg 11/29/19 22:00 Lipitor - PO HS [facility] Ceftriaxone Sodium 1 gm/ 50 mls @ 100 mls/hr 11/29/19 10:00 Dextrose IVPB DAILY [facility] Azithromycin 500 mg in 250 mls @ 250 mls/hr 11/29/19 10:00 Zithromax 500mg Ivpb (Pre-Docked) IVPB DAILY [facility] Levothyroxine Sodium 25 mcg 11/29/19 07:00 Synthroid - PO ACBK [facility] Losartan Potassium 25 mg 11/29/19 10:00 Cozaar - PO DAILY [facility] Metoprolol Tartrate 50 mg 11/29/19 10:00 Lopressor - PO DAILY [facility] Miscellaneous 1 each 11/28/19 22:00 11/29/19 00:11 Lidoderm Patch Removal MC 1 each DAILY@2200 [facility] Administration ASSESSMENT AND PLAN: 1. Pneumonia - CXR shows right middle lobe/retrocardiac infiltrate and sternotomy irvin. CTA chest/thorax didnot show pulmonary embolism but possible right peripheral consolidation. ER staff prescribed Tylenol, Aspirin 324 mg, IV LR, IV Ceftriaxone, IV Azithromycin and Lidocaine patch for the patient. EKG shows NSR at 76/minute and QTc 436, T wave inversion in III, V3 with no ischemic ST wave changes. Not significantly changed compared to prior EKG. Initial troponin is negative. Viral testing for COVID-19 ordered and patient placed on airborne, droplet and contact isolation. Will admit to telemetry, trend troponin, repeat EKG, get ECHO, continue IV antibiotics and consult Cardiology/ID. Will continue comprehensive care for all of patients comorbid conditions including Synthroid for hypothyrodism and Eliquis for remote PE. 2. Hypoalbuminemia - Possibly due to combined effects of malnutrition and inflammation associated with comorbid conditions. Will ensure adequate dietary protein intake and also consult product merchandiser. 3. Low MCV Anemia Will do basic anemia work up including serial stool guaiacs, reticulocyte count and iron studies. Consult GI. Would benefit from Procrit therapy once iron replete. 4. Obesity Counseled on the risks associated with obesity. Will provide patient all the necessary assistance, counseling and positive reinforcement to facilitate weight loss. Consult product merchandiser. 5. Hypertension Will hold BP medications for now due to low BP. Restart suitable outpatient antihypertensive drugs when clinically appropriate. Subsequently, will revise regimen to ensure [id number] excellent BP control. Patient counseled on the injurious effects of uncontrolled hypertension. Nonpharmacologic measures to control hypertension like weight loss, salt restriction and exercise stressed. Importance of adherence to treatment regimen and attainment of normotension emphasized. 6. DVT prophylaxis - On Eliquis. 7. Advance directives - Full code
--- NOTE | 2019-11-28 23:57 | HP ---
CHIEF COMPLAINT: chest pain PCP:wendy jane HISTORY OF PRESENT ILLNESS: 74 yo F PMH HTN, DM, hypothyroidism, CAD s/p stent, CABG, hx of PE ( 10/2018) , presented to ED for Chest pain x 2 days. pt describes pain as stabbing in R sternal region. she states that worse with inhalation. denies anything that improves pain. she also endorses worsening shortness of breath with exertion. states that even showering makes her sob. denies orthopnea. denies sick contacts. denies f/c. denies n/v/d. denies cough. was supposed to have cardio appointment on saturday but missed appt states she is compliant with medications ER course was notable for: (1)EKG (2)CTA neg for PE (3)Ceftriaxone/ Azithro Recent Travel:denies PAST MEDICAL HISTORY: see above PAST SURGICAL HISTORY: CABG, cardiac Stent Social History: Smoking:denies Alcohol:denies Drugs: denies Allergies No Known Drug Allergies Allergy (Unknown, Verified 11/28/19 11:46) CLAMS Allergy (Uncoded 11/28/19 11:46) Vomiting HOME MEDICATIONS: Home Medications Medication Instructions Recorded Levothyroxine [Synthroid -] 25 mcg PO DAILY 03/15/15 Atorvastatin Ca [Lipitor] 40 mg PO HS 05/21/18 Metoprolol Tartrate [Lopressor -] 50 mg PO DAILY 11/06/18 Sitagliptin Phos/Metformin HCl 1 tab PO DAILY 11/06/18 [Janumet 50-1,000 mg Tablet] Acetaminophen [Tylenol .Regular 650 mg PO Q4H PRN tablet 11/12/18 Strength -] Apixaban [Eliquis] 5 mg PO BID #30 tablet 11/12/18 Empagliflozin [Jardiance] 25 mg PO DAILY 11/28/19 Losartan Potassium [Cozaar -] 25 mg PO DAILY 11/28/19 Ticagrelor [Brilinta] 90 mg PO BID 11/28/19 REVIEW OF SYSTEMS CONSTITUTIONAL: Absent: fever, chills, diaphoresis, generalized weakness, malaise, loss of appetite, weight change HEENT: Absent: rhinorrhea, nasal congestion, throat pain, throat swelling, difficulty swallowing, mouth swelling, ear pain, eye pain, visual changes CARDIOVASCULAR: Present: CP Absent:syncope, palpitations, irregular heart rate, lightheadedness, peripheral edema RESPIRATORY: Present: SOB, SORENSON Absent: cough, orthopnea, wheezing, stridor, hemoptysis GASTROINTESTINAL: Absent: abdominal pain, abdominal distension, nausea, vomiting, diarrhea, constipation, melena, hematochezia GENITOURINARY: Absent: dysuria, frequency, urgency, hesitancy, hematuria, flank pain, genital pain MUSCULOSKELETAL: Absent: myalgia, arthralgia, joint swelling, back pain, neck pain SKIN: Absent: rash, itching, pallor ENDOCRINE: Absent: unexplained weight gain, unexplained weight loss, heat intolerance, cold intolerance NEUROLOGIC: Absent: headache, focal weakness or paresthesias, dizziness, unsteady gait, seizure, mental status changes, bladder or bowel incontinence PHYSICAL EXAMINATION Vital Signs - 24 hr 11/28/19 11/28/19 11/28/19 11:46 19:50 23:36 Temperature 98.2 F Pulse Rate 98 H Pulse Rate [ 78 Left Radial] Respiratory 22 H 22 H Rate Blood Pressure 118/78 Blood Pressure 109/44 L [Right Arm] O2 Sat by Pulse 98 100 Oximetry (%) 11/28/19 23:44 Temperature Pulse Rate Pulse Rate [ 80 Left Radial] Respiratory 18 Rate Blood Pressure Blood Pressure 99/46 L [Right Arm] O2 Sat by Pulse 98 Oximetry (%) GENERAL: Awake, alert, and fully oriented, in no acute distress. HEAD: Normal with no signs of trauma. EYES: Pupils equal, round and reactive to light, extraocular movements intact EARS, NOSE, THROAT:oropharynx clear without exudates. Moist mucous membranes. NECK: +JVD LUNGS: Breath sounds equal, LLL crackles No accessory muscle use. HEART: Regular rate and rhythm, normal S1 and S2 without murmur, rub or gallop. ABDOMEN: Soft, nontender, not distended, normoactive bowel sounds, no guarding, no rebound, no masses. MUSCULOSKELETAL: Normal range of motion at all joints. No bony deformities or tenderness. No CVA tenderness. UPPER EXTREMITIES: 2+ pulses, warm, well-perfused. No cyanosis. No clubbing. No peripheral edema. LOWER EXTREMITIES: 2+ pulses, warm, well-perfused. No calf tenderness. No peripheral edema. NEUROLOGICAL: Cranial nerves II-XII intact. Normal speech. PSYCHIATRIC: Cooperative. Good eye contact. Appropriate mood and affect. SKIN: Warm, dry, normal turgor, no rashes or lesions noted, normal capillary refill. Laboratory Last Values WBC 8.3 K/mm3 (4.0-10.0) 11/28/19 15: RBC 4.28 M/mm3 (3.60-5.2) 11/28/19 15:22 Hgb 8.0 GM/dL (10.7-15.3) L 11/28/19 15:22 Hct 27.2 % (32.4-45.2) L D 11/28/19 15:22 MCV 63.6 fl (80-96) L 11/28/19 15:22 MCH 18.7 pg (25.7-33.7) L D 11/28/19 15: MCHC 29.4 g/dl (32.0-36.0) L 11/28/19 15: RDW 23.5 % (11.6-15.6) H 11/28/19 15:22 Plt Count 319 K/MM3 (134-434) 11/28/19 15:22 MPV 8.4 fl (7.5-11.1) D 11/28/19 15:22 Absolute Neuts (auto) 6.4 K/mm3 (1.5-8.0) 11/28/19 15:22 Neutrophils % 77.2 % (42.8-82.8) 11/28/19 15:22 Lymphocytes % 11.2 % (8-40) D 11/28/19 15:22 Monocytes % 9.9 % (3.8-10.2) 11/28/19 15:22 Eosinophils % 0.8 % (0-4.5) 11/28/19 15:22 Basophils % 0.9 % (0-2.0) 11/28/19 15:22 Nucleated RBC % 0 % (0-0) 11/28/19 15:22 Hypochromia 2+ 11/28/19 15:22 Platelet Estimate Adequate 11/28/19 15:22 Polychromasia 1+ 11/28/19 15:22 Anisocytosis 3+ 11/28/19 15:22 Microcytosis 2+ 11/28/19 15:22 Macrocytosis 1+ 11/28/19 15:22 Rouleaux 1+ 11/28/19 15:22 PT with INR 18.80 SEC (9.7-13.0) H 11/28/19 15:22 INR 1.59 (0.83-1.09) H 11/28/19 15:22 PTT (Actin FS) 30.5 SECONDS (25.2-36.5) 11/28/19 15:22 Sodium 138 mmol/L (136-145) 11/28/19 15:22 Potassium 4.5 mmol/L (3.5-5.1) 11/28/19 15:22 Chloride 106 mmol/L (98-107) 11/28/19 15:22 Carbon Dioxide 23 mmol/L (21-32) 11/28/19 15:22 Anion Gap 9 MMOL/L (8-16) 11/28/19 15:22 BUN 10.2 mg/dL (7-18) 11/28/19 15:22 Creatinine 0.6 mg/dL (0.55-1.3) 11/28/19 15:22 Est GFR (CKD-EPI)AfAm 103.34 11/28/19 15:22 Est GFR (CKD-EPI)NonAf 89.16 11/28/19 15:22 Random Glucose 77 mg/dL (74-106) 11/28/19 15:22 Calcium 8.6 mg/dL (8.5-10.1) 11/28/19 15:22 Magnesium 2.4 mg/dL (1.8-2.4) 11/28/19 15:22 Total Bilirubin 0.5 mg/dL (0.2-1) 11/28/19 15:22 AST 20 U/L (15-37) 11/28/19 15:22 ALT 14 U/L (13-61) 11/28/19 15:22 Alkaline Phosphatase 31 U/L (45-117) L 11/28/19 15:22 Creatine Kinase 36 U/L (26-192) 11/28/19 15:22 Troponin I < 0.02 ng/ml (0.00-0.05) 11/28/19 15:22 B-Natriuretic Peptide 455.0 pg/ml (5-450) H 11/28/19 15:22 Total Protein 6.8 g/dl (6.4-8.2) 11/28/19 15:22 Albumin 3.0 g/dl (3.4-5.0) L 11/28/19 15:22 Stool Occult Blood Negative (NEGATIVE) 11/28/19 16:20 CTA Chest: 1. No evidence for PE. 2. Mild aneurysmal bulge at the aortic arch. 3. Moderate nodular parenchymal infiltrates peripheral aspect of the right upper lung and right suprahilar region which may be secondary to infectious process. Clinical correlation and follow-up ASSESSMENT/PLAN: 74 yo F PMH HTN, DM, hypothyroidism, CAD s/p stent, CABG, hx of PE ( 10/2018) , presented to ED for Chest pain x 2 days. Pt is admitted for R/o ACS, pneumonia Chest pain, r/o acs - EKG reviewed, no significant ST changes. - trop neg x 1. pending rpt - cont tele monitoring - cardio consulted, Dr. Brantley - CTA neg for PE - will get lipid panel - Echo 08/2019 reviewed, EF 65%,impaired LV relaxation, moderate aortic sclerosis R Consolidation on CT, likely community acquired pneumonia - no significant leukocytosis, afebrile, not requiring supplemental O2 - will get Covid 19 swab -will send U legionella - pending BCx - will c/w empiric ceftriaxone and azithro microcytic Anemia - no signs of acute blood loss - will send iron studies - FOBT negative Hx of PE - will cont eliquis 5 mg HTN - c/w lopressor DM - ISS, BGM - will get A1C hypothyroid - c/w home synthroid DVT ppx: on eliquis F/E/N - no IVF, can take PO - monitor lytes - sodium/ fat controlled diet Dispo: tele Family Medical History Family History: Unremarkable ATTENDING PHYSICIAN STATEMENT I saw and evaluated the patient. I reviewed the resident's note and discussed the case with the resident. I agree with the resident's findings and plan as documented. SUBJECTIVE: OBJECTIVE: ASSESSMENT AND PLAN:
[2019-11-29 00:48] LABS: PH,URINE 6.5 (5.0-8.0); URINE APPEARANCE CLEAR; URINE BILIRUBIN NEGATIVE (NEGATIVE); URINE COLOR YELLOW; URINE GLUCOSE (UA) 3+ (NEGATIVE); URINE KETONE NEGATIVE (NEGATIVE); URINE LEUK ESTERASE NEGATIVE (NEGATIVE); URINE NITRITE NEGATIVE (NEGATIVE); URINE PROTEIN NEGATIVE (NEGATIVE); URINE UROBILINOGEN 0.2 mg/dL (0.2-1.0)
[2019-11-29] MEDS ORDERED: LIDOCAINE PATCH REMOVAL MC ONE (01:00)
[2019-11-29] MEDS ORDERED: ACETAMINOPHEN INJECTION 100 ML IVPB ONE ×2 (03:53→13:15)
[2019-11-29] MEDS ORDERED: ACETAMINOPHEN 1000 MG/100 ML VIAL (NON FORMULARY) IVPB ONE ×2 (04:34→13:15)
[2019-11-29 07:00] LABS: HEMATOCRIT 26.1 % (32.4-45.2); HEMOGLOBIN 7.7 GM/dL (10.7-15.3); MCHC 29.6 g/dl (32.0-36.0); MEAN CELL VOLUME 62.7 fl (80-96); MEAN PLT VOLUME 8.3 fl (7.5-11.1); PLATELET COUNT 316 K/MM3 (134-434); RBC 4.16 M/mm3 (3.60-5.2); RDW 22.9 % (11.6-15.6); WHITE BLOOD COUNT 7.7 K/mm3 (4.0-10.0)
[2019-11-29 07:06] LABS: MCH 18.6 pg (25.7-33.7)
[2019-11-29 07:26] LABS: ALBUMIN 2.8 g/dl (3.4-5.0); BILIRUBIN,TOTAL 0.6 mg/dL (0.2-1); BLOOD UREA NITROGEN 9.4 mg/dL (7-18); CALCIUM 8.3 mg/dL (8.5-10.1); CREATININE 0.6 mg/dL (0.55-1.3); MAGNESIUM 2.3 mg/dL (1.8-2.4); PHOSPHOROUS 4.1 mg/dL (2.5-4.9); TOT PROT 6.6 g/dl (6.4-8.2)
[2019-11-29 07:58] LABS: RETICULOCYTES 2.32 % (0.5-1.5)
[2019-11-29] MEDS: LEVOTHYROXINE NA 25 MCG TABLET (FP) PO SCH (08:51)
[2019-11-29] MEDS ORDERED: APIXABAN 5 MG TABLET ONE (09:18)
[2019-11-29] MEDS ORDERED: CEFTRIAXONE 1 GM/50 ML BAG ONE (09:19)
[2019-11-29] MEDS ORDERED: AZITHROMYCIN IVPB 500 MG/250 ML BAG IVPB ONE (09:19)
[2019-11-29] MEDS ORDERED: LOSARTAN POTASSIUM 50 MG TABLET (FP) ONE (09:19)
[2019-11-29] MEDS: LOSARTAN POTASSIUM 25 MG TABLET PO SCH (09:24)
[2019-11-29] MEDS: APIXABAN 5 MG TABLET PO SCH ×2 (09:24→22:52)
--- NOTE | 2019-11-29 09:35 | PN ---
Progress Note, Physician Chief Complaint: Chest pain SOB - Current Medication List Current Medications: Active Medications Apixaban (Eliquis -) 5 mg PO BID [facility] Last Admin: 11/29/19 09:24 Dose: 5 mg Documented by: Atorvastatin Calcium (Lipitor -) 40 mg PO HS [facility] Ceftriaxone Sodium 1 gm/ (Dextrose) 50 mls @ 100 mls/hr IVPB DAILY [facility] Last Admin: 11/29/19 09:24 Dose: 100 mls/hr Documented by: Azithromycin (Zithromax 500mg Ivpb (Pre-Docked)) 500 mg in 250 mls @ 250 mls/hr IVPB DAILY [facility] Levothyroxine Sodium (Synthroid -) 25 mcg PO ACBK [facility] Last Admin: 11/29/19 08:51 Dose: Not Given Documented by: Losartan Potassium (Cozaar -) 25 mg PO DAILY [facility] Last Admin: 11/29/19 09:24 Dose: 25 mg Documented by: Metoprolol Tartrate (Lopressor -) 50 mg PO DAILY [facility] - Objective Vital Signs: Vital Signs Temperature 98.9 F 11/29/19 05:58 Pulse Rate 85 11/29/19 05:58 Respiratory Rate 16 11/29/19 05:58 Blood Pressure 127/52 L 11/29/19 05:58 O2 Sat by Pulse Oximetry (%) 97 11/29/19 05:58 Constitutional: Yes: Well Nourished, No Distress, Calm Cardiovascular: Yes: Regular Rate and Rhythm Respiratory: Yes: Regular, CTA Bilaterally Gastrointestinal: Yes: Normal Bowel Sounds, Soft Genitourinary: Yes: WNL Musculoskeletal: Yes: WNL Extremities: Yes: WNL Edema: No Peripheral Pulses WNL: Yes Neurological: Yes: Alert, Oriented Psychiatric: Yes: Alert, Oriented Labs: CBC, BMP 11/29/19 06:07 11/29/19 06:07 INR, PTT INR 1.59 (0.83-1.09) H 11/28/19 15:22 Problem List - Problems (1) Anemia Assessment/Plan: -Previously Iron deficient -Stool OB negative -Repeat Iron profile pending -Normal B 12, TSH -Iron infusion if indicated Problems reviewed: Yes Code(s): D64.9 - ANEMIA, UNSPECIFIED Qualifiers: Anemia type: unspecified type Qualified Code(s): D64.9 - Anemia, unspecified (2) Chest pain Assessment/Plan: -Trops x 2 negative -EKG no changes -CTA negative -Last Echo:08/2019, EF 65%,impaired LV relaxation, moderate aortic sclerosis -Cardiology consult, if cardiology clears, would d/c pt and f/u outpatient -2/2 to Pneumonia Problems reviewed: Yes Code(s): R07.9 - CHEST PAIN, UNSPECIFIED Qualifiers: Chest pain type: chest pain on breathing Qualified Code(s): R07.1 - Chest pain on breathing; R07.81 - Pleurodynia (3) Shortness of breath Assessment/Plan: -2/2 to pneumonia Problems reviewed: Yes Code(s): R06.02 - SHORTNESS OF BREATH (4) Diabetes Assessment/Plan: -A1c at 5.6 -D/C jardiance and januvia -May continue metformin -Continue dietary and lifestyle modification Problems reviewed: Yes Code(s): E11.9 - TYPE 2 DIABETES MELLITUS WITHOUT COMPLICATIONS Qualifiers: Diabetes mellitus type: type 2 (5) Pneumonia Assessment/Plan: -ID consult -IV Zosyn -COVID 19 PCR negative -O2 to keep SpO2>90% Problems reviewed: Yes Code(s): J18.9 - PNEUMONIA, UNSPECIFIED ORGANISM Qualifiers: Pneumonia type: due to unspecified organism Laterality: right Lung location: unspecified part of lung Qualified Code(s): J18.9 - Pneumonia, unspecified organism Assessment/Plan See problem list
[2019-11-29] MEDS ORDERED: ACETAMINOPHEN 325 MG TABLET (FP) PO PRN (09:38)
[2019-11-29] MEDS ORDERED: ENOXAPARIN NA (PORCINE) 40 MG/0.4 ML DISP.SYRIN SQ SCH (10:00)
[2019-11-29] MEDS ORDERED: CEFTRIAXONE 1 GM in DEXTROSE 5%-WATER - 50 ML IVPB SCH (10:00)
[2019-11-29] MEDS ORDERED: TICAGRELOR 90 MG TABLET PO ONE (10:11)
[2019-11-29] MEDS: TICAGRELOR 90 MG TABLET PO SCH (10:17)
[2019-11-29] MEDS: AZITHROMYCIN IVPB 500 MG/250 ML BAG IVPB SCH (10:17)
[2019-11-29] MEDS ORDERED: ALBUTEROL SO4 HFA INHALER IH ONE (14:21)
[2019-11-29] MEDS ORDERED: ALBUTEROL SO4 HFA INHALER IH SCH (14:30)
[2019-11-29] MEDS: ALBUTEROL SO4 HFA INHALER IH SCH ×2 (16:48→20:04)
[2019-11-29] MEDS: ATORVASTATIN CA 40 MG TABLET (FP) PO SCH (22:52)
[2019-11-30 02:15] VITALS: BMI 31.5
[2019-11-30] MEDS: TICAGRELOR 90 MG TABLET PO SCH ×3 (02:15→21:54)
[2019-11-30] MEDS: LEVOTHYROXINE NA 25 MCG TABLET (FP) PO SCH (06:58)
--- NOTE | 2019-11-30 07:42 | PN ---
Progress Note, Physician - Current Medication List Current Medications: Active Medications Acetaminophen (Tylenol -) 650 mg PO Q4H PRN PRN Reason: PAIN 1-3 Last Admin: 11/29/19 22:52 Dose: 650 mg Documented by: Albuterol Sulfate (Ventolin Hfa Inhaler -) 2 puff IH RQID [facility] Last Admin: 11/29/19 20:04 Dose: 2 puff Documented by: Apixaban (Eliquis -) 5 mg PO BID [facility] Last Admin: 11/29/19 22:52 Dose: 5 mg Documented by: Atorvastatin Calcium (Lipitor -) 40 mg PO HS [facility] Last Admin: 11/29/19 22:52 Dose: 40 mg Documented by: Ceftriaxone Sodium 1 gm/ (Dextrose) 50 mls @ 100 mls/hr IVPB DAILY [facility] Last Admin: 11/29/19 09:24 Dose: 100 mls/hr Documented by: Azithromycin (Zithromax 500mg Ivpb (Pre-Docked)) 500 mg in 250 mls @ 250 mls/hr IVPB DAILY [facility] Last Admin: 11/29/19 10:17 Dose: 250 mls/hr Documented by: Levothyroxine Sodium (Synthroid -) 25 mcg PO ACBK [facility] Last Admin: 11/30/19 06:58 Dose: 25 mcg Documented by: Losartan Potassium (Cozaar -) 25 mg PO DAILY [facility] Last Admin: 11/29/19 09:24 Dose: 25 mg Documented by: Metoprolol Tartrate (Lopressor -) 50 mg PO DAILY [facility] Ticagrelor (Brilinta -) 90 mg PO BID [facility] Last Admin: 11/30/19 02:15 Dose: Not Given Documented by: - Objective Vital Signs: Vital Signs Temperature 97.8 F 11/30/19 05:00 Pulse Rate 81 11/30/19 05:00 Respiratory Rate 18 11/30/19 05:00 Blood Pressure 109/68 11/30/19 05:00 O2 Sat by Pulse Oximetry (%) 100 11/30/19 02:04 Cardiovascular: Yes: S1, S2 Respiratory: Yes: Regular, Rhonchi Gastrointestinal: Yes: Normal Bowel Sounds, Soft. No: Tenderness Labs: CBC, BMP 11/29/19 06:07 11/29/19 06:07 INR, PTT INR 1.59 (0.83-1.09) H 11/28/19 15:22 Assessment/Plan - Problems (1) Anemia Assessment/Plan: -Previously Iron deficient -Stool OB negative -Repeat Iron profile and cbc pending -Normal B 12, TSH -Iron infusion if indicated -GI and Hem consult Problems reviewed: Yes Code(s): D64.9 - ANEMIA, UNSPECIFIED Qualifiers: Anemia type: unspecified type Qualified Code(s): D64.9 - Anemia, unspecified (2) Chest pain Assessment/Plan: -Trops x 2 negative -EKG no changes -CTA negative -Last Echo:08/2019, EF 65%,impaired LV relaxation, moderate aortic sclerosis -Cardiology consult, if cardiology clears, would d/c pt and f/u outpatient -2/2 to Pneumonia Problems reviewed: Yes Code(s): R07.9 - CHEST PAIN, UNSPECIFIED Qualifiers: Chest pain type: chest pain on breathing Qualified Code(s): R07.1 - Chest pain on breathing; R07.81 - Pleurodynia (3) Shortness of breath Assessment/Plan: -2/2 to pneumonia Problems reviewed: Yes Code(s): R06.02 - SHORTNESS OF BREATH (4) Diabetes Assessment/Plan: -A1c at 5.6 -D/C jardiance and januvia -May continue metformin -Continue dietary and lifestyle modification Problems reviewed: Yes Code(s): E11.9 - TYPE 2 DIABETES MELLITUS WITHOUT COMPLICATIONS Qualifiers: Diabetes mellitus type: type 2 (5) Pneumonia Assessment/Plan: -ID consult -IV Zosyn -COVID 19 PCR negative -O2 to keep SpO2>90% Problems reviewed: Yes Code(s): J18.9 - PNEUMONIA, UNSPECIFIED ORGANISM Qualifiers: Pneumonia type: due to unspecified organism Laterality: right Lung location: unspecified part of lung Qualified Code(s): J18.9 - Pneumonia, unspecified organism
[2019-11-30] MEDS: ALBUTEROL SO4 HFA INHALER IH SCH ×4 (08:00→20:00)
[2019-11-30] MEDS ORDERED: PT OWN MED DRAWER 7, Y5N ONE ×2 (08:54→20:40)
[2019-11-30] MEDS: LOSARTAN POTASSIUM 25 MG TABLET PO SCH (10:16)
[2019-11-30] MEDS: METOPROLOL TARTRATE 50 MG TABLET (FP) PO SCH (10:16)
[2019-11-30] MEDS: APIXABAN 5 MG TABLET PO SCH ×2 (10:16→21:54)
[2019-11-30] MEDS: AZITHROMYCIN IVPB 500 MG/250 ML BAG IVPB SCH (10:17)
[2019-11-30] MEDS ORDERED: DEXTROSE 5%-WATER - 50 ML IVPB ONE (10:41)
[2019-11-30] MEDS ORDERED: cefTRIAXone SODIUM 1 GM VIAL ONE (10:41)
--- NOTE | 2019-11-30 10:49 | CON.CARD ---
Cardiology Consult (text) - Consultation Consultation Note: Chief Complaint: chest pain History of Present Illness: 74F w/ HTN, HLD, DM , CAD w/ multiple stents and cabg, pe 10/2018 here with cp. Past 4 days with mild right sided sharp chest pain, worse with deep breath. Also some sob/hendrickson. No palps dizzy loc pnd orthopnea le edema. - History Source History Provided By: Patient, Medical Record - Past Medical History Cardio/Vascular: Yes: CAD, CHF (possible diastolic HF), HTN, Hyperlipdemia, [place] (IWSTEMI September 2011 s/p PCI RCA with staged LM/LAD/LCx) Pulmonary: Yes: Asthma Gastrointestinal: Yes: GERD Endocrine: Yes: Diabetes Mellitus, Hypothyroidism - Past Surgical History Past Surgical History: Yes: Stent - Alcohol/Substance Use Hx Alcohol Use: No - Smoking History Smoking history: Never smoked Have you smoked in the past 12 months: No Aproximately how many cigarettes per day: 0 If you are a former smoker, when did you quit?: 12 years ago - Social History Usual Living Arrangement: Alone ADL: Independent History of Recent Travel: No Home Medications - Allergies Allergies/Adverse Reactions: Allergies Allergy/AdvReac Type Severity Reaction Status Date / Time No Known Drug Allergies Allergy Unknown Verified 11/28/19 11:46 CLAMS Allergy Vomiting Uncoded 11/28/19 11:46 Home Medications Medication Instructions Recorded Levothyroxine [Synthroid -] 25 mcg PO DAILY 03/15/15 Atorvastatin Ca [Lipitor] 40 mg PO HS 05/21/18 Metoprolol Tartrate [Lopressor -] 50 mg PO DAILY 11/06/18 Sitagliptin Phos/Metformin HCl 1 tab PO DAILY 11/06/18 [Janumet 50-1,000 mg Tablet] Acetaminophen [Tylenol .Regular 650 mg PO Q4H PRN tablet 11/12/18 Strength -] Apixaban [Eliquis] 5 mg PO BID #30 tablet 11/12/18 Empagliflozin [Jardiance] 25 mg PO DAILY 11/28/19 Losartan Potassium [Cozaar -] 25 mg PO DAILY 11/28/19 Ticagrelor [Brilinta] 90 mg PO BID 11/28/19 Family Disease History - Family Disease History Family History: Unremarkable Review of Systems per hpi; all others nl Vital Signs: Vital Signs Period Temp Pulse Resp BP Sys/Melchor Pulse Ox Last 24 Hr 97.2 F-98.8 F 68-96 16-22 102-130/48-68 97-100 Constitutional: Yes: No Distress, Calm Eyes: Yes: Conjunctiva Clear, EOM Intact HENT: Yes: Atraumatic, Normocephalic Neck: Yes: Supple, Trachea Midline Respiratory: Yes: CTA Bilaterally (no wheezing, rales) Gastrointestinal: Yes: Soft (NT, no rebound or guarding) Cardiovascular: Yes: Regular Rate and Rhythm JVD: No Carotid Bruit: No PMI: Non-Displaced Heart Sounds: Yes: S1, S2 (rrr, no m/r/g) Edema: No Peripheral Pulses WNL: Yes Neurological: Yes: Alert, Oriented no jaundice diaphoresis Laboratory Last Values WBC 7.7 K/mm3 (4.0-10.0) 11/29/19 06:07 RBC 4.16 M/mm3 (3.60-5.2) 11/29/19 06:07 Hgb 7.7 GM/dL (10.7-15.3) L 11/29/19 06:07 Hct 26.1 % (32.4-45.2) L 11/29/19 06:07 MCV 62.7 fl (80-96) L 11/29/19 06:07 MCH 18.6 pg (25.7-33.7) L 11/29/19 06:07 MCHC 29.6 g/dl (32.0-36.0) L 11/29/19 06:07 RDW 22.9 % (11.6-15.6) H 11/29/19 06:07 Plt Count 316 K/MM3 (134-434) 11/29/19 06:07 MPV 8.3 fl (7.5-11.1) 11/29/19 06:07 Absolute Neuts (auto) 6.4 K/mm3 (1.5-8.0) 11/28/19 15:22 Neutrophils % 77.2 % (42.8-82.8) 11/28/19 15:22 Lymphocytes % 11.2 % (8-40) D 11/28/19 15:22 Monocytes % 9.9 % (3.8-10.2) 11/28/19 15:22 Eosinophils % 0.8 % (0-4.5) 11/28/19 15:22 Basophils % 0.9 % (0-2.0) 11/28/19 15:22 Nucleated RBC % 0 % (0-0) 11/28/19 15:22 Hypochromia 2+ 11/28/19 15:22 Platelet Estimate Adequate 11/28/19 15:22 Polychromasia 1+ 11/28/19 15:22 Anisocytosis 3+ 11/28/19 15:22 Microcytosis 2+ 11/28/19 15:22 Macrocytosis 1+ 11/28/19 15:22 Rouleaux 1+ 11/28/19 15:22 Retic Count 2.32 % (0.5-1.5) H D 11/29/19 06:07 PT with INR 18.80 SEC (9.7-13.0) H 11/28/19 15:22 INR 1.59 (0.83-1.09) H 11/28/19 15:22 PTT (Actin FS) 30.5 SECONDS (25.2-36.5) 11/28/19 15:22 Sodium 138 mmol/L (136-145) 11/29/19 06:07 Potassium 4.0 mmol/L (3.5-5.1) 11/29/19 06:07 Chloride 106 mmol/L (98-107) 11/29/19 06:07 Carbon Dioxide 24 mmol/L (21-32) 11/29/19 06:07 Anion Gap 8 MMOL/L (8-16) 11/29/19 06:07 BUN 9.4 mg/dL (7-18) 11/29/19 06:07 Creatinine 0.6 mg/dL (0.55-1.3) 11/29/19 06:07 Est GFR (CKD-EPI)AfAm 103.34 11/29/19 06:07 Est GFR (CKD-EPI)NonAf 89.16 11/29/19 06:07 POC Glucometer 126 UNITS (80-120) 11/30/19 05:36 Random Glucose 126 mg/dL (74-106) H 11/29/19 06:07 Hemoglobin A1c % 5.6 % (4.2-6.3) 11/29/19 06:07 Calcium 8.3 mg/dL (8.5-10.1) L 11/29/19 06:07 Phosphorus 4.1 mg/dL (2.5-4.9) 11/29/19 06:07 Magnesium 2.3 mg/dL (1.8-2.4) 11/29/19 06:07 Ferritin 15.1 ng/ml (8-388) 11/29/19 06:07 Total Bilirubin 0.6 mg/dL (0.2-1) 11/29/19 06:07 AST 13 U/L (15-37) L 11/29/19 06:07 ALT 13 U/L (13-61) 11/29/19 06:07 Alkaline Phosphatase 34 U/L (45-117) L 11/29/19 06:07 Creatine Kinase 36 U/L (26-192) 11/28/19 15:22 Troponin I < 0.02 ng/ml (0.00-0.05) 11/28/19 23:45 B-Natriuretic Peptide 455.0 pg/ml (5-450) H 11/28/19 15:22 Total Protein 6.6 g/dl (6.4-8.2) 11/29/19 06:07 Albumin 2.8 g/dl (3.4-5.0) L 11/29/19 06:07 Triglycerides 102 mg/dL (0-150) 11/29/19 06:07 Cholesterol 104 mg/dL (50-200) 11/29/19 06:07 Total LDL Cholesterol 57 mg/dL (5-100) 11/29/19 06:07 HDL Cholesterol 32 mg/dL (40-60) L 11/29/19 06:07 Vitamin B12 479 pg/ml (193-986) 11/29/19 06:07 Urine Color Yellow 11/29/19 00:00 Urine Appearance Clear 11/29/19 00:00 Urine pH 6.5 (5.0-8.0) D 11/29/19 00:00 Ur Specific [place] 1.035 (1.010-1.035) 11/29/19 00:00 Urine Protein Negative (NEGATIVE) 11/29/19 00:00 Urine Glucose (UA) 3+ (NEGATIVE) H 11/29/19 00:00 Urine Ketones Negative (NEGATIVE) 11/29/19 00:00 Urine Blood Negative (NEGATIVE) 11/29/19 00:00 Urine Nitrite Negative (NEGATIVE) 11/29/19 00:00 Urine Bilirubin Negative (NEGATIVE) 11/29/19 00:00 Urine Urobilinogen 0.2 mg/dL (0.2-1.0) 11/29/19 00:00 Ur Leukocyte Esterase Negative (NEGATIVE) 11/29/19 00:00 Stool Occult Blood Negative (NEGATIVE) 11/28/19 16:20 COVID-19 (CONNIE) Not detected (Not Detected) 11/28/19 23:10 echo 10/2018 mildly reduced LV function, mild global hypokinesis of LV, nl RV, tr TR echo 08/2019: nl lv/rv, no sig valve path tele: sr cta chest: no pe, +r pna, no chf ecg: sr, no ischemic changes, nl intervals Assessment/Plan 74F w/ HTN, HLD, DM , CAD w/ multiple stents and cabg, pe 10/2018 here with cp. pna: -cont abx cp, sob: -no signs acs or chf. symptoms likely from pna. cont abx. -recent echo unremarkable hx of PE 2019: -no pe on cta here -on ac -echo nl RV function HTN: -cont home bb, arb HLD: -cont statin CAD, pci, cabg: -as above -cont arb, bb, statin, brilinta stable for dc from cardiac perspective
--- NOTE | 2019-11-30 10:59 | EKG ---
Test Reason : Blood Pressure : / mmHG Vent. Rate : 076 BPM Atrial Rate : 076 BPM P-R Int : 140 ms QRS Dur : 080 ms QT Int : 388 ms P-R-T Axes : 045 -07 001 degrees QTc Int : 436 ms NORMAL SINUS RHYTHM INFERIOR INFARCT (CITED ON OR BEFORE 29-SEP-2011) NONSPECIFIC T WAVE ABNORMALITY ABNORMAL ECG WHEN COMPARED WITH ECG OF 28-NOV-2019 11:44, VENT. RATE HAS DECREASED Confirmed by RAMYA LAWRENCE MD ([id number]) on 11/30/2019 10:59:44 AM Referred By: Confirmed By:RAMYA LAWRENCE MD
--- NOTE | 2019-11-30 11:04 | EKG ---
Test Reason : Blood Pressure : / mmHG Vent. Rate : 107 BPM Atrial Rate : 107 BPM P-R Int : 140 ms QRS Dur : 074 ms QT Int : 332 ms P-R-T Axes : 047 -04 -12 degrees QTc Int : 443 ms SINUS TACHYCARDIA POSSIBLE LEFT ATRIAL ENLARGEMENT INFERIOR INFARCT (CITED ON OR BEFORE 29-SEP-2011) ABNORMAL ECG WHEN COMPARED WITH ECG OF 11-FEB-2019 11:39, NO SIGNIFICANT CHANGE WAS FOUND Confirmed by MELINDA ISLAS, RAMYA ([id number]) on 11/30/2019 11:03:54 AM Referred By: Confirmed By:RAMYA LAWRENCE MD
--- NOTE | 2019-11-30 12:11 | CON.GI ---
Consult Consult Specialty:: GI Referred by:: Dr. Barber Tena Reason for Consultation:: Anemia - History of Present Illness Chief Complaint: Right sided chest pain and shortness of breath History of Present Illness: 74F admitted for evaluation of shortness of breath and right sided chest pain. Asked to evaluate anemia. Patient states that she had been told of anemia by her PMD Dr. Rojas in the past. No overt bleeding history, Believes that she may have had an upper endoscopy in the past. No colonoscopy. Maintained on eliquis. No family history of colon cancer or other GI malignancy. Still with right sided chest pain. Still short of breath. Being treated for RLL PNA. - History Source History Provided By: Patient - Past Medical History Cardio/Vascular: Yes: CAD, CHF (possible diastolic HF), HTN, Hyperlipdemia, [place] (IWSTEMI September 2011 s/p PCI RCA with staged LM/LAD/LCx) Pulmonary: Yes: Asthma Gastrointestinal: Yes: GERD ...: No Endocrine: Yes: Diabetes Mellitus, Hypothyroidism - Past Surgical History Past Surgical History: Yes: Stent Additional Surgical History: CABG - Alcohol/Substance Use Hx Alcohol Use: No - Smoking History Smoking history: Former smoker Have you smoked in the past 12 months: No Aproximately how many cigarettes per day: 0 If you are a former smoker, when did you quit?: 15-20 yrs ago - Social History Usual Living Arrangement: Alone ADL: Independent Place of : Other ([place]) History of Recent Travel: No Home Medications - Allergies Allergies/Adverse Reactions: Allergies Allergy/AdvReac Type Severity Reaction Status Date / Time No Known Drug Allergies Allergy Unknown Verified 11/28/19 11:46 CLAMS Allergy Vomiting Uncoded 11/28/19 11:46 - Home Medications Home Medications: Ambulatory Orders Levothyroxine [Synthroid -] 25 mcg PO DAILY 03/15/15 Atorvastatin Ca [Lipitor] 40 mg PO HS 05/21/18 Metoprolol Tartrate [Lopressor -] 50 mg PO DAILY 11/06/18 Sitagliptin Phos/Metformin HCl [Janumet 50-1,000 mg Tablet] 1 tab PO DAILY 11/06/18 Acetaminophen [Tylenol .Regular Strength -] 650 mg PO Q4H PRN tablet 11/12/18 Apixaban [Eliquis] 5 mg PO BID #30 tablet 11/12/18 Empagliflozin [Jardiance] 25 mg PO DAILY 11/28/19 Losartan Potassium [Cozaar -] 25 mg PO DAILY 11/28/19 Ticagrelor [Brilinta] 90 mg PO BID 11/28/19 Family Medical History Other Family History: Mother: : 70's: Got sick. Father: : 80's: got sick. No siblings. 2 sons: healthy. No family history of colorectal cancer or other GI malignancy Review of Systems - Review of Systems Constitutional: reports: Chills Cardiovascular: reports: Chest Pain Respiratory: reports: Cough, SOB Gastrointestinal: denies: Abdominal Pain, Diarrhea, Melena, Nausea, Rectal Bleeding, Vomiting Physical Exam-GI Vital Signs: Vital Signs Temperature 97.6 F 11/30/19 09:00 Pulse Rate 96 H 11/30/19 09:00 Respiratory Rate 22 H 11/30/19 09:00 Blood Pressure 118/60 11/30/19 09:00 O2 Sat by Pulse Oximetry (%) 97 11/30/19 09:00 Constitutional: Yes: Calm Eyes: No: Sclera Icterus Cardiovascular: Yes: Regular Rate and Rhythm Respiratory: Yes: CTA Bilaterally Gastrointestinal Inspection: No: Distention ...Auscultate: Yes: Normoactive Bowel Sounds ...Palpate: Yes: Soft. No: Hepatomegaly, Splenomegaly, Tenderness ...Percussion: No: Tympanitic ...Rectal Exam: Yes: Other (No external lesions, no masses, light brown stool in rectal vault, guaiac negative.) Edema: No (No LE edema) Neurological: Yes: Alert Labs: CBC, BMP 11/29/19 06:07 11/29/19 06:07 INR, PTT INR 1.59 (0.83-1.09) H 11/28/19 15:22 Problem List - Problems (1) Anemia Assessment/Plan: Guaiac negative on exam without overt bleeding history. Advise: Iron studies Heme evaluation Will need colonoscopy +/- endoscopy once pulmonary status permits, once medically cleared and with Eliquis held for three days. If she needs bridging anticoagulation while eliquis held, this should be addressed by PMD/Line Installation Supervisor Code(s): D64.9 - ANEMIA, UNSPECIFIED Qualifiers: Anemia type: unspecified type Qualified Code(s): D64.9 - Anemia, unspecified
[2019-11-30] MEDS: CEFTRIAXONE 1 GM in DEXTROSE 5%-WATER - 50 ML IVPB SCH (12:30)
[2019-11-30 14:02] LABS: BASO % 0.4 % (0-2.0); EOS % 3.3 % (0-4.5); HEMATOCRIT 27.8 % (32.4-45.2); HEMOGLOBIN 8.3 GM/dL (10.7-15.3); LYMPH % 11.7 % (8-40); MEAN CELL VOLUME 63.9 fl (80-96); MEAN PLT VOLUME 8.7 fl (7.5-11.1); MONO % 7.4 % (3.8-10.2); NEUT % 77.2 % (42.8-82.8); PLATELET COUNT 356 K/MM3 (134-434); RBC 4.36 M/mm3 (3.60-5.2); RDW 23.7 % (11.6-15.6); WHITE BLOOD COUNT 4.8 K/mm3 (4.0-10.0)
[2019-11-30 14:06] LABS: MCH 19.1 pg (25.7-33.7)
[2019-11-30 14:13] LABS: ALBUMIN 2.8 g/dl (3.4-5.0); BILIRUBIN,TOTAL 0.4 mg/dL (0.2-1); BLOOD UREA NITROGEN 9.1 mg/dL (7-18); CALCIUM 8.6 mg/dL (8.5-10.1); CREATININE 0.7 mg/dL (0.55-1.3); TOT PROT 7.6 g/dl (6.4-8.2)
--- NOTE | 2019-11-30 14:29 | PN ---
Progress Note (short form) - Note Progress Note: ID CONSULT DICTATED COMMUNITY ACQUIRED V. ATYPICAL RUL PNEUMONIA CAD S/P CABG AWAIT C/S CONTINUE ZITHROMAX/ CEFTRIAXONE
--- NOTE | 2019-11-30 14:58 | CONS ---
INFECTIOUS DISEASE CONSULTATION DATE OF CONSULTATION: DATE OF DICTATION: 11/30/2019 HISTORY: The patient is a 74-year-old female with a history of coronary artery disease who is evaluated for pneumonia. She was admitted to the hospital on November 28, 2019, with a 2- to 3-day history of worsening right-sided chest pain associated with chills. Chest pain was described as pleuritic in nature. She was evaluated in the emergency room where a CT angiogram was performed and was negative for acute pulmonary embolism. She was, however, noted to have a patchy right upper lobe infiltrate. She was empirically treated with Zithromax and ceftriaxone. A COVID-19 PCR screen was sent and was negative. Patient reports dry cough. She denies any purulent sputum production or hemoptysis. She lives at home. She denies any ill contacts. She does have a home health aide that is with her 4 hours a day who does not have respiratory tract symptoms. She is a former smoker, stopped many years ago. She is originally from [place], has been living in [place] for approximately 20 years. PAST MEDICAL HISTORY: Positive for coronary artery disease, myocardial infarction, coronary artery stent, pulmonary embolism, gastroesophageal reflux, hyperlipidemia, hypothyroidism, hypertension, noninsulin-dependent diabetes mellitus. PAST SURGICAL HISTORY: Status post coronary artery bypass graft 2018. ALLERGIES: No known allergies. MEDICATIONS: Include Zithromax, ceftriaxone, albuterol, Eliquis, Brilinta, Lipitor, losartan, metoprolol, Tylenol, Synthroid. SOCIAL HISTORY: Former smoker, stopped many years ago. She lives alone. SYSTEMS REVIEW: Neurologic: No loss of consciousness, seizure activity, focal weakness. Cardiac: As per HPI. Respiratory: As per HPI. Gastrointestinal: Negative vomiting or diarrhea. Genitourinary: Negative for urinary tract infection. LABORATORY DATA: White count 4.8, hematocrit 27.8, platelets 356, BUN 9, creatinine 0.6. Urine analysis negative. Urine legionella antigen negative. COVID-19 PCR negative. PHYSICAL EXAMINATION: General: She is awake and alert. She is not acutely toxic appearing. She is seated in bed. She is not acutely short of breath at rest on nasal cannula oxygen. Vital Signs: Temperature is 97.6, T-max 101.7, blood pressure 118/60, pulse 96 regular, respirations 22 per minute, her O2 saturation 97% on room air. HEENT: Sclerae anicteric. Heart: Sounds S1, S2. Lungs: Clear bilaterally. No rhonchi, rales or wheezing. Abdomen: Soft and obese, nontender. Extremities: Negative for edema. Negative Homans sign. IMPRESSION: 1. Community-acquired versus atypical right upper lobe pneumonia. 2. Coronary artery disease. 3. History of pulmonary embolism. 4. Status post coronary artery bypass graft. Await cultures. Obtain sputum culture. Continue empiric antibiotic coverage for community-acquired versus atypical pneumonia with Zithromax and ceftriaxone. Supplemental oxygen, inhaled bronchodilators. Will follow. Thank you for the kind referral. PHYLLIS ALANIZ M.D. [id number]
--- NOTE | 2019-11-30 15:07 | CON.HO ---
Consult Consult Specialty:: Hematology Reason for Consultation:: Anemia - History of Present Illness Chief Complaint: Chest Pain History of Present Illness: 74F with HTN, DM, CAD s/p ZAHEER, CABG, PE on eliquis in 2018 presented pleuritic CP x 2 days with associated worsening SOB. CTA in ER was negative for PE but found to have R lobe PNA, also admitted for r/o ACS. Started on antibiotics for CAP. Heme consulted for anemia, Hb 8 on arrival (Hb 7.7 today) MCV 63.6, plts 319. On review of previous CBC, Hb in Jan 2019 10.7, and normal in May 2018. MCV also normal in October 2018. FOBT during this hospital stay is negative. - Past Medical History Cardio/Vascular: Yes: CAD, CHF (possible diastolic HF), HTN, Hyperlipdemia, [place] (IWSTEMI September 2011 s/p PCI RCA with staged LM/LAD/LCx) Pulmonary: Yes: Asthma Gastrointestinal: Yes: GERD ...: No Endocrine: Yes: Diabetes Mellitus, Hypothyroidism - Past Surgical History Past Surgical History: Yes: Stent Additional Surgical History: CABG - Alcohol/Substance Use Hx Alcohol Use: No - Smoking History Smoking history: Former smoker Have you smoked in the past 12 months: No Aproximately how many cigarettes per day: 0 If you are a former smoker, when did you quit?: 15-20 yrs ago - Social History Usual Living Arrangement: Alone ADL: Independent History of Recent Travel: No Home Medications - Allergies Allergies/Adverse Reactions: Allergies Allergy/AdvReac Type Severity Reaction Status Date / Time No Known Drug Allergies Allergy Unknown Verified 11/28/19 11:46 CLAMS Allergy Vomiting Uncoded 11/28/19 11:46 - Home Medications Home Medications: Ambulatory Orders Levothyroxine [Synthroid -] 25 mcg PO DAILY 03/15/15 Atorvastatin Ca [Lipitor] 40 mg PO HS 05/21/18 Metoprolol Tartrate [Lopressor -] 50 mg PO DAILY 11/06/18 Sitagliptin Phos/Metformin HCl [Janumet 50-1,000 mg Tablet] 1 tab PO DAILY 11/06/18 Acetaminophen [Tylenol .Regular Strength -] 650 mg PO Q4H PRN tablet 11/12/18 Apixaban [Eliquis] 5 mg PO BID #30 tablet 11/12/18 Empagliflozin [Jardiance] 25 mg PO DAILY 11/28/19 Losartan Potassium [Cozaar -] 25 mg PO DAILY 11/28/19 Ticagrelor [Brilinta] 90 mg PO BID 11/28/19 Family Medical History Other Family History: Mother: : 70's: Got sick. Father: : 80's: got sick. No siblings. 2 sons: healthy. No family history of colorectal cancer or other GI malignancy Review of Systems - Review of Systems Constitutional: reports: Lethargy Eyes: reports: No Symptoms HENT: reports: No Symptoms Neck: reports: No Symptoms Cardiovascular: reports: Chest Pain Respiratory: reports: SOB Gastrointestinal: reports: No Symptoms Musculoskeletal: reports: No Symptoms Integumentary: reports: No Symptoms Neurological: reports: No Symptoms Endocrine: reports: No Symptoms Hematology/Lymphatic: reports: No Symptoms Psychiatric: reports: No Symptoms Physical Exam Vital Signs: Vital Signs Temperature 97.6 F 11/30/19 09:00 Pulse Rate 96 H 11/30/19 09:00 Respiratory Rate 22 H 11/30/19 09:00 Blood Pressure 118/60 11/30/19 09:00 O2 Sat by Pulse Oximetry (%) 97 11/30/19 09:00 Labs: CBC, BMP 11/30/19 13:20 11/30/19 13:20 Assessment/Plan 74F with HTN, DM, CAD s/p ZAHEER, CABG, PE on eliquis in 2018 presented pleuritic CP x 2 days with associated worsening SOB; admitted for CAP found to be anemic Anemia (Hb 7.7) normal in 2019 with normal MCV. INR elevated (probably from underlying eliquis use) -agree with iron studies, b12/folate, TSH, retic count, LDH, haptoglobin -will follow up labs
--- NOTE | 2019-11-30 15:36 | CON.PULM ---
Consult Consult Specialty:: PULM/CCM Referred by:: Hospitalist Reason for Consultation:: PNA - History of Present Illness Chief Complaint: SOB History of Present Illness: 74 F, HTN, DM, hypothyroidism, CAD s/p stent, CABG, and previous history of PE on DOAC. Admitted via the ER due to right sternal chest pain x 2 days. Reports that symptoms worsen with deep inspiration. No travel history or sick contacts. Denies specific COVID19 exposure. No night sweats or hemoptysis. CTA : No PE (previous CTA RLL segmental) / RUL dense infiltrate and consolidation. - History Source History Provided By: Patient Limitations to Obtaining History: No Limitations - Past Medical History Cardio/Vascular: Yes: CAD, CHF (possible diastolic HF), HTN, Hyperlipdemia, [place] (IWSTEMI September 2011 s/p PCI RCA with staged LM/LAD/LCx) Pulmonary: Yes: Asthma, Bronchitis, Pneumonia, Pulmonary Embolus. No: Cancer, COPD, O2 Dependent, Previously Intubated, Pulmonary Fibrosis, Sleep Apnea Gastrointestinal: Yes: GERD ...: No Endocrine: Yes: Diabetes Mellitus, Hypothyroidism - Past Surgical History Past Surgical History: Yes: Stent Additional Surgical History: CABG - Alcohol/Substance Use Hx Alcohol Use: No - Smoking History Smoking history: Former smoker Have you smoked in the past 12 months: No Aproximately how many cigarettes per day: 0 If you are a former smoker, when did you quit?: 15-20 yrs ago - Social History Usual Living Arrangement: Alone ADL: Independent History of Recent Travel: No Home Medications - Allergies Allergies/Adverse Reactions: Allergies Allergy/AdvReac Type Severity Reaction Status Date / Time No Known Drug Allergies Allergy Unknown Verified 11/28/19 11:46 CLAMS Allergy Vomiting Uncoded 11/28/19 11:46 - Home Medications Home Medications: Ambulatory Orders Levothyroxine [Synthroid -] 25 mcg PO DAILY 03/15/15 Atorvastatin Ca [Lipitor] 40 mg PO HS 05/21/18 Metoprolol Tartrate [Lopressor -] 50 mg PO DAILY 11/06/18 Sitagliptin Phos/Metformin HCl [Janumet 50-1,000 mg Tablet] 1 tab PO DAILY 11/06/18 Acetaminophen [Tylenol .Regular Strength -] 650 mg PO Q4H PRN tablet 11/12/18 Apixaban [Eliquis] 5 mg PO BID #30 tablet 11/12/18 Empagliflozin [Jardiance] 25 mg PO DAILY 11/28/19 Losartan Potassium [Cozaar -] 25 mg PO DAILY 11/28/19 Ticagrelor [Brilinta] 90 mg PO BID 11/28/19 Family Medical History Other Family History: Mother: : 70's: Got sick. Father: : 80's: got sick. No siblings. 2 sons: healthy. No family history of colorectal cancer or other GI malignancy Review of Systems - Review of Systems Constitutional: reports: Malaise. denies: Chills, Fever, Night Sweats Eyes: reports: No Symptoms HENT: reports: No Symptoms Neck: reports: No Symptoms Cardiovascular: reports: Chest Pain, Shortness of Breath. denies: Edema, Palpitations Respiratory: reports: Cough, SOB, SOB on Exertion. denies: Hemoptysis, Snoring, Wheezing Gastrointestinal: reports: No Symptoms Genitourinary: reports: No Symptoms Breasts: reports: No Symptoms Reported Musculoskeletal: reports: No Symptoms Integumentary: reports: No Symptoms Neurological: reports: No Symptoms Endocrine: reports: No Symptoms Hematology/Lymphatic: reports: No Symptoms Psychiatric: reports: No Symptoms Physical Exam Vital Sings: Vital Signs Temperature 97.6 F 11/30/19 09:00 Pulse Rate 96 H 11/30/19 09:00 Respiratory Rate 22 H 11/30/19 09:00 Blood Pressure 118/60 11/30/19 09:00 O2 Sat by Pulse Oximetry (%) 97 11/30/19 09:00 Constitutional: Yes: No Distress, Obese Eyes: Yes: Conjunctiva Clear, EOM Intact HENT: Yes: Atraumatic, Normocephalic Neck: Yes: Supple, Trachea Midline Cardiovascular: Yes: Regular Rate and Rhythm Respiratory: Yes: Cough, On Nasal O2, Rhonchi, SOB, SOB on Exertion. No: Accessory Muscle Use, Rales, Stridor, Tachypnea, Wheezes ...Inspection: Yes: WNL ...Clubbing: No Gastrointestinal: Yes: Normal Bowel Sounds, Soft, Abdomen, Obese Renal/: Yes: WNL Musculoskeletal: Yes: WNL Extremities: Yes: WNL Edema: No Peripheral Pulses WNL: Yes Integumentary: Yes: WNL Neurological: Yes: WNL, Alert, Oriented ...Motor Strength: WNL Psychiatric: Yes: WNL, Alert, Oriented Labs: CBC, BMP 11/30/19 13:20 11/30/19 13:20 Imaging - Results Chest X-ray: Report Reviewed, Image Reviewed Cat Scan: Report Reviewed, Image Reviewed Problem List - Problems (1) Obesity Code(s): E66.9 - OBESITY, UNSPECIFIED (2) Chest pain Code(s): R07.9 - CHEST PAIN, UNSPECIFIED Qualifiers: Chest pain type: chest pain on breathing Qualified Code(s): R07.1 - Chest pain on breathing; R07.81 - Pleurodynia (3) Pneumonia Code(s): J18.9 - PNEUMONIA, UNSPECIFIED ORGANISM Qualifiers: Pneumonia type: due to unspecified organism Laterality: right Lung locat ion: unspecified part of lung Qualified Code(s): J18.9 - Pneumonia, unspecified organism (4) Pulmonary embolism Code(s): I26.99 - OTHER PULMONARY EMBOLISM WITHOUT ACUTE COR PULMONALE Qualifiers: Pulmonary embolism type: other Chronicity: acute Acute cor pulmonale presence: without acute cor pulmonale Qualified Code(s): I26.99 - Other pulmonary embolism without acute cor pulmonale (5) Arteriosclerotic heart disease (ASHD) Code(s): I25.10 - ATHSCL HEART DISEASE OF [place] CORONARY ARTERY W/O ANG PCTRS (6) CAD (coronary artery disease) Code(s): I25.10 - ATHSCL HEART DISEASE OF [place] CORONARY ARTERY W/O ANG PCTRS Qualifiers: Coronary Disease-Associated Artery/Lesion type: [place] artery [place] vs. transplanted heart: [place] heart Associated angina: without angina Qualified Code(s): I25.10 - Atherosclerotic heart disease of [place] coronary artery without angina pectoris (7) Diabetes Code(s): E11.9 - TYPE 2 DIABETES MELLITUS WITHOUT COMPLICATIONS Qualifiers: Diabetes mellitus type: type 2 (8) History of [place] (myocardial infarction) Code(s): I25.2 - OLD MYOCARDIAL INFARCTION (9) Stented coronary artery Code(s): Z95.5 - PRESENCE OF CORONARY ANGIOPLASTY IMPLANT AND GRAFT (10) Atypical chest pain Code(s): R07.89 - OTHER CHEST PAIN Assessment/Plan ABX : Rocephin & Zithromax Supplemental O2 as needed Check Urinary antigen Continue Eliquis No smoking discussed COVID19 (-) Will follow Thank you. Dr Lopez HEBER Screen - HEBER History Previously diagnosed with Sleep Apnea: No If Yes, currently using CPAP to treat your HEBER: No - SNORING Do you snore loudly (enough to be heard thru closed doors)?: No - TIRED Do you often feel tired, fatigued, or sleepy during daytime?: No - OBSERVED Has anyone observed you stop breathing during your sleep?: No - BLOOD PRESSURE Do you have or are being treated for high blood pressure?: Yes - BMI Answer Y if weight exceeds amount listed for your height: Yes .: HEIGHT & WEIGHT (lbs): 4'10" 167lbs; 4'11" 175 lbs; 5'0" 179lbs;. 5'1" 185lbs; 5'2" 191lbs; 5'3" 197lbs;. 5'4" 204lbs; 5'5" 210lbs; 5'6" 216lbs;. 5'7" 223lbs; 5'8" 230lbs; 5'9" 237lbs;. 5'10" 243lbs; 5'11" 250lbs; 6' 258lbs;. 6'1" 265lbs; 6'2" 272lbs; 6'3" 279lbs;. 6'4" 287lbs; 6'5" 295lbs - AGE Is your age over 50 yrs old?: Yes - NECK CIRCUMFERENCE Neck Circumference 40cm: No - GENDER Male: No - SCORE Total Score: 3 Score Interpretation: Intermediate Risk of HEBER .: Interpretation: Score 0-2: Low Risk HEBER. Score 3-4: Intermediate Risk HEBER. Score 5-8: High Risk HEBER
[2019-11-30] MEDS: ATORVASTATIN CA 40 MG TABLET (FP) PO SCH (21:54)
[2019-12-01] MEDS: LEVOTHYROXINE NA 25 MCG TABLET (FP) PO SCH (06:43)
[2019-12-01 07:35] LABS: INR 1.44 (0.83-1.09)
[2019-12-01] MEDS ORDERED: PT OWN MED DRAWER 7, Y5N ONE ×4 (09:16→20:55)
[2019-12-01] MEDS ORDERED: cefTRIAXone SODIUM 1 GM VIAL ONE (09:16)
[2019-12-01] MEDS ORDERED: DEXTROSE 5%-WATER - 50 ML IVPB ONE (09:17)
[2019-12-01] MEDS: TICAGRELOR 90 MG TABLET PO SCH ×2 (09:56→21:50)
[2019-12-01] MEDS: METOPROLOL TARTRATE 50 MG TABLET (FP) PO SCH (09:56)
[2019-12-01] MEDS: APIXABAN 5 MG TABLET PO SCH ×2 (09:56→21:50)
[2019-12-01] MEDS: AZITHROMYCIN IVPB 500 MG/250 ML BAG IVPB SCH (09:57)
[2019-12-01] MEDS: LOSARTAN POTASSIUM 25 MG TABLET PO SCH (09:57)
[2019-12-01] MEDS: CEFTRIAXONE 1 GM in DEXTROSE 5%-WATER - 50 ML IVPB SCH (09:58)
[2019-12-01] MEDS: ALBUTEROL SO4 HFA INHALER IH SCH ×4 (09:59→20:53)
--- NOTE | 2019-12-01 10:32 | PN ---
Progress Note, Physician History of Present Illness: pulmonary alert,comfortable,-sob - Current Medication List Current Medications: Active Medications Acetaminophen (Tylenol -) 650 mg PO Q4H PRN PRN Reason: PAIN 1-3 Last Admin: 11/29/19 22:52 Dose: 650 mg Documented by: Albuterol Sulfate (Ventolin Hfa Inhaler -) 2 puff IH RQID [facility] Last Admin: 12/01/19 09:59 Dose: 2 puff Documented by: Apixaban (Eliquis -) 5 mg PO BID [facility] Last Admin: 12/01/19 09:56 Dose: 5 mg Documented by: Atorvastatin Calcium (Lipitor -) 40 mg PO HS [facility] Last Admin: 11/30/19 21:54 Dose: 40 mg Documented by: Azithromycin (Zithromax 500mg Ivpb (Pre-Docked)) 500 mg in 250 mls @ 250 mls/hr IVPB DAILY [facility] Last Admin: 12/01/19 09:57 Dose: 250 mls/hr Documented by: Ceftriaxone Sodium 1 gm/ (Dextrose) 50 mls @ 100 mls/hr IVPB DAILY [facility] Last Admin: 12/01/19 09:58 Dose: 100 mls/hr Documented by: Levothyroxine Sodium (Synthroid -) 25 mcg PO ACBK [facility] Last Admin: 12/01/19 06:43 Dose: 25 mcg Documented by: Losartan Potassium (Cozaar -) 25 mg PO DAILY [facility] Last Admin: 12/01/19 09:57 Dose: 25 mg Documented by: Metoprolol Tartrate (Lopressor -) 50 mg PO DAILY [facility] Last Admin: 12/01/19 09:56 Dose: 50 mg Documented by: Ticagrelor (Brilinta -) 90 mg PO BID [facility] Last Admin: 12/01/19 09:56 Dose: 90 mg Documented by: - Objective Vital Signs: Vital Signs Temperature 98 F 12/01/19 09:00 Pulse Rate 98 H 12/01/19 09:00 Respiratory Rate 12/01/19 09:00 Blood Pressure 129/58 L 12/01/19 09:00 O2 Sat by Pulse Oximetry (%) 98 12/01/19 09:00 Constitutional: Yes: Well Nourished, Calm Eyes: Yes: WNL HENT: Yes: WNL Neck: Yes: WNL Cardiovascular: Yes: Regular Rate and Rhythm, S1, S2 Respiratory: Yes: CTA Bilaterally Gastrointestinal: Yes: Normal Bowel Sounds, Soft Extremities: Yes: WNL Edema: No Labs: CBC, BMP Assessment/Plan Problem List - Problems (1) Obesity Code(s): E66.9 - OBESITY, UNSPECIFIED (2) Chest pain Code(s): R07.9 - CHEST PAIN, UNSPECIFIED Qualifiers: Chest pain type: chest pain on breathing Qualified Code(s): R07.1 - Chest pain on breathing; R07.81 - Pleurodynia (3) Pneumonia Code(s): J18.9 - PNEUMONIA, UNSPECIFIED ORGANISM Qualifiers: Pneumonia type: due to unspecified organism Laterality: right Lung location: unspecified part of lung Qualified Code(s): J18.9 - Pneumonia, unspecified organism (4) Pulmonary embolism Code(s): I26.99 - OTHER PULMONARY EMBOLISM WITHOUT ACUTE COR PULMONALE Qualifiers: Pulmonary embolism type: other Chronicity: acute Acute cor pulmonale presence: without acute cor pulmonale Qualified Code(s): I26.99 - Other pulmonary embolism without acute cor pulmonale (5) Arteriosclerotic heart disease (ASHD) Code(s): I25.10 - ATHSCL HEART DISEASE OF [place] CORONARY ARTERY W/O ANG PCTRS (6) CAD (coronary artery disease) Code(s): I25.10 - ATHSCL HEART DISEASE OF [place] CORONARY ARTERY W/O ANG PCTRS Qualifiers: Coronary Disease-Associated Artery/Lesion type: [place] artery [place] vs. transplanted heart: [place] heart Associated angina: without angina Qualified Code(s): I25.10 - Atherosclerotic heart disease of [place] coronary artery without angina pectoris (7) Diabetes Code(s): E11.9 - TYPE 2 DIABETES MELLITUS WITHOUT COMPLICATIONS Qualifiers: Diabetes mellitus type: type 2 (8) History of [place] (myocardial infarction) Code(s): I25.2 - OLD MYOCARDIAL INFARCTION (9) Stented coronary artery Code(s): Z95.5 - PRESENCE OF CORONARY ANGIOPLASTY IMPLANT AND GRAFT (10) Atypical chest pain Code(s): R07.89 - OTHER CHEST PAIN Assessment/Plan ABX : Rocephin & Zithromax Supplemental O2 as needed Eliquis No smoking discussed COVID19 (-) DR DELUCA
--- NOTE | 2019-12-01 12:12 | PN ---
Progress Note (short form) - Note Progress Note: cc: chest pain s: no chest pain, palps, dizziness, dyspnea Current Medications Generic Name Dose Route Start Last Admin Trade Name Freq PRN Reason Stop Dose Admin Acetaminophen 650 mg 11/29/19 09:38 11/29/19 22:52 Tylenol - PO 650 mg Q4H PRN Administration PAIN 1-3 Albuterol Sulfate 2 puff 11/29/19 16:00 12/01/19 09:59 Ventolin Hfa Inhaler - IH 2 puff RQID JAYLA Administration Apixaban 5 mg 11/29/19 10:00 12/01/19 09:56 Eliquis - PO 5 mg BID JAYLA Administration Atorvastatin Calcium 40 mg 11/29/19 22:00 11/30/19 21:54 Lipitor - PO 40 mg HS JAYLA Administration Azithromycin 500 mg in 250 mls @ 250 mls/hr 11/29/19 10:00 12/01/19 09:57 Zithromax 500mg Ivpb (Pre-Docked) IVPB 250 mls/hr DAILY JAYLA Administration Ceftriaxone Sodium 1 gm/ 50 mls @ 100 mls/hr 11/30/19 10:38 12/01/19 09:58 Dextrose IVPB 100 mls/hr DAILY JAYLA Administration Levothyroxine Sodium 25 mcg 11/29/19 07:00 12/01/19 06:43 Synthroid - PO 25 mcg ACBK JAYLA Administration Losartan Potassium 25 mg 11/29/19 10:00 12/01/19 09:57 Cozaar - PO 25 mg DAILY JAYLA Administration Metoprolol Tartrate 50 mg 11/30/19 10:00 12/01/19 09:56 Lopressor - PO 50 mg DAILY JAYAL Administration Ticagrelor 90 mg 11/29/19 10:00 12/01/19 09:56 Brilinta - PO 90 mg BID JAYLA Administration Vital Signs Period Temp Pulse Resp BP Sys/Melchor Pulse Ox Last 24 Hr 97.5 F-98.4 F 84-98 20-22 108-141/48-91 98-99 Constitutional: Yes: No Distress, Calm Eyes: Yes: Conjunctiva Clear, EOM Intact HENT: Yes: Atraumatic, Normocephalic Neck: Yes: Supple, Trachea Midline Respiratory: Yes: CTA Bilaterally (no wheezing, rales) Gastrointestinal: Yes: Soft (NT, no rebound or guarding) Cardiovascular: Yes: Regular Rate and Rhythm JVD: No Carotid Bruit: No PMI: Non-Displaced Heart Sounds: Yes: S1, S2 (rrr, no m/r/g) Edema: No Peripheral Pulses WNL: Yes Neurological: Yes: Alert, Oriented no jaundice diaphoresis echo 10/2018 mildly reduced LV function, mild global hypokinesis of LV, nl RV, tr TR echo 08/2019: nl lv/rv, no sig valve path tele: sr cta chest: no pe, +r pna, no chf ecg: sr, no ischemic changes, nl intervals Assessment/Plan 74F w/ HTN, HLD, DM , CAD w/ multiple stents and cabg, pe 10/2018 here with cp. pna: -cont abx cp, sob: -no signs acs or chf. symptoms likely from pna. cont abx. -recent echo unremarkable - pulm following hx of PE 2019: -no pe on cta here -on ac -echo nl RV function HTN: -cont home bb, arb HLD: -cont statin CAD, pci, cabg: -as above -cont arb, bb, statin, brilinta stable for dc from cardiac perspective
--- NOTE | 2019-12-01 16:24 | PN ---
Progress Note (short form) - Note Progress Note: Patient on both Eliquis and Brillinta. Will need cardio clearance for both eliquis and Brillinta prior to invasive testing Problem List - Problems (1) Anemia Code(s): D64.9 - ANEMIA, UNSPECIFIED Qualifiers: Anemia type: unspecified type Qualified Code(s): D64.9 - Anemia, unspecified
--- NOTE | 2019-12-01 21:28 | PN ---
Progress Note, Physician Chief Complaint: AWAKE, ALERT NO COMPLAINTS DENIES DYSPNEA/ COUGH NO C/O CHEST PAIN NO C/O FEVER/CHILLS - Current Medication List Current Medications: Active Medications Acetaminophen (Tylenol -) 650 mg PO Q4H PRN PRN Reason: PAIN 1-3 Last Admin: 11/29/19 22:52 Dose: 650 mg Documented by: Albuterol Sulfate (Ventolin Hfa Inhaler -) 2 puff IH RQID [facility] Last Admin: 12/01/19 17:15 Dose: 2 puff Documented by: Apixaban (Eliquis -) 5 mg PO BID [facility] Last Admin: 12/01/19 09:56 Dose: 5 mg Documented by: Atorvastatin Calcium (Lipitor -) 40 mg PO HS [facility] Last Admin: 11/30/19 21:54 Dose: 40 mg Documented by: Azithromycin (Zithromax 500mg Ivpb (Pre-Docked)) 500 mg in 250 mls @ 250 mls/hr IVPB DAILY [facility] Last Admin: 12/01/19 09:57 Dose: 250 mls/hr Documented by: Ceftriaxone Sodium 1 gm/ (Dextrose) 50 mls @ 100 mls/hr IVPB DAILY [facility] Last Admin: 12/01/19 09:58 Dose: 100 mls/hr Documented by: Levothyroxine Sodium (Synthroid -) 25 mcg PO ACBK [facility] Last Admin: 12/01/19 06:43 Dose: 25 mcg Documented by: Losartan Potassium (Cozaar -) 25 mg PO DAILY [facility] Last Admin: 12/01/19 09:57 Dose: 25 mg Documented by: Metoprolol Tartrate (Lopressor -) 50 mg PO DAILY [facility] Last Admin: 12/01/19 09:56 Dose: 50 mg Documented by: Ticagrelor (Brilinta -) 90 mg PO BID [facility] Last Admin: 12/01/19 09:56 Dose: 90 mg Documented by: - Objective Vital Signs: Vital Signs Temperature 97.9 F 12/01/19 20:57 Pulse Rate 84 12/01/19 20:57 Respiratory Rate 20 12/01/19 20:57 Blood Pressure 134/77 12/01/19 20:57 O2 Sat by Pulse Oximetry (%) 98 12/01/19 20:57 Constitutional: Yes: No Distress Eyes: Yes: Conjunctiva Clear Cardiovascular: Yes: Regular Rate and Rhythm, S1, S2 Respiratory: Yes: CTA Bilaterally Gastrointestinal: Yes: Normal Bowel Sounds, Soft Edema: No Labs: CBC, BMP 11/30/19 13:20 11/30/19 13:20 INR, PTT INR 1.44 (0.83-1.09) H 12/01/19 05:33 Assessment/Plan PNEUMONIA RUL CAD S/P CABG CONTINUE CEFTRIAXONE/ ZITHROMAX
[2019-12-01] MEDS: ATORVASTATIN CA 40 MG TABLET (FP) PO SCH (21:50)
[2019-12-02] MEDS: LEVOTHYROXINE NA 25 MCG TABLET (FP) PO SCH (06:00)
--- NOTE | 2019-12-02 07:49 | PN ---
Progress Note, Physician Chief Complaint: AWAKE ALERT FEELS BETTER - Current Medication List Current Medications: Active Medications Acetaminophen (Tylenol -) 650 mg PO Q4H PRN PRN Reason: PAIN 1-3 Last Admin: 11/29/19 22:52 Dose: 650 mg Documented by: Albuterol Sulfate (Ventolin Hfa Inhaler -) 2 puff IH RQID [facility] Last Admin: 12/01/19 20:53 Dose: 2 puff Documented by: Apixaban (Eliquis -) 5 mg PO BID [facility] Last Admin: 12/01/19 21:50 Dose: 5 mg Documented by: Atorvastatin Calcium (Lipitor -) 40 mg PO HS [facility] Last Admin: 12/01/19 21:50 Dose: 40 mg Documented by: Azithromycin (Zithromax 500mg Ivpb (Pre-Docked)) 500 mg in 250 mls @ 250 mls/hr IVPB DAILY [facility] Last Admin: 12/01/19 09:57 Dose: 250 mls/hr Documented by: Ceftriaxone Sodium 1 gm/ (Dextrose) 50 mls @ 100 mls/hr IVPB DAILY [facility] Last Admin: 12/01/19 09:58 Dose: 100 mls/hr Documented by: Levothyroxine Sodium (Synthroid -) 25 mcg PO ACBK [facility] Last Admin: 12/02/19 06:00 Dose: 25 mcg Documented by: Losartan Potassium (Cozaar -) 25 mg PO DAILY [facility] Last Admin: 12/01/19 09:57 Dose: 25 mg Documented by: Metoprolol Tartrate (Lopressor -) 50 mg PO DAILY [facility] Last Admin: 12/01/19 09:56 Dose: 50 mg Documented by: Ticagrelor (Brilinta -) 90 mg PO BID [facility] Last Admin: 12/01/19 21:50 Dose: 90 mg Documented by: - Objective Vital Signs: Vital Signs Temperature 98.4 F 12/02/19 06:00 Pulse Rate 87 12/02/19 06:00 Respiratory Rate 20 12/02/19 06:00 Blood Pressure 128/77 12/02/19 06:00 O2 Sat by Pulse Oximetry (%) 100 12/02/19 06:00 Constitutional: Yes: Mild Distress Cardiovascular: Yes: Regular Rate and Rhythm Respiratory: Yes: WNL Gastrointestinal: Yes: WNL Genitourinary: Yes: WNL Musculoskeletal: Yes: WNL Edema: No Integumentary: Yes: WNL Wound/Incision: Yes: Clean/Dry Neurological: Yes: WNL ...Motor Strength: WNL Psychiatric: Yes: WNL Labs: CBC, BMP 11/30/19 13:20 11/30/19 13:20 INR, PTT INR 1.44 (0.83-1.09) H 12/01/19 05:33 Problem List - Problems (1) Anemia Code(s): D64.9 - ANEMIA, UNSPECIFIED Qualifiers: Anemia type: unspecified type Qualified Code(s): D64.9 - Anemia, unspecified (2) Pneumonia Code(s): J18.9 - PNEUMONIA, UNSPECIFIED ORGANISM Qualifiers: Pneumonia type: due to unspecified organism Laterality: right Lung location: unspecified part of lung Qualified Code(s): J18.9 - Pneumonia, unspecified organism (3) Diabetes Code(s): E11.9 - TYPE 2 DIABETES MELLITUS WITHOUT COMPLICATIONS Qualifiers: Diabetes mellitus type: type 2 Diabetes mellitus complication status: with circulatory complication (4) History of [place] (myocardial infarction) Code(s): I25.2 - OLD MYOCARDIAL INFARCTION (5) Stented coronary artery Code(s): Z95.5 - PRESENCE OF CORONARY ANGIOPLASTY IMPLANT AND GRAFT Assessment/Plan ANEMIA WORKUP IN PROGRESS BRILLINTA ON HOLD OUTPATIENT VS INPATIENT EGD/COLONOSCOPY WILL D/W GI, NO CONTRAINDICATION FOR GI PROCEDURES AWAIT LABS OOB TO CHAIR
--- NOTE | 2019-12-02 08:03 | PN ---
Progress Note, Physician - Current Medication List Current Medications: Active Medications Acetaminophen (Tylenol -) 650 mg PO Q4H PRN PRN Reason: PAIN 1-3 Last Admin: 11/29/19 22:52 Dose: 650 mg Documented by: Albuterol Sulfate (Ventolin Hfa Inhaler -) 2 puff IH RQID [facility] Last Admin: 12/01/19 20:53 Dose: 2 puff Documented by: Apixaban (Eliquis -) 5 mg PO BID [facility] Last Admin: 12/01/19 21:50 Dose: 5 mg Documented by: Atorvastatin Calcium (Lipitor -) 40 mg PO HS [facility] Last Admin: 12/01/19 21:50 Dose: 40 mg Documented by: Azithromycin (Zithromax 500mg Ivpb (Pre-Docked)) 500 mg in 250 mls @ 250 mls/hr IVPB DAILY [facility] Last Admin: 12/01/19 09:57 Dose: 250 mls/hr Documented by: Ceftriaxone Sodium 1 gm/ (Dextrose) 50 mls @ 100 mls/hr IVPB DAILY [facility] Last Admin: 12/01/19 09:58 Dose: 100 mls/hr Documented by: Levothyroxine Sodium (Synthroid -) 25 mcg PO ACBK [facility] Last Admin: 12/02/19 06:00 Dose: 25 mcg Documented by: Losartan Potassium (Cozaar -) 25 mg PO DAILY [facility] Last Admin: 12/01/19 09:57 Dose: 25 mg Documented by: Metoprolol Tartrate (Lopressor -) 50 mg PO DAILY [facility] Last Admin: 12/01/19 09:56 Dose: 50 mg Documented by: Ticagrelor (Brilinta -) 90 mg PO BID [facility] Last Admin: 12/01/19 21:50 Dose: 90 mg Documented by: - Objective Vital Signs: Vital Signs Temperature 98.4 F 12/02/19 06:00 Pulse Rate 87 12/02/19 06:00 Respiratory Rate 20 12/02/19 06:00 Blood Pressure 128/77 12/02/19 06:00 O2 Sat by Pulse Oximetry (%) 100 12/02/19 06:00 Labs: CBC, BMP 11/30/19 13:20 11/30/19 13:20 INR, PTT INR 1.44 (0.83-1.09) H 12/01/19 05:33
[2019-12-02] MEDS ORDERED: PT OWN MED DRAWER 7, Y5N ONE ×3 (08:38→21:57)
[2019-12-02] MEDS ORDERED: DEXTROSE 5%-WATER - 50 ML IVPB ONE (08:39)
[2019-12-02] MEDS ORDERED: cefTRIAXone SODIUM 1 GM VIAL ONE (08:39)
[2019-12-02 08:57] LABS: HEMATOCRIT 29.7 % (32.4-45.2); HEMOGLOBIN 8.7 GM/dL (10.7-15.3); MCHC 29.3 g/dl (32.0-36.0); MEAN CELL VOLUME 63.2 fl (80-96); MEAN PLT VOLUME 8.3 fl (7.5-11.1); PLATELET COUNT 448 K/MM3 (134-434); RDW 23.6 % (11.6-15.6); WHITE BLOOD COUNT 5.2 K/mm3 (4.0-10.0)
[2019-12-02 08:58] LABS: MCH 18.5 pg (25.7-33.7)
[2019-12-02] MEDS: AZITHROMYCIN IVPB 500 MG/250 ML BAG IVPB SCH (09:28)
[2019-12-02] MEDS: CEFTRIAXONE 1 GM in DEXTROSE 5%-WATER - 50 ML IVPB SCH (09:28)
[2019-12-02] MEDS: METOPROLOL TARTRATE 50 MG TABLET (FP) PO SCH (09:29)
[2019-12-02] MEDS: TICAGRELOR 90 MG TABLET PO SCH ×2 (09:29→22:00)
[2019-12-02] MEDS: APIXABAN 5 MG TABLET PO SCH ×2 (09:29→22:00)
[2019-12-02] MEDS: LOSARTAN POTASSIUM 25 MG TABLET PO SCH (09:29)
[2019-12-02] MEDS: ALBUTEROL SO4 HFA INHALER IH SCH ×4 (09:29→20:10)
[2019-12-02 09:39] LABS: ALBUMIN 2.9 g/dl (3.4-5.0); BLOOD UREA NITROGEN 10.8 mg/dL (7-18); CALCIUM 8.4 mg/dL (8.5-10.1); CREATININE 0.8 mg/dL (0.55-1.3); MAGNESIUM 2.3 mg/dL (1.8-2.4); POTASSIUM 3.8 mmol/L (3.5-5.1); TOT PROT 7.2 g/dl (6.4-8.2)
[2019-12-02 09:54] LABS: BILIRUBIN,TOTAL 0.5 mg/dL (0.2-1)
--- NOTE | 2019-12-02 10:07 | PN ---
Progress Note, Physician History of Present Illness: pulmonary alert,comfortable,-sob,-cp - Current Medication List Current Medications: Active Medications Acetaminophen (Tylenol -) 650 mg PO Q4H PRN PRN Reason: PAIN 1-3 Last Admin: 11/29/19 22:52 Dose: 650 mg Documented by: Albuterol Sulfate (Ventolin Hfa Inhaler -) 2 puff IH RQID [facility] Last Admin: 12/02/19 09:29 Dose: 2 puff Documented by: Apixaban (Eliquis -) 5 mg PO BID [facility] Last Admin: 12/02/19 09:29 Dose: 5 mg Documented by: Atorvastatin Calcium (Lipitor -) 40 mg PO HS [facility] Last Admin: 12/01/19 21:50 Dose: 40 mg Documented by: Azithromycin (Zithromax 500mg Ivpb (Pre-Docked)) 500 mg in 250 mls @ 250 mls/hr IVPB DAILY [facility] Last Admin: 12/02/19 09:28 Dose: 250 mls/hr Documented by: Ceftriaxone Sodium 1 gm/ (Dextrose) 50 mls @ 100 mls/hr IVPB DAILY [facility] Last Admin: 12/02/19 09:28 Dose: 100 mls/hr Documented by: Levothyroxine Sodium (Synthroid -) 25 mcg PO ACBK [facility] Last Admin: 12/02/19 06:00 Dose: 25 mcg Documented by: Losartan Potassium (Cozaar -) 25 mg PO DAILY [facility] Last Admin: 12/02/19 09:29 Dose: 25 mg Documented by: Metoprolol Tartrate (Lopressor -) 50 mg PO DAILY [facility] Last Admin: 12/02/19 09:29 Dose: 50 mg Documented by: Ticagrelor (Brilinta -) 90 mg PO BID [facility] Last Admin: 12/02/19 09:29 Dose: 90 mg Documented by: - Objective Vital Signs: Vital Signs Temperature 97.8 F 12/02/19 09:00 Pulse Rate 80 12/02/19 09:00 Respiratory Rate 20 12/02/19 09:00 Blood Pressure 110/52 L 12/02/19 09:00 O2 Sat by Pulse Oximetry (%) 99 12/02/19 09:00 Constitutional: Yes: Well Nourished, Calm Eyes: Yes: WNL HENT: Yes: WNL Neck: Yes: WNL Cardiovascular: Yes: Regular Rate and Rhythm, S1, S2 Respiratory: Yes: Diminished Gastrointestinal: Yes: Normal Bowel Sounds, Soft Extremities: Yes: WNL Edema: No Labs: CBC, BMP 12/02/19 08:33 12/02/19 08:33 INR, PTT INR 1.44 (0.83-1.09) H 12/01/19 05:33 Assessment/Plan Problem List - Problems (1) Obesity Code(s): E66.9 - OBESITY, UNSPECIFIED (2) Chest pain Code(s): R07.9 - CHEST PAIN, UNSPECIFIED Qualifiers: Chest pain type: chest pain on breathing Qualified Code(s): R07.1 - Chest pain on breathing; R07.81 - Pleurodynia (3) Pneumonia Code(s): J18.9 - PNEUMONIA, UNSPECIFIED ORGANISM Qualifiers: Pneumonia type: due to unspecified organism Laterality: right Lung location: unspecified part of lung Qualified Code(s): J18.9 - Pneumonia, unspecified organism (4) Pulmonary embolism Code(s): I26.99 - OTHER PULMONARY EMBOLISM WITHOUT ACUTE COR PULMONALE Qualifiers: Pulmonary embolism type: other Chronicity: acute Acute cor pulmonale presence: without acute cor pulmonale Qualified Code(s): I26.99 - Other pulmonary embolism without acute cor pulmonale (5) Arteriosclerotic heart disease (ASHD) Code(s): I25.10 - ATHSCL HEART DISEASE OF [place] CORONARY ARTERY W/O ANG PCTRS (6) CAD (coronary artery disease) Code(s): I25.10 - ATHSCL HEART DISEASE OF [place] CORONARY ARTERY W/O ANG PCTRS Qualifiers: Coronary Disease-Associated Artery/Lesion type: [place] artery [place] vs. transplanted heart: [place] heart Associated angina: without angina Qualified Code(s): I25.10 - Atherosclerotic heart disease of [place] coronary artery with out angina pectoris (7) Diabetes Code(s): E11.9 - TYPE 2 DIABETES MELLITUS WITHOUT COMPLICATIONS Qualifiers: Diabetes mellitus type: type 2 (8) History of [place] (myocardial infarction) Code(s): I25.2 - OLD MYOCARDIAL INFARCTION (9) Stented coronary artery Code(s): Z95.5 - PRESENCE OF CORONARY ANGIOPLASTY IMPLANT AND GRAFT (10) Atypical chest pain Code(s): R07.89 - OTHER CHEST PAIN Assessment/Plan ABX : Rocephin & Zithromax Supplemental O2 as needed Eliquis No smoking discussed COVID19 (-) DR DELUCA
--- NOTE | 2019-12-02 10:44 | CONSULT ---
Admitting History and Physical - Admission History of Present Illness: 74 F, HTN, DM, hypothyroidism, CAD s/p stent, CABG, and previous history of PE on DOAC, admitted via the ER due to right sternal chest pain x 2 days. CTA : No PE (previous CTA RLL segmental) / RUL dense infiltrate and consolidation. Selected Entries 12/01/19 12/01/19 12/01/19 11:11 14:00 18:00 Breakfast 75% Diet Tolerated Well Well Well Lunch 75% Supper 100% Temperature Pulse Rate Blood Pressure O2 Sat by Pulse Oximetry (%) 12/02/19 12/02/19 12/02/19 01:45 06:00 09:00 Breakfast Diet Tolerated Lunch Supper Temperature 97.8 F 98.4 F 97.8 F Pulse Rate 76 87 80 Blood Pressure 135/60 128/77 110/52 L O2 Sat by Pulse 100 99 Oximetry (%) 12/02/19 10:26 Breakfast 100% Diet Tolerated Well Lunch Supper Temperature Pulse Rate Blood Pressure O2 Sat by Pulse Oximetry (%) Laboratory Tests 12/02/19 08:33 WBC 5.2 Laboratory Tests 11/28/19 23:10 COVID-19 (CONNIE) Not detected - Past Medical History Cardiovascular: Yes: CAD, CHF (possible diastolic HF), HTN, Hyperlipdemia, [place] (IWSTEMI September 2011 s/p PCI RCA with staged LM/LAD/LCx) Pulmonary: Yes: Asthma, Bronchitis, Pneumonia, Pulmonary Embolus. No: Cancer, COPD, O2 Dependent, Previously Intubated, Pulmonary Fibrosis, Sleep Apnea Gastrointestinal: Yes: GERD ...: No Endocrine: Yes: Diabetes Mellitus, Hypothyroidism - Past Surgical History Past Surgical History: Yes: Stent - Smoking History Smoking history: Former smoker Have you smoked in the past 12 months: No Aproximately how many cigarettes per day: 0 If you are a former smoker, when did you quit?: 15-20 yrs ago - Alcohol/Substance Use Hx Alcohol Use: No - Social History ADL: Independent History of Recent Travel: No History - Admission Reason For Visit: PNEUMONIA - Hearing Hearing: Normal Hearing Aide: No With Patient: No Speech Evaluation - Communication Primary Language: OCCITAN - Swallow Evaluation/Bedside Assessment Current Nutritional Intake: Regular, Thin Liquids Recommendations - Speech Evaluation, Impression/Plan Impression: Chart reviewed. Reportedly error in placing order. Not indicated. Pt not evaluated.
--- NOTE | 2019-12-02 12:07 | PN ---
Progress Note (short form) - Note Progress Note: cc: chest pain s: no chest pain, palps, dizziness, dyspnea Current Medications Generic Name Dose Route Start Last Admin Trade Name Freq PRN Reason Stop Dose Admin Acetaminophen 650 mg 11/29/19 09:38 11/29/19 22:52 Tylenol - PO 650 mg Q4H PRN Administration PAIN 1-3 Albuterol Sulfate 2 puff 11/29/19 16:00 12/02/19 09:29 Ventolin Hfa Inhaler - IH 2 puff RQID JAYLA Administration Apixaban 5 mg 11/29/19 10:00 12/02/19 09:29 Eliquis - PO 5 mg BID JAYLA Administration Atorvastatin Calcium 40 mg 11/29/19 22:00 12/01/19 21:50 Lipitor - PO 40 mg HS JAYLA Administration Azithromycin 500 mg in 250 mls @ 250 mls/hr 11/29/19 10:00 12/02/19 09:28 Zithromax 500mg Ivpb (Pre-Docked) IVPB 250 mls/hr DAILY JAYLA Administration Ceftriaxone Sodium 1 gm/ 50 mls @ 100 mls/hr 11/30/19 10:38 12/02/19 09:28 Dextrose IVPB 100 mls/hr DAILY JAYLA Administration Levothyroxine Sodium 25 mcg 11/29/19 07:00 12/02/19 06:00 Synthroid - PO 25 mcg ACBK JAYLA Administration Losartan Potassium 25 mg 11/29/19 10:00 12/02/19 09:29 Cozaar - PO 25 mg DAILY JAYLA Administration Metoprolol Tartrate 50 mg 11/30/19 10:00 12/02/19 09:29 Lopressor - PO 50 mg DAILY JAYLA Administration Ticagrelor 90 mg 11/29/19 10:00 12/02/19 09:29 Brilinta - PO 90 mg BID JAYLA Administration Vital Signs Period Temp Pulse Resp BP Sys/Melchor Pulse Ox Last 24 Hr 97.8 F-98.4 F 72-87 20-20 110-144/52-77 98-100 Constitutional: Yes: No Distress, Calm Eyes: Yes: Conjunctiva Clear, EOM Intact HENT: Yes: Atraumatic, Normocephalic Neck: Yes: Supple, Trachea Midline Respiratory: Yes: CTA Bilaterally (no wheezing, rales) Gastrointestinal: Yes: Soft (NT, no rebound or guarding) Cardiovascular: Yes: Regular Rate and Rhythm JVD: No Carotid Bruit: No PMI: Non-Displaced Heart Sounds: Yes: S1, S2 (rrr, no m/r/g) Edema: No Peripheral Pulses WNL: Yes Neurological: Yes: Alert, Oriented no jaundice diaphoresis echo 10/2018 mildly reduced LV function, mild global hypokinesis of LV, nl RV, tr TR echo 08/2019: nl lv/rv, no sig valve path tele: sr cta chest: no pe, +r pna, no chf ecg: sr, no ischemic changes, nl intervals Assessment/Plan 74F w/ HTN, HLD, DM , CAD w/ multiple stents and cabg, pe 10/2018 here with cp. 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 Britton 02/2019 and was on Plavix at that time. per patient no IN or cardiac procedure since CABG - may hold brillinta up to 5 days prior to GI procedures pna: -cont abx cp, sob: -no signs acs or chf. symptoms likely from pna. cont abx. -recent echo unremarkable - pulm following hx of PE 2019: -no pe on cta here -on ac, manage per pulm, heme -echo nl RV function HTN: -cont home bb, arb HLD: -cont statin CAD, pci, cabg: -as above -cont arb, bb, statin, brilinta
[2019-12-02] MEDS: NYSTATIN POWDER 100,000 UNITS/GM - 15 GM TOPICAL POWDER TP SCH ×2 (13:21→22:01)
--- NOTE | 2019-12-02 16:37 | PN ---
Progress Note (short form) - Note Progress Note: Ms Harper has no complaint Reports improving SOB Imp: mod microcytic anemia, iron def in context of pna, use of eliquis (following PE 11/03 provoked possib in setting of recent CABG) Plan is for GI w/u
[2019-12-02] MEDS: ATORVASTATIN CA 40 MG TABLET (FP) PO SCH (22:00)
[2019-12-03] MEDS: LEVOTHYROXINE NA 25 MCG TABLET (FP) PO SCH (06:37)
--- NOTE | 2019-12-03 09:10 | DS ---
Physical Examination Vital Signs: Vital Signs Temperature 98.1 F 12/03/19 06:00 Pulse Rate 72 12/03/19 06:00 Respiratory Rate 20 12/03/19 06:00 Blood Pressure 125/61 12/03/19 06:00 O2 Sat by Pulse Oximetry (%) 97 12/03/19 06:00 Constitutional: Yes: No Distress Eyes: Yes: WNL HENT: Yes: WNL Neck: Yes: WNL Cardiovascular: Yes: Regular Rate and Rhythm Respiratory: Yes: WNL Gastrointestinal: Yes: WNL Musculoskeletal: Yes: WNL Edema: Yes Edema: LLE: Trace, RLE: Trace Peripheral Pulses WNL: Yes Integumentary: Yes: WNL Wound/Incision: Yes: Clean/Dry Neurological: Yes: WNL ...Motor Strength: WNL Psychiatric: Yes: WNL Labs: CBC, BMP 12/02/19 08:33 12/02/19 08:33 Discharge Summary Problems reviewed: Yes Reason For Visit: PNEUMONIA Current Active Problems Anemia (Acute) Chest pain (Acute) Obesity (Acute) Pneumonia (Acute) GI BLEED Procedures: Principal: ADMITTED FOR PNA AND GI BLEED, CT SCANS, LABS Hospital Course: ADMITTED FOR PNA TREATED WITH IV ABX HAD ANEMIA WITH GI BLEED, GUAC NEGATIVE X 2, WILL STOP BRILLINTA 7 DAYS AND F/U OUTPATIENT WITH DR CARRASCO FOR EGD/COLONOSCOPY Plan of Treatment: STOP BRILINTA 7 DAYS, SEE GI IN 1 WEEK OUTPATIENT Condition: Good - Instructions Diet, Activity, Other Instructions: SEE DR NOLA CARRASCO FOR GASTROENTEROLOGY EVAL STOP BRILINTA FOR 7 DAYS PRIOR TO GI TEST/EGD Referrals: Florecita Rojas MD [Primary Care Provider] - Erick Carrasco DO [Staff Physician] - Disposition: HOME - Home Medications Comprehensive Discharge Medication List: Ambulatory Orders Levothyroxine [Synthroid -] 25 mcg PO DAILY 03/15/15 Atorvastatin Ca [Lipitor] 40 mg PO HS 05/21/18 Metoprolol Tartrate [Lopressor -] 50 mg PO DAILY 11/06/18 Sitagliptin Phos/Metformin HCl [Janumet 50-1,000 mg Tablet] 1 tab PO DAILY 11/06/18 Acetaminophen [Tylenol .Regular Strength -] 650 mg PO Q4H PRN tablet 08/28/19 Apixaban [Eliquis] 5 mg PO BID #30 tablet 11/12/18 Empagliflozin [Jardiance] 25 mg PO DAILY 11/28/19 Losartan Potassium [Cozaar -] 25 mg PO DAILY 11/28/19
[2019-12-03] MEDS ORDERED: cefTRIAXone SODIUM 1 GM VIAL ONE (09:35)
[2019-12-03] MEDS ORDERED: DEXTROSE 5%-WATER - 50 ML IVPB ONE (09:36)
[2019-12-03] MEDS: ALBUTEROL SO4 HFA INHALER IH SCH (09:57)
[2019-12-03] MEDS: METOPROLOL TARTRATE 50 MG TABLET (FP) PO SCH (09:58)
[2019-12-03] MEDS: LOSARTAN POTASSIUM 25 MG TABLET PO SCH (09:58)
[2019-12-03] MEDS: APIXABAN 5 MG TABLET PO SCH (09:58)
[2019-12-03] MEDS: TICAGRELOR 90 MG TABLET PO SCH (09:58)
[2019-12-03] MEDS: NYSTATIN POWDER 100,000 UNITS/GM - 15 GM TOPICAL POWDER TP SCH (09:58)
[2019-12-03] MEDS: AZITHROMYCIN IVPB 500 MG/250 ML BAG IVPB SCH (09:58)
--- NOTE | 2019-12-03 10:21 | PN ---
Progress Note, Physician - Current Medication List Current Medications: Active Medications Acetaminophen (Tylenol -) 650 mg PO Q4H PRN PRN Reason: PAIN 1-3 Last Admin: 11/29/19 22:52 Dose: 650 mg Documented by: Albuterol Sulfate (Ventolin Hfa Inhaler -) 2 puff IH RQID [facility] Last Admin: 12/03/19 09:57 Dose: 2 puff Documented by: Apixaban (Eliquis -) 5 mg PO BID [facility] Last Admin: 12/03/19 09:58 Dose: 5 mg Documented by: Atorvastatin Calcium (Lipitor -) 40 mg PO HS [facility] Last Admin: 12/02/19 22:00 Dose: 40 mg Documented by: Azithromycin (Zithromax 500mg Ivpb (Pre-Docked)) 500 mg in 250 mls @ 250 mls/hr IVPB DAILY [facility] Last Admin: 12/03/19 09:58 Dose: 250 mls/hr Documented by: Ceftriaxone Sodium 1 gm/ (Dextrose) 50 mls @ 100 mls/hr IVPB DAILY [facility] Last Admin: 12/02/19 09:28 Dose: 100 mls/hr Documented by: Levothyroxine Sodium (Synthroid -) 25 mcg PO ACBK [facility] Last Admin: 12/03/19 06:37 Dose: 25 mcg Documented by: Losartan Potassium (Cozaar -) 25 mg PO DAILY [facility] Last Admin: 12/03/19 09:58 Dose: 25 mg Documented by: Metoprolol Tartrate (Lopressor -) 50 mg PO DAILY [facility] Last Admin: 12/03/19 09:58 Dose: 50 mg Documented by: Nystatin (Nystop Powder -) 1 applic TP BID [facility] Last Admin: 12/03/19 09:58 Dose: 1 applic Documented by: Ticagrelor (Brilinta -) 90 mg PO BID [facility] Last Admin: 12/03/19 09:58 Dose: Not Given Documented by: - Objective Vital Signs: Vital Signs Temperature 98.1 F 12/03/19 06:00 Pulse Rate 72 12/03/19 06:00 Respiratory Rate 20 12/03/19 06:00 Blood Pressure 125/61 12/03/19 06:00 O2 Sat by Pulse Oximetry (%) 97 12/03/19 06:00 Labs: CBC, BMP 12/02/19 08:33 12/02/19 08:33 INR, PTT INR 1.44 (0.83-1.09) H 12/01/19 05:33 Assessment/Plan Problem List - Problems (1) Obesity Code(s): E66.9 - OBESITY, UNSPECIFIED (2) Chest pain Code(s): R07.9 - CHEST PAIN, UNSPECIFIED Qualifiers: Chest pain type: chest pain on breathing Qualified Code(s): R07.1 - Chest pain on breathing; R07.81 - Pleurodynia (3) Pneumonia Code(s): J18.9 - PNEUMONIA, UNSPECIFIED ORGANISM Qualifiers: Pneumonia type: due to unspecified organism Laterality: right Lung location: unspecified part of lung Qualified Code(s): J18.9 - Pneumonia, unspecified organism (4) Pulmonary embolism Code(s): I26.99 - OTHER PULMONARY EMBOLISM WITHOUT ACUTE COR PULMONALE Qualifiers: Pulmonary embolism type: other Chronicity: acute Acute cor pulmonale presence: without acute cor pulmonale Qualified Code(s): I26.99 - Other pulmonary embolism without acute cor pulmonale (5) Arteriosclerotic heart disease (ASHD) Code(s): I25.10 - ATHSCL HEART DISEASE OF [place] CORONARY ARTERY W/O ANG PCTRS (6) CAD (coronary artery disease) Code(s): I25.10 - ATHSCL HEART DISEASE OF [place] CORONARY ARTERY W/O ANG PCTRS Qualifiers: Coronary Disease-Associated Artery/Lesion type: [place] artery [place] vs. transplanted heart: [place] heart Associated angina: without angina Qualified Code(s): I25.10 - Atherosclerotic heart disease of [place] coronary artery without angina pectoris (7) Diabetes Code(s): E11.9 - TYPE 2 DIABETES MELLITUS WITHOUT COMPLICATIONS Qualifiers: Diabetes mellitus type: type 2 (8) History of HI (myocardial infarction) Code(s): I25.2 - OLD MYOCARDIAL INFARCTION (9) Stented coronary artery Code(s): Z95.5 - PRESENCE OF CORONARY ANGIOPLASTY IMPLANT AND GRAFT (10) Atypical chest pain Code(s): R07.89 - OTHER CHEST PAIN Assessment/Plan ABX : Rocephin & Zithromax Supplemental O2 as needed Eliquis No smoking discussed COVID19 (-) DR DELUCA
[2019-12-03] MEDS: CEFTRIAXONE 1 GM in DEXTROSE 5%-WATER - 50 ML IVPB SCH (10:49)
[2019-12-03 11:44] VITALS: BP 115/59; PULSE 80; TEMP 98.3
--- NOTE | 2019-12-03 11:55 | PN ---
Progress Note (short form) - Note Progress Note: cc: chest pain s: no chest pain, palps, dizziness, dyspnea Home Medications Medication Instructions Recorded Levothyroxine [Synthroid -] 25 mcg PO DAILY 03/15/15 Atorvastatin Ca [Lipitor] 40 mg PO HS 05/21/18 Metoprolol Tartrate [Lopressor -] 50 mg PO DAILY 11/06/18 Sitagliptin Phos/Metformin HCl 1 tab PO DAILY 11/06/18 [Janumet 50-1,000 mg Tablet] Acetaminophen [Tylenol .Regular 650 mg PO Q4H PRN tablet 11/12/18 Strength -] Apixaban [Eliquis] 5 mg PO BID #30 tablet 11/12/18 Empagliflozin [Jardiance] 25 mg PO DAILY 11/28/19 Losartan Potassium [Cozaar -] 25 mg PO DAILY 11/28/19 Vital Signs Period Temp Pulse Resp BP Sys/Melchor Pulse Ox Last 24 Hr 97.7 F-98.5 F 72-82 20-20 113-142/54-70 95-97 Constitutional: Yes: No Distress, Calm Eyes: Yes: Conjunctiva Clear, EOM Intact HENT: Yes: Atraumatic, Normocephalic Neck: Yes: Supple, Trachea Midline Respiratory: Yes: CTA Bilaterally (no wheezing, rales) Gastrointestinal: Yes: Soft (NT, no rebound or guarding) Cardiovascular: Yes: Regular Rate and Rhythm JVD: No Carotid Bruit: No PMI: Non-Displaced Heart Sounds: Yes: S1, S2 (rrr, no m/r/g) Edema: No Peripheral Pulses WNL: Yes Neurological: Yes: Alert, Oriented no jaundice diaphoresis CBC, BMP 12/02/19 08:33 12/02/19 08:33 echo 10/2018 mildly reduced LV function, mild global hypokinesis of LV, nl RV, tr TR echo 08/2019: nl lv/rv, no sig valve path tele: sr, artifact cta chest: no pe, +r pna, no chf ecg: sr, no ischemic changes, nl intervals Assessment/Plan 74F w/ HTN, HLD, DM , CAD w/ multiple stents and cabg, pe 10/2018 here with cp. 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 Britton 02/2019 and was on Plavix at that time. per patient no WA or cardiac procedure since CABG - may hold brillinta up to 5 days prior to GI procedures pna: -cont abx cp, sob: -no signs acs or chf. symptoms likely from pna. cont abx. -recent echo unremarkable - pulm following hx of PE 2019: -no pe on cta here -on ac, manage per pulm, heme -echo nl RV function HTN: -cont home bb, arb HLD: -cont statin CAD, pci, cabg: -as above -cont arb, bb, statin, brilinta cardiac paaricio stable.
== END 2019-12-03 11:00 | disposition home health service (06) | DRG 194 ==
LOC: JER 11:32 → JERBED 22:21 → J4W 11-29 21:41
PROVIDERS: ADMIT Internal Medicine; ATTEND Family Medicine
DX: J18.9 Pneumonia, unspecified organism (principal); I50.32 Chronic diastolic (congestive) heart failure; E11.9 Type 2 diabetes mellitus without complications; E78.5 Hyperlipidemia, unspecified; I25.10 Atherosclerotic heart disease of native coronary artery without angina pectoris; Z95.1 Presence of aortocoronary bypass graft; Z95.5 Presence of coronary angioplasty implant and graft; D50.9 Iron deficiency anemia, unspecified; K21.9 Gastro-esophageal reflux disease without esophagitis; E03.9 Hypothyroidism, unspecified; E88.09 Other disorders of plasma-protein metabolism, not elsewhere classified
CPT/HCPCS: 36415; 71046-TC-FY; 71275-TC; 80053; 80061; 81003; 82272; 82550; 82607; 82728; 82746; 82962; 83036; 83540; 83550; 83721; 83735; 83880; 84100; 84484; 85025; 85027; 85045; 85610; 85730; 87040; 87899; 93005; 93010; 97116-GP; 97161-GP; 99285-25; J0131; Q9967; U0003

== ENCOUNTER 2020-05-12 04:40 | Day surgery (SDC) | payer OTHER ==
[2020-05-10 16:12] VITALS: BMI 36.3
[2020-05-12 11:35] LABS: HEMATOCRIT 47.6 % (32.4-45.2); MCH 28.9 pg (25.7-33.7); MCHC 33.6 g/dl (32.0-36.0); MEAN CELL VOLUME 85.8 fl (80-96); MEAN PLT VOLUME 7.2 fl (7.5-11.1); PLATELET COUNT 204 K/MM3 (134-434); RBC 5.55 M/mm3 (3.60-5.2); RDW 15.2 % (11.6-15.6); WHITE BLOOD COUNT 5.2 K/mm3 (4.0-10.0)
[2020-05-12 14:05] VITALS: BP 117/54; PULSE 63
[2020-05-12 17:55] VITALS: TEMP 97.9
== END 2020-05-12 13:40 | disposition home or self-care (01) ==
LOC: JASU-ENDO 04:40
PROVIDERS: ATTEND Internal Medicine Gastroenterology
PROC: 0DB78ZX Excision of Stomach, Pylorus, Via Natural or Artificial Opening Endoscopic, Diagnostic (ICD-10-PCS; 2020-05-12)
PROC: 0DB28ZX Excision of Middle Esophagus, Via Natural or Artificial Opening Endoscopic, Diagnostic (ICD-10-PCS; 2020-05-12)
PROC: 0DBH8ZX Excision of Cecum, Via Natural or Artificial Opening Endoscopic, Diagnostic (ICD-10-PCS; 2020-05-12)
PROC: 0DBP8ZX Excision of Rectum, Via Natural or Artificial Opening Endoscopic, Diagnostic (ICD-10-PCS; 2020-05-12)
PROC: 0DB38ZX Excision of Lower Esophagus, Via Natural or Artificial Opening Endoscopic, Diagnostic (ICD-10-PCS; principal; 2020-05-12 10:30)
DX: D64.9 Anemia, unspecified (principal); K29.70 Gastritis, unspecified, without bleeding; K57.30 Diverticulosis of large intestine without perforation or abscess without bleeding; K64.8 Other hemorrhoids; K63.5 Polyp of colon
CPT/HCPCS: 36415; 82962; 85027; 88305-TC; 88342-TC

== ENCOUNTER 2023-07-20 08:24 | Emergency (ER) | payer OTHER ==
[2023-07-20 08:46] VITALS: BMI 34.0
[2023-07-20] MEDS ORDERED: MAG HYDROX/AL HYDROX/SIMETH 30 ML UNIT-DOSE CUP ONE (09:54)
[2023-07-20] MEDS ORDERED: ONDANSETRON 4 MG/2 ML VIAL ONE (09:54)
[2023-07-20] MEDS ORDERED: FAMOTIDINE 10 MG/ML VIAL IVPB ONE ×2 (09:54→09:55)
[2023-07-20] MEDS: FAMOTIDINE 20 MG/50 ML IVPB 20 MG/50 ML MG IVPB ONE (10:10)
[2023-07-20] MEDS: MAG HYDROX/AL HYDROX/SIMETH 30 ML UNIT-DOSE CUP PO ONE (10:10)
[2023-07-20] MEDS: ONDANSETRON 4 MG/2 ML VIAL IVPUSH ONE (10:11)
[2023-07-20 10:18] LABS: BASO % 0.4 % (0-2.0); EOS % 1.2 % (0-4.5); HEMATOCRIT 40.3 % (32.4-45.2); HEMOGLOBIN 13.8 GM/dL (10.7-15.3); LYMPH % 6.3 % (8-40); MCH 30.9 pg (25.7-33.7); MCHC 34.1 g/dl (32.0-36.0); MEAN CELL VOLUME 90.6 fl (80-96); MEAN PLT VOLUME 7.3 fl (7.5-11.1); NEUT % 86.1 % (42.8-82.8); PLATELET COUNT 221 10^3/uL (134-434); RBC 4.45 M/mm3 (3.60-5.2); WHITE BLOOD COUNT 7.9 K/mm3 (4.0-10.0)
[2023-07-20 10:21] LABS: EPI CELLS 5 /uL (0-25.1); HYALINE CASTS 0 /uL (0-3.1); PH,URINE 6.5 (5.0-8.0); URINE APPEARANCE CLEAR; URINE BACTERIA 3434 /uL (0-1359); URINE BILIRUBIN NEGATIVE (NEGATIVE); URINE COLOR YELLOW; URINE GLUCOSE (UA) NEGATIVE (NEGATIVE); URINE KETONE NEGATIVE (NEGATIVE); URINE LEUK ESTERASE 3+ (NEGATIVE); URINE NITRITE NEGATIVE (NEGATIVE); URINE PROTEIN NEGATIVE (NEGATIVE); URINE RBC 10 /uL (0-23.9); URINE UROBILINOGEN 0.2 mg/dL (0.2-1.0); URINE WBC 278 /uL (0-25.8)
[2023-07-20 10:37] LABS: POTASSIUM 4.7 mmol/L (3.5-5.1)
[2023-07-20 10:39] LABS: CALCIUM 9.4 mg/dL (8.5-10.1)
[2023-07-20 10:40] LABS: ALBUMIN 3.4 g/dl (3.4-5.0); BLOOD UREA NITROGEN 17.3 mg/dL (7-18)
[2023-07-20 10:43] LABS: CREATININE 0.9 mg/dL (0.55-1.3)
[2023-07-20 10:44] LABS: BILIRUBIN,TOTAL 0.9 mg/dL (0.2-1)
[2023-07-20 10:45] LABS: TOT PROT 6.9 g/dl (6.4-8.2)
[2023-07-20 15:21] VITALS: BP 112/61; PULSE 66; RESP 17; TEMP 98.2
[2023-07-20] MEDS ORDERED: CEPHALEXIN MONOHYDRATE 500 MG CAPSULE (UD) ONE (15:26)
[2023-07-20] MEDS: CEPHALEXIN MONOHYDRATE 500 MG CAPSULE (UD) PO ONE (15:29)
== END 2023-07-20 15:30 | disposition home or self-care (01) ==
LOC: JER 08:24
PROC: 3E033GC Introduction of Other Therapeutic Substance into Peripheral Vein, Percutaneous Approach (ICD-10-PCS; principal; 2023-07-20)
PROC: 3E033GC Introduction of Other Therapeutic Substance into Peripheral Vein, Percutaneous Approach (ICD-10-PCS; 2023-07-20)
DX: R11.2 Nausea with vomiting, unspecified (principal); R10.13 Epigastric pain; R42 Dizziness and giddiness; A08.4 Viral intestinal infection, unspecified
CPT/HCPCS: 36415; 71045-TC-FY; 74177-TC; 80053; 81003; 82962; 83690; 84484; 85025; 87086; 93005; 93010; 96365; 96375; 99285-25